=== PATIENT | female | born 1945 | race Caucasian/White ===

== ENCOUNTER 2020-03-23 13:14 | Inpatient (IN) | payer MEDICARE, BC ==
[2020-03-23] MEDS ORDERED: VANCOMYCIN IV PER PHARMACY 1 EACH MISC MISCELLANE PRN (13:47)
[2020-03-23] MEDS ORDERED: VANCOMYCIN 1,500 MG in SODIUM CHLORIDE 0.9% 250 ML IVPB STA (13:49)
[2020-03-23] MEDS ORDERED: LEVOFLOXACIN 750MG-D5W PMX 750 MG in DEXTROSE/WATER 1 150ML.BAG IVPB STA (13:49)
--- NOTE | 2020-03-23 13:54 | ED ---
General Adult HPI - General Chief complaint: Extremity Problem,Nontraumatic Stated complaint: SOB, bilat leg swelling Time Seen by Provider: 03/23/20 13:34 Source: patient, RN/MD, RN notes reviewed Mode of arrival: wheelchair Limitations: no limitations - History of Present Illness Initial comments: Patient is a pleasant 74-year-old female presenting to the emergency department from primary care physician office. Patient does have history of bilateral leg infection that has worsened over days to weeks. Patient does have history of similar symptoms previously. Patient recommended she come in for IV antibiotics. Patient does complain of discomfort of her lower extremities. Patient denies any dyspnea despite not having her nebulizer machine working for the past couple of days. No fevers. - Related Data Home Medications Medication Instructions Recorded Confirmed Acetaminophen [Tylenol Arthritis] 650 mg PO BID PRN 09/20/15 09/22/15 Aspirin 325 mg PO DAILY 09/20/15 09/22/15 Calcium Carb-Vit D 500Mg-200Un 2 each PO DAILY 09/20/15 09/22/15 [Oscal 500+D] Clopidogrel [Plavix] 75 mg PO DAILY 09/20/15 09/22/15 Cyanocobalamin (Vitamin B-12) 100 mcg PO DAILY 09/20/15 09/22/15 [Vitamin B12] Echinacea(Unk Dose) 1 tab PO DAILY 09/20/15 09/22/15 Furosemide [Lasix] 40 mg PO DAILY 09/20/15 09/22/15 Gabapentin [Neurontin] 100 mg PO BID 09/20/15 09/22/15 Gelatin 650 mg PO DAILY 09/20/15 09/22/15 Ginkgo Biloba Hawkeye Extract [Ginkgo] 60 mg PO DAILY 09/20/15 09/22/15 Glucosam/Randall-Msm1/C/Manjit/Bosw 1 each PO DAILY 09/20/15 09/22/15 [Glucosamine-Chondroitin Tablet] Lecithin, Soy [Lecithin] 400 mg PO DAILY 09/20/15 09/22/15 Lisinopril [Prinivil] 10 mg PO HS 09/20/15 09/22/15 Lovastatin [Mevacor] 40 mg PO HS 09/20/15 09/22/15 Magnesium Oxide [Mag-Ox] 250 mg PO DAILY 09/20/15 09/22/15 Multivit-Min/FA/Lycopen/Lutein 1 each PO DAILY 09/20/15 09/22/15 [Centrum Silver Tablet] Psyllium Husk (with Sugar) 6 gm PO DAILY PRN 09/20/15 09/22/15 [Metamucil Powder] Ubidecarenone [Co Q-10] 400 mg PO DAILY 09/20/15 09/22/15 Vitamin E 1,000 unit PO DAILY 09/20/15 09/22/15 cilostazoL [Pletal] 100 mg PO BID 09/20/15 09/22/15 hydroCHLOROthiazide [Hydrodiuril] 25 mg PO DAILY 09/20/15 09/22/15 traMADol HCl [Ultram] 50 mg PO TID PRN 09/20/15 09/22/15 Allergies Allergy/AdvReac Type Severity Reaction Status Date / Time Penicillins Allergy Swelling Verified 03/23/20 13:28 hydrocodone bitartrate AdvReac Nausea & Verified 03/23/20 13:28 [From Vicodin] Vomiting sulfamethoxazole AdvReac Nausea & Verified 03/23/20 13:28 Vomiting Review of Systems ROS Statement: Those systems with pertinent positive or pertinent negative responses have been documented in the HPI. ROS Other: All systems not noted in ROS Statement are negative. Constitutional: Denies: fever Eyes: Denies: eye pain ENT: Denies: ear pain Respiratory: Denies: cough Cardiovascular: Denies: chest pain Endocrine: Denies: fatigue Gastrointestinal: Denies: abdominal pain Genitourinary: Denies: dysuria Musculoskeletal: Denies: back pain Skin: Reports: as per HPI, rash Past Medical History Past Medical History: Diabetes Mellitus, Hypertension, Myocardial Infarction ([place]), Vascular Disorder Additional Past Medical History / Comment(s): anemia,SOB,irreg HR,bronchitis 16/09-07-15,crys leg and feet edema,hx of bleeding ulcer around age 32 Last Myocardial Infarction Date:: unk History of Any Multi-Drug Resistant Organisms: None Reported Past Surgical History: Hysterectomy, Joint Replacement, Orthopedic Surgery Additional Past Surgical History / Comment(s): rtfem-pop bypass,3or4 stents lt leg,crys knee replace,lt shoulder repair Past Anesthesia/Blood Transfusion Reactions: Postoperative Nausea & Vomiting (PONV) Additional Past Anesthesia/Blood Transfusion Reaction / Comment(s): no problems with prior blood transfusions Past Alcohol Use History: Rare Past Drug Use History: None Reported - Past Family History Mother Family Medical History: Diabetes Mellitus Additional Family Medical History / Comment(s): heart problems Father Additional Family Medical History / Comment(s): heart problems Sister(s) Family Medical History: Diabetes Mellitus Additional Family Medical History / Comment(s): heart problems Brother(s) Family Medical History: Cancer General Exam Limitations: no limitations General appearance: alert, in no apparent distress Head exam: Present: normocephalic Eye exam: Present: normal appearance Neck exam: Present: normal inspection Respiratory exam: Present: normal lung sounds bilaterally Cardiovascular Exam: Present: regular rate, normal rhythm Extremities exam: Present: pedal edema (Trace bilateral) Neurological exam: Present: alert Psychiatric exam: Present: normal affect, normal mood Skin exam: Present: erythema, other (Bilateral lower extremity erythema. There are 2 stage II ulcers right lower leg.) Course Vital Signs 03/23/20 13:25 Temperature 98 F Pulse Rate 97 Respiratory 18 Rate Blood Pressure 122/71 O2 Sat by Pulse 97 Oximetry - Reevaluation(s) Reevaluation #1: 03/23/20 15:26 Case was earlier discussed with Dr. Mcmahan who did want patient admitted with vascular consult and ankle-brachial indexes as well as vancomycin and other antibiotic. Medical Decision Making - Lab Data Result diagrams: 03/23/20 14:04 Lab Results 03/23/20 Range/Units 14:04 WBC 7.1 (3.8-10.6) k/uL RBC 4.28 (3.80-5.40) m/uL Hgb 12.7 (11.4-16.0) gm/dL Hct 40.1 (34.0-46.0) % MCV 93.6 (80.0-100.0) fL MCH 29.7 (25.0-35.0) pg MCHC 31.8 (31.0-37.0) g/dL RDW 16.0 H (11.5-15.5) % Plt Count 215 (150-450) k/uL Neutrophils % 85 % Lymphocytes % 10 % Monocytes % 3 % Eosinophils % 0 % Basophils % 0 % Neutrophils # 6.0 (1.3-7.7) k/uL Lymphocytes # 0.7 L (1.0-4.8) k/uL Monocytes # 0.2 (0-1.0) k/uL Eosinophils # 0.0 (0-0.7) k/uL Basophils # 0.0 (0-0.2) k/uL Hypochromasia Slight Anisocytosis Slight Disposition Clinical Impression: Cellulitis Disposition: ADMITTED IP TO THIS HOSP Is patient prescribed a controlled substance at d/c from ED?: No Referrals: Saul Mcmahan MD [Primary Care Provider] - 1-2 days Decision Time: 15:26
[2020-03-23 15:26] LABS: Anisocytosis Slight; Basophils % (A) 0 %; Eosinophils % (A) 0 %; HCT 40.1 % (34.0-46.0); HGB 12.7 gm/dL (11.4-16.0); Hypochromasia Slight; Lymphocytes # (A) 0.7 k/uL (1.0-4.8); Lymphocytes % (A) 10 %; MCH 29.7 pg (25.0-35.0); MCHC 31.8 g/dL (31.0-37.0); MCV 93.6 fL (80.0-100.0); Mean Platelet Volume 7.3; Monocytes # (A) 0.2 k/uL (0-1.0); Monocytes % (A) 3 %; Neutrophils % (A) 85 %; Platelet Count 215 k/uL (150-450); RBC 4.28 m/uL (3.80-5.40); WBC 7.1 k/uL (3.8-10.6)
[2020-03-23] MEDS ORDERED: NALOXONE 0.4 MG/ML 1 ML VIAL IV PRN (15:26)
[2020-03-23 15:37] LABS: ALT 22 U/L (4-34); AST 28 U/L (14-36); African American GFR (CKD) >90 (>60 ml/min/1.73 sqM); Albumin 3.4 g/dL (3.5-5.0); Alkaline Phosphatase 66 U/L (38-126); Anion Gap 9 mmol/L; Blood Urea Nitrogen 18 mg/dL (7-17); Calcium 8.6 mg/dL (8.4-10.2); Carbon Dioxide 29 mmol/L (22-30); Chloride 94 mmol/L (98-107); Glucose 184 mg/dL (74-99); Non-African American GFR(CKD) 88 (>60 ml/min/1.73 sqM); Potassium 3.7 mmol/L (3.5-5.1); Sodium 132 mmol/L (137-145); Total Bilirubin 0.8 mg/dL (0.2-1.3); Total Protein 6.5 g/dL (6.3-8.2)
[2020-03-23 15:39] LABS: INR 3.3 (<1.2); Partial Thromboplastin Time 31.1 sec (22.0-30.0); Prothrombin Time 32.2 sec (9.0-12.0)
--- NOTE | 2020-03-23 16:28 | US ---
EXAMINATION TYPE: US venous doppler duplex LE DATE OF EXAM: 03/23/2020 3:28 PM COMPARISON: NONE CLINICAL HISTORY: pain, swelling. SIDE PERFORMED: Bilateral TECHNIQUE: The lower extremity deep venous system is examined utilizing real time linear array sonog jose with graded compression, doppler sonography and color-flow sonography. VESSELS IMAGED: External Iliac Vein (EIV) Common Femoral Vein Deep Femoral Vein Greater Saphenous Vein * Femoral Vein Popliteal Vein Small Saphenous Vein * Proximal Calf Veins (* superficial vessels) Right Leg: Negative for DVT. Normal flow, compressibility, and vascular waveforms. Left Leg: Negative for DVT. Normal flow, compressibility, and vascular waveforms. IMPRESSION: No DVT of the bilateral lower extremities.
--- NOTE | 2020-03-23 16:35 | XR ---
EXAMINATION TYPE: XR chest 2V DATE OF EXAM: 03/23/2020 COMPARISON: 01/30/2012 HISTORY: 74-year-old female shortness of breath, dyspnea TECHNIQUE: AP and lateral views FINDINGS: Heart mild to moderately enlarged. Assess for recurrent calcifications. Suspect some dense mitral luzma ular calcifications. Diffuse interstitial density is increased. Patchy posterior basilar opacity. No pleural effusion. IMPRESSION: New cardiomegaly and diffuse interstitial densities. Differential considerations for the interstitial changes include mild CHF with pulmonary vascular congestion and atypical pneumonias. Clinically andres elate.
[2020-03-23] MEDS ORDERED: TRIAMCINOLONE ACET 0.5% CREAM 15 GM TUBE TOPICAL PRN (17:16)
[2020-03-23] MEDS ORDERED: WARFARIN 2 MG TAB PO SCH (18:00)
[2020-03-23] MEDS ORDERED: WARFARIN 0.5 MG TAB PO ONE (19:00)
[2020-03-23] MEDS: SODIUM CHLORIDE 0.9% 1,000 ML IV SCH (19:52)
[2020-03-23] MEDS: methylPREDNISolone SOD SUCCI 40 MG/ML 1 ML VIAL IV SCH (19:53)
[2020-03-23] MEDS: traMADol 50 MG TAB PO PRN (19:59)
[2020-03-23 20:31] LABS: Glucose,Whole Blood 122 mg/dL (75-99)
[2020-03-23] MEDS: hydroCHLOROthiazide 25 MG TAB PO SCH (20:47)
[2020-03-23] MEDS: lisinopriL 10 MG TAB PO SCH (20:47)
[2020-03-23] MEDS: ATORVASTATIN 10 MG TAB PO SCH (20:47)
[2020-03-23] MEDS: GABAPENTIN 100 MG CAP PO SCH (20:47)
--- NOTE | 2020-03-23 22:11 | P.HPIM ---
History of Present Illness H&P Date: 03/23/20 Chief Complaint: Severe nonhealing sore lites of the lower extremity with severe PAD, positi 74-year-old mildly overweight female with advance COPD, CAD, A. fib, type 2 diabetes, moderate PAD has been on medical management. Patient has been treated for Celexa the lower extremity for the last 2 month with failure to treatment become much worse today with worsening pain and swelling and discomfort along with ulcerated area on the cath site on the right along with another ulcer in the medial aspect of the leg below the knee left side had similar finding with smaller ulcer of the time with significant redness going between 2 inches from the knee all the way to the ankle area. Patient is sent to the emergency department Doppler will be done to rule out DVT patient be seen infectious disease culture from those spot to be done and start patient on 1 g of Vanco along with Levaquin. Patient has some any comorbidity with try to involve vascular and the wound center patient will require most likely total of 6 weeks management for those ulcer that's with assumption of her circulation is normal. Patient has not smoked for the last 3 month will continue nicotine patch to help her out at this point. Review of Systems CONSTITUTIONAL: Well-developed mild respiratory distress EYES: No icterus sclerae, no conjunctivitis. EARS, NOSE, MOUTH, THROAT, and FACE: No sore throat, lymphadenopathy, carotid bruits or deformity. RESPIRATORY: Positive shortness of breath cough wheezes.. CARDIOVASCULAR: No CP, positive Palpitation with PND, and orthopnea Orthopnea, without angina. GASTROINTESTINAL: No Abd pain, Nausea or vomiting, no Diarrhea or constipation, No GI Bleed, no distention or masses. GENITOURINARY: Negative for Hematuria or UTI, no kidney stones. Recurrent UTI with decrease urine output. INTEGUMENT/BREAST: Negative for any muscular injury with mild osteoarthritis.. Generalized muscle pain. HEMATOLOGIC/LYMPHATIC: Negative for bleed or purpura. MUSCULOSKELTAL: Negative for Myalgia or arthralgia. Significant swelling and discoloration of both knees worse on the right side and the left side with ulcerated area in the calf area and medial aspect of the left leg and smaller ulcer on the medial aspect of the left side. NEURLOGICAL: No LOC, Sz or syncope, blurred vision dizziness or abnormality.. BEHAVIORAL/PSYCH: Negative. ENDOCRINE: Negative. Past Medical History Past Medical History: Diabetes Mellitus, Hypertension, Myocardial Infarction ([place]), Vascular Disorder Additional Past Medical History / Comment(s): anemia,SOB,irreg HR,bronchitis 16/09-07-15,crys leg and feet edema,hx of bleeding ulcer around age 32 Last Myocardial Infarction Date:: unk History of Any Multi-Drug Resistant Organisms: None Reported Past Surgical History: Hysterectomy, Joint Replacement, Orthopedic Surgery Additional Past Surgical History / Comment(s): rtfem-pop bypass,3or4 stents lt leg,crys knee replace,lt shoulder repair Past Anesthesia/Blood Transfusion Reactions: Postoperative Nausea & Vomiting (PONV) Additional Past Anesthesia/Blood Transfusion Reaction / Comment(s): no problems with prior blood transfusions Past Alcohol Use History: Rare Past Drug Use History: None Reported - Past Family History Mother Family Medical History: Diabetes Mellitus Additional Family Medical History / Comment(s): heart problems Father Additional Family Medical History / Comment(s): heart problems Sister(s) Family Medical History: Diabetes Mellitus Additional Family Medical History / Comment(s): heart problems Brother(s) Family Medical History: Cancer Medications and Allergies Home Medications Medication Instructions Recorded Confirmed Type Gabapentin [Neurontin] 200 mg PO BID 09/20/15 03/23/20 History Lisinopril [Prinivil] 10 mg PO HS 09/20/15 03/23/20 History Lovastatin [Mevacor] 40 mg PO HS 09/20/15 03/23/20 History Multivit-Min/FA/Lycopen/Lutein 1 each PO DAILY 09/20/15 03/23/20 History [Centrum Silver Tablet] hydroCHLOROthiazide [Hydrodiuril] 25 mg PO HS 09/20/15 03/23/20 History traMADol HCl [Ultram] 50 mg PO TID PRN 09/20/15 03/23/20 History Doxycycline Hyclate 100 mg PO BID 03/23/20 03/23/20 History Furosemide [Lasix] 80 mg PO QAM 03/23/20 03/23/20 History Pantoprazole [Protonix] 40 mg PO DAILY 03/23/20 03/23/20 History Triamcinolone 0.5% Cream [Kenalog 1 applic TOPICAL DAILY PRN 03/23/20 03/23/20 History 0.5% Cream] Warfarin Sodium [Jantoven] 2.5 mg PO SUTUTHSA 03/23/20 03/23/20 History Warfarin Sodium [Jantoven] 3.75 mg PO WE 03/23/20 03/23/20 History Warfarin Sodium [Jantoven] 5 mg PO MOFR 03/23/20 03/23/20 History predniSONE See Taper PO DIRECTED 03/23/20 03/23/20 History Allergies Allergy/AdvReac Type Severity Reaction Status Date / Time Penicillins Allergy Swelling Verified 03/23/20 16:22 hydrocodone bitartrate AdvReac Nausea & Verified 03/23/20 16:22 [From Vicodin] Vomiting sulfamethoxazole AdvReac Nausea & Verified 03/23/20 16:22 Vomiting Physical Exam Vitals: Vital Signs Temp Pulse Resp BP Pulse Ox 03/23/20 15:59 60 12 104/67 99 03/23/20 13:25 98 F 97 18 122/71 97 Intake and Output 03/23/20 03/23/20 03/23/20 06:59 14:59 22:59 Other: Weight 78.018 kg General Appearance: Alert, cooperative, no distress, appears stated age. Neck HEENT: Supple, no lymphadenopathy, no thyroid enlargement, no carotid bruits. Lungs: Decreased breath some bilateral rhonchi plasma but spread wheezes. Chest Wall: Decrease expansion with deep inspiration no tenderness and no deform ity was found on exam, no costochondral pain or discomfort. Heart: Irregular rate and rhythm, S1, S2 positive S3 with systolic murmur. Back: Symmetric, no curvature, ROM normal, no CVA tenderness. Abdomen: Soft, non-tender, bowel sounds active all four quadrants, no masses, no organomegaly. Extremities: Significant discoloration cellulitis of the lower extremity from the knee down with multiple ulcer on the right than the left side not able to feel the pulse bilaterally with slight decrease in temperature both lower extremity from the knee down. Pulses: 2+ and symmetric. Skin: Skin color, texture, tugor normal, no rashes or lesions. Neurologic: Alert oriented x3 cranial nerves II through XII intact, no motor deficit, no abnormal balance or gait. Results CBC & Chem 7: 03/23/20 14:04 03/23/20 14:04 Labs: Abnormal Lab Results - Last 24 Hours (Table) 1003/23/20 03/23/20 Range/Units 14:04 14:04 14:04 RDW 16.0 H (11.5-15.5) % Lymphocytes # 0.7 L (1.0-4.8) k/uL PT 32.2 H (9.0-12.0) sec INR 3.3 H (<1.2) APTT 31.1 H (22.0-30.0) sec Sodium 132 L (137-145) mmol/L Chloride 94 L (98-107) mmol/L BUN 18 H (7-17) mg/dL Glucose 184 H (74-99) mg/dL Albumin 3.4 L (3.5-5.0) g/dL Assessment and Plan Assessment: 1 severe acute cellulitis of the lower extremity worsening lately with failure to outpatient management: Patient was giving 1 g of Vanco continue Levaquin 750 mg daily infectious disease consultation be done and culture be done as well. 2 severe PAD not able to feel pulse with significant sign and symptom of severe PAD with ulcer not healing in the right leg compared to the left side, patient will require brachial ankle index along with seen vascular and see if the me dicine need for an angiogram for further diagnosis. 3 nonhealing ulcer of the lower extremity will continue antibiotics topical care for now. 4 advance COPD with worsening symptoms lately: Continue patient on Solu-Medrol along with inhaler and nebulizer and titrate O2. 5 chronic diastolic congestive heart failure: Remain on Lasix lisinopril and hydrocodone diarrhea. 6 type 2 diabetes: Remain on insulin with Accu-Chek sliding scales coverage will hold oral meds for now. 7 hypertension: Remain well controlled on Dyazide lisinopril and metoprolol. 8 possible GI bleed with black stool continue pantoprazole IV we'll consult GI workup patient was stable might require to have EGD. 9 chronic neuropathy: Remain on gabapentin. 10 chronic pain syndrome: Patient still try to manage it came gabapentin Tylenol and tramadol. 11 recurrent UTI: Been treated lately. 12 GI prophylaxis: On pantoprazole 40 mg daily. 13 A. fib with RVR: Remain on warfarin with INR is therapeutic. 14 GI prophylaxis: Continue patient on pantoprazole. 15 DVT prophylaxis: Remain on warfarin. 16 nicotine dependency: Patient will be on nicotine patch 14 mg daily. CODE STATUS: Full code. Admit patient to the inpatient service for more than 2 night stay.
[2020-03-24] MEDS: methylPREDNISolone SOD SUCCI 40 MG/ML 1 ML VIAL IV SCH ×4 (02:07→21:04)
[2020-03-24] MEDS: VANCOMYCIN 1,500 MG in SODIUM CHLORIDE 0.9% 250 ML IVPB SCH ×2 (05:35→18:00)
[2020-03-24 07:06] LABS: Glucose,Whole Blood 206 mg/dL (75-99)
[2020-03-24] MEDS: GABAPENTIN 100 MG CAP PO SCH ×2 (08:12→21:04)
[2020-03-24] MEDS: FUROSEMIDE 80 MG TAB PO SCH (08:12)
[2020-03-24] MEDS: INSULIN ASPART (NovoLOG) 100 UNIT/ML VIAL SQ SCH ×4 (08:12→21:56)
[2020-03-24] MEDS: PANTOPRAZOLE 40 MG TABLET PO SCH (08:12)
[2020-03-24] MEDS: MULTIVITAMINS, THERA 1 EACH TAB PO SCH (08:12)
[2020-03-24] MEDS: traMADol 50 MG TAB PO PRN (08:21)
[2020-03-24 09:32] LABS: INR 2.33 (0.90-1.11); Prothrombin Time 24.1 sec (9.9-11.9)
--- NOTE | 2020-03-24 11:25 | P.PN ---
Subjective Progress Note Date: 03/24/20 HISTSORY OF PRESENT ILLNESS 74-year-old mildly overweight female with advance COPD, CAD, A. fib, type 2 diabetes, moderate PAD has been on medical management. Patient has been treated for Celexa the lower extremity for the last 2 month with failure to treatment become much worse today with worsening pain and swelling and discomfort along with ulcerated area on the cath site on the right along with another ulcer in the medial aspect of the leg below the knee left side had similar finding with smaller ulcer of the time with significant redness going between 2 inches from the knee all the way to the ankle area. Patient is sent to the emergency department Doppler will be done to rule out DVT patient be seen infectious disease culture from those spot to be done and start patient on 1 g of Vanco along with Levaquin. 03/24: The patient states that she slept well last night. There is a consult and for vascular surgery. Her breathing status is improved and stable. Lung sounds are improved today. We will decrease Solu-Medrol to 40 mg every 12 hours. Her baseline is taking prednisone 10 mg daily. Wound consult will be added with plan for patient to follow-up in the wound Center after discharge. Repeat INR 2.33. NovoLog scale started. REVEIW OF SYSTEMS CONSTITUTIONAL: Well-developed no respiratory distress EYES: No icterus sclerae, no conjunctivitis. EARS, NOSE, MOUTH, THROAT, and FACE: No sore throat, lymphadenopathy, carotid bruits or deformity. RESPIRATORY: Positive shortness of breath cough wheezes-improving. CARDIOVASCULAR: No CP, positive Palpitation with PND, and orthopnea without angina. GASTROINTESTINAL: No Abd pain, Nausea or vomiting, no Diarrhea or constipation, No GI Bleed, no distention or masses. GENITOURINARY: Negative for Hematuria or UTI, no kidney stones. Recurrent UTI with decrease urine output. INTEGUMENT/BREAST: Negative for any muscular injury with mild osteoarthritis.. Generalized muscle pain. HEMATOLOGIC/LYMPHATIC: Negative for bleed or purpura. MUSCULOSKELTAL: Negative for Myalgia or arthralgia. Significant swelling and discoloration of both knees worse on the right side and the left side with ulcerated area in the calf area and medial aspect of the left leg and smaller ulcer on the medial aspect of the left side. NEURLOGICAL: No LOC, Sz or syncope, blurred vision dizziness or abnormality.. BEHAVIORAL/PSYCH: Negative. ENDOCRINE: Negative. PHYSICAL EXAMINATION General Appearance: Alert, cooperative, no distress, appears stated age. Neck HEENT: Supple, no lymphadenopathy, no thyroid enlargement, no carotid bruits. Lungs: Decreased breath some bilateral rhonchi plasma but spread wheezes. Chest Wall: Decrease expansion with deep inspiration no tenderness and no deformity was found on exam, no costochondral pain or discomfort. Heart: Irregular rate and rhythm, S1, S2 positive S3 with systolic murmur. Back: Symmetric, no curvature, ROM normal, no CVA tenderness. Abdomen: Soft, non-tender, bowel sounds active all four quadrants, no masses, no organomegaly. Extremities: Significant discoloration cellulitis of the lower extremity from the knee down with multiple ulcer on the right than the left side not able to feel the pulse bilaterally with slight decrease in temperature both lower extremity from the knee down. Pulses: 2+ and symmetric. Skin: Skin color, texture, tugor normal, no rashes or lesions. Neurologic: Alert oriented x3 cranial nerves II through XII intact, no motor deficit, no abnormal balance or gait. ASSESSMENT AND PLAN 1 severe acute cellulitis of the lower extremity worsening lately with failure to outpatient management: Patient was giving 1 g of Vanco continue Levaquin changed to Rocephin. Vascular consult. 2 severe PAD not able to feel pulse with significant sign and symptom of severe PAD with ulcer not healing in the right leg compared to the left side, patient will require brachial ankle index along with seen vascular and see if the medicine need for an angiogram for further diagnosis. 3 nonhealing ulcer of the lower extremity will continue antibiotics topical care for now. Wound Center consult. 4 advance COPD with exacerbation Decrease Solu-Medrol to 40 mg IV every 12 hours and continue with inhaler and nebulizer and titrate O2. 5 chronic diastolic heart failure: Remain on Lasix lisinopril and hydrocodone diarrhea. 6 type 2 diabetes: Remain on insulin with Accu-Chek sliding scales coverage will hold oral meds for now. 7 hypertension: Remain well controlled on Dyazide lisinopril and metoprolol. 8 possible GI bleed with black stool. Hemoglobin is stable. Repeat hemoglobin in the morning, stool for occult blood. Protonix daily. 9 chronic neuropathy: Remain on gabapentin. 10 chronic pain syndrome: Patient still try to manage it came gabapentin Tylenol and tramadol. 11 recurrent UTI: Been treated lately. 12 GI prophylaxis: On pantoprazole 40 mg daily. 13 chronic atrial fibrillation. Remain on warfarin with INR is therapeutic. 14 GI prophylaxis: Continue patient on pantoprazole. 15 DVT prophylaxis: Remain on warfarin. 16 nicotine dependency: Patient will be on nicotine patch 14 mg daily. Patient quit smoking 2 months ago. 17 chronic hypoxic respiratory failure on home O2 at 2 L nasal cannula. CODE STATUS: Full code. DISCHARGE PLAN To be determined. Most likely return home. Impression and plan of care have been directed as dictated by the signing physician. Maida Johnson nurse practitioner acting as scribe for signing physician. Objective - Vital Signs Vital signs: Vital Signs Temp 97.8 F 03/24/20 05:00 Pulse 85 03/24/20 05:00 Resp 16 03/24/20 05:00 BP 114/73 03/24/20 05:00 Pulse Ox 100 03/24/20 05:00 Intake & Output 03/23/20 03/24/20 03/24/20 18:59 06:59 18:59 Intake Total 1380 Balance 1380 Weight 78.018 kg 79.5 kg Intake: Intake, IV Titration 490 Amount Sodium Chloride 0.9% 1, 240 000 ml @ 20 mls/hr IV . Q24H [facility] Rx#:[id number] Vancomycin 1,500 mg In 250 Sodium Chloride 0.9% 250 ml @ 125 mls/hr IVPB Q12H [facility] Rx#:[id number] Oral 890 Other: Voiding Method Toilet # Voids 2 - Labs CBC & Chem 7: 03/23/20 14:04 03/23/20 14:04 Labs: Abnormal Lab Results - Last 24 Hours (Table) 03/23/20 03/23/20 03/23/20 Range/Units 14:04 14:04 14:04 RDW 16.0 H (11.5-15.5) % Lymphocytes # 0.7 L (1.0-4.8) k/uL PT 32.2 H (9.0-12.0) sec INR 3.3 H (<1.2) APTT 31.1 H (22.0-30.0) sec Sodium 132 L (137-145) mmol/L Chloride 94 L (98-107) mmol/L BUN 18 H (7-17) mg/dL Glucose 184 H (74-99) mg/dL POC Glucose (mg/dL) (75-99) mg/dL Albumin 3.4 L (3.5-5.0) g/dL 03/23/20 03/24/20 Range/Units 20:28 07:04 RDW (11.5-15.5) % Lymphocytes # (1.0-4.8) k/uL PT (9.0-12.0) sec INR (<1.2) APTT (22.0-30.0) sec Sodium (137-145) mmol/L Chloride (98-107) mmol/L BUN (7-17) mg/dL Glucose (74-99) mg/dL POC Glucose (mg/dL) 122 H 206 H (75-99) mg/dL Albumin (3.5-5.0) g/dL Microbiology - Last 24 Hours (Table) 03/23/20 14:04 Wound Culture - Preliminary Leg - Right
--- NOTE | 2020-03-24 11:33 | P.CONS ---
History of Present Illness - Reason for Consult Consult date: 03/24/20 wound care - History of Present Illness this is a 74-year-old pleasant female being seen by the wound care center on for nonhealing ulcerations to the right lower extremity. Patient stated that the ulceration started approximately 2 weeks ago. She has increased pain and discomfort specifically to the 2 medial ulcerations. She was seen by her primary care provider who is Dr. Mcmahan who prescribed a cream that she was unsure of the name. matthew has medical history significant for diabetes, hypertension, or cardiac infarction, vascular disorder. Had previously a right fem-pop bypass in 3-4 stents to the left leg. Patient is a former smoker. Review of Systems Review Of Systems: Constitutional: No fever, no chills, no night sweats. No weight change. No weakness, fatigue or lethargy. No daytime sleepiness. Integumentary:reports wounds, no lesions. No rash or pruritus. No unusual bruising. No change in hair or nails. Past Medical History Past Medical History: Diabetes Mellitus, Hypertension, Myocardial Infarction ([place]), Vascular Disorder Additional Past Medical History / Comment(s): anemia,SOB,irreg HR,bronchitis 09-06-15/09-07-15,crys leg and feet edema,hx of bleeding ulcer around age 32 Last Myocardial Infarction Date:: unk History of Any Multi-Drug Resistant Organisms: None Reported Past Surgical History: Hysterectomy, Joint Replacement, Orthopedic Surgery Additional Past Surgical History / Comment(s): rtfem-pop bypass,3or4 stents lt leg,crys knee replace,lt shoulder repair Past Anesthesia/Blood Transfusion Reactions: Postoperative Nausea & Vomiting (PONV) Additional Past Anesthesia/Blood Transfusion Reaction / Comm: no problems with prior blood transfusions Past Alcohol Use History: Rare Past Drug Use History: None Reported - Past Family History Mother Family Medical History: Diabetes Mellitus Additional Family Medical History / Comment(s): heart problems Father Additional Family Medical History / Comment(s): heart problems Sister(s) Family Medical History: Diabetes Mellitus Additional Family Medical History / Comment(s): heart problems Brother(s) Family Medical History: Cancer Medications and Allergies Home Medications Medication Instructions Recorded Confirmed Type Gabapentin [Neurontin] 200 mg PO BID 09/20/15 03/23/20 History Lisinopril [Prinivil] 10 mg PO HS 09/20/15 03/23/20 History Lovastatin [Mevacor] 40 mg PO HS 09/20/15 03/23/20 History Multivit-Min/FA/Lycopen/Lutein 1 each PO DAILY 09/20/15 03/23/20 History [Centrum Silver Tablet] hydroCHLOROthiazide [Hydrodiuril] 25 mg PO HS 09/20/15 03/23/20 History traMADol HCl [Ultram] 50 mg PO TID PRN 09/20/15 03/23/20 History Doxycycline Hyclate 100 mg PO BID 03/23/20 03/23/20 History Furosemide [Lasix] 80 mg PO QAM 03/23/20 03/23/20 History Pantoprazole [Protonix] 40 mg PO DAILY 03/23/20 03/23/20 History Triamcinolone 0.5% Cream [Kenalog 1 applic TOPICAL DAILY PRN 03/23/20 03/23/20 History 0.5% Cream] Warfarin Sodium [Jantoven] 2.5 mg PO SUTUTHSA 03/23/20 03/23/20 History Warfarin Sodium [Jantoven] 3.75 mg PO WE 03/23/20 03/23/20 History Warfarin Sodium [Jantoven] 5 mg PO MOFR 03/23/20 03/23/20 History predniSONE See Taper PO DIRECTED 03/23/20 03/23/20 History Allergies Allergy/AdvReac Type Severity Reaction Status Date / Time Penicillins Allergy Swelling Verified 03/23/20 16:22 hydrocodone bitartrate AdvReac Nausea & Verified 03/23/20 16:22 [From Vicodin] Vomiting sulfamethoxazole AdvReac Nausea & Verified 03/23/20 16:22 Vomiting Physical Exam Vitals: Vital Signs Temp Pulse Pulse Resp BP BP Pulse Ox 03/24/20 05:00 97.8 F 85 16 114/73 100 03/23/20 20:00 97.5 F L 85 18 130/79 98 03/23/20 15:59 60 12 104/67 99 03/23/20 13:25 98 F 97 18 122/71 97 Intake and Output 03/23/20 03/24/20 03/24/20 22:59 06:59 14:59 Intake Total 380 1000 Balance 380 1000 Intake: Intake, IV Titration 80 410 Amount Sodium Chloride 0.9% 1, 80 160 000 ml @ 20 mls/hr IV . Q24H [facility] Rx#:[id number] Vancomycin 1,500 mg In 250 Sodium Chloride 0.9% 250 ml @ 125 mls/hr IVPB Q12H [facility] Rx#:[id number] Oral 300 590 Other: Voiding Method Toilet # Voids 3 2 2 Weight 80 kg 79.5 kg Physical exam: General Appearance: Alert, cooperative, no distress, appears stated age. Skin: ight lower extremity medial aspect cluster of 2 full thickness nonhealing ulceration appears venous in nature. Ulceration measures approximately by 3.5 x 0.2 cm, 2.2 x 3.2 x 0.2 cm. With fat layer exposure. Minimal granulation seen within the wound bed. Wound edges attached to the wound base. Significant amount of slough noted to the wound bed. Erythema and excoriation noted to the periwound. Moderate amount of serous drainage. Right anterior leg ulceration measuring 0.7 x 0.5 x 0.1 cm with fat layer exposure minimal granulation seen within wound bed. Wound edges attached to the wound base. No tunneling or undermining. moderate amount of slough noted. Periwound shows excoriation and erythema.all other Skin color, texture, tugor normal, no rashes or lesions. Extremities: Right lower extremity 1+ pedal pulse Neurologic: Alert oriented x3 Results CBC & Chem 7: 03/23/20 14:04 03/23/20 14:04 Labs: Abnormal Lab Results - Last 24 Hours (Table) 03/23/20 03/23/20 03/23/20 Range/Units 14:04 14:04 14:04 RDW 16.0 H (11.5-15.5) % Lymphocytes # 0.7 L (1.0-4.8) k/uL PT 32.2 H (9.0-12.0) sec INR 3.3 H (<1.2) APTT 31.1 H (22.0-30.0) sec Sodium 132 L (137-145) mmol/L Chloride 94 L (98-107) mmol/L BUN 18 H (7-17) mg/dL Glucose 184 H (74-99) mg/dL POC Glucose (mg/dL) (75-99) mg/dL Albumin 3.4 L (3.5-5.0) g/dL 03/23/20 03/24/20 03/24/20 Range/Units 20:28 06:02 07:04 RDW (11.5-15.5) % Lymphocytes # (1.0-4.8) k/uL PT 24.1 H (9.0-12.0) sec INR 2.33 H (<1.2) APTT (22.0-30.0) sec Sodium (137-145) mmol/L Chloride (98-107) mmol/L BUN (7-17) mg/dL Glucose (74-99) mg/dL POC Glucose (mg/dL) 122 H 206 H (75-99) mg/dL Albumin (3.5-5.0) g/dL Microbiology - Last 24 Hours (Table) 03/23/20 14:04 Gram Stain - Preliminary Leg - Right Wound Culture - Preliminary Assessment and Plan (1) Nonhealing ulcer of right lower extremity with fat layer exposed Current Visit: Yes Status: Acute Code(s): L97.912 - NON-PRS CHR ULC UNSP PRT OF R LOW LEG W FAT LAYER EXPOSED SNOMED Code(s): 51969459 (2) Chronic venous hypertension w/ulcer and inflammation involv right side Current Visit: Yes Status: Acute Code(s): I87.331 - CHRONIC VENOUS HTN W ULCER AND INFLAMMATION OF R LOW EXTREM; L97.919 - NON-PRS CHRONIC ULC UNSP PRT OF R LOW LEG W UNSP SEVERITY SNOMED Code(s): 983337730 (3) Diabetes mellitus with skin ulcer Current Visit: Yes Status: Acute Code(s): E11.622 - TYPE 2 DIABETES MELLITUS WITH OTHER SKIN ULCER; L98.499 - NON-PRESSURE CHRONIC ULCER OF SKIN OF SITES W UNSP SEVERITY SNOMED Code(s): 40235428 Plan: apply honey alginate, saline moistened gauze, dry gauze, rolled gauze secured paper tape. change Friday. Patient may benefit from home care seen and dressing changes. Patient would benefit from outpatient wound care which she is agreeable to. Please call wound care center for appointment one week from discharge. thank you kindly for the consultation any questions please contact the wound care center DNP note has been reviewed and discussed with Dr. Jade and the impression and plan of care has been directed as dictated.
[2020-03-24 11:54] LABS: Glucose,Whole Blood 175 mg/dL (75-99)
[2020-03-24] MEDS: NICOTINE 14MG/24HR PATCH TRANSDERM SCH (12:35)
[2020-03-24] MEDS ORDERED: ONDANSETRON 4 MG/2 ML VIAL IVP PRN (12:54)
[2020-03-24] MEDS ORDERED: ACETAMINOPHEN TAB 325 MG TAB PO PRN (12:54)
[2020-03-24] MEDS ORDERED: HYDROmorphone 1 MG/ML 1 ML SYRINGE IVP PRN (12:54)
--- NOTE | 2020-03-24 13:04 | P.GSCN ---
History of Present Illness Consult date: 03/24/20 Reason for Consult: Cellulitis and chronic wounds to bilateral lower extremities, peripheral arterial disease History of present illness: This is a 74-year-old pleasant female was admitted to the emergency department for nonhealing ulcerations to the right lower extremity and cellulitis with failed outpatient treatment. Patient stated that the ulceration started approximately 2 weeks ago. She has increased pain and discomfort s pecifically to the 2 medial ulcerations. There are surgery has been asked to see the patient regarding bilateral lower extremity nonhealing wounds and history of peripheral arterial disease. She was seen by her primary care provider who is Dr. Mcmahan who prescribed a cream that she was unsure of the name. She has a medical history significant for type 2 diabetes mellitus, COPD, hypertension, coronary artery disease, atrial fibrillation, peripheral arterial disease with a history of a previous right fem-pop bypass and 3-4 stents in the left lower extremity. Patient is a former smoker. She is currently on vancomycin and ceftriaxon. She had arterial Dopplers of the bilateral lower extremities; her right DEMAR was 1.20, left DEMAR 1.02. She underwent a venous doppler ultrasound of bilateral lower extremities both negative for DVT. She states prior to 2-3 weeks ago she has not been experiencing any difficulty with walking or pain in her lower extremities. However since the ulceration she has had previous pain and discomfort in bilateral lower extremities. She denies any shortness of breath or chest pain. Review of Systems 14 point review of systems was completed all pertinent positives and negatives stated in the HPI. Past Medical History Past Medical History: Diabetes Mellitus, Hypertension, Myocardial Infarction ([place]), Vascular Disorder Additional Past Medical History / Comment(s): anemia,SOB,irreg HR,bronchitis 16/09-07-15,crys leg and feet edema,hx of bleeding ulcer around age 32 Last Myocardial Infarction Date:: unk History of Any Multi-Drug Resistant Organisms: None Reported Past Surgical History: Hysterectomy, Joint Replacement, Orthopedic Surgery Additional Past Surgical History / Comment(s): rtfem-pop bypass,3or4 stents lt leg,crys knee replace,lt shoulder repair Past Anesthesia/Blood Transfusion Reactions: Postoperative Nausea & Vomiting (PONV) Additional Past Anesthesia/Blood Transfusion Reaction / Comm: no problems with prior blood transfusions Past Alcohol Use History: Rare Past Drug Use History: None Reported - Past Family History Mother Family Medical History: Diabetes Mellitus Additional Family Medical History / Comment(s): heart problems Father Additional Family Medical History / Comment(s): heart problems Sister(s) Family Medical History: Diabetes Mellitus Additional Family Medical History / Comment(s): heart problems Brother(s) Family Medical History: Cancer Medications and Allergies Home Medications Medication Instructions Recorded Confirmed Type Gabapentin [Neurontin] 200 mg PO BID 09/20/15 03/23/20 History Lisinopril [Prinivil] 10 mg PO HS 09/20/15 03/23/20 History Lovastatin [Mevacor] 40 mg PO HS 09/20/15 03/23/20 History Multivit-Min/FA/Lycopen/Lutein 1 each PO DAILY 09/20/15 03/23/20 History [Centrum Silver Tablet] hydroCHLOROthiazide [Hydrodiuril] 25 mg PO HS 09/20/15 03/23/20 History traMADol HCl [Ultram] 50 mg PO TID PRN 09/20/15 03/23/20 History Doxycycline Hyclate 100 mg PO BID 03/23/20 03/23/20 History Furosemide [Lasix] 80 mg PO QAM 03/23/20 03/23/20 History Pantoprazole [Protonix] 40 mg PO DAILY 03/23/20 03/23/20 History Triamcinolone 0.5% Cream [Kenalog 1 applic TOPICAL DAILY PRN 03/23/20 03/23/20 History 0.5% Cream] Warfarin Sodium [Jantoven] 2.5 mg PO SUTUTHSA 03/23/20 03/23/20 History Warfarin Sodium [Jantoven] 3.75 mg PO WE 03/23/20 03/23/20 History Warfarin Sodium [Jantoven] 5 mg PO MOFR 03/23/20 03/23/20 History predniSONE See Taper PO DIRECTED 03/23/20 03/23/20 History Allergies Allergy/AdvReac Type Severity Reaction Status Date / Time Penicillins Allergy Swelling Verified 03/23/20 16:22 hydrocodone bitartrate AdvReac Nausea & Verified 03/23/20 16:22 [From Vicodin] Vomiting sulfamethoxazole AdvReac Nausea & Verified 03/23/20 16:22 Vomiting Surgical - Exam Vital Signs Temp Pulse Resp BP Pulse Ox 98 F 97 18 122/71 97 03/23/20 13:25 03/23/20 13:25 03/23/20 13:25 03/23/20 13:25 03/23/20 13:25 General appearance: The patient is alert, oriented, in no acute distress. HET: Head is normocephalic and atraumatic. Neck: Supple without lymphadenopathy. Trachea midline. Heart: S1 S2. Irregular rate and rhythm, systolic murmmur. Lungs: No crackles or wheezes are heard. Abdomen: Soft, nontender, nondistended with bowel sounds. Extremities: Bilateral lower extremities with +1 edema, erythema. Right Lower extremity medial aspect to nonhealing ulcerations with serous drainage. Right anterior ulceration. Left lower extremity anterior ulceration. Palpable 1+ bilateral dorsalis pedis pulses. Capillary refill less than 5 seconds. Full range of motion of bilateral lower extremities and toes. Neurological: No focal deficits. Strength and sensation are grossly intact. Results Lower extremity arterial Doppler study reviewed Venous Doppler ultrasound bilateral lower extremities reviewed - Labs 03/23/20 14:04 03/23/20 14:04 Abnormal Lab Results - Last 24 Hours (Table) 03/23/20 03/23/20 03/23/20 Range/Units 14:04 14:04 14:04 RDW 16.0 H (11.5-15.5) % Lymphocytes # 0.7 L (1.0-4.8) k/uL PT 32.2 H (9.0-12.0) sec INR 3.3 H (<1.2) APTT 31.1 H (22.0-30.0) sec Sodium 132 L (137-145) mmol/L Chloride 94 L (98-107) mmol/L BUN 18 H (7-17) mg/dL Glucose 184 H (74-99) mg/dL POC Glucose (mg/dL) (75-99) mg/dL Albumin 3.4 L (3.5-5.0) g/dL 03/23/20 03/24/20 03/24/20 Range/Units 20:28 06:02 07:04 RDW (11.5-15.5) % Lymphocytes # (1.0-4.8) k/uL PT 24.1 H (9.0-12.0) sec INR 2.33 H (<1.2) APTT (22.0-30.0) sec Sodium (137-145) mmol/L Chloride (98-107) mmol/L BUN (7-17) mg/dL Glucose (74-99) mg/dL POC Glucose (mg/dL) 122 H 206 H (75-99) mg/dL Albumin (3.5-5.0) g/dL 03/24/20 Range/Units 11:37 RDW (11.5-15.5) % Lymphocytes # (1.0-4.8) k/uL PT (9.0-12.0) sec INR (<1.2) APTT (22.0-30.0) sec Sodium (137-145) mmol/L Chloride (98-107) mmol/L BUN (7-17) mg/dL Glucose (74-99) mg/dL POC Glucose (mg/dL) 175 H (75-99) mg/dL Albumin (3.5-5.0) g/dL Microbiology - Last 24 Hours (Table) 03/23/20 14:04 Gram Stain - Preliminary Leg - Right Wound Culture - Preliminary Diabetes panel 03/23/20 Range/Units 14:04 Sodium 132 L (137-145) mmol/L Potassium 3.7 (3.5-5.1) mmol/L Chloride 94 L (98-107) mmol/L Carbon Dioxide 29 (22-30) mmol/L BUN 18 H (7-17) mg/dL Creatinine 0.67 (0.52-1.04) mg/dL Glucose 184 H (74-99) mg/dL Calcium 8.6 (8.4-10.2) mg/dL AST 28 (14-36) U/L ALT 22 (4-34) U/L Alkaline Phosphatase 66 (38-126) U/L Total Protein 6.5 (6.3-8.2) g/dL Albumin 3.4 L (3.5-5.0) g/dL Calcium panel 03/23/20 Range/Units 14:04 Calcium 8.6 (8.4-10.2) mg/dL Albumin 3.4 L (3.5-5.0) g/dL Pituitary panel 03/23/20 Range/Units 14:04 Sodium 132 L (137-145) mmol/L Potassium 3.7 (3.5-5.1) mmol/L Chloride 94 L (98-107) mmol/L Carbon Dioxide 29 (22-30) mmol/L BUN 18 H (7-17) mg/dL Creatinine 0.67 (0.52-1.04) mg/dL Glucose 184 H (74-99) mg/dL Calcium 8.6 (8.4-10.2) mg/dL Adrenal panel 03/23/20 Range/Units 14:04 Sodium 132 L (137-145) mmol/L Potassium 3.7 (3.5-5.1) mmol/L Chloride 94 L (98-107) mmol/L Carbon Dioxide 29 (22-30) mmol/L BUN 18 H (7-17) mg/dL Creatinine 0.67 (0.52-1.04) mg/dL Glucose 184 H (74-99) mg/dL Calcium 8.6 (8.4-10.2) mg/dL Total Bilirubin 0.8 (0.2-1.3) mg/dL AST 28 (14-36) U/L ALT 22 (4-34) U/L Alkaline Phosphatase 66 (38-126) U/L Total Protein 6.5 (6.3-8.2) g/dL Albumin 3.4 L (3.5-5.0) g/dL Assessment and Plan Assessment: 1. Nonhealing ulcers of bilateral lower extremities 2. History of peripheral arterial disease, status post right fem-pop bypass graft and left lower extremity stents 3. Type 2 diabetes mellitus 4. Coronary artery disease 5. COPD 6. Hyperlipidemia 7. Hypertension 8. Former smoker Plan: Agree with local wound care per care clinic with follow-up as an outpatient. Continue IV antibiotics as ordered. Recommend outpatient follow-up with vascular surgery. Further recommendations to follow. Thank you for this consultation and allowing us take part in the plan of care of your patient during her hospital stay. The impression and plan of care has been dictated as directed. Dr. Alberto I performed a history and examination of this patient, discussed the same with the dictator. I agree with the dictator's note ,documented as a scribe. Any additional findings or plans will be noted.
[2020-03-24] MEDS ORDERED: LEVOFLOXACIN 750MG-D5W PMX 750 MG in DEXTROSE/WATER 1 150ML.BAG IVPB SCH (16:00)
[2020-03-24 17:56] LABS: Glucose,Whole Blood 160 mg/dL (75-99)
[2020-03-24] MEDS ORDERED: WARFARIN 2 MG TAB PO ONE (18:00)
[2020-03-24] MEDS: SODIUM CHLORIDE 0.9% 1,000 ML IV SCH (19:09)
[2020-03-24] MEDS: ATORVASTATIN 10 MG TAB PO SCH (21:04)
[2020-03-24] MEDS: lisinopriL 10 MG TAB PO SCH (21:04)
[2020-03-24] MEDS: hydroCHLOROthiazide 25 MG TAB PO SCH (21:04)
[2020-03-24 21:42] LABS: Glucose,Whole Blood 155 mg/dL (75-99)
[2020-03-25] MEDS ORDERED: VANCOMYCIN TROUGH DUE 1 EACH MISC MISCELLANE ONE (05:00)
[2020-03-25] MEDS: VANCOMYCIN 1,500 MG in SODIUM CHLORIDE 0.9% 250 ML IVPB SCH ×2 (05:51→17:25)
[2020-03-25 06:03] LABS: HCT 40.3 % (34.0-46.0); HGB 12.5 gm/dL (11.4-16.0); Hypochromasia Slight; MCH 29.3 pg (25.0-35.0); MCV 94.4 fL (80.0-100.0); Mean Platelet Volume 7.5; Platelet Count 217 k/uL (150-450); RBC 4.27 m/uL (3.80-5.40); RDW 15.7 % (11.5-15.5); WBC 11.9 k/uL (3.8-10.6)
[2020-03-25 07:03] LABS: Glucose,Whole Blood 156 mg/dL (75-99)
[2020-03-25 08:26] LABS: INR 1.8 (<1.2); Prothrombin Time 17.6 sec (9.0-12.0)
[2020-03-25 08:57] LABS: ALT 23 U/L (4-34); AST 28 U/L (14-36); African American GFR (CKD) >90 (>60 ml/min/1.73 sqM); Albumin 3.4 g/dL (3.5-5.0); Albumin/Globulin Ratio 1.1; Alkaline Phosphatase 57 U/L (38-126); Anion Gap 8 mmol/L; Blood Urea Nitrogen 24 mg/dL (7-17); Carbon Dioxide 29 mmol/L (22-30); Chloride 90 mmol/L (98-107); Globulin 3.1 g/dL; Glucose 186 mg/dL (74-99); Non-African American GFR(CKD) 87 (>60 ml/min/1.73 sqM); Sodium 127 mmol/L (137-145); Total Protein 6.5 g/dL (6.3-8.2)
[2020-03-25] MEDS: methylPREDNISolone SOD SUCCI 40 MG/ML 1 ML VIAL IV SCH ×2 (09:08→20:28)
[2020-03-25] MEDS: MULTIVITAMINS, THERA 1 EACH TAB PO SCH (09:08)
[2020-03-25] MEDS: FUROSEMIDE 80 MG TAB PO SCH (09:08)
[2020-03-25] MEDS: INSULIN ASPART (NovoLOG) 100 UNIT/ML VIAL SQ SCH ×4 (09:08→21:42)
[2020-03-25] MEDS: GABAPENTIN 100 MG CAP PO SCH ×2 (09:08→20:28)
[2020-03-25] MEDS: PANTOPRAZOLE 40 MG TABLET PO SCH (09:08)
[2020-03-25] MEDS: NICOTINE 14MG/24HR PATCH TRANSDERM SCH (09:09)
[2020-03-25] MEDS: traMADol 50 MG TAB PO PRN ×2 (09:11→20:31)
[2020-03-25 11:28] LABS: Glucose,Whole Blood 145 mg/dL (75-99)
--- NOTE | 2020-03-25 13:41 | P.PN ---
Subjective Progress Note Date: 03/25/20 HISTSORY OF PRESENT ILLNESS 74-year-old mildly overweight female with advance COPD, CAD, A. fib, type 2 diabetes, moderate PAD has been on medical management. Patient has been treated for Celexa the lower extremity for the last 2 month with failure to treatment become much worse today with worsening pain and swelling and discomfort along with ulcerated area on the cath site on the right along with another ulcer in the medial aspect of the leg below the knee left side had similar finding with smaller ulcer of the time with significant redness going between 2 inches from the knee all the way to the ankle area. Patient is sent to the emergency department Doppler will be done to rule out DVT patient be seen infectious disease culture from those spot to be done and start patient on 1 g of Vanco along with Levaquin. 03/24: The patient states that she slept well last night. There is a consult and for vascular surgery. Her breathing status is improved and stable. Lung sounds are improved today. We will decrease Solu-Medrol to 40 mg every 12 hours. Her baseline is taking prednisone 10 mg daily. Wound consult will be added with plan for patient to follow-up in the wound Center after discharge. Repeat INR 2.33. NovoLog scale started. 03/25: pateint with productive cough brown yellow, no fever, leg cellulitis improving less redness still with purulent discharge on bulateral leg ulcers right worse than left no significant edema, seen by vascular surgeon OP followup, wound growing grm negative, patient started on budesonid and duoneb from wheezing today, heplock iv on solumedrol 40 q12 hr, mucinex started. saline lock ordered REVEIW OF SYSTEMS CONSTITUTIONAL: Well-developed no respiratory distress EYES: No icterus sclerae, no conjunctivitis. EARS, NOSE, MOUTH, THROAT, and FACE: No sore throat, lymphadenopathy, carotid bruits or deformity. RESPIRATORY: Positive shortness of breath cough wheezes-improving. CARDIOVASCULAR: No CP, positive Palpitation with PND, and orthopnea without angina. GASTROINTESTINAL: No Abd pain, Nausea or vomiting, no Diarrhea or constipation, No GI Bleed, no distention or masses. GENITOURINARY: Negative for Hematuria or UTI, no kidney stones. Recurrent UTI with decrease urine output. INTEGUMENT/BREAST: Negative for any muscular injury with mild osteoarthritis.. Generalized muscle pain. HEMATOLOGIC/LYMPHATIC: Negative for bleed or purpura. MUSCULOSKELTAL: Negative for Myalgia or arthralgia. Significant swelling and discoloration of both knees worse on the right side and the left side with ulcerated area in the calf area and medial aspect of the left leg and smaller ulcer on the medial aspect of the left side. NEURLOGICAL: No LOC, Sz or syncope, blurred vision dizziness or abnormality.. BEHAVIORAL/PSYCH: Negative. ENDOCRINE: Negative. Objective - Vital Signs Vital signs: Vital Signs Temp 97.7 F 03/25/20 12:06 Pulse 77 03/25/20 12:06 Resp 17 03/25/20 12:06 BP 120/74 03/25/20 12:06 Pulse Ox 100 03/25/20 12:06 Intake & Output 03/24/20 03/25/20 03/25/20 18:59 06:59 18:59 Intake Total 1000 1090 Balance 1000 1090 Weight 81 kg Intake: Intake, IV Titration 490 Amount Sodium Chloride 0.9% 1, 240 000 ml @ 20 mls/hr IV . Q24H [facility] Rx#:[id number] Vancomycin 1,500 mg In 250 Sodium Chloride 0.9% 250 ml @ 125 mls/hr IVPB Q12H [facility] Rx#:[id number] Oral 1000 600 Other: Voiding Method Toilet # Voids 3 3 - Constitutional General appearance: Present: average body habitus, cooperative, no acute distress - EENT Eyes: Present: EOMI, PERRLA, dentition normal, normal appearance ENT: Present: NA/AT, normal oropharynx - Respiratory Respiratory: bilateral: CTA, negative: diminished, dullness - Cardiovascular Rhythm: regular Heart sounds: normal: S1, S2 Abnormal Heart Sounds: Absent: systolic murmur, diastolic murmur, rub, S3 Gallop, S4 Gallop, click, other - Gastrointestinal General gastrointestinal: Present: normal bowel sounds, soft - Integumentary Integumentary: Present: decreased turgor, normal - Neurologic Neurologic: Present: CNII-XII intact - Musculoskeletal Musculoskeletal: Present: gait normal, generalized weakness - Psychiatric Psychiatric: Present: A&O x's 3, appropriate affect, intact judgment & insight - Labs CBC & Chem 7: 03/25/20 05:19 03/25/20 05:19 Labs: Abnormal Lab Results - Last 24 Hours (Table) 03/24/20 03/24/20 03/25/20 Range/Units 17:53 21:40 05:19 WBC (3.8-10.6) k/uL RDW (11.5-15.5) % PT (9.0-12.0) sec INR (<1.2) Sodium (137-145) mmol/L Chloride (98-107) mmol/L BUN (7-17) mg/dL Glucose (74-99) mg/dL POC Glucose (mg/dL) 160 H 155 H (75-99) mg/dL Hemoglobin A1c 7.0 H (4.0-6.0) % Albumin (3.5-5.0) g/dL 03/25/20 03/25/20 03/25/20 Range/Units 05:19 05:19 05:19 WBC 11.9 H (3.8-10.6) k/uL RDW 15.7 H (11.5-15.5) % PT 17.6 H (9.0-12.0) sec INR 1.8 H (<1.2) Sodium 127 L (137-145) mmol/L Chloride 90 L (98-107) mmol/L BUN 24 H (7-17) mg/dL Glucose 186 H (74-99) mg/dL POC Glucose (mg/dL) (75-99) mg/dL Hemoglobin A1c (4.0-6.0) % Albumin 3.4 L (3.5-5.0) g/dL 03/25/20 03/25/20 Range/Units 07:02 11:27 WBC (3.8-10.6) k/uL RDW (11.5-15.5) % PT (9.0-12.0) sec INR (<1.2) Sodium (137-145) mmol/L Chloride (98-107) mmol/L BUN (7-17) mg/dL Glucose (74-99) mg/dL POC Glucose (mg/dL) 156 H 145 H (75-99) mg/dL Hemoglobin A1c (4.0-6.0) % Albumin (3.5-5.0) g/dL Microbiology - Last 24 Hours (Table) 03/23/20 14:04 Gram Stain - Preliminary Leg - Right Wound Culture - Preliminary Gram Neg Bacilli 03/23/20 14:04 Blood Culture - Preliminary Blood No Growth after 24 hours 03/23/20 14:41 Blood Culture - Preliminary Blood No Growth after 24 hours Assessment and Plan Plan: 1 severe acute cellulitis of the lower extremity worsening lately with failure to outpatient management: Patient was giving 1 g of Vanco continue Levaquin changed to Rocephin. Vascular consult. 2 severe PAD not able to feel pulse with significant sign and symptom of severe PAD with ulcer not healing in the right leg compared to the left side, patient will require brachial ankle index along with seen vascular and see if the medicine need for an angiogram for further diagnosis. 3 nonhealing ulcer of the lower extremity will continue antibiotics topical care for now. Wound Center consult. 4 advance COPD with exacerbation Decrease Solu-Medrol to 40 mg IV every 12 hours and continue with inhaler and nebulizer and titrate O2. 5 chronic diastolic heart failure: Remain on Lasix lisinopril and hydrocodone diarrhea. 6 type 2 diabetes: Remain on insulin with Accu-Chek sliding scales coverage will hold oral meds for now. 7 hypertension: Remain well controlled on Dyazide lisinopril and metoprolol. 8 possible GI bleed with black stool. Hemoglobin is stable. Repeat hemoglobin in the morning, stool for occult blood. Protonix daily. 9 chronic neuropathy: Remain on gabapentin. 10 chronic pain syndrome: Patient still try to manage it came gabapentin Tylenol and tramadol. 11 recurrent UTI: Been treated lately. 12 GI prophylaxis: On pantoprazole 40 mg daily. 13 chronic atrial fibrillation. Remain on warfarin with INR is therapeutic. 14 GI prophylaxis: Continue patient on pantoprazole. 15 DVT prophylaxis: Remain on warfarin. 16 nicotine dependency: Patient will be on nicotine patch 14 mg daily. Patient quit smoking 2 months ago. 17 chronic hypoxic respiratory failure on home O2 at 2 L nasal cannula. CODE STATUS: Full code.
[2020-03-25] MEDS: guaiFENesin 600 MG TABLET.ER PO SCH ×2 (15:14→20:28)
[2020-03-25] MEDS: SODIUM CHLORIDE 0.9% 1,000 ML IV SCH (16:09)
[2020-03-25 17:45] LABS: Glucose,Whole Blood 247 mg/dL (75-99)
[2020-03-25] MEDS ORDERED: WARFARIN 5 MG TAB PO ONE (18:00)
[2020-03-25] MEDS: BUDESONIDE 0.5 MG/2 ML NEBU INHALATION SCH (19:43)
[2020-03-25] MEDS: IPRATROPIUM-ALBUTEROL 3 ML NEB INHALATION PRN (19:43)
[2020-03-25] MEDS: ATORVASTATIN 10 MG TAB PO SCH (20:28)
[2020-03-25] MEDS: hydroCHLOROthiazide 25 MG TAB PO SCH (20:28)
[2020-03-25] MEDS: lisinopriL 10 MG TAB PO SCH (20:28)
[2020-03-25 21:15] LABS: Glucose,Whole Blood 222 mg/dL (75-99)
[2020-03-26] MEDS: VANCOMYCIN 1,500 MG in SODIUM CHLORIDE 0.9% 250 ML IVPB SCH (04:43)
[2020-03-26] MEDS: traMADol 50 MG TAB PO PRN ×2 (04:43→21:27)
[2020-03-26 07:09] LABS: Glucose,Whole Blood 119 mg/dL (75-99)
[2020-03-26] MEDS: INSULIN ASPART (NovoLOG) 100 UNIT/ML VIAL SQ SCH ×4 (07:41→21:28)
[2020-03-26] MEDS: GABAPENTIN 100 MG CAP PO SCH ×3 (08:22→21:28)
[2020-03-26] MEDS: FUROSEMIDE 80 MG TAB PO SCH (08:22)
[2020-03-26] MEDS: PANTOPRAZOLE 40 MG TABLET PO SCH (08:22)
[2020-03-26] MEDS: guaiFENesin 600 MG TABLET.ER PO SCH ×2 (08:22→21:28)
[2020-03-26] MEDS: MULTIVITAMINS, THERA 1 EACH TAB PO SCH (08:22)
[2020-03-26] MEDS: NICOTINE 14MG/24HR PATCH TRANSDERM SCH (08:23)
[2020-03-26] MEDS: methylPREDNISolone SOD SUCCI 40 MG/ML 1 ML VIAL IV SCH ×2 (08:23→21:29)
[2020-03-26 10:39] LABS: INR 2.19 (0.90-1.11); Prothrombin Time 22.7 sec (9.9-11.9)
[2020-03-26 11:00] LABS: Glucose,Whole Blood 157 mg/dL (75-99)
[2020-03-26] MEDS: BUDESONIDE 0.5 MG/2 ML NEBU INHALATION SCH ×2 (11:21→21:11)
[2020-03-26] MEDS: IPRATROPIUM-ALBUTEROL 3 ML NEB INHALATION PRN ×3 (11:21→21:11)
--- NOTE | 2020-03-26 11:27 | P.PN ---
Subjective Progress Note Date: 03/26/20 HISTSORY OF PRESENT ILLNESS 74-year-old mildly overweight female with advance COPD, CAD, A. fib, type 2 diabetes, moderate PAD has been on medical management. Patient has been treated for Celexa the lower extremity for the last 2 month with failure to treatment become much worse today with worsening pain and swelling and discomfort along with ulcerated area on the cath site on the right along with another ulcer in the medial aspect of the leg below the knee left side had similar finding with smaller ulcer of the time with significant redness going between 2 inches from the knee all the way to the ankle area. Patient is sent to the emergency department Doppler will be done to rule out DVT patient be seen infectious disease culture from those spot to be done and start patient on 1 g of Vanco along with Levaquin. 03/24: The patient states that she slept well last night. There is a consult and for vascular surgery. Her breathing status is improved and stable. Lung sounds are improved today. We will decrease Solu-Medrol to 40 mg every 12 hours. Her baseline is taking prednisone 10 mg daily. Wound consult will be added with plan for patient to follow-up in the wound Center after discharge. Repeat INR 2.33. NovoLog scale started. 03/25: pateint with productive cough brown yellow, no fever, leg cellulitis improving less redness still with purulent discharge on bulateral leg ulcers right worse than left no significant edema, seen by vascular surgeon OP followup, wound growing grm negative, patient started on budesonid and duoneb from wheezing today, heplock iv on solumedrol 40 q12 hr, mucinex started. saline lock ordered 03/26 : p[atient comlaining of crys leg pain, has pain with ambulation, we ill increase gabapentin to 200 tid, request therapies,. poss subacute rehab, has therpeutic inr, will resume home dose of coumadin at 23 .5 mg /wk with multiple dosing to get this, breathing is better, no wheezing, antibiotics infusing, blood cultures negative. pansensitive pseudomonas on wound cultures, continue on iv rocephine, will trasition to oral quinolone on discharge. we will dscontin ue iv solumedrol tonight and start oral pred for copd in am. discharge planning poss discharge in am REVEIW OF SYSTEMS CONSTITUTIONAL: Well-developed no respiratory distress EYES: No icterus sclerae, no conjunctivitis. EARS, NOSE, MOUTH, THROAT, and FACE: No sore throat, lymphadenopathy, carotid bruits or deformity. RESPIRATORY: Positive shortness of breath cough wheezes-improving. CARDIOVASCULAR: No CP, positive Palpitation with PND, and orthopnea without angina. GASTROINTESTINAL: No Abd pain, Nausea or vomiting, no Diarrhea or constipation, No GI Bleed, no distention or masses. GENITOURINARY: Negative for Hematuria or UTI, no kidney stones. Recurrent UTI with decrease urine output. INTEGUMENT/BREAST: Negative for any muscular injury with mild osteoarthritis.. Generalized muscle pain. HEMATOLOGIC/LYMPHATIC: Negative for bleed or purpura. MUSCULOSKELTAL: Negative for Myalgia or arthralgia. Significant swelling and discoloration of both knees worse on the right side and the left side with ulcerated area in the calf area and medial aspect of the left leg and smaller ulcer on the medial aspect of the left side. NEURLOGICAL: No LOC, Sz or syncope, blurred vision dizziness or abnormality.. BEHAVIORAL/PSYCH: Negative. ENDOCRINE: Negative. Objective - Vital Signs Vital signs: Vital Signs Temp 97.7 F 03/26/20 05:00 Pulse 78 03/26/20 05:00 Resp 18 03/25/20 21:00 BP 115/70 03/26/20 05:00 Pulse Ox 96 03/26/20 05:00 Intake & Output 03/25/20 03/26/20 03/26/20 19:59 06:59 18:59 Weight Other: Voiding Method Toilet # Voids - Constitutional General appearance: Present: cooperative, no acute distress - EENT Eyes: Present: anicteric sclerae, dentition normal, normal appearance ENT: Present: hearing grossly normal, normal oropharynx - Respiratory Respiratory: bilateral: CTA, negative: diminished, dullness, rales, rhonchi - Cardiovascular Rhythm: regular Heart sounds: normal: S1, S2 Abnormal Heart Sounds: Present: systolic murmur - Integumentary Integumentary: Present: decreased turgor, normal - Neurologic Neurologic: Present: CNII-XII intact - Musculoskeletal Musculoskeletal: Present: generalized weakness, strength equal bilaterally - Psychiatric Psychiatric: Present: A&O x's 3, appropriate affect, intact judgment & insight - Labs CBC & Chem 7: 03/27/20 04:34 03/27/20 04:34 Labs: Abnormal Lab Results - Last 24 Hours (Table) 03/25/20 03/25/20 03/25/20 Range/Units 05:19 17:44 21:14 PT (9.9-11.9) sec INR (0.90-1.11) POC Glucose (mg/dL) 247 H 222 H (75-99) mg/dL Hemoglobin A1c 7.0 H (4.0-6.0) % 03/26/20 03/26/20 03/26/20 Range/Units 05:30 07:07 10:59 PT 22.7 H (9.9-11.9) sec INR 2.19 H (0.90-1.11) POC Glucose (mg/dL) 119 H 157 H (75-99) mg/dL Hemoglobin A1c (4.0-6.0) % Microbiology - Last 24 Hours (Table) 03/23/20 14:04 Gram Stain - Final Leg - Right Wound Culture - Final Pseudomonas aeruginosa 03/23/20 14:04 Blood Culture - Preliminary Blood No Growth after 48 hours 03/23/20 14:41 Blood Culture - Preliminary Blood No Growth after 48 hours Assessment and Plan Plan: 1 severe acute cellulitis of the lower extremity worsening lately with failure to outpatient management: Patient was giving 1 g of Vanco continue Levaquin changed to Rocephin. Vascular consult. 2 severe PAD not able to feel pulse with significant sign and symptom of severe PAD with ulcer not healing in the right leg compared to the left side, patient will require brachial ankle index along with seen vascular and see if the medicine need for an angiogram for further diagnosis. 3 nonhealing ulcer of the lower extremity will continue antibiotics topical care for now. Wound Center consult. 4 advance COPD with exacerbation Decrease Solu-Medrol to 40 mg IV every 12 hours and continue with inhaler and nebulizer and titrate O2. 5 chronic diastolic heart failure: Remain on Lasix lisinopril and hydrocodone diarrhea. 6 type 2 diabetes: Remain on insulin with Accu-Chek sliding scales coverage will hold oral meds for now. 7 hypertension: Remain well controlled on Dyazide lisinopril and metoprolol. 8 possible GI bleed with black stool. Hemoglobin is stable. Repeat hemoglobin in the morning, stool for occult blood. Protonix daily. 9 chronic neuropathy: Remain on gabapentin. 10 chronic pain syndrome: Patient still try to manage it came gabapentin Tylenol and tramadol. 11 recurrent UTI: Been treated lately. 12 GI prophylaxis: On pantoprazole 40 mg daily. 13 chronic atrial fibrillation. Remain on warfarin with INR is therapeutic. 14 GI prophylaxis: Continue patient on pantoprazole. 15 DVT prophylaxis: Remain on warfarin. 16 nicotine dependency: Patient will be on nicotine patch 14 mg daily. Patient quit smoking 2 months ago. 17 chronic hypoxic respiratory failure on home O2 at 2 L nasal cannula. CODE STATUS: Full code.
[2020-03-26] MEDS ORDERED: WARFARIN 2.5 MG TAB PO SCH (11:30)
[2020-03-26] MEDS: SODIUM CHLORIDE 0.9% 1,000 ML IV SCH (16:41)
[2020-03-26 16:55] LABS: Glucose,Whole Blood 219 mg/dL (75-99)
[2020-03-26] MEDS ORDERED: WARFARIN 3 MG TAB PO ONE (18:00)
[2020-03-26 19:55] LABS: Glucose,Whole Blood 145 mg/dL (75-99)
[2020-03-26] MEDS: lisinopriL 10 MG TAB PO SCH (21:28)
[2020-03-26] MEDS: hydroCHLOROthiazide 25 MG TAB PO SCH (21:28)
[2020-03-26] MEDS: ATORVASTATIN 10 MG TAB PO SCH (21:28)
[2020-03-27 05:12] LABS: Anisocytosis Slight; Basophils % (A) 0 %; Eosinophils % (A) 0 %; HCT 39.9 % (34.0-46.0); HGB 12.3 gm/dL (11.4-16.0); Hypochromasia Slight; Lymphocytes # (A) 0.7 k/uL (1.0-4.8); Lymphocytes % (A) 7 %; MCH 28.7 pg (25.0-35.0); MCHC 30.8 g/dL (31.0-37.0); MCV 93.4 fL (80.0-100.0); Mean Platelet Volume 7.4; Monocytes # (A) 0.3 k/uL (0-1.0); Monocytes % (A) 3 %; Neutrophils # (A) 8.7 k/uL (1.3-7.7); Neutrophils % (A) 89 %; Platelet Count 231 k/uL (150-450); RBC 4.27 m/uL (3.80-5.40); RDW 16.2 % (11.5-15.5); WBC 9.7 k/uL (3.8-10.6)
[2020-03-27 07:13] LABS: Glucose,Whole Blood 179 mg/dL (75-99)
[2020-03-27] MEDS: BUDESONIDE 0.5 MG/2 ML NEBU INHALATION SCH (07:44)
[2020-03-27] MEDS: IPRATROPIUM-ALBUTEROL 3 ML NEB INHALATION PRN ×2 (07:44→11:14)
--- NOTE | 2020-03-27 08:05 | P.DS ---
Providers Date of admission: 03/23/20 15:27 Expected date of discharge: 03/27/20 Attending physician: Saul Mcmahan Consults: 03/23/20 15:27 Consult Physician Urgent Consulting Provider: Rosy Alberto Consult Reason/Comments: Leg cellulitis, peripheral vascular disease Do you want consulting provider notified?: Yes Primary care physician: [facility] Heart Course: 74-year-old mildly overweight female with advance COPD, CAD, A. fib, type 2 diabetes, moderate PAD has been on medical management. Patient has been treated for Celexa the lower extremity for the last 2 month with failure to treatment become much worse today with worsening pain and swelling and discomfort along with ulcerated area on the cath site on the right along with another ulcer in the medial aspect of the leg below the knee left side had similar finding with smaller ulcer of the time with significant redness going between 2 inches from the knee all the way to the ankle area. Patient is sent to the emergency department Doppler will be done to rule out DVT patient be seen infectious disease culture from those spot to be done and start patient on 1 g of Vanco along with Levaquin. 03/24: The patient states that she slept well last night. There is a consult and for vascular surgery. Her breathing status is improved and stable. Lung sounds are improved today. We will decrease Solu-Medrol to 40 mg every 12 hours. Her baseline is taking prednisone 10 mg daily. Wound consult will be added with plan for patient to follow-up in the wound Center after discharge. Repeat INR 2.33. NovoLog scale started. 03/25: pateint with productive cough brown yellow, no fever, leg cellulitis improving less redness still with purulent discharge on bulateral leg ulcers right worse than left no significant edema, seen by vascular surgeon OP followup, wound growing grm negative, patient started on budesonid and duoneb from wheezing today, heplock iv on solumedrol 40 q12 hr, mucinex started. saline lock ordered 03/26 : p[atient comlaining of crys leg pain, has pain with ambulation, we ill increawse gabapentin to 200 tid, request therpies,. poss subacute rehab, has therpeutic inr, will resume home dose of coumadin at 23 .5 mg /wk with multiple dosing to get this, breathing is better, no wheezing, antibiotics infusing, blood cultures negative. pansensitive pseudomonas on wound cultures, continue on iv rocephine, will transition to oral quinolone on discharge. we will dscontin ue iv solumedrol tonight and start oral pred for copd in am. discharge planning poss discharge in am 03/27: Patient has been seen by vascular surgery with recommendations to continue local wound care and follow with the wound healing Center. Patient has been on ceftriaxone and doing well. She has had significant improvement of lower extremity cellulitis and wound. Less inflammation and swelling. Patient is agreeable to go to [facility] for subacute rehab. We will plan for ceftriaxone for 1 week and midline with be placed prior to discharge. Patient has been afebrile, heart rate 72, blood pressure 143/82, pulse ox 93% on room air. CBC unremarkable. Sodium 129, potassium 3.8, chloride 88, CO2 31.1, creatinine 1.7. Blood sugar 179. INR today is not available. Patient will be discharged on her normal home dose of Coumadin. Patient will be discharged to [facility] today once all arrangements are completed. Discharge Diagnoses: 1 severe acute cellulitis of the lower extremity worsening lately with failure to outpatient management 2 severe PAD status post right fem-pop bypass graft and left lower extremity stents 3 nonhealing ulcer of the lower extremity 4 advance COPD with exacerbation 5 chronic diastolic heart failure 6 type 2 diabetes, uncontrolled with hyperglycemia secondary to steroids, A1C 7.0 7 hypertension 8 possible GI bleed ruled out 9 chronic diabetic neuropathy 10 chronic pain syndrome 11 recurrent UTI 12 chronic atrial fibrillation 13 nicotine dependency 14 chronic hypoxic respiratory failure on home O2 at 2 L nasal cannula. Discharge plan: [facility] today with IV antibiotics under the care of Dr. Mcmahan. Impression and plan of care have been directed as dictated by the signing physician. Maida Johnson nurse practitioner acting as scribe for signing physician. Patient Condition at Discharge: Good Plan - Discharge Summary Discharge Rx Participant: No New Discharge Prescriptions: New Ipratropium-Albuterol Nebulize [Duoneb 0.5 mg-3 mg/3 ml Soln] 3 ml INHALATION RT-QID PRN ml PRN Reason: Shortness Of Breath Or Wheezing Nicotine 14Mg/24Hr Patch [Habitrol] 1 patch TRANSDERM DAILY #30 patch guaiFENesin [Mucinex] 600 mg PO Q12HR tablet.er INSULIN ASPART (NovoLOG) [NovoLOG (formulary)] 0 unit SQ ACHS vial predniSONE 0 mg PO DIRECTED #30 tab Budesonide [Pulmicort] 0.5 mg INHALATION RT-BID #0 ml cefTRIAXone [Rocephin] 1 gm IVPB Q24HR #7 vial Continue Multivit-Min/FA/Lycopen/Lutein [Centrum Silver Tablet] 1 each PO DAILY Lisinopril [Prinivil] 10 mg PO HS Lovastatin [Mevacor] 40 mg PO HS hydroCHLOROthiazide [Hydrodiuril] 25 mg PO HS Warfarin Sodium [Jantoven] 5 mg PO MOFR Warfarin Sodium [Jantoven] 2.5 mg PO SUTUTHSA Triamcinolone 0.5% Cream [Kenalog 0.5% Cream] 1 applic TOPICAL DAILY PRN PRN Reason: psoriasis Pantoprazole [Protonix] 40 mg PO DAILY Furosemide [Lasix] 80 mg PO QAM Warfarin Sodium [Jantoven] 3.75 mg PO WE Gabapentin [Neurontin] 200 mg PO BID #12 cap traMADol HCl [Ultram] 50 mg PO TID PRN #9 tab PRN Reason: Pain Discontinued Doxycycline Hyclate 100 mg PO BID predniSONE See Taper PO DIRECTED Discharge Medication List Lisinopril [Prinivil] 10 mg PO HS 09/20/15 [History] Lovastatin [Mevacor] 40 mg PO HS 09/20/15 [History] Multivit-Min/FA/Lycopen/Lutein [Centrum Silver Tablet] 1 each PO DAILY 09/20/15 [History] hydroCHLOROthiazide [Hydrodiuril] 25 mg PO HS 09/20/15 [History] Furosemide [Lasix] 80 mg PO QAM 03/23/20 [History] Pantoprazole [Protonix] 40 mg PO DAILY 03/23/20 [History] Triamcinolone 0.5% Cream [Kenalog 0.5% Cream] 1 applic TOPICAL DAILY PRN 03/23/20 [History] Warfarin Sodium [Jantoven] 2.5 mg PO SUTUTHSA 03/23/20 [History] Warfarin Sodium [Jantoven] 3.75 mg PO WE 03/23/20 [History] Warfarin Sodium [Jantoven] 5 mg PO MOFR 03/23/20 [History] Budesonide [Pulmicort] 0.5 mg INHALATION RT-BID #0 ml 03/27/20 [Rx] Gabapentin [Neurontin] 200 mg PO BID #12 cap 03/27/20 [Rx] INSULIN ASPART (NovoLOG) [NovoLOG (formulary)] 0 unit SQ ACHS vial 03/27/20 [Rx] Ipratropium-Albuterol Nebulize [Duoneb 0.5 mg-3 mg/3 ml Soln] 3 ml INHALATION RT-QID PRN ml 03/27/20 [Rx] Nicotine 14Mg/24Hr Patch [Habitrol] 1 patch TRANSDERM DAILY #30 patch 03/27/20 [Rx] cefTRIAXone [Rocephin] 1 gm IVPB Q24HR #7 vial 03/27/20 [Rx] guaiFENesin [Mucinex] 600 mg PO Q12HR tablet.er 03/27/20 [Rx] predniSONE 0 mg PO DIRECTED #30 tab 03/27/20 [Rx] traMADol HCl [Ultram] 50 mg PO TID PRN #9 tab 03/27/20 [Rx] Follow up [facility]ointment(s[facility] - Saul Mcmahan MD [Primary Care Provider] - 1-2 days [facility] [NON-STAFF] - 1 Week Discharge Disposition: HOME SELF-CARE
[2020-03-27] MEDS: INSULIN ASPART (NovoLOG) 100 UNIT/ML VIAL SQ SCH ×2 (08:11→12:34)
[2020-03-27] MEDS: guaiFENesin 600 MG TABLET.ER PO SCH (08:12)
[2020-03-27] MEDS: GABAPENTIN 100 MG CAP PO SCH (08:12)
[2020-03-27] MEDS: MULTIVITAMINS, THERA 1 EACH TAB PO SCH (08:12)
[2020-03-27] MEDS: FUROSEMIDE 80 MG TAB PO SCH (08:12)
[2020-03-27] MEDS: PANTOPRAZOLE 40 MG TABLET PO SCH (08:12)
[2020-03-27] MEDS: NICOTINE 14MG/24HR PATCH TRANSDERM SCH (08:13)
[2020-03-27] MEDS ORDERED: predniSONE 20 MG TAB PO SCH (09:00)
[2020-03-27 09:14] LABS: African American GFR (CKD) 100.3 (60.0-200.0); Albumin 3.8 g/dL (3.80-4.90); Albumin/Globulin Ratio 1.65 (1.60-3.17); Anion Gap 9.9 mmol/L (4.00-12.00); BUN/Creat Ratio 32.86 Ratio (12.00-20.00); Calcium 8.9 mg/dL (8.7-10.3); Carbon Dioxide 31.1 mmol/L (21.6-31.8); Globulin 2.3 g/dL (1.6-3.3); Non-African American GFR(CKD) 86.6 (60.0-200.0); Potassium 3.8 mmol/L (3.5-5.5); Total Bilirubin 1.1 mg/dL (0.2-1.2); Total Protein 6.1 g/dL (6.2-8.2)
[2020-03-27 09:38] LABS: INR 2.1 (<1.2); Prothrombin Time 20.4 sec (9.0-12.0)
[2020-03-27] MEDS ORDERED: WARFARIN 2.5 MG TAB PO SCH (11:20)
[2020-03-27 11:23] LABS: Glucose,Whole Blood 185 mg/dL (75-99)
[2020-03-27 11:40] VITALS: BP 132/72; PULSE 90; RESP 17; TEMP 97.9
[2020-03-27] MEDS ORDERED: WARFARIN 2 MG TAB PO ONE (18:00)
[2020-03-29] MEDS ORDERED: WARFARIN 2.5 MG TAB PO SCH (11:20)
--- NOTE | 2020-03-29 13:21 | P.ARTDOP ---
Arterial Doppler LOWER EXTREMITY ARTERIAL DOPPLER: DATE OF SERVICE: 03/23/2020 Reason for study: Status post right sided fem-pop and left-sided leg stent. Doppler waveforms: Multiphasic bilaterally throughout. Pulse volume recording: []. Pressure gradients: None except at the toe level. Ankle-brachial indices: Greater than 1 bilaterally. Toe brachial indices: 0.4 on the right, 0.4 to on the left Impression: Normal study other than toe pressures, which are probably vasospastic phenomenon..
== END 2020-03-27 14:43 | disposition home or self-care (01) | DRG 300 ==
LOC: EC 13:14 → 6NMEDSUR 15:27 → 4SSUR 16:54 → 6NMEDSUR 17:10
PROVIDERS: ADMIT Internal Medicine Geriatric Medicine; ATTEND Internal Medicine Geriatric Medicine
PROC: 05HF33Z Insertion of Infusion Device into Left Cephalic Vein, Percutaneous Approach (ICD-10-PCS; principal; 2020-03-27 15:10)
DX: E11.51 Type 2 diabetes mellitus with diabetic peripheral angiopathy without gangrene (principal); I48.20 Chronic atrial fibrillation, unspecified; I50.32 Chronic diastolic (congestive) heart failure; I87.331 Chronic venous hypertension (idiopathic) with ulcer and inflammation of right lower extremity; L97.812 Non-pressure chronic ulcer of other part of right lower leg with fat layer exposed; I87.332 Chronic venous hypertension (idiopathic) with ulcer and inflammation of left lower extremity; L97.829 Non-pressure chronic ulcer of other part of left lower leg with unspecified severity; J96.11 Chronic respiratory failure with hypoxia; L03.119 Cellulitis of unspecified part of limb; J44.1 Chronic obstructive pulmonary disease with (acute) exacerbation; N39.0 Urinary tract infection, site not specified; E11.622 Type 2 diabetes mellitus with other skin ulcer; E11.40 Type 2 diabetes mellitus with diabetic neuropathy, unspecified; E11.65 Type 2 diabetes mellitus with hyperglycemia; E66.3 Overweight; Z68.28 Body mass index [BMI] 28.0-28.9, adult; E78.5 Hyperlipidemia, unspecified; F17.210 Nicotine dependence, cigarettes, uncomplicated; Z20.828 Contact with and (suspected) exposure to other viral communicable diseases; G89.4 Chronic pain syndrome; I11.0 Hypertensive heart disease with heart failure; I25.10 Atherosclerotic heart disease of native coronary artery without angina pectoris; I25.2 Old myocardial infarction; Z87.440 Personal history of urinary (tract) infections; T38.0X5A Adverse effect of glucocorticoids and synthetic analogues, initial encounter; Z79.01 Long term (current) use of anticoagulants; Z79.02 Long term (current) use of antithrombotics/antiplatelets; Z79.82 Long term (current) use of aspirin; Z79.899 Other long term (current) drug therapy; Z83.3 Family history of diabetes mellitus; Z90.710 Acquired absence of both cervix and uterus; Z87.11 Personal history of peptic ulcer disease; Z95.828 Presence of other vascular implants and grafts; Z96.653 Presence of artificial knee joint, bilateral; Z88.5 Allergy status to narcotic agent; Z88.0 Allergy status to penicillin; Z88.2 Allergy status to sulfonamides; Z82.49 Family history of ischemic heart disease and other diseases of the circulatory system; Z79.52 Long term (current) use of systemic steroids; Z99.81 Dependence on supplemental oxygen
CPT/HCPCS: 36410; 36415; 71046; 76937; 80053; 80202; 83036; 83605; 83880; 85025; 85027; 85610; 85730; 87040; 87070; 87077; 87186; 87205; 87635; 93922; 93970; 94640; 96365; 96366; 96367; 96368; 99284

== ENCOUNTER → 2020-05-11 | Outpatient (CLI) | payer MEDICARE, BC ==
[2020-05-11 13:18] LABS: Basophils % (A) 0 %; Eosinophils # (A) 0.1 k/uL (0-0.7); Eosinophils % (A) 1 %; HCT 38.1 % (34.0-46.0); Lymphocytes # (A) 1.4 k/uL (1.0-4.8); Lymphocytes % (A) 16 %; MCH 28.6 pg (25.0-35.0); MCHC 31.4 g/dL (31.0-37.0); MCV 91.2 fL (80.0-100.0); Mean Platelet Volume 7.2; Monocytes # (A) 0.5 k/uL (0-1.0); Monocytes % (A) 6 %; Neutrophils # (A) 6.7 k/uL (1.3-7.7); Neutrophils % (A) 76 %; Platelet Count 293 k/uL (150-450); RBC 4.18 m/uL (3.80-5.40); RDW 15.3 % (11.5-15.5); WBC 8.8 k/uL (3.8-10.6)
[2020-05-11 13:41] LABS: Prothrombin Time 29.6 sec (9.0-12.0)
[2020-05-11 14:17] LABS: Magnesium 1.9 mg/dL (1.6-2.3)
[2020-05-11 14:30] LABS: T4, Free (Free Thyroxine) 1.84 ng/dL (0.78-2.19)
[2020-05-11 20:24] LABS: Hemoglobin A1C 7.3 % (4.0-6.0)
== END | disposition home or self-care (01) ==
LOC: LABWHC1 12:17
PROVIDERS: ATTEND Nurse Practitioner Family
DX: E11.622 Type 2 diabetes mellitus with other skin ulcer (principal); I73.9 Peripheral vascular disease, unspecified
CPT/HCPCS: 36415; 83036; 83735; 84439; 84443; 85025; 85610

== ENCOUNTER → 2020-05-11 | Outpatient (CLI) | payer MEDICARE, BC ==
[2020-05-11 13:26] LABS: ALT 16 U/L (4-34); AST 23 U/L (14-36); African American GFR (CKD) >90 (>60 ml/min/1.73 sqM); Albumin 3.4 g/dL (3.5-5.0); Alkaline Phosphatase 70 U/L (38-126); Anion Gap 7 mmol/L; Blood Urea Nitrogen 19 mg/dL (7-17); Calcium 8.7 mg/dL (8.4-10.2); Carbon Dioxide 32 mmol/L (22-30); Chloride 92 mmol/L (98-107); Glucose 130 mg/dL (74-99); Non-African American GFR(CKD) 89 (>60 ml/min/1.73 sqM); Potassium 3.7 mmol/L (3.5-5.1); Sodium 131 mmol/L (137-145); Total Bilirubin 0.7 mg/dL (0.2-1.3); Total Protein 6.8 g/dL (6.3-8.2)
--- NOTE | 2020-05-11 15:49 | CT ---
EXAMINATION TYPE: CT angio abd aorta w/Runoff DATE OF EXAM: 05/11/2020 COMPARISON: INDICATION: Peripheral vascular disease. DLP: 993 mGycm, Automated exposure control for dose reduction was used. CONTRAST: 125 mL of Isovue 370. Study performed without Oral Contrast TECHNIQUE: Axial images were obtained from above the diaphragm to the pubic rami in the axial plane a t 5 mm thick sections. Reconstructed images are reviewed on the computer in the coronal plane. Thre e-D reconstructed images are performed by the technologist separate computer. Contrast timing is for the arterial system. FINDINGS: Limited CT sections are obtained the lung bases. Some mild pulmonary fibrosis may be at the lung bas es. CT ABDOMEN: Liver is moderate fatty infiltration. Spleen appears unremarkable. Pancreas is normal. Gallbladder is unremarkable. r left adrenal gland is thickened at 1.4 cm. Right adrenal gland appears normal. The k idneys are normal without masses cysts or hydronephrosis. Vascular calcifications within the aorta. I nferior vena cava is normal. Cholelithiasis is present. Loops of bowel within the abdomen and pelvis appear unremarkable. Fecal debris is within the colon. U rinary bladder is unremarkable. Uterus and ovaries are not identified. CTA: Vascular calcifications within the aorta. 2 renal arteries are identified. No aneurysmal dilatat ion is evident. Common iliac arteries are normal external iliac arteries are patent. Common femoral arteries are sharma nt. Profunda femoris are normal. Lower extremity runoff: Vascular calcification is within the bilateral lower extremity arterial syste m. This may be slightly greater on the left compared to the right. Beam hardening artifact prevents v isualization at the level the popliteal arteries. Trifurcation vessels are present. The anterior tibi al arteries are poorly visualized. Anterior tibial arteries and peroneal arteries. Across the level o f the ankles. IMPRESSIONS: 1. Vascular calcification within the lower extremities. Significant flow-limiting stenosis is not id entified. 2. Nonvisualization of the popliteal arteries due to beam hardening artifact from bilateral knee pros thesis. 3. Posterior tibial arteries not visualized on the remote study
== END | disposition home or self-care (01) ==
LOC: RADCTMAIN 13:06
PROVIDERS: ATTEND Surgery Vascular Surgery
DX: I73.9 Peripheral vascular disease, unspecified (principal); E11.622 Type 2 diabetes mellitus with other skin ulcer
CPT/HCPCS: 80053; 75635; Q9967

== ENCOUNTER 2020-06-07 16:24 | Inpatient (IN) | payer MEDICARE, BC ==
[2020-06-07] MEDS ORDERED: methylPREDNISolone SOD SUCCI 125 MG/2 ML VIAL IV STA (17:01)
[2020-06-07] MEDS ORDERED: ALBUTEROL HFA INHALER INHALATION STA (17:10)
[2020-06-07 17:33] LABS: Anisocytosis Slight; Basophils % (A) 0 %; Eosinophils # (A) 0.1 k/uL (0-0.7); Eosinophils % (A) 1 %; HCT 40.5 % (34.0-46.0); HGB 12.7 gm/dL (11.4-16.0); Hypochromasia Slight; Lymphocytes # (A) 0.8 k/uL (1.0-4.8); Lymphocytes % (A) 8 %; MCHC 31.4 g/dL (31.0-37.0); MCV 88.9 fL (80.0-100.0); Mean Platelet Volume 7.4; Monocytes # (A) 0.5 k/uL (0-1.0); Monocytes % (A) 4 %; Neutrophils # (A) 8.8 k/uL (1.3-7.7); Neutrophils % (A) 86 %; Platelet Count 372 k/uL (150-450); RBC 4.55 m/uL (3.80-5.40); RDW 16.3 % (11.5-15.5); WBC 10.3 k/uL (3.8-10.6)
--- NOTE | 2020-06-07 17:33 | ED ---
General Adult HPI - General Chief complaint: Shortness of Breath Stated complaint: sob/low o2/leg wounds Time Seen by Provider: 06/07/20 16:43 Source: patient, RN notes reviewed, old records reviewed Mode of arrival: wheelchair Limitations: no limitations - History of Present Illness Initial comments: 74-year-old female history of COPD presenting for evaluation of worsening dyspnea. Patient reports having a minor cough. She denies fever. She does r eport lower extremity swelling which she states has worsened over the past several weeks. She states her symptoms have progressed over several weeks. She denies central chest pain. She was sent in by her primary care physician for evaluation. - Related Data Home Medications Medication Instructions Recorded Confirmed Lisinopril [Prinivil] 10 mg PO HS 09/20/15 06/07/20 Lovastatin [Mevacor] 40 mg PO HS 09/20/15 06/07/20 Multivit-Min/FA/Lycopen/Lutein 1 tab PO DAILY 09/20/15 06/07/20 [Centrum Silver Tablet] hydroCHLOROthiazide [Hydrodiuril] 25 mg PO HS 09/20/15 06/07/20 Pantoprazole [Protonix] 40 mg PO DAILY 03/23/20 06/07/20 Triamcinolone 0.5% Cream [Kenalog 1 applic TOPICAL DAILY PRN 03/23/20 06/07/20 0.5% Cream] Warfarin Sodium [Jantoven] 2.5 mg PO SUTUTHSA 03/23/20 06/07/20 Warfarin Sodium [Jantoven] 3.75 mg PO WE 03/23/20 06/07/20 Warfarin Sodium [Jantoven] 5 mg PO MOFR 03/23/20 06/07/20 Albuterol Nebulized [Ventolin 2.5 mg INHALATION RT-QID PRN 06/07/20 06/07/20 Nebulized] Furosemide [Lasix] 80 mg PO DAILY 06/07/20 06/07/20 INSULIN ASPART (NovoLOG) [NovoLOG See Protocol SQ ACHS PRN 06/07/20 06/07/20 (formulary)] metOLazone 2.5 mg PO DIRECTED 06/07/20 06/07/20 predniSONE 10 mg PO DAILY 06/07/20 06/07/20 Previous Rx's Medication Instructions Recorded Budesonide [Pulmicort] 0.5 mg INHALATION RT-BID #0 ml 03/27/20 Gabapentin [Neurontin] 200 mg PO BID #12 cap 03/27/20 Ipratropium-Albuterol Nebulize 3 ml INHALATION RT-QID PRN ml 03/27/20 [Duoneb 0.5 mg-3 mg/3 ml Soln] traMADol HCl [Ultram] 50 mg PO TID PRN #9 tab 03/27/20 Allergies Allergy/AdvReac Type Severity Reaction Status Date / Time Penicillins Allergy Swelling Verified 06/07/20 17:15 hydrocodone bitartrate AdvReac Nausea & Verified 06/07/20 17:15 [From Vicodin] Vomiting sulfamethoxazole AdvReac Nausea & Verified 06/07/20 17:15 Vomiting Review of Systems ROS Statement: Those systems with pertinent positive or pertinent negative responses have been documented in the HPI. ROS Other: All systems not noted in ROS Statement are negative. Past Medical History Past Medical History: COPD, Diabetes Mellitus, Hypertension, Myocardial Infarction (CT), Vascular Disorder Additional Past Medical History / Comment(s): anemia,SOB,irreg HR,bronchitis 16/09-07-15,crys leg and feet edema,hx of bleeding ulcer around age 32, Last Myocardial Infarction Date:: unk History of Any Multi-Drug Resistant Organisms: MRSA Date of last positivie culture/infection: 05/22/20 MDRO Source:: LEG MRSA Past Surgical History: Hysterectomy, Joint Replacement, Orthopedic Surgery Additional Past Surgical History / Comment(s): rtfem-pop bypass,3or4 stents lt leg,crys knee replace,lt shoulder repair Past Anesthesia/Blood Transfusion Reactions: Postoperative Nausea & Vomiting (PONV) Additional Past Anesthesia/Blood Transfusion Reaction / Comment(s): no problems with prior blood transfusions Past Psychological History: Anxiety, Depression Smoking Status: Former smoker Past Alcohol Use History: None Reported, Rare Past Drug Use History: None Reported - Past Family History Mother Family Medical History: Diabetes Mellitus Additional Family Medical History / Comment(s): heart problems Father Additional Family Medical History / Comment(s): heart problems Sister(s) Family Medical History: Diabetes Mellitus Additional Family Medical History / Comment(s): heart problems Brother(s) Family Medical History: Cancer General Exam Limitations: no limitations General appearance: alert, in no apparent distress Head exam: Present: atraumatic, normocephalic Eye exam: Present: normal appearance, PERRL ENT exam: Present: mucous membranes dry Neck exam: Present: normal inspection. Absent: tenderness, meningismus Respiratory exam: Present: respiratory distress, rales, decreased breath sounds. Absent: wheezes Cardiovascular Exam: Present: tachycardia, irregular rhythm GI/Abdominal exam: Present: soft. Absent: distended, tenderness, guarding, rebound Extremities exam: Present: normal capillary refill, pedal edema Neurological exam: Present: alert, oriented X3, CN II-XII intact. Absent: motor sensory deficit Psychiatric exam: Present: normal affect, normal mood Skin exam: Present: warm, dry, intact. Absent: cyanosis, diaphoretic Course Vital Signs 06/07/20 06/07/20 16:38 18:09 Temperature 98.0 F Pulse Rate 107 H 93 Respiratory 26 H 16 Rate Blood Pressure 118/71 116/90 O2 Sat by Pulse 87 L 99 Oximetry EKG Findings - EKG Comments: EKG Findings:: EKG: Atrial fibrillation, rate of 100, QRS duration 118, QTC 497, no ST segment elevation, left posterior fascicular block Medical Decision Making - Medical Decision Making 74-year-old female presenting with worsening dyspnea over the past several weeks. Patient sent in by primary care physician. Moderate respiratory distress. History of COPD. Patient states has x-ray showing chronic interstitial findings, she has normal CBC, mildly elevated d-dimer although she is anticoagulated on Coumadin and this is normal age adjusted d-dimer. She has an elevated BNP, her influenza and coronavirus are negative. She will be admitted for COPD, and likely a component of CHF. Case has been discussed with Dr. Mcmahan who will admit. - Lab Data Result diagrams: 06/07/20 17:22 06/07/20 17:22 Lab Results 06/07/20 06/07/20 06/07/20 Range/Units 17: 17:02 17:22 WBC 10.3 (3.8-10.6) k/uL RBC 4.55 (3.80-5.40) m/uL Hgb 12.7 (11.4-16.0) gm/dL Hct 40.5 (34.0-46.0) % MCV 88.9 (80.0-100.0) fL MCH 28.0 (25.0-35.0) pg MCHC 31.4 (31.0-37.0) g/dL RDW 16.3 H (11.5-15.5) % Plt Count 372 (150-450) k/uL MPV 7.4 Neutrophils % 86 % Lymphocytes % 8 % Monocytes % 4 % Eosinophils % 1 % Basophils % 0 % Neutrophils # 8.8 H (1.3-7.7) k/uL Lymphocytes # 0.8 L (1.0-4.8) k/uL Monocytes # 0.5 (0-1.0) k/uL Eosinophils # 0.1 (0-0.7) k/uL Basophils # 0.0 (0-0.2) k/uL Hypochromasia Slight Anisocytosis Slight PT (9.0-12.0) sec INR (<1.2) APTT (22.0-30.0) sec D-Dimer (<0.60) mg/L FEU Sodium (137-145) mmol/L Potassium (3.5-5.1) mmol/L Chloride (98-107) mmol/L Carbon Dioxide (22-30) mmol/L Anion Gap mmol/L BUN (7-17) mg/dL Creatinine (0.52-1.04) mg/dL Est GFR (CKD-EPI)AfAm (>60 ml/min/1.73 sqM) Est GFR (CKD-EPI)NonAf (>60 ml/min/1.73 sqM) Glucose (74-99) mg/dL Plasma Lactic Acid Jean-Paul (0.7-2.0) mmol/L Calcium (8.4-10.2) mg/dL Magnesium (1.6-2.3) mg/dL Total Bilirubin (0.2-1.3) mg/dL AST (14-36) U/L ALT (4-34) U/L Alkaline Phosphatase (38-126) U/L Troponin I (0.000-0.034) ng/mL NT-Pro-B Natriuret Pep pg/mL Total Protein (6.3-8.2) g/dL Albumin (3.5-5.0) g/dL Coronavirus (PCR) Not Detected (Not Detectd) Influenza Type A RNA Not Detected (Not Detectd) Influenza Type B (PCR) Not Detected (Not Detectd) 06/07/20 06/07/20 06/07/20 Range/Units 17:22 17:22 17:22 WBC (3.8-10.6) k/uL RBC (3.80-5.40) m/uL Hgb (11.4-16.0) gm/dL Hct (34.0-46.0) % MCV (80.0-100.0) fL MCH (25.0-35.0) pg MCHC (31.0-37.0) g/dL RDW (11.5-15.5) % Plt Count (150-450) k/uL MPV Neutrophils % % Lymphocytes % % Monocytes % % Eosinophils % % Basophils % % Neutrophils # (1.3-7.7) k/uL Lymphocytes # (1.0-4.8) k/uL Monocytes # (0-1.0) k/uL Eosinophils # (0-0.7) k/uL Basophils # (0-0.2) k/uL Hypochromasia Anisocytosis PT 33.2 H (9.0-12.0) sec INR 3.4 H (<1.2) APTT 32.0 H (22.0-30.0) sec D-Dimer 0.60 H (<0.60) mg/L FEU Sodium 132 L (137-145) mmol/L Potassium 3.5 (3.5-5.1) mmol/L Chloride 90 L (98-107) mmol/L Carbon Dioxide 34 H (22-30) mmol/L Anion Gap 8 mmol/L BUN 28 H (7-17) mg/dL Creatinine 0.65 (0.52-1.04) mg/dL Est GFR (CKD-EPI)AfAm >90 (>60 ml/min/1.73 sqM) Est GFR (CKD-EPI)NonAf 89 (>60 ml/min/1.73 sqM) Glucose 139 H (74-99) mg/dL Plasma Lactic Acid Jean-Paul 2.0 (0.7-2.0) mmol/L Calcium 9.0 (8.4-10.2) mg/dL Magnesium 2.0 (1.6-2.3) mg/dL Total Bilirubin 1.2 (0.2-1.3) mg/dL AST 33 (14-36) U/L ALT 23 (4-34) U/L Alkaline Phosphatase 73 (38-126) U/L Troponin I (0.000-0.034) ng/mL NT-Pro-B Natriuret Pep pg/mL Total Protein 7.0 (6.3-8.2) g/dL Albumin 3.4 L (3.5-5.0) g/dL Coronavirus (PCR) (Not Detectd) Influenza Type A RNA (Not Detectd) Influenza Type B (PCR) (Not Detectd) 06/07/20 06/07/20 Range/Units 17:22 17:22 WBC (3.8-10.6) k/uL RBC (3.80-5.40) m/uL Hgb (11.4-16.0) gm/dL Hct (34.0-46.0) % MCV (80.0-100.0) fL MCH (25.0-35.0) pg MCHC (31.0-37.0) g/dL RDW (11.5-15.5) % Plt Count (150-450) k/uL MPV Neutrophils % % Lymphocytes % % Monocytes % % Eosinophils % % Basophils % % Neutrophils # (1.3-7.7) k/uL Lymphocytes # (1.0-4.8) k/uL Monocytes # (0-1.0) k/uL Eosinophils # (0-0.7) k/uL Basophils # (0-0.2) k/uL Hypochromasia Anisocytosis PT (9.0-12.0) sec INR (<1.2) APTT (22.0-30.0) sec D-Dimer (<0.60) mg/L FEU Sodium (137-145) mmol/L Potassium (3.5-5.1) mmol/L Chloride (98-107) mmol/L Carbon Dioxide (22-30) mmol/L Anion Gap mmol/L BUN (7-17) mg/dL Creatinine (0.52-1.04) mg/dL Est GFR (CKD-EPI)AfAm (>60 ml/min/1.73 sqM) Est GFR (CKD-EPI)NonAf (>60 ml/min/1.73 sqM) Glucose (74-99) mg/dL Plasma Lactic Acid Jean-Paul (0.7-2.0) mmol/L Calcium (8.4-10.2) mg/dL Magnesium (1.6-2.3) mg/dL Total Bilirubin (0.2-1.3) mg/dL AST (14-36) U/L ALT (4-34) U/L Alkaline Phosphatase (38-126) U/L Troponin I <0.012 (0.000-0.034) ng/mL NT-Pro-B Natriuret Pep 4050 pg/mL Total Protein (6.3-8.2) g/dL Albumin (3.5-5.0) g/dL Coronavirus (PCR) (Not Detectd) Influenza Type A RNA (Not Detectd) Influenza Type B (PCR) (Not Detectd) Critical Care Time Critical Care Time: Yes Total Critical Care Time: 35 Disposition Clinical Impression: Acute exacerbation of chronic obstructive pulmonary disease, Congestive heart failure Disposition: ADMITTED IP TO THIS [facility] Condition: Stable Is patient prescribed a controlled substance at d/c from ED?: No Referrals: Saul Mcmahan MD [Primary Care Provider] - 1-2 days Decision to Admit Reason: Admit from EC Decision Date: 06/07/20 Decision Time: 18:52
--- NOTE | 2020-06-07 17:42 | XR ---
EXAMINATION TYPE: XR chest 1V portable DATE OF EXAM: 06/07/2020 COMPARISON: 03/23/2020. HISTORY: Shortness of breath and cough. TECHNIQUE: Single frontal view of the chest is obtained. FINDINGS: There is moderate chronic interstitial opacities predominantly in the lower lung. No pleur al effusion, or pneumothorax seen. The cardiac silhouette size is enlarged. The osseous structures are intact. IMPRESSION: Chronic interstitial opacities with superimposed acute component not excluded.
[2020-06-07 17:53] LABS: INR 3.4 (<1.2); Prothrombin Time 33.2 sec (9.0-12.0)
[2020-06-07 17:56] LABS: ALT 23 U/L (4-34); AST 33 U/L (14-36); African American GFR (CKD) >90 (>60 ml/min/1.73 sqM); Albumin 3.4 g/dL (3.5-5.0); Alkaline Phosphatase 73 U/L (38-126); Anion Gap 8 mmol/L; Blood Urea Nitrogen 28 mg/dL (7-17); Carbon Dioxide 34 mmol/L (22-30); Chloride 90 mmol/L (98-107); Glucose 139 mg/dL (74-99); Non-African American GFR(CKD) 89 (>60 ml/min/1.73 sqM); Potassium 3.5 mmol/L (3.5-5.1); Sodium 132 mmol/L (137-145); Total Bilirubin 1.2 mg/dL (0.2-1.3)
[2020-06-07 18:07] LABS: D-Dimer 0.6 mg/L FEU (<0.60)
[2020-06-07] MEDS ORDERED: FUROSEMIDE 10 MG/ML 4 ML VIAL IV STA (18:44)
[2020-06-07] MEDS ORDERED: IPRATROPIUM-ALBUTEROL 3 ML NEB INHALATION PRN ×2 (18:46→21:22)
[2020-06-07] MEDS ORDERED: traMADol 50 MG TAB PO STA (19:14)
[2020-06-07] MEDS: IPRATROPIUM-ALBUTEROL 3 ML NEB INHALATION SCH (19:45)
[2020-06-07] MEDS ORDERED: TRIAMCINOLONE ACET 0.5% CREAM 15 GM TUBE TOPICAL PRN (21:22)
[2020-06-07] MEDS ORDERED: ALBUTEROL NEBULIZED 2.5 MG/3 ML INHALATION PRN (21:22)
[2020-06-07] MEDS ORDERED: metOLazone 2.5 MG TAB PO SCH (21:30)
--- NOTE | 2020-06-07 22:11 | P.HPIM ---
History of Present Illness H&P Date: 06/07/20 Chief Complaint: Acute on chronic respiratory failure, severe hypoxia, COPD exacerbation and 74-year-old female one of my office patient with multiple medical problem was known to have history of type 2 diabetes, history of COPD, hypertension hyperlipidemia post RI who was seen in the office today for follow-up was severely dyspneic having significant hypoxia despite having to be on 3 L of O2 her pulse ox was remain in the 80s. Patient was having significant tachypnea w orsening hypoxia ended up being sent to the emergency department. Patient was seen in the her laboratory value normal CBC mildly elevated d-dimer normal chemistry. Patient was placed on BiPAP after doing, round of updraft treatment and was loaded with Solu-Medrol 125 mg injection patient was started on IV antibiotic as well with Rocephin and azithromycin. We'll consult pulmonary and admit patient to the hospital. Review of Systems CONSTITUTIONAL: Well-developed no acute respiratory distress. EYES: No icterus sclerae, no conjunctivitis. EARS, NOSE, MOUTH, THROAT, and FACE: No sore throat, lymphadenopathy, carotid bruits or deformity. RESPIRATORY: Positive dyspnea and shortness of breath CARDIOVASCULAR: Positive PND or troponin palpitation GASTROINTESTINAL: No Abd pain, Nausea or vomiting, no Diarrhea or constipation, No GI Bleed, no distention or masses. GENITOURINARY: Negative for Hematuria or UTI, no kidney stones. INTEGUMENT/BREAST: Negative for any muscular injury with mild osteoarthritis.. HEMATOLOGIC/LYMPHATIC: Negative for bleed or purpura. MUSCULOSKELTAL: Negative for Myalgia or arthralgia. NEURLOGICAL: No LOC, Sz or syncope, blurred vision dizziness or abnormality.. BEHAVIORAL/PSYCH: Negative. ENDOCRINE: Negative. Past Medical History Past Medical History: COPD, Diabetes Mellitus, Hypertension, Myocardial Infarction (RI), Vascular Disorder Additional Past Medical History / Comment(s): anemia,SOB,irreg HR,bronchitis 16/09-07-15,crys leg and feet edema,hx of bleeding ulcer around age 32, Last Myocardial Infarction Date:: unk History of Any Multi-Drug Resistant Organisms: MRSA Date of last positivie culture/infection: 05/22/20 MDRO Source:: LEG MRSA Past Surgical History: Hysterectomy, Joint Replacement, Orthopedic Surgery Additional Past Surgical History / Comment(s): rtfem-pop bypass,3or4 stents lt leg,crys knee replace,lt shoulder repair Past Anesthesia/Blood Transfusion Reactions: Postoperative Nausea & Vomiting (PONV) Additional Past Anesthesia/Blood Transfusion Reaction / Comment(s): no problems with prior blood transfusions Past Psychological History: Anxiety, Depression Smoking Status: Former smoker Past Alcohol Use History: None Reported, Rare Additional Past Alcohol Use History / Comment(s): started smoking 1960 Past Drug Use History: None Reported - Past Family History Mother Family Medical History: Diabetes Mellitus Additional Family Medical History / Comment(s): heart problems Father Additional Family Medical History / Comment(s): heart problems Sister(s) Family Medical History: Diabetes Mellitus Additional Family Medical History / Comment(s): heart problems Brother(s) Family Medical History: Cancer Medications and Allergies Home Medications Medication Instructions Recorded Confirmed Type Lisinopril [Prinivil] 10 mg PO HS 09/20/15 06/07/20 History Lovastatin [Mevacor] 40 mg PO HS 09/20/15 06/07/20 History Multivit-Min/FA/Lycopen/Lutein 1 tab PO DAILY 09/20/15 06/07/20 History [Centrum Silver Tablet] hydroCHLOROthiazide [Hydrodiuril] 25 mg PO HS 09/20/15 06/07/20 History Pantoprazole [Protonix] 40 mg PO DAILY 03/23/20 06/07/20 History Triamcinolone 0.5% Cream [Kenalog 1 applic TOPICAL DAILY PRN 03/23/20 06/07/20 History 0.5% Cream] Warfarin Sodium [Jantoven] 2.5 mg PO SUTUTHSA 03/23/20 06/07/20 History Warfarin Sodium [Jantoven] 3.75 mg PO WE 03/23/20 06/07/20 History Warfarin Sodium [Jantoven] 5 mg PO MOFR 03/23/20 06/07/20 History Budesonide [Pulmicort] 0.5 mg INHALATION RT-BID #0 ml 03/27/20 06/07/20 Rx Gabapentin [Neurontin] 200 mg PO BID #12 cap 03/27/20 06/07/20 Rx Ipratropium-Albuterol Nebulize 3 ml INHALATION RT-QID PRN ml 03/27/20 06/07/20 Rx [Duoneb 0.5 mg-3 mg/3 ml Soln] traMADol HCl [Ultram] 50 mg PO TID PRN #9 tab 03/27/20 06/07/20 Rx Albuterol Nebulized [Ventolin 2.5 mg INHALATION RT-QID PRN 06/07/20 06/07/20 History Nebulized] Furosemide [Lasix] 80 mg PO DAILY 06/07/20 06/07/20 History INSULIN ASPART (NovoLOG) [NovoLOG See Protocol SQ ACHS PRN 06/07/20 06/07/20 History (formulary)] metOLazone 2.5 mg PO DIRECTED 06/07/20 06/07/20 History predniSONE 10 mg PO DAILY 06/07/20 06/07/20 History Allergies Allergy/AdvReac Type Severity Reaction Status Date / Time Penicillins Allergy Swelling Verified 06/07/20 17:15 hydrocodone bitartrate AdvReac Nausea & Verified 06/07/20 17:15 [From Vicodin] Vomiting sulfamethoxazole AdvReac Nausea & Verified 06/07/20 17:15 Vomiting Physical Exam Vitals: Vital Signs Temp Pulse Resp BP Pulse Ox 06/07/20 21:12 18 06/07/20 19:52 93 18 06/07/20 19:45 87 18 06/07/20 18:09 93 16 116/90 99 06/07/20 16:38 98.0 F 107 H 26 H 118/71 87 L Intake and Output 06/07/20 06/07/20 06/07/20 06:59 14:59 22:59 Other: Voiding Method Bedside Commode Weight 81.193 kg General Appearance: Alert, cooperative, no distress, appears stated age. Neck HEENT: Supple, no lymphadenopathy, no thyroid enlargement, no carotid bruits. Lungs: Clear to auscultation without crackles or wheezes no rhonchi, no deformity. Chest Wall: Decrease expansion with deep inspiration no tenderness no deformity or mass. Heart: Regular rate and rhythm, S1, S2 normal, no murmur, rub or gallop. Back: Symmetric, no curvature, ROM normal, no CVA tenderness. Abdomen: Soft, non-tender, bowel sounds active all four quadrants, no masses, no organomegaly chronic problem with UTI. Extremities: 1+ edema and decreased pulses dorsalis pedis. Pulses: 2+ and symmetric. Skin: Skin color, texture, tugor normal, no rashes or lesions. Neurologic: Alert oriented x3 cranial nerves II through XII intact, no motor deficit, no abnormal balance or gait. Results CBC & Chem 7: 06/07/20 17:22 06/07/20 17:22 Labs: Abnormal Lab Results - Last 24 Hours (Table) 06/07/20 06/07/20 06/07/20 Range/Units 17: 17: 17: RDW 16.3 H (11.5-15.5) % Neutrophils # 8.8 H (1.3-7.7) k/uL Lymphocytes # 0.8 L (1.0-4.8) k/uL PT 33.2 H (9.0-12.0) sec INR 3.4 H (<1.2) APTT 32.0 H (22.0-30.0) sec D-Dimer 0.60 H (<0.60) mg/L FEU Sodium 132 L (137-145) mmol/L Chloride 90 L (98-107) mmol/L Carbon Dioxide 34 H (22-30) mmol/L BUN 28 H (7-17) mg/dL Glucose 139 H (74-99) mg/dL Albumin 3.4 L (3.5-5.0) g/dL Thrombosis Risk Factor Assmnt - DVT/VTE Prophylaxis DVT/VTE Prophylaxis: Pharmacologic Prophylaxis ordered, Mechanical Prophylaxis ordered - Choose All That Apply Each Risk Factor Represents 2 Points: Age 61-74 years Thrombosis Risk Factor Assessment Total Risk Factor Score: 2 Thrombosis Risk Factor Assessment Level: Low Risk Assessment and Plan Assessment: 1 acute on chronic respiratory failure: With CO2 retention, demanded require more O2 at this point, patient be hospitalized was he seen pulmonary continue Solu-Medrol Pulmicort and DuoNeb with try to wean him off the BiPAP as soon as possible. 2 COPD excessive patient: No flareup will continue O2 continue updraft treatment and steroid her graft 33 CAD with significantly abnormal stress test the patient is not in any condition to be able to go off biological agent for management Type 2 diabetes: Continue patient on insulin per sliding scale coverage, will add long-acting insulin at nighttime. 5 chronic diastolic congestive heart failure: Has been on furosemide along with Zaroxolyn 18. 6 hyperlipidemia: Remain on Mevacor 40 mg daily. 7 hypertension: Remain on Prinivil 10 mg daily, and still on diuretics. 8 A. fib with pulse rates well controlled still on warfarin with INR is therapeutic. 9 severe GERD/GI prophylaxis: Remain on pantoprazole. 10 DVT prophylaxis: Continue patient on anticoagulation. CODE STATUS: Full code. Admit patient to the inpatient service more than 2 night stay.
[2020-06-07] MEDS: traMADol 50 MG TAB PO PRN (23:00)
[2020-06-07] MEDS: FUROSEMIDE 10 MG/ML 4 ML VIAL IV SCH (23:01)
[2020-06-08] MEDS: methylPREDNISolone SOD SUCCI 125 MG/2 ML VIAL IV SCH ×4 (01:06→18:03)
[2020-06-08 07:26] LABS: Glucose,Whole Blood 171 mg/dL (75-99)
[2020-06-08] MEDS: BUDESONIDE 0.5 MG/2 ML NEBU INHALATION SCH ×2 (07:50→19:48)
[2020-06-08] MEDS: IPRATROPIUM-ALBUTEROL 3 ML NEB INHALATION SCH ×4 (07:50→19:48)
[2020-06-08] MEDS: GABAPENTIN 100 MG CAP PO SCH ×2 (08:18→20:39)
[2020-06-08] MEDS: PANTOPRAZOLE 40 MG TABLET PO SCH (08:18)
[2020-06-08] MEDS: MULTIVITAMINS, THERA 1 EACH TAB PO SCH (08:18)
[2020-06-08] MEDS: FUROSEMIDE 10 MG/ML 4 ML VIAL IV SCH (08:18)
[2020-06-08] MEDS: INSULIN ASPART (NovoLOG) 100 UNIT/ML VIAL SQ SCH ×4 (08:19→22:37)
[2020-06-08] MEDS ORDERED: AZITHROMYCIN 500 MG in SODIUM CHLORIDE 0.9% 250 ML IVPB SCH (09:00)
[2020-06-08] MEDS ORDERED: FUROSEMIDE 40 MG TAB PO SCH (09:00)
[2020-06-08] MEDS: DICLOFENAC SODIUM GEL 100 GM TUBE TOPICAL SCH ×4 (09:47→22:40)
[2020-06-08] MEDS: TRIAMCINOLONE ACET 0.5% CREAM 15 GM TUBE TOPICAL SCH ×3 (09:47→20:40)
[2020-06-08 09:49] LABS: Prothrombin Time 19.3 sec (9.0-12.0)
[2020-06-08 11:38] LABS: Glucose,Whole Blood 205 mg/dL (75-99)
--- NOTE | 2020-06-08 14:15 | P.PN ---
Subjective Progress Note Date: 06/08/20 HISTORY OF PRESENT ILLNESS 74-year-old female one of my office patient with multiple medical problem was known to have history of type 2 diabetes, history of COPD, hypertension hype rlipidemia post SD who was seen in the office today for follow-up was severely dyspneic having significant hypoxia despite having to be on 3 L of O2 her pulse ox was remain in the 80s. Patient was having significant tachypnea worsening hypoxia ended up being sent to the emergency department. Patient was seen in the her laboratory value normal CBC mildly elevated d-dimer normal chemistry. Patient was placed on BiPAP after doing, round of updraft treatment and was loaded with Solu-Medrol 125 mg injection patient was started on IV antibiotic as well with Rocephin and azithromycin. We'll consult pulmonary and admit patient to the hospital. 06/08: Patient is requesting Voltaren gel for bilateral knee arthritis pain and Kenalog cream for psoriasis. Patient's respiratory status is improved from yesterday. She remains in atrial fibrillation with rate controlled. She has been afebrile, heart rate 94, blood pressure 120/70, pulse ox 94% on 3 L nasal cannula. INR is 2, blood sugars 171-205. Coumadin 2.0. Covid19 negative. The patient is on IV Lasix 40 mg every 12 hours and Solu-Medrol IV 60 mg every 12 hours. She is on antibiotics the form of ceftriaxone and azithromycin. REVIEW OF SYSTEMS CONSTITUTIONAL: Well-developed no acute respiratory distress. No fevers. EYES: No icterus sclerae, no conjunctivitis. EARS, NOSE, MOUTH, THROAT, and FACE: No sore throat, lymphadenopathy, carotid bruits or deformity. RESPIRATORY: Positive dyspnea and shortness of breath CARDIOVASCULAR: Positive PND or troponin palpitation GASTROINTESTINAL: No Abd pain, Nausea or vomiting, no Diarrhea or constipation, No GI Bleed, no distention or masses. GENITOURINARY: Negative for Hematuria or UTI, no kidney stones. INTEGUMENT/BREAST: Negative for any muscular injury with mild osteoarthritis.. HEMATOLOGIC/LYMPHATIC: Negative for bleed or purpura. MUSCULOSKELTAL: Negative for Myalgia or arthralgia. NEURLOGICAL: No LOC, Sz or syncope, blurred vision dizziness or abnormality.. BEHAVIORAL/PSYCH: Negative. ENDOCRINE: Negative. PHYSICAL EXAMINATION General Appearance: Alert, cooperative, no distress, appears stated age. No respiratory distress noted. Neck HEENT: Supple, no lymphadenopathy, no thyroid enlargement, no carotid bruits. Lungs: Clear to auscultation without crackles or wheezes no rhonchi, no deformity. Chest Wall: Decrease expansion with deep inspiration no tenderness no deformity or mass. Heart: Regular rate and rhythm, S1, S2 normal, no murmur, rub or gallop. Back: Symmetric, no curvature, ROM normal, no CVA tenderness. Abdomen: Soft, non-tender, bowel sounds active all four quadrants, no masses, no organomegaly chronic problem with UTI. Extremities: 1+ edema and decreased pulses dorsalis pedis. Pulses: 2+ and symmetric. Skin: Skin color, texture, tugor normal, no rashes or lesions. Neurologic: Alert oriented x3 cranial nerves II through XII intact, no motor deficit, no abnormal balance or gait. ASSESSMENT AND PLAN 1 acute on chronic hypoxic respiratory failure: With CO2 retention, demanded require more O2 at this point, patient be hospitalized was he seen pulmonary continue Solu-Medrol Pulmicort and DuoNeb with try to wean him off the BiPAP as soon as possible. 2 COPD exacerbation. Continue DuoNeb treatments 4 times daily and as needed, Pulmicort 0.5 mg twice daily, Solu-Medrol 60 mg IV every 6 hours. Pulmonary consult. 3 CAD with significantly abnormal stress test the patient is not in any condition to be able to go off biological agent for management 4 Type 2 diabetes: Continue patient on insulin per sliding scale coverage. 5 chronic diastolic heart failure. Continue Lasix 40 mg IV every 12 hours, lisinopril 10 mg at bedtime, metolazone 2.5 mg. 6 hyperlipidemia: Remain on Mevacor 40 mg daily. 7 hypertension: Remain on Prinivil 10 mg daily, and still on diuretics. 8 chronic atrial fibrillation, rate controlled. Continue Coumadin, pharmacy dosing. 9 severe GERD/GI prophylaxis: Remain on pantoprazole. 10 DVT prophylaxis: Continue patient on anticoagulation. 11 psoriasis. Continue Kenalog. 12. Generalized osteoarthritis, bilateral knees. Voltaren gel. CODE STATUS: Full code. DISCHARGE PLAN He determined. Impression and plan of care have been directed as dictated by the signing physician. Maida Johnson nurse practitioner acting as scribe for signing physician. Objective - Vital Signs Vital signs: Vital Signs Temp 98.0 F 06/08/20 02:50 Pulse 92 06/08/20 08:05 Resp 18 06/08/20 02:50 BP 117/72 06/08/20 02:50 Pulse Ox 97 06/08/20 02:50 Intake & Output 06/07/20 06/08/20 06/08/20 18:59 06:59 18:59 Weight 81.193 kg 81.193 kg Other: Voiding Method Bedside Commode # Voids 1 - Labs CBC & Chem 7: 06/07/20 17:22 06/07/20 17:22 Labs: Abnormal Lab Results - Last 24 Hours (Table) 06/07/20 06/07/20 06/07/20 Range/Units 17:22 17:22 17:22 RDW 16.3 H (11.5-15.5) % Neutrophils # 8.8 H (1.3-7.7) k/uL Lymphocytes # 0.8 L (1.0-4.8) k/uL PT 33.2 H (9.0-12.0) sec INR 3.4 H (<1.2) APTT 32.0 H (22.0-30.0) sec D-Dimer 0.60 H (<0.60) mg/L FEU Sodium 132 L (137-145) mmol/L Chloride 90 L (98-107) mmol/L Carbon Dioxide 34 H (22-30) mmol/L BUN 28 H (7-17) mg/dL Glucose 139 H (74-99) mg/dL POC Glucose (mg/dL) (75-99) mg/dL Albumin 3.4 L (3.5-5.0) g/dL 06/08/20 Range/Units 07:20 RDW (11.5-15.5) % Neutrophils # (1.3-7.7) k/uL Lymphocytes # (1.0-4.8) k/uL PT (9.0-12.0) sec INR (<1.2) APTT (22.0-30.0) sec D-Dimer (<0.60) mg/L FEU Sodium (137-145) mmol/L Chloride (98-107) mmol/L Carbon Dioxide (22-30) mmol/L BUN (7-17) mg/dL Glucose (74-99) mg/dL POC Glucose (mg/dL) 171 H (75-99) mg/dL Albumin (3.5-5.0) g/dL
[2020-06-08 17:12] LABS: Glucose,Whole Blood 270 mg/dL (75-99)
[2020-06-08] MEDS ORDERED: WARFARIN 3 MG TAB PO SCH (18:00)
[2020-06-08] MEDS ORDERED: WARFARIN 2.5 MG TAB PO ONE (18:00)
[2020-06-08] MEDS: traMADol 50 MG TAB PO PRN (18:02)
[2020-06-08] MEDS: ATORVASTATIN 10 MG TAB PO SCH (20:38)
[2020-06-08] MEDS: hydroCHLOROthiazide 25 MG TAB PO SCH (20:39)
[2020-06-08] MEDS: lisinopriL 10 MG TAB PO SCH (20:39)
[2020-06-08 21:15] LABS: Glucose,Whole Blood 261 mg/dL (75-99)
[2020-06-09] MEDS: methylPREDNISolone SOD SUCCI 125 MG/2 ML VIAL IV SCH ×4 (00:20→17:54)
[2020-06-09] MEDS: traMADol 50 MG TAB PO PRN ×2 (06:20→13:19)
[2020-06-09 06:55] LABS: Glucose,Whole Blood 212 mg/dL (75-99)
[2020-06-09] MEDS: IPRATROPIUM-ALBUTEROL 3 ML NEB INHALATION SCH ×5 (07:48→19:05)
[2020-06-09] MEDS: BUDESONIDE 0.5 MG/2 ML NEBU INHALATION SCH (07:48)
[2020-06-09] MEDS: INSULIN ASPART (NovoLOG) 100 UNIT/ML VIAL SQ SCH ×6 (08:34→21:12)
[2020-06-09] MEDS: MULTIVITAMINS, THERA 1 EACH TAB PO SCH (08:35)
[2020-06-09] MEDS: GABAPENTIN 100 MG CAP PO SCH ×2 (08:35→19:27)
[2020-06-09] MEDS: PANTOPRAZOLE 40 MG TABLET PO SCH (08:35)
[2020-06-09] MEDS: FUROSEMIDE 80 MG TAB PO SCH (08:35)
[2020-06-09] MEDS: AZITHROMYCIN 500 MG TAB PO SCH (08:36)
[2020-06-09] MEDS: TRIAMCINOLONE ACET 0.5% CREAM 15 GM TUBE TOPICAL SCH ×2 (08:37→19:30)
[2020-06-09] MEDS: DICLOFENAC SODIUM GEL 100 GM TUBE TOPICAL SCH ×4 (08:37→19:28)
--- NOTE | 2020-06-09 09:48 | P.CONS ---
History of Present Illness - Reason for Consult Consult date: 06/09/20 wound care - History of Present Illness this is a 74-year-old patient known to the wound care center being seen on 4 S. for nonhealing ulcerations of the right lower extremity in the left lower extremity. Patient is currently in Dr. Giang's clinic however she does not want to return to the clinic. She has increased discomfort to the site with increased Slough. Patient's past medical history significant for COPD, cheryle [place], [place], vascular disease. MRSA to the lower extremities on 05/14/2018 is 20. Patient has history of a right fem-pop bypass3-4 stents to the left lower extremity. Review of systems: Review Of Systems: Constitutional: No fever, no chills, no night sweats. No weight change. No weakness, fatigue or lethargy. No daytime sleepiness. Integumentary:reports wounds, no lesions. No rash or pruritus. No unusual bruising. No change in hair or nails. Physical exam: Wound #1 status is Open. Original cause of wound was Gradually Appeared. The wound is currently classified as a Grade 2 wound with etiology of Diabetic Wound/Ulcer of the Lower Extremity and is located on the Right,Anterior Lower Leg. The wound measures 7.6cm length x 4.4cm width x 0.3cm depth; 26.264cm^2 area and 7.879cm^3 volume. The wound is fat layer exposed There is no tunneling or undermining noted. There is a moderateamount of serous drainage noted. The wound margin is flat and intact. There is small (1-33%) pink granulation within the wound bed. There is a large (67-100%) amount of necrotic tissue within the wound bed including Adherent Slough. The periwound skin appearance had no abnormalities noted for moisture. The periwound skin appearance had no abnormalities noted for color. The periwound skin appearance exhibited: Scarring. The periwound skin appearance did not exhibit: Callus, Crepitus, Excoriation, Induration, Rash. Periwound temperature was noted as No Abnormality. Wound #2 status is Open. Original cause of wound was Gradually Appeared. The wound is currently classified as a Grade 2 wound with etiology of Diabetic Wound/Ulcer of the Lower Extremity and is located on the Right,Posterior Lower Leg. The wound measures 4cm length x 3.6cm width x 0.1cm depth; 11.31cm^2 area and 1.131cm^3 volume. The wound is fat layer exposed There is no tunneling or undermining noted. There is a medium amount of serous drainage noted. The wound margin is flat and intact. There is small (1-33%) pink granulation within the wound bed. There is a large (67-100%) amount of necrotic tissue within the wound bed including Adherent Slough. The periwound skin appearance had no abnormalities noted for texture. The periwound skin appearance had no abnormalities noted for moisture. The periwound skin appearance had no abnormalities noted for color. Periwound temperature was noted as No Abnormali ty. The periwound has tenderness on palpation. Wound #3 status is Open. Original cause of wound was Gradually Appeared. The wound is currently classified as a Grade 2 wound with etiology of Diabetic Wound/Ulcer of the Lower Extremity and is located on the Left,Anterior Lower Leg. The wound measures 7.4cm length x 4.2cm width x 0.3cm depth; 24.41cm^2 area and 7.323cm^3 volume. The wound is fat layer exposed. There is no tunneling or undermining noted. There is a medium amount of serous drainage noted. The wound margin is flat and intact. There is small (1-33%) pink granulation within the wound bed. There is a large (67-100%) amount of necrotic tissue within the wound bed including Eschar and Adherent Slough. The periwound skin appearance had no abnormalities noted for texture. The periwound skin appearance had no abnormalities noted for moisture. The periwound skin appearance had no abno rmalities noted for color. Periwound temperature was noted as No Abnormality. Past Medical History Past Medical History: COPD, Diabetes Mellitus, Hypertension, Myocardial Infarction ([place]), Vascular Disorder Additional Past Medical History / Comment(s): anemia,SOB,irreg HR,bronchitis 09-05-16/09-07-15,crys leg and feet edema,hx of bleeding ulcer around age 32, Last Myocardial Infarction Date:: unk History of Any Multi-Drug Resistant Organisms: MRSA Year Discovered:: 05/22/20 MDRO Source:: LEG MRSA Past Surgical History: Hysterectomy, Joint Replacement, Orthopedic Surgery Additional Past Surgical History / Comment(s): rtfem-pop bypass,3or4 stents lt leg,crys knee replace,lt shoulder repair Past Anesthesia/Blood Transfusion Reactions: Postoperative Nausea & Vomiting (PONV) Additional Past Anesthesia/Blood Transfusion Reaction / Comm: no problems with prior blood transfusions Past Psychological History: Anxiety, Depression Smoking Status: Former smoker Past Alcohol Use History: None Reported, Rare Additional Past Alcohol Use History / Comment(s): started smoking 1960 Past Drug Use History: None Reported - Past Family History Mother Family Medical History: Diabetes Mellitus Additional Family Medical History / Comment(s): heart problems Father Additional Family Medical History / Comment(s): heart problems Sister(s) Family Medical History: Diabetes Mellitus Additional Family Medical History / Comment(s): heart problems Brother(s) Family Medical History: Cancer Medications and Allergies Home Medications Medication Instructions Recorded Confirmed Type Lisinopril [Prinivil] 10 mg PO HS 09/20/15 06/07/20 History Lovastatin [Mevacor] 40 mg PO HS 09/20/15 06/07/20 History Multivit-Min/FA/Lycopen/Lutein 1 tab PO DAILY 09/20/15 06/07/20 History [Centrum Silver Tablet] hydroCHLOROthiazide [Hydrodiuril] 25 mg PO HS 09/20/15 06/07/20 History Pantoprazole [Protonix] 40 mg PO DAILY 03/23/20 06/07/20 History Triamcinolone 0.5% Cream [Kenalog 1 applic TOPICAL DAILY PRN 03/23/20 06/07/20 History 0.5% Cream] Warfarin Sodium [Jantoven] 2.5 mg PO SUTUTHSA 03/23/20 06/07/20 History Warfarin Sodium [Jantoven] 3.75 mg PO WE 03/23/20 06/07/20 History Warfarin Sodium [Jantoven] 5 mg PO MOFR 03/23/20 06/07/20 History Budesonide [Pulmicort] 0.5 mg INHALATION RT-BID #0 ml 03/27/20 06/07/20 Rx Gabapentin [Neurontin] 200 mg PO BID #12 cap 03/27/20 06/07/20 Rx Ipratropium-Albuterol Nebulize 3 ml INHALATION RT-QID PRN ml 03/27/20 06/07/20 Rx [Duoneb 0.5 mg-3 mg/3 ml Soln] traMADol HCl [Ultram] 50 mg PO TID PRN #9 tab 03/27/20 06/07/20 Rx Albuterol Nebulized [Ventolin 2.5 mg INHALATION RT-QID PRN 06/07/20 06/07/20 History Nebulized] Furosemide [Lasix] 80 mg PO DAILY 06/07/20 06/07/20 History INSULIN ASPART (NovoLOG) [NovoLOG See Protocol SQ ACHS PRN 06/07/20 06/07/20 History (formulary)] Allergies Allergy/AdvReac Type Severity Reaction Status Date / Time Penicillins Allergy Swelling Verified 06/07/20 17:15 hydrocodone bitartrate AdvReac Nausea & Verified 06/07/20 17:15 [From Vicodin] Vomiting sulfamethoxazole AdvReac Nausea & Verified 06/07/20 17:15 Vomiting Physical Exam Vitals: Vital Signs Temp Pulse Pulse Pulse Resp BP BP 06/09/20 08:01 100 06/09/20 07:50 94 06/09/20 03:35 96.2 F L 95 18 113/68 06/08/20 20:00 96 06/08/20 19:55 97.5 F L 98 20 129/76 06/08/20 19:48 95 06/08/20 19:25 94 88 20 06/08/20 15:49 100 06/08/20 15:36 100 06/08/20 14:00 98.3 F 94 20 125/73 06/08/20 11:29 92 06/08/20 11:17 92 Pulse Ox 06/09/20 08:01 06/09/20 07:50 06/09/20 03:35 96 06/08/20 20:00 06/08/20 19:55 97 06/08/20 19:48 97 06/08/20 19:25 06/08/20 15:49 06/08/20 15:36 06/08/20 14:00 98 06/08/20 11:29 06/08/20 11:17 Intake and Output 06/08/20 06/09/20 06/09/20 22:59 06:59 14:59 Intake Total 1500 Balance 1500 Intake: Intake, IV Titration 300 Amount Azithromycin 500 mg In 250 Sodium Chloride 0.9% 250 ml @ 250 mls/hr IVPB DAILY [facility] Rx#:[id number] cefTRIAXone 1 gm In 50 Sodium Chloride 0.9% 50 ml @ 100 mls/hr IVPB Q24HR [facility] Rx#:[id number] Oral 1200 Other: Voiding Method Bedside Commode # Voids 2 2 # Bowel Movements 1 Results CBC & Chem 7: 06/07/20 17:22 06/07/20 17:22 Labs: Abnormal Lab Results - Last 24 Hours (Table) 06/08/20 06/08/20 06/08/20 Range/Units 09:13 11:35 17:10 PT 19.3 H (9.0-12.0) sec INR 2.0 H (<1.2) POC Glucose (mg/dL) 205 H 270 H (75-99) mg/dL 06/08/20 06/09/20 Range/Units 21:13 06:52 PT (9.0-12.0) sec INR (<1.2) POC Glucose (mg/dL) 261 H 212 H (75-99) mg/dL Microbiology - Last 24 Hours (Table) 06/07/20 17:20 Blood Culture - Preliminary Blood No Growth after 24 hours Assessment and Plan (1) Nonhealing ulcer of right lower extremity with fat layer exposed Current Visit: No Status: Acute Code(s): L97.912 - NON-PRS CHR ULC UNSP PRT OF R LOW LEG W FAT LAYER EXPOSED SNOMED Code(s): 39904199 (2) Nonhealing ulcer of left lower extremity with fat layer exposed Current Visit: Yes Status: Acute Code(s): L97.922 - NON-PRS CHR ULC UNSP PRT OF L LOW LEG W FAT LAYER EXPOSED SNOMED Code(s): 82003949 (3) Diabetes mellitus with skin ulcer Current Visit: No Status: Acute Code(s): E11.622 - TYPE 2 DIABETES MELLITUS WITH OTHER SKIN ULCER; L98.499 - NON-PRESSURE CHRONIC ULCER OF SKIN OF SITES W UNSP SEVERITY SNOMED Code(s): 33266118
--- NOTE | 2020-06-09 11:32 | P.PN ---
Subjective Progress Note Date: 06/09/20 HISTORY OF PRESENT ILLNESS 74-year-old female one of my office patient with multiple medical problem was known to have history of type 2 diabetes, history of COPD, hypertension hype rlipidemia post [place] who was seen in the office today for follow-up was severely dyspneic having significant hypoxia despite having to be on 3 L of O2 her pulse ox was remain in the 80s. Patient was having significant tachypnea worsening hypoxia ended up being sent to the emergency department. Patient was seen in the her laboratory value normal CBC mildly elevated d-dimer normal chemistry. Patient was placed on BiPAP after doing, round of updraft treatment and was loaded with Solu-Medrol 125 mg injection patient was started on IV antibiotic as well with Rocephin and azithromycin. We'll consult pulmonary and admit patient to the hospital. 06/08: Patient is requesting Voltaren gel for bilateral knee arthritis pain and Kenalog cream for psoriasis. Patient's respiratory status is improved from yesterday. She remains in atrial fibrillation with rate controlled. She has been afebrile, heart rate 94, blood pressure 120/70, pulse ox 94% on 3 L nasal cannula. INR is 2, blood sugars 171-205. Coumadin 2.0. Covid19 negative. The patient is on IV Lasix 40 mg every 12 hours and Solu-Medrol IV 60 mg every 12 hours. She is on antibiotics the form of ceftriaxone and azithromycin. 06/09: Patient has been afebrile, heart rate 95, blood pressure 113/68, pulse ox 96% on 4 L nasal cannula. Blood sugars are running in the 200s. Scheduled NovoLog added to scale. INR remains pending at the time of this dictation. Blood sugars running between 212 and 170. Consult will be added for wound center evaluation. Patient follows a regular basis. Pulmonary medicine on consult. Discharge plan is to on Friday. REVIEW OF SYSTEMS CONSTITUTIONAL: Well-developed no acute respiratory distress. No fevers. No chills. EYES: No icterus sclerae, no conjunctivitis. EARS, NOSE, MOUTH, THROAT, and FACE: No sore throat, lymphadenopathy, carotid bruits or deformity. RESPIRATORY: Positive dyspnea and shortness of breath CARDIOVASCULAR: Positive PND or troponin palpitation GASTROINTESTINAL: No Abd pain, Nausea or vomiting, no Diarrhea or constipation, No GI Bleed, no distention or masses. GENITOURINARY: Negative for Hematuria or UTI, no kidney stones. INTEGUMENT/BREAST: Negative for any muscular injury with mild osteoarthritis.. HEMATOLOGIC/LYMPHATIC: Negative for bleed or purpura. MUSCULOSKELTAL: Negative for Myalgia or arthralgia. NEURLOGICAL: No LOC, Sz or syncope, blurred vision dizziness or abnormality.. BEHAVIORAL/PSYCH: Negative. ENDOCRINE: Negative. PHYSICAL EXAMINATION General Appearance: Alert, cooperative, no distress, appears stated age. No respiratory distress noted. Neck HEENT: Supple, no lymphadenopathy, no thyroid enlargement, no carotid bruits. Lungs: Clear to auscultation without crackles or wheezes no rhonchi, no deformity. Chest Wall: Decrease expansion with deep inspiration no tenderness no deformity or mass. Heart: Regular rate and rhythm, S1, S2 normal, no murmur, rub or gallop. Back: Symmetric, no curvature, ROM normal, no CVA tenderness. Abdomen: Soft, non-tender, bowel sounds active all four quadrants, no masses, no organomegaly chronic problem with UTI. Extremities: 1+ edema and decreased pulses dorsalis pedis. Pulses: 2+ and symmetric. Skin: Skin color, texture, tugor normal, no rashes or lesions. Neurologic: Alert oriented x3 cranial nerves II through XII intact, no motor deficit, no abnormal balance or gait. ASSESSMENT AND PLAN 1 acute on chronic hypoxic respiratory failure: With CO2 retention, demanded require more O2 at this point, patient be hospitalized was he seen pulmonary continue Solu-Medrol, Pulmicort and DuoNeb. 2 COPD exacerbation. Continue DuoNeb treatments 4 times daily and as needed, Pulmicort 0.5 mg twice daily, Solu-Medrol 60 mg IV every 6 hours. Pulmonary consult. 3 CAD with significantly abnormal stress test the patient is not in any condition to be able to go off biological agent for management 4 Type 2 diabetes uncontrolled secondary to steroids: Continue patient on insulin per sliding scale coverage, and NovoLog 5 units with meals. 5 chronic diastolic heart failure. Continue Lasix 80 mg oral daily, lisinopril 10 mg at bedtime, metolazone 2.5 mg. 6 hyperlipidemia: Remain on Mevacor 40 mg daily. 7 hypertension: Remain on Prinivil 10 mg daily, and still on diuretics. 8 chronic atrial fibrillation, rate controlled. Continue Coumadin, pharmacy dosing. 9 severe GERD/GI prophylaxis: Remain on pantoprazole. 10 DVT prophylaxis: Continue patient on anticoagulation. 11 psoriasis. Continue Kenalog. 12. Generalized osteoarthritis, bilateral knees. Voltaren gel. 13. Chronic diabetic ulcers followed by the wound healing Center. Consult with wound team. CODE STATUS: Full code. DISCHARGE PLAN Possible discharge to [facility] on Friday Impression and plan of care have been directed as dictated by the signing physician. Maida Johnson nurse practitioner acting as scribe for signing physician. Objective - Vital Signs Vital signs: Vital Signs Temp 96.2 F L 06/09/20 03:35 Pulse 95 06/09/20 03:35 Resp 18 06/09/20 03:35 BP 113/68 06/09/20 03:35 Pulse Ox 96 06/09/20 03:35 Intake & Output 06/08/20 06/09/20 06/09/20 18:59 06:59 18:59 Intake Total 900 600 Balance 900 600 Intake: Intake, IV Titration 300 Amount Azithromycin 500 mg In 250 Sodium Chloride 0.9% 250 ml @ 250 mls/hr IVPB DAILY [facility] Rx#:[id number] cefTRIAXone 1 gm In 50 Sodium Chloride 0.9% 50 ml @ 100 mls/hr IVPB Q24HR [facility] Rx#:[id number] Oral 600 600 Other: Voiding Method Bedside Commode Bedside Commode # Voids 5 2 # Bowel Movements 1 - Labs CBC & Chem 7: 06/07/20 17:22 06/07/20 17:22 Labs: Abnormal Lab Results - Last 24 Hours (Table) 06/08/20 06/08/20 06/08/20 Range/Units 09:13 11:35 17:10 PT 19.3 H (9.0-12.0) sec INR 2.0 H (<1.2) POC Glucose (mg/dL) 205 H 270 H (75-99) mg/dL 06/08/20 06/09/20 Range/Units 21:13 06:52 PT (9.0-12.0) sec INR (<1.2) POC Glucose (mg/dL) 261 H 212 H (75-99) mg/dL Microbiology - Last 24 Hours (Table) 06/07/20 17:20 Blood Culture - Preliminary Blood No Growth after 24 hours
[2020-06-09 11:42] LABS: Glucose,Whole Blood 240 mg/dL (75-99)
[2020-06-09] MEDS: COLLAGENASE 250 UNIT/GM OINTMENT 30 GM TUBE TOPICAL SCH (14:29)
--- NOTE | 2020-06-09 14:57 | P.CNPUL ---
History of Present Illness Consult date: 06/09/20 Requesting physician: Saul Mcmahan Reason for consult: dyspnea, cough, COPD, hypoxemia Chief complaint: Shortness of breath. History of present illness: 74-year-old female, who presents to the emergency department, with shortness of breath. In addition, she was found to have low oxygen saturations, and chronic bilateral lower extremity wounds. She apparently does see Dr. Saul Tolliver at the wound clinic, and sees Dr. Mcmahan, as a primary. The patient tells me that her by Sri reason for coming into the hospital as worsening shortness of breath. She does have a bit of a dry cough. She denies any fever or chills. She hasn't been feeling well for a couple of days. In addition, she does have bilateral lower extremity edema. She denies any fever or chills. She's not coughing up any phlegm or blood. She denies any chest pain or chest discomfort. Also, she denies any nausea, vomiting, diarrhea, abdominal pain, or genitourinary complaints. The patient has been smoking for 60 years. She started when she was 12 years of age. She has a history of COPD, diabetes mellitus, hypertension, myocardial infarction, anemia, and tachycardia arrhythmia. She also was discovered to have a bleeding ulcer around the age of 32 years of age. The patient has had previous methicillin-resistant staph aureus infections of the lower extremities, as recent as 05/22/2020. Currently, she is on 4 L nasal cannula, and looks reasonably comfortable. Review of Systems REVIEW OF SYSTEMS: CONSTITUTIONAL: [Negative.] NEUROLOGIC: [ Negative.] HEENT: [ Negative.] CARDIAC: Lower extremity edema. PULMONARY: Shortness of breath, and dry cough. GI: [Negative.] : [Negative.] RHEUMATOLOGIC: [ Negative.] IMMUNOLOGIC: [ Negative.] ENDOCRINE: [Negative. ] DERMATOLOGIC: Lower extremity chronic ulcers. Past Medical History Past Medical History: COPD, Diabetes Mellitus, Hypertension, Myocardial Infarction ([place]), Vascular Disorder Additional Past Medical History / Comment(s): anemia,SOB,irreg HR,bronchitis 09-05-16/16,crys leg and feet edema,hx of bleeding ulcer around age 32, Last Myocardial Infarction Date:: unk History of Any Multi-Drug Resistant Organisms: MRSA Date of last positivie culture/infection: 05/22/20 MDRO Source:: LEG MRSA Past Surgical History: Hysterectomy, Joint Replacement, Orthopedic Surgery Additional Past Surgical History / Comment(s): rtfem-pop bypass,3or4 stents lt leg,crys knee replace,lt shoulder repair Past Anesthesia/Blood Transfusion Reactions: Postoperative Nausea & Vomiting (PONV) Additional Past Anesthesia/Blood Transfusion Reaction / Comment(s): no problems with prior blood transfusions Past Psychological History: Anxiety, Depression Smoking Status: Former smoker Past Alcohol Use History: None Reported, Rare Additional Past Alcohol Use History / Comment(s): started smoking 1960 Past Drug Use History: None Reported - Past Family History Mother Family Medical History: Diabetes Mellitus Additional Family Medical History / Comment(s): heart problems Father Additional Family Medical History / Comment(s): heart problems Sister(s) Family Medical History: Diabetes Mellitus Additional Family Medical History / Comment(s): heart problems Brother(s) Family Medical History: Cancer Medications and Allergies Home Medications Medication Instructions Recorded Confirmed Type Lisinopril [Prinivil] 10 mg PO HS 09/20/15 06/07/20 History Lovastatin [Mevacor] 40 mg PO HS 09/20/15 06/07/20 History Multivit-Min/FA/Lycopen/Lutein 1 tab PO DAILY 09/20/15 06/07/20 History [Centrum Silver Tablet] hydroCHLOROthiazide [Hydrodiuril] 25 mg PO HS 09/20/15 06/07/20 History Pantoprazole [Protonix] 40 mg PO DAILY 03/23/20 06/07/20 History Triamcinolone 0.5% Cream [Kenalog 1 applic TOPICAL DAILY PRN 03/23/20 06/07/20 History 0.5% Cream] Warfarin Sodium [Jantoven] 2.5 mg PO SUTUTHSA 03/23/20 06/07/20 History Warfarin Sodium [Jantoven] 3.75 mg PO WE 03/23/20 06/07/20 History Warfarin Sodium [Jantoven] 5 mg PO MOFR 03/23/20 06/07/20 History Budesonide [Pulmicort] 0.5 mg INHALATION RT-BID #0 ml 03/27/20 06/07/20 Rx Gabapentin [Neurontin] 200 mg PO BID #12 cap 03/27/20 06/07/20 Rx Ipratropium-Albuterol Nebulize 3 ml INHALATION RT-QID PRN ml 03/27/20 06/07/20 Rx [Duoneb 0.5 mg-3 mg/3 ml Soln] traMADol HCl [Ultram] 50 mg PO TID PRN #9 tab 03/27/20 06/07/20 Rx Albuterol Nebulized [Ventolin 2.5 mg INHALATION RT-QID PRN 06/07/20 06/07/20 History Nebulized] Furosemide [Lasix] 80 mg PO DAILY 06/07/20 06/07/20 History INSULIN ASPART (NovoLOG) [NovoLOG See Protocol SQ ACHS PRN 06/07/20 06/07/20 History (formulary)] Allergies Allergy/AdvReac Type Severity Reaction Status Date / Time Penicillins Allergy Swelling Verified 06/07/20 17:15 hydrocodone bitartrate AdvReac Nausea & Verified 06/07/20 17:15 [From Vicodin] Vomiting sulfamethoxazole AdvReac Nausea & Verified 06/07/20 17:15 Vomiting Physical Exam Osteopathic Statement: *. No significant issues noted on an osteopathic structural exam other than those noted in the History and Physical/Consult. Vitals: Vital Signs Temp Pulse Pulse Pulse Resp BP BP 06/09/20 11:37 96 06/09/20 11:29 92 06/09/20 08:01 100 06/09/20 08:00 97.3 F L 87 22 123/66 06/09/20 07:50 94 06/09/20 03:35 96.2 F L 95 18 113/68 06/08/20 20:00 96 06/08/20 19:55 97.5 F L 98 20 129/76 06/08/20 19:48 95 06/08/20 19:25 94 88 20 06/08/20 15:49 100 06/08/20 15:36 100 Pulse Ox 06/09/20 11:37 06/09/20 11:29 06/09/20 08:01 06/09/20 08:00 93 L 06/09/20 07:50 06/09/20 03:35 96 06/08/20 20:00 06/08/20 19:55 97 06/08/20 19:48 97 06/08/20 19:25 06/08/20 15:49 06/08/20 15:36 Intake and Output 06/08/20 06/09/20 06/09/20 22:59 06:59 14:59 Intake Total 1500 Balance 1500 Intake: Intake, IV Titration 300 Amount Azithromycin 500 mg In 250 Sodium Chloride 0.9% 250 ml @ 250 mls/hr IVPB DAILY [facility] Rx#:[id number] cefTRIAXone 1 gm In 50 Sodium Chloride 0.9% 50 ml @ 100 mls/hr IVPB Q24HR [facility] Rx#:[id number] Oral 1200 Other: Voiding Method Bedside Commode Bedside Commode # Voids 2 2 # Bowel Movements 1 No acute distress, oriented 3. Nasal O2 in place at 4 L/m. HEENT examination is grossly unremarkable. Mucous membranes are moist. Neck supple. Full range of motion. No adenopathy thyromegaly or neck vein distention. Cardiovascular examination reveals an irregular rhythm and rate. S1-S2 normal. No S3 or S4. No discernible murmur noted. Heart sounds are distant. Heart rate 96 bpm. Lungs reveal bibasilar crackles. In addition, many of the crackles are Velcro nature. She may have some underlying pulmonary fibrosis. In addition, coarse rhonchi and a few scattered wheezes are appreciated. Breath sounds are equal bilaterally. Abdomen soft bowel sounds are heard. No masses or tenderness. Extremities are wrapped. There is edema. It's 1+. No cyanosis or clubbing. I did not get a look at her leg wounds. Skin is without rash or lesion. Neurologic examination is brief but nonfocal. Results - Laboratory Findings CBC and BMP: 06/07/20 17:22 06/07/20 17:22 PT/INR, D-dimer PT 19.3 sec (9.0-12.0) H 06/08/20 09:13 INR 2.0 (<1.2) H 06/08/20 09:13 D-Dimer 0.60 mg/L FEU (<0.60) H 06/07/20 17:22 Abnormal lab findings: Abnormal Labs 06/07/20 06/07/20 06/07/20 17:22 17:22 17:22 RDW 16.3 H Neutrophils # 8.8 H Lymphocytes # 0.8 L PT 33.2 H INR 3.4 H APTT 32.0 H D-Dimer 0.60 H Sodium 132 L Chloride 90 L Carbon Dioxide 34 H BUN 28 H Glucose 139 H POC Glucose (mg/dL) Albumin 3.4 L 06/08/20 06/08/20 06/08/20 07:20 09:13 11:35 RDW Neutrophils # Lymphocytes # PT 19.3 H INR 2.0 H APTT D-Dimer Sodium Chloride Carbon Dioxide BUN Glucose POC Glucose (mg/dL) 171 H 205 H Albumin 06/08/20 06/08/20 06/09/20 17:10 21:13 06:52 RDW Neutrophils # Lymphocytes # PT INR APTT D-Dimer Sodium Chloride Carbon Dioxide BUN Glucose POC Glucose (mg/dL) 270 H 261 H 212 H Albumin 06/09/20 11:30 RDW Neutrophils # Lymphocytes # PT INR APTT D-Dimer Sodium Chloride Carbon Dioxide BUN Glucose POC Glucose (mg/dL) 240 H Albumin - Diagnostic Findings Chest x-ray: image reviewed Assessment and Plan Assessment: Shortness of breath, likely multifactorial, in part related to COPD exacerbation, fluid overload/CHF, and possible interstitial lung disease/pulmonary fibrosis. History of chronic tobacco use, for 60 years. Chronic lower extremity wounds/ulcers, currently being treated at the wound center. Previous cultures of the left and right leg reveal Enterobacter cloacae, enterococcus faecium, methicillin-resistant staph aureus, and pseudomonas aeruginosa. History of hyperlipidemia. History of hypertension. History of chronic atrial fibrillation. History of diabetes mellitus. Prior history of myocardial infarction. History of chronic anemia. Peripheral vascular occlusive disease, with previous fem-pop bypass and stenting. Plan: Plan dated 06/09/2020. From the COPD standpoint, the patient will be treated with albuterol sulfate, and ipratropium bromide updrafts, 4 times a day and when necessary. In addition, we will add Pulmicort 1 mg, mixed with formoterol, 20 g, twice a day. In addition, we'll provide the patient with some systemic corticosteroids. The patient is counseled about the importance of smoking cessation. Additional recommendations and suggestions are forthcoming. Infectious disease consult would be very helpful. The patient has had multiple wound infections with multiple organisms. Time with Patient: Greater than 30
[2020-06-09 16:56] LABS: Glucose,Whole Blood 205 mg/dL (75-99)
[2020-06-09 18:30] LABS: INR 1.55 (0.90-1.11); Prothrombin Time 16.2 sec (9.9-11.9)
[2020-06-09] MEDS ORDERED: WARFARIN 5 MG TAB PO ONE (19:00)
[2020-06-09] MEDS: BUDESONIDE 1 MG/2 ML NEBU INHALATION SCH (19:05)
[2020-06-09] MEDS: FORMOTEROL FUMARATE 20 MCG/2 ML NEBU INHALATION SCH (19:05)
[2020-06-09] MEDS: hydroCHLOROthiazide 25 MG TAB PO SCH (19:26)
[2020-06-09] MEDS: lisinopriL 10 MG TAB PO SCH (19:26)
[2020-06-09] MEDS: ATORVASTATIN 10 MG TAB PO SCH (19:27)
[2020-06-09] MEDS ORDERED: BUDESONIDE 0.5 MG/2 ML NEBU INHALATION SCH (20:00)
[2020-06-09 20:25] LABS: Glucose,Whole Blood 227 mg/dL (75-99)
[2020-06-10] MEDS: methylPREDNISolone SOD SUCCI 125 MG/2 ML VIAL IV SCH ×5 (00:16→22:57)
[2020-06-10] MEDS: traMADol 50 MG TAB PO PRN (04:10)
[2020-06-10 07:09] LABS: Glucose,Whole Blood 288 mg/dL (75-99)
[2020-06-10] MEDS: IPRATROPIUM-ALBUTEROL 3 ML NEB INHALATION SCH ×4 (08:31→20:50)
[2020-06-10] MEDS: BUDESONIDE 1 MG/2 ML NEBU INHALATION SCH ×2 (08:31→20:50)
[2020-06-10] MEDS: FORMOTEROL FUMARATE 20 MCG/2 ML NEBU INHALATION SCH ×2 (08:31→20:50)
[2020-06-10] MEDS: MULTIVITAMINS, THERA 1 EACH TAB PO SCH (09:15)
[2020-06-10] MEDS: INSULIN ASPART (NovoLOG) 100 UNIT/ML VIAL SQ SCH ×7 (09:15→20:39)
[2020-06-10] MEDS: AZITHROMYCIN 500 MG TAB PO SCH (09:15)
[2020-06-10] MEDS: PANTOPRAZOLE 40 MG TABLET PO SCH (09:15)
[2020-06-10] MEDS: FUROSEMIDE 80 MG TAB PO SCH (09:15)
[2020-06-10] MEDS: GABAPENTIN 100 MG CAP PO SCH ×2 (09:15→20:39)
[2020-06-10 09:22] LABS: INR 1.79 (0.90-1.11); Prothrombin Time 18.5 sec (9.9-11.9)
[2020-06-10] MEDS: TRIAMCINOLONE ACET 0.5% CREAM 15 GM TUBE TOPICAL SCH ×2 (09:27→20:40)
[2020-06-10] MEDS: DICLOFENAC SODIUM GEL 100 GM TUBE TOPICAL SCH ×4 (09:27→20:40)
[2020-06-10] MEDS: COLLAGENASE 250 UNIT/GM OINTMENT 30 GM TUBE TOPICAL SCH (09:29)
--- NOTE | 2020-06-10 10:29 | P.PN ---
Subjective Progress Note Date: 06/10/20 HISTORY OF PRESENT ILLNESS 74-year-old female one of my office patient with multiple medical problem was known to have history of type 2 diabetes, history of COPD, hypertension hyper lipidemia post VT who was seen in the office today for follow-up was severely dyspneic having significant hypoxia despite having to be on 3 L of O2 her pulse ox was remain in the 80s. Patient was having significant tachypnea worsening hypoxia ended up being sent to the emergency department. Patient was seen in the her laboratory value normal CBC mildly elevated d-dimer normal chemistry. Patient was placed on BiPAP after doing, round of updraft treatment and was loaded with Solu-Medrol 125 mg injection patient was started on IV antibiotic as well with Rocephin and azithromycin. We'll consult pulmonary and admit patient to the hospital. 06/08: Patient is requesting Voltaren gel for bilateral knee arthritis pain and Kenalog cream for psoriasis. Patient's respiratory status is improved from yesterday. She remains in atrial fibrillation with rate controlled. She has been afebrile, heart rate 94, blood pressure 120/70, pulse ox 94% on 3 L nasal cannula. INR is 2, blood sugars 171-205. Coumadin 2.0. Covid19 negative. The patient is on IV Lasix 40 mg every 12 hours and Solu-Medrol IV 60 mg every 12 hours. She is on antibiotics the form of ceftriaxone and azithromycin. 06/09: Patient has been afebrile, heart rate 95, blood pressure 113/68, pulse ox 96% on 4 L nasal cannula. Blood sugars are running in the 200s. Scheduled NovoLog added to scale. INR remains pending at the time of this dictation. Blood sugars running between 212 and 170. Consult will be added for wound c enter evaluation. Patient follows a regular basis. Pulmonary medicine on consult. Discharge plan is to [place] on Friday. 06/10: Patient is found resting comfortably in bed. With no acute distress. Patient states that she is breathing better today continues to have some pain to the right lower extremity. Patient will be scheduled to see Dr. Alberto in outpatient setting. She is planned to go to [facility] on Friday. Today is her birthday. Her family all lives in [place]. Patient remains afebrile, pulse rate of 100, respirations 18, blood pressure 117/77, pulse oximetry 95% on 4 L REVIEW OF SYSTEMS CONSTITUTIONAL: Well-developed no acute respiratory distress. No fevers. No chills. EYES: No icterus sclerae, no conjunctivitis. EARS, NOSE, MOUTH, THROAT, and FACE: No sore throat, lymphadenopathy, carotid bruits or deformity. RESPIRATORY: Positive dyspnea and shortness of breath CARDIOVASCULAR: Positive PND or troponin palpitation GASTROINTESTINAL: No Abd pain, Nausea or vomiting, no Diarrhea or constipation, No GI Bleed, no distention or masses. GENITOURINARY: Negative for Hematuria or UTI, no kidney stones. INTEGUMENT/BREAST: Negative for any muscular injury with mild osteoarthritis.. HEMATOLOGIC/LYMPHATIC: Negative for bleed or purpura. MUSCULOSKELTAL: Negative for Myalgia or arthralgia. NEURLOGICAL: No LOC, Sz or syncope, blurred vision dizziness or abnormality.. BEHAVIORAL/PSYCH: Negative. ENDOCRINE: Negative. PHYSICAL EXAMINATION General Appearance: Alert, cooperative, no distress, appears stated age. No respiratory distress noted. Neck HEENT: Supple, no lymphadenopathy, no thyroid enlargement, no carotid bruits. Lungs: Clear to auscultation without crackles or wheezes no rhonchi, no deformity. Chest Wall: Improved Decrease expansion with deep inspiration no tenderness no deformity or mass. Heart: Regular rate and rhythm, S1, S2 normal, no murmur, rub or gallop. Back: Symmetric, no curvature, ROM normal, no CVA tenderness. Abdomen: Soft, non-tender, bowel sounds active all four quadrants, no masses, no organomegaly chronic problem with UTI. Extremities: 1+ edema and decreased pulses dorsalis pedis. Pulses: 2+ and symmetric. Skin: Skin color, texture, tugor normal, no rashes or lesions. Neurologic: Alert oriented x3 cranial nerves II through XII intact, no motor deficit, no abnormal balance or gait. ASSESSMENT AND PLAN 1 acute on chronic hypoxic respiratory failure: With CO2 retention, demanded require more O2 at this point, patient be hospitalized was he seen pulmonary c ontinue Solu-Medrol, Pulmicort and DuoNeb. 2 COPD exacerbation. Continue DuoNeb treatments 4 times daily and as needed, Pulmicort 0.5 mg twice daily, Solu-Medrol 60 mg IV every 6 hours. Pulmonary c onsult. 3 CAD with significantly abnormal stress test the patient is not in any condition to be able to go off biological agent for management 4 Type 2 diabetes uncontrolled secondary to steroids: Continue patient on insulin per sliding scale coverage, and NovoLog 5 units with meals. 5 chronic diastolic heart failure. Continue Lasix 80 mg oral daily, lisinopril 10 mg at bedtime, metolazone 2.5 mg. 6 hyperlipidemia: Remain on Mevacor 40 mg daily. 7 hypertension: Remain on Prinivil 10 mg daily, and still on diuretics. 8 chronic atrial fibrillation, rate controlled. Continue Coumadin, pharmacy dosing. 9 severe GERD/GI prophylaxis: Remain on pantoprazole. 10 DVT prophylaxis: Continue patient on anticoagulation. 11 psoriasis. Continue Kenalog. 12. Generalized osteoarthritis, bilateral knees. Voltaren gel. 13. Chronic diabetic ulcers followed by the wound healing Center. Consult with wound team appreciated. Wound care prescribed CODE STATUS: Full code. DISCHARGE PLAN Possible discharge to [facility] on Friday Impression and plan of care have been directed as dictated by the signing physician. Tabatha Neumann nurse practitioner acting as scribe for signing physician. Objective - Vital Signs Vital signs: Vital Signs Temp 97.9 F 06/10/20 08:00 Pulse 100 06/10/20 08:55 Resp 18 06/10/20 08:55 BP 117/77 06/10/20 08:00 Pulse Ox 95 06/10/20 08:00 Intake & Output 06/09/20 06/10/20 06/10/20 18:59 06:59 18:59 Other: Voiding Method Bedside Commode Bedside Commode # Voids 4 1 - Labs CBC & Chem 7: 06/07/20 17:22 06/07/20 17:22 Labs: Abnormal Lab Results - Last 24 Hours (Table) 06/09/20 06/09/20 06/09/20 Range/Units 07:03 11:30 16:51 PT 16.2 H (9.9-11.9) sec INR 1.55 H (0.90-1.11) POC Glucose (mg/dL) 240 H 205 H (75-99) mg/dL 06/09/20 06/10/20 06/10/20 Range/Units 20:20 06:12 07:06 PT 18.5 H (9.9-11.9) sec INR 1.79 H (0.90-1.11) POC Glucose (mg/dL) 227 H 288 H (75-99) mg/dL Microbiology - Last 24 Hours (Table) 06/07/20 17:20 Blood Culture - Preliminary Blood No Growth after 48 hours Assessment and Plan (1) Nonhealing ulcer of right lower extremity with fat layer exposed Current Visit: No Status: Acute Code(s): L97.912 - NON-PRS CHR ULC UNSP PRT OF R LOW LEG W FAT LAYER EXPOSED SNOMED Code(s): 07233543 (2) Nonhealing ulcer of left lower extremity with fat layer exposed Current Visit: Yes Status: Acute Code(s): L97.922 - NON-PRS CHR ULC UNSP PRT OF L LOW LEG W FAT LAYER EXPOSED SNOMED Code(s): 44021768 (3) Diabetes mellitus with skin ulcer Current Visit: No Status: Acute Code(s): E11.622 - TYPE 2 DIABETES MELLITUS WITH OTHER SKIN ULCER; L98.499 - NON-PRESSURE CHRONIC ULCER OF SKIN OF SITES W UNSP SEVERITY SNOMED Code(s): 24444427
[2020-06-10 11:32] LABS: Glucose,Whole Blood 288 mg/dL (75-99)
--- NOTE | 2020-06-10 15:20 | P.PN ---
Subjective Progress Note Date: 06/10/20 Principal diagnosis: Acute exacerbation of chronic obstructive pulmonary disease, CHF, pulmonary fibrosis 74-year-old female, who presents to the emergency department, with shortness of breath. In addition, she was found to have low oxygen saturations, and chronic bilateral lower extremity wounds. She apparently does see Dr. Saul Tolliver at the wound clinic, and sees Dr. Mcmahan, as a primary. The patient tells me that her by Sri reason for coming into the hospital as worsening shortness of breath. She does have a bit of a dry cough. She denies any fever or chills. She hasn't been feeling well for a couple of days. In addition, she does have bilateral lower extremity edema. She denies any fever or chills. She's not coughing up any phlegm or blood. She denies any chest pain or chest discomfort. Also, she denies any nausea, vomiting, diarrhea, abdominal pain, or genitourinary complaints. The patient has been smoking for 60 years. She started when she was 12 years of age. She has a history of COPD, diabetes mellitus, hypertension, myocardial infarction, anemia, and tachycardia arrhythmia. She also was discovered to have a bleeding ulcer around the age of 32 years of age. The patient has had previous methicillin-resistant staph aureus infections of the lower extremities, as recent as 05/22/2020. Currently, she is on 4 L nasal cannula, and looks reasonably comfortable. The patient is seen today 06/10/2020 in follow-up on the regular medical floor. He is currently resting comfortably in bed. She is awake and alert. Maintaining O2 saturation in the 90s on room air. Blood culture reveals no growth. INR 1.79. Blood glucose 288. She is continued on DuoNeb inhalations, Pulmicort and Perforomist, IV Solu-Medrol, antibiotics in the form of ceftriaxone and azithromycin. Anticoagulated with warfarin. Subtherapeutic. Objective - Vital Signs Vital signs: Vital Signs Temp 97.3 F L 06/10/20 14:00 Pulse 92 06/10/20 14:00 Resp 18 06/10/20 14:00 BP 127/73 06/10/20 14:00 Pulse Ox 98 06/10/20 14:00 Intake & Output 06/09/20 06/10/20 06/10/20 18:59 06:59 18:59 Other: Voiding Method Bedside Commode Bedside Commode Bedside Commode # Voids 4 1 - Exam GENERAL EXAM: Alert, pleasant 75-year-old female patient on room air, comfortable in no apparent distress. HEAD: Normocephalic. EYES: Normal reaction of pupils, equal size. NOSE: Clear with pink turbinates. THROAT: No erythema or exudates. NECK: No masses, no JVD. CHEST: No chest wall deformity. LUNGS: Equal air entry with bilateral end expiratory wheeze, diminished, coarse crackles in the bases. CVS: S1 and S2 normal with no audible murmur, regular rhythm. ABDOMEN: No hepatosplenomegaly, normal bowel sounds, no guarding or rigidity. SPINE: No scoliosis or deformity SKIN: No rashes CENTRAL NERVOUS SYSTEM: No focal deficits, tone is normal in all 4 extremities. EXTREMITIES: There is no peripheral edema. No clubbing, no cyanosis. Peripher al pulses are intact. - Labs CBC & Chem 7: 06/07/20 17:22 06/07/20 17:22 Labs: Abnormal Lab Results - Last 24 Hours (Table) 06/09/20 06/09/20 06/09/20 Range/Units 07:03 16:51 20:20 PT 16.2 H (9.9-11.9) sec INR 1.55 H (0.90-1.11) POC Glucose (mg/dL) 205 H 227 H (75-99) mg/dL 06/10/20 06/10/20 06/10/20 Range/Units 06:12 07:06 11:31 PT 18.5 H (9.9-11.9) sec INR 1.79 H (0.90-1.11) POC Glucose (mg/dL) 288 H 288 H (75-99) mg/dL Microbiology - Last 24 Hours (Table) 06/07/20 17:20 Blood Culture - Preliminary Blood No Growth after 48 hours Assessment and Plan Assessment: 1 Acute hypoxic respiratory failure secondary to an acute exacerbation of COPD, fluid volume overload, pulmonary fibrosis 2 History of chronic tobacco use for greater than 60 years 3 Chronic lower extremity wounds/ulcers, currently being treated at the wound Center. Cultures have been positive for Enterobacter cloacae, enterococcus faecium, MRSA, pseudomonas 4 Hyperlipidemia 5 Hypertension 6 Chronic atrial fibrillation, anticoagulated with warfarin, 7 Diabetes mellitus 8 History of myocardial infarction 9 History of chronic anemia 10 Peripheral vascular occlusive disease with previous fem-pop bypass and stenting. Plan: The patient was seen and evaluated by Dr. Sullivan We'll continue with the current medications Currently on room air Educated again regarding the importance of complete smoking cessation We'll continue to follow I, the cosigning physician, performed a history & physical examination of the patient. Lungs sounds with bilateral end expiratory wheeze, diminished, coarse crackles in the bases Maintaining good O2 saturations in the 90s on room air. I discussed the assessment and plan of care with my nurse practitioner, Anna Castorena. I attest to the above note as dictated by her.
[2020-06-10 16:41] LABS: Glucose,Whole Blood 143 mg/dL (75-99)
[2020-06-10] MEDS ORDERED: WARFARIN 2.5 MG TAB PO ONE (18:00)
[2020-06-10 20:09] LABS: Glucose,Whole Blood 204 mg/dL (75-99)
[2020-06-10] MEDS: hydroCHLOROthiazide 25 MG TAB PO SCH (20:39)
[2020-06-10] MEDS: lisinopriL 10 MG TAB PO SCH (20:39)
[2020-06-10] MEDS: ATORVASTATIN 10 MG TAB PO SCH (20:39)
[2020-06-11] MEDS: traMADol 50 MG TAB PO PRN ×3 (02:09→21:54)
[2020-06-11] MEDS: methylPREDNISolone SOD SUCCI 125 MG/2 ML VIAL IV SCH ×4 (05:01→23:20)
[2020-06-11 07:09] LABS: Glucose,Whole Blood 239 mg/dL (75-99)
[2020-06-11] MEDS: INSULIN ASPART (NovoLOG) 100 UNIT/ML VIAL SQ SCH ×7 (07:35→20:32)
[2020-06-11] MEDS: FORMOTEROL FUMARATE 20 MCG/2 ML NEBU INHALATION SCH ×3 (08:11→20:19)
[2020-06-11] MEDS: BUDESONIDE 1 MG/2 ML NEBU INHALATION SCH ×3 (08:11→20:19)
[2020-06-11] MEDS: IPRATROPIUM-ALBUTEROL 3 ML NEB INHALATION SCH ×4 (08:11→20:19)
[2020-06-11] MEDS: GABAPENTIN 100 MG CAP PO SCH ×2 (09:05→20:32)
[2020-06-11] MEDS: FUROSEMIDE 80 MG TAB PO SCH (09:05)
[2020-06-11] MEDS: MULTIVITAMINS, THERA 1 EACH TAB PO SCH (09:05)
[2020-06-11] MEDS: AZITHROMYCIN 500 MG TAB PO SCH (09:05)
[2020-06-11] MEDS: PANTOPRAZOLE 40 MG TABLET PO SCH (09:05)
[2020-06-11] MEDS: TRIAMCINOLONE ACET 0.5% CREAM 15 GM TUBE TOPICAL SCH ×2 (09:06→20:33)
[2020-06-11] MEDS: COLLAGENASE 250 UNIT/GM OINTMENT 30 GM TUBE TOPICAL SCH (09:06)
[2020-06-11] MEDS: DICLOFENAC SODIUM GEL 100 GM TUBE TOPICAL SCH ×4 (09:06→20:33)
[2020-06-11 10:34] LABS: INR 2.41 (0.90-1.11); Prothrombin Time 24.4 sec (9.9-11.9)
--- NOTE | 2020-06-11 10:44 | P.PN ---
Subjective Progress Note Date: 06/11/20 HISTORY OF PRESENT ILLNESS 74-year-old female one of my office patient with multiple medical problem was known to have history of type 2 diabetes, history of COPD, hypertension hyper lipidemia post VT who was seen in the office today for follow-up was severely dyspneic having significant hypoxia despite having to be on 3 L of O2 her pulse ox was remain in the 80s. Patient was having significant tachypnea worsening hypoxia ended up being sent to the emergency department. Patient was seen in the her laboratory value normal CBC mildly elevated d-dimer normal chemistry. Patient was placed on BiPAP after doing, round of updraft treatment and was loaded with Solu-Medrol 125 mg injection patient was started on IV antibiotic as well with Rocephin and azithromycin. We'll consult pulmonary and admit patient to the hospital. 06/08: Patient is requesting Voltaren gel for bilateral knee arthritis pain and Kenalog cream for psoriasis. Patient's respiratory status is improved from yesterday. She remains in atrial fibrillation with rate controlled. She has been afebrile, heart rate 94, blood pressure 120/70, pulse ox 94% on 3 L nasal cannula. INR is 2, blood sugars 171-205. Coumadin 2.0. Covid19 negative. The patient is on IV Lasix 40 mg every 12 hours and Solu-Medrol IV 60 mg every 12 hours. She is on antibiotics the form of ceftriaxone and azithromycin. 06/09: Patient has been afebrile, heart rate 95, blood pressure 113/68, pulse ox 96% on 4 L nasal cannula. Blood sugars are running in the 200s. Scheduled NovoLog added to scale. INR remains pending at the time of this dictation. Blood sugars running between 212 and 170. Consult will be added for wound c enter evaluation. Patient follows a regular basis. Pulmonary medicine on consult. Discharge plan is to [facility] on Friday. 06/10: Patient is found resting comfortably in bed. With no acute distress. Patient states that she is breathing better today continues to have some pain to the right lower extremity. Patient will be scheduled to see Dr. Alberto in outpatient setting. She is planned to go to [facility] on Friday. Today is her birthday. Her family all lives in [place]. Patient remains afebrile, pulse rate of 100, respirations 18, blood pressure 117/77, pulse oximetry 95% on 4 L 06/11: Found resting comfortably in bed. With no acute distress. Patient does state that she's been up to the bathroom. Breathing has improved. Continues to have significant pain to the lower extremities with no change. Patient will be going to [facility] rehab tomorrow. She remains afebrile, pulse rate 71, blood pressure 119/71, respirations 18 nonlabored, pulse ox a 99% on 3 L nasal cannula REVIEW OF SYSTEMS CONSTITUTIONAL: Well-developed no acute respiratory distress. No fevers. No chills. EYES: No icterus sclerae, no conjunctivitis. EARS, NOSE, MOUTH, THROAT, and FACE: No sore throat, lymphadenopathy, carotid bruits or deformity. RESPIRATORY: Positive dyspnea and shortness of breath CARDIOVASCULAR: Positive PND or troponin palpitation GASTROINTESTINAL: No Abd pain, Nausea or vomiting, no Diarrhea or constipation, No GI Bleed, no distention or masses. GENITOURINARY: Negative for Hematuria or UTI, no kidney stones. INTEGUMENT/BREAST: Negative for any muscular injury with mild osteoarthritis.. HEMATOLOGIC/LYMPHATIC: Negative for bleed or purpura. MUSCULOSKELTAL: Negative for Myalgia or arthralgia. NEURLOGICAL: No LOC, Sz or syncope, blurred vision dizziness or abnormality.. BEHAVIORAL/PSYCH: Negative. ENDOCRINE: Negative. PHYSICAL EXAMINATION General Appearance: Alert, cooperative, no distress, appears stated age. No respiratory distress noted. Neck HEENT: Supple, no lymphadenopathy, no thyroid enlargement, no carotid bruits. Lungs: Clear to auscultation without crackles or wheezes no rhonchi, no deformity. Chest Wall: Improved Decrease expansion with deep inspiration no tenderness no deformity or mass. Heart: Regular rate and rhythm, S1, S2 normal, no murmur, rub or gallop. Back: Symmetric, no curvature, ROM normal, no CVA tenderness. Abdomen: Soft, non-tender, bowel sounds active all four quadrants, no masses, no organomegaly chronic problem with UTI. Extremities: 1+ edema and decreased pulses dorsalis pedis. Pulses: 2+ and symmetric. Skin: Skin color, texture, tugor normal, no rashes or lesions. Neurologic: Alert oriented x3 cranial nerves II through XII intact, no motor deficit, no abnormal balance or gait. ASSESSMENT AND PLAN 1 acute on chronic hypoxic respiratory failure: With CO2 retention, continue O2 support, pulmonology consult appreciated, continue Solu-Medrol, Pulmicort and DuoNeb. 2 COPD exacerbation. Continue DuoNeb treatments 4 times daily and as needed, Pulmicort 0.5 mg twice daily, Solu-Medrol 60 mg IV every 6 hours. Pulmonary consult. 3 CAD with significantly abnormal stress test the patient is not in any condition to be able to go off biological agent for management 4 Type 2 diabetes uncontrolled secondary to steroids: Continue patient on insulin per sliding scale coverage, and NovoLog 7 units units with meals. Levemir 10 units subcu at bedtime 5 chronic diastolic heart failure. Continue Lasix 80 mg oral daily, lisinopril 10 mg at bedtime, metolazone 2.5 mg. 6 hyperlipidemia: Remain on Mevacor 40 mg daily. 7 hypertension: Remain on Prinivil 10 mg daily, and still on diuretics. 8 chronic atrial fibrillation, rate controlled. Continue Coumadin, pharmacy dosing. 9 severe GERD/GI prophylaxis: Remain on pantoprazole. 10 DVT prophylaxis: Continue patient on anticoagulation. 11 psoriasis. Continue Kenalog. 12. Generalized osteoarthritis, bilateral knees. Voltaren gel. 13. Chronic diabetic ulcers followed by the wound healing Center. Consult with wound team appreciated. Wound care prescribed CODE STATUS: Full code. DISCHARGE PLAN Possible discharge to [facility] on Friday Impression and plan of care have been directed as dictated by the signing physician. Tabatha Neumann nurse practitioner acting as scribe for signing physician. Objective - Vital Signs Vital signs: Vital Signs Temp 98.2 F 06/11/20 07:54 Pulse 77 06/11/20 08:23 Resp 18 06/11/20 08:23 BP 119/71 06/11/20 07:54 Pulse Ox 99 06/11/20 08:11 Intake & Output 06/10/20 06/11/20 06/11/20 18:59 06:59 18:59 Intake Total 1580 Balance 1580 Weight 79.7 kg Intake: Intake, IV Titration 50 Amount cefTRIAXone 1 gm In 50 Sodium Chloride 0.9% 50 ml @ 100 mls/hr IVPB Q24HR [facility] Rx#:[id number] Oral 1530 Other: Voiding Method Bedside Commode Bedside Commode Bedside Commode # Voids 3 1 1 # Bowel Movements 2 - Labs CBC & Chem 7: 06/07/20 17:22 06/07/20 17:22 Labs: Abnormal Lab Results - Last 24 Hours (Table) 06/10/20 06/10/20 06/10/20 Range/Units 11:31 16:40 20:08 PT (9.9-11.9) sec INR (0.90-1.11) POC Glucose (mg/dL) 288 H 143 H 204 H (75-99) mg/dL 06/11/20 06/11/20 Range/Units 06:00 07:07 PT 24.4 H (9.9-11.9) sec INR 2.41 H (0.90-1.11) POC Glucose (mg/dL) 239 H (75-99) mg/dL Microbiology - Last 24 Hours (Table) 06/07/20 17:20 Blood Culture - Preliminary Blood No Growth after 72 hours Assessment and Plan (1) Nonhealing ulcer of right lower extremity with fat layer exposed Current Visit: No Status: Acute Code(s): L97.912 - NON-PRS CHR ULC UNSP PRT OF R LOW LEG W FAT LAYER EXPOSED SNOMED Code(s): 97684603 (2) Nonhealing ulcer of left lower extremity with fat layer exposed Current Visit: Yes Status: Acute Code(s): L97.922 - NON-PRS CHR ULC UNSP PRT OF L LOW LEG W FAT LAYER EXPOSED SNOMED Code(s): 89903550 (3) Diabetes mellitus with skin ulcer Current Visit: No Status: Acute Code(s): E11.622 - TYPE 2 DIABETES MELLITUS WITH OTHER SKIN ULCER; L98.499 - NON-PRESSURE CHRONIC ULCER OF SKIN OF SITES W UNSP SEVERITY SNOMED Code(s): 24671585
[2020-06-11 11:28] LABS: Glucose,Whole Blood 396 mg/dL (75-99)
--- NOTE | 2020-06-11 15:56 | P.PN ---
Subjective Progress Note Date: 06/11/20 Principal diagnosis: Acute exacerbation of chronic obstructive pulmonary disease, CHF, pulmonary fibrosis 74-year-old female, who presents to the emergency department, with shortness of breath. In addition, she was found to have low oxygen saturations, and chronic bilateral lower extremity wounds. She apparently does see Dr. Saul Tolliver at the wound clinic, and sees Dr. Mcmahan, as a primary. The patient tells me that her by Sri reason for coming into the hospital as worsening shortness of breath. She does have a bit of a dry cough. She denies any fever or chills. She hasn't been feeling well for a couple of days. In addition, she does have bilateral lower extremity edema. She denies any fever or chills. She's not coughing up any phlegm or blood. She denies any chest pain or chest discomfort. Also, she denies any nausea, vomiting, diarrhea, abdominal pain, or genitourinary complaints. The patient has been smoking for 60 years. She started when she was 12 years of age. She has a history of COPD, diabetes mellitus, hypertension, myocardial infarction, anemia, and tachycardia arrhythmia. She also was discovered to have a bleeding ulcer around the age of 32 years of age. The patient has had previous methicillin-resistant staph aureus infections of the lower extremities, as recent as 05/22/2020. Currently, she is on 4 L nasal cannula, and looks reasonably comfortable. The patient is seen today 06/10/2020 in follow-up on the regular medical floor. He is currently resting comfortably in bed. She is awake and alert. Maintaining O2 saturation in the 90s on room air. Blood culture reveals no growth. INR 1.79. Blood glucose 288. She is continued on DuoNeb inhalations, Pulmicort and Perforomist, IV Solu-Medrol, antibiotics in the form of ceftriaxone and azithromycin. Anticoagulated with warfarin. Subtherapeutic. The patient is seen today 06/11/2020 in follow-up on the regular medical floor. She is currently sitting up at the bedside. Awake and alert in no acute distress. She states she is breathing easier today compared to yesterday. Still with a bit of a end expiratory wheeze. Maintaining O2 saturation in the 90s on 3 L/m per nasal cannula. INR 2.41. Glucose 239. She is continued on antibiotics in the form of ceftriaxone and azithromycin. Remains on bronchodilators, IV Solu-Medrol. Anticoagulated with warfarin. Objective - Vital Signs Vital signs: Vital Signs Temp 98.9 F 06/11/20 14:00 Pulse 88 06/11/20 14:00 Resp 20 06/11/20 14:00 BP 121/75 06/11/20 14:00 Pulse Ox 96 06/11/20 14:00 Intake & Output 06/10/20 06/11/20 06/11/20 18:59 06:59 18:59 Intake Total 1580 Balance 1580 Weight 79.7 kg Intake: Intake, IV Titration 50 Amount cefTRIAXone 1 gm In 50 Sodium Chloride 0.9% 50 ml @ 100 mls/hr IVPB Q24HR [facility] Rx#:[id number] Oral 1530 Other: Voiding Method Bedside Commode Bedside Commode Bedside Commode # Voids 3 1 1 # Bowel Movements 2 - Exam GENERAL EXAM: Alert, pleasant 75-year-old female patient on 3 L/m per nasal cannula, comfortable in no apparent distress. HEAD: Normocephalic. EYES: Normal reaction of pupils, equal size. NOSE: Clear with pink turbinates. THROAT: No erythema or exudates. NECK: No masses, no JVD. CHEST: No chest wall deformity. LUNGS: Equal air entry with bilateral end expiratory wheeze, diminished, coarse crackles in the bases. CVS: S1 and S2 normal with no audible murmur, regular rhythm. ABDOMEN: No hepatosplenomegaly, normal bowel sounds, no guarding or rigidity. SPINE: No scoliosis or deformity SKIN: No rashes CENTRAL NERVOUS SYSTEM: No focal deficits, tone is normal in all 4 extremities. EXTREMITIES: There is no peripheral edema. No clubbing, no cyanosis. Peripheral pulses are intact. - Labs CBC & Chem 7: 06/07/20 17:22 06/07/20 17:22 Labs: Abnormal Lab Results - Last 24 Hours (Table) 06/10/20 06/10/20 06/11/20 Range/Units 16:40 20:08 06:00 PT 24.4 H (9.9-11.9) sec INR 2.41 H (0.90-1.11) POC Glucose (mg/dL) 143 H 204 H (75-99) mg/dL 06/11/20 06/11/20 Range/Units 07:07 11:27 PT (9.9-11.9) sec INR (0.90-1.11) POC Glucose (mg/dL) 239 H 396 H (75-99) mg/dL Microbiology - Last 24 Hours (Table) 06/07/20 17:20 Blood Culture - Preliminary Blood No Growth after 72 hours Assessment and Plan Assessment: 1 Acute hypoxic respiratory failure secondary to an acute exacerbation of COPD, fluid volume overload, pulmonary fibrosis 2 History of chronic tobacco use for greater than 60 years 3 Chronic lower extremity wounds/ulcers, currently being treated at the wound Center. Cultures have been positive for Enterobacter cloacae, enterococcus faecium, MRSA, pseudomonas 4 Hyperlipidemia 5 Hypertension 6 Chronic atrial fibrillation, anticoagulated with warfarin, 7 Diabetes mellitus 8 History of myocardial infarction 9 History of chronic anemia 10 Peripheral vascular occlusive disease with previous fem-pop bypass and stenting. Plan: The patient was seen and evaluated by Dr. Sullivan We'll continue with the current medications Titrate down the FiO2 as tolerated Educated again regarding the importance of complete smoking cessation Follow-up chest x-ray in a.m. We'll continue to follow I, the cosigning physician, performed a history & physical examination of the patient. Lungs sounds with bilateral end expiratory wheeze, diminished, coarse crackles in the bases Maintaining good O2 saturations in the 90s on 3 L/m per nasal cannula. I discussed the assessment and plan of care with my nurse practitioner, Anna Castorena. I attest to the above note as dictated by her.
[2020-06-11 16:40] LABS: Glucose,Whole Blood 146 mg/dL (75-99)
[2020-06-11] MEDS ORDERED: WARFARIN 2 MG TAB PO ONE (18:00)
[2020-06-11 20:01] LABS: Glucose,Whole Blood 198 mg/dL (75-99)
[2020-06-11] MEDS: hydroCHLOROthiazide 25 MG TAB PO SCH (20:32)
[2020-06-11] MEDS: ATORVASTATIN 10 MG TAB PO SCH (20:32)
[2020-06-11] MEDS: lisinopriL 10 MG TAB PO SCH (20:32)
[2020-06-11] MEDS ORDERED: INSULIN DETEMIR (LEVEMIR) 100 UNIT/ML SYR SQ SCH (21:00)
[2020-06-12] MEDS: traMADol 50 MG TAB PO PRN ×2 (04:40→15:39)
[2020-06-12] MEDS: methylPREDNISolone SOD SUCCI 125 MG/2 ML VIAL IV SCH ×2 (05:02→12:00)
[2020-06-12 07:00] LABS: Glucose,Whole Blood 201 mg/dL (75-99)
[2020-06-12] MEDS: IPRATROPIUM-ALBUTEROL 3 ML NEB INHALATION SCH ×3 (07:19→15:49)
[2020-06-12] MEDS: BUDESONIDE 1 MG/2 ML NEBU INHALATION SCH (07:20)
[2020-06-12] MEDS: FORMOTEROL FUMARATE 20 MCG/2 ML NEBU INHALATION SCH (07:20)
[2020-06-12 07:42] VITALS: RESP 20
[2020-06-12] MEDS: GABAPENTIN 100 MG CAP PO SCH (07:53)
[2020-06-12] MEDS: DICLOFENAC SODIUM GEL 100 GM TUBE TOPICAL SCH (07:53)
[2020-06-12] MEDS: AZITHROMYCIN 500 MG TAB PO SCH (07:53)
[2020-06-12] MEDS: MULTIVITAMINS, THERA 1 EACH TAB PO SCH (07:53)
[2020-06-12] MEDS: PANTOPRAZOLE 40 MG TABLET PO SCH (07:53)
[2020-06-12] MEDS: COLLAGENASE 250 UNIT/GM OINTMENT 30 GM TUBE TOPICAL SCH (07:54)
[2020-06-12] MEDS: INSULIN ASPART (NovoLOG) 100 UNIT/ML VIAL SQ SCH ×4 (07:54→12:03)
[2020-06-12] MEDS: FUROSEMIDE 80 MG TAB PO SCH (08:03)
--- NOTE | 2020-06-12 09:08 | P.DS ---
Providers Date of admission: 06/07/20 18:46 Expected date of discharge: 06/12/20 Attending physician: Saul Mcmahan Consults: 06/08/20 14:09 Consult Physician Routine Consulting Provider: eJremiah Sullivan Consult Reason/Comments: copd exacerbation Do you want consulting provider notified?: Yes Primary care physician: Saul Martir [facility] Course: HISTORY OF PRESENT ILLNESS 74-year-old female one of my office patient with multiple medical problem was known to have history of type 2 diabetes, history of COPD, hypertension hyperlipidemia post [place] who was seen in the office today for follow-up was severely dyspneic having significant hypoxia despite having to be on 3 L of O2 her pulse ox was remain in the 80s. Patient was having significant tachypnea worsening hypoxia ended up being sent to the emergency department. Patient was seen in the her laboratory value normal CBC mildly elevated d-dimer normal chemistry. Patient was placed on BiPAP after doing, round of updraft treatment and was loaded with Solu-Medrol 125 mg injection patient was started on IV antibiotic as well with Rocephin and azithromycin. We'll consult pulmonary and admit patient to the hospital. 06/08: Patient is requesting Voltaren gel for bilateral knee arthritis pain and Kenalog cream for psoriasis. Patient's respiratory status is improved from yesterday. She remains in atrial fibrillation with rate controlled. She has been afebrile, heart rate 94, blood pressure 120/70, pulse ox 94% on 3 L nasal cannula. INR is 2, blood sugars 171-205. Coumadin 2.0. Covid19 negative. The patient is on IV Lasix 40 mg every 12 hours and Solu-Medrol IV 60 mg every 12 hours. She is on antibiotics the form of ceftriaxone and azithromycin. 06/09: Patient has been afebrile, heart rate 95, blood pressure 113/68, pulse ox 96% on 4 L nasal cannula. Blood sugars are running in the 200s. Scheduled NovoLog added to scale. INR remains pending at the time of this dictation. Blood sugars running between 212 and 170. Consult will be added for wound center evaluation. Patient follows a regular basis. Pulmonary medicine on consult. Discharge plan is to [facility] on Friday. 06/10: Patient is found resting comfortably in bed. With no acute distress. Patient states that she is breathing better today continues to have some pain to the right lower extremity. Patient will be scheduled to see Dr. Alberto in outpatient setting. She is planned to go to [facility] on Friday. Today is her birthday. Her family all lives in [place]. Patient remains afebrile, pulse rate of 100, respirations 18, blood pressure 117/77, pulse oximetry 95% on 4 L 06/11: Found resting comfortably in bed. With no acute distress. Patient does state that she's been up to the bathroom. Breathing has improved. Continues to have significant pain to the lower extremities with no change. Patient will be going to [facility] rehab tomorrow. She remains afebrile, pulse rate 71, blood pressure 119/71, respirations 18 nonlabored, pulse ox a 99% on 3 L nasal cannula 06/12: Patient has been afebrile, heart rate 90, blood pressure 109/74, pulse ox 100% on 2 L nasal cannula. Blood sugars are running between 146 and 201. Blood cultures no growth at 96 hours. Patient's breathing status is stable and will be discharged to [facility] today in stable condition. ASSESSMENT AND PLAN 1 acute on chronic hypoxic respiratory failure: With CO2 retention. 2 COPD exacerbation. 3 CAD with significantly abnormal stress test. 4 Type 2 diabetes uncontrolled secondary to steroids. 5 chronic diastolic heart failure. 6 hyperlipidemia. 7 hypertension. 8 chronic atrial fibrillation, rate controlled. 9 severe GERD 10 psoriasis. 11. Generalized osteoarthritis, bilateral knees. 12. Chronic diabetic ulcers followed by the wound healing Center. 13. Chronic tobacco use and dependence. Smoking cessation. DISCHARGE PLAN [facility] today under the care of Dr. Mcmahan Impression and plan of care have been directed as dictated by the signing physician. Maida Johnson nurse practitioner acting as scribe for signing physician. Patient Condition at Discharge: Good Plan - Discharge Summary Discharge Rx Participant: No New Discharge Prescriptions: New Insulin Detemir (Levemir) [Levemir] 10 unit SQ HS syr INSULIN ASPART (NovoLOG) [NovoLOG (formulary)] 7 unit SQ AC-TID vial predniSONE 0 mg PO DIRECTED #30 tab Collagenase [Santyl] 1 applic TOPICAL DAILY applic Diclofenac Sodium Gel [Voltaren Gel] 4 gm TOPICAL QID tube Azithromycin [Zithromax] 500 mg PO DAILY #5 tab Continue Multivit-Min/FA/Lycopen/Lutein [Centrum Silver Tablet] 1 tab PO DAILY Lisinopril [Prinivil] 10 mg PO HS Lovastatin [Mevacor] 40 mg PO HS hydroCHLOROthiazide [Hydrodiuril] 25 mg PO HS Warfarin Sodium [Jantoven] 5 mg PO MOFR Warfarin Sodium [Jantoven] 2.5 mg PO SUTUTHSA Triamcinolone 0.5% Cream [Kenalog 0.5% Cream] 1 applic TOPICAL DAILY PRN PRN Reason: psoriasis Pantoprazole [Protonix] 40 mg PO DAILY Warfarin Sodium [Jantoven] 3.75 mg PO WE Ipratropium-Albuterol Nebulize [Duoneb 0.5 mg-3 mg/3 ml Soln] 3 ml INHALATION RT-QID PRN ml PRN Reason: Shortness Of Breath Or Wheezing Budesonide [Pulmicort] 0.5 mg INHALATION RT-BID #0 ml Albuterol Nebulized [Ventolin Nebulized] 2.5 mg INHALATION RT-QID PRN PRN Reason: Shortness Of Breath INSULIN ASPART (NovoLOG) [NovoLOG (formulary)] See Protocol SQ ACHS PRN PRN Reason: WHILE TAKING STEROIDS Furosemide [Lasix] 80 mg PO DAILY Gabapentin [Neurontin] 200 mg PO BID #12 cap traMADol HCl [Ultram] 50 mg PO TID PRN #9 tab PRN Reason: Pain Discharge Medication List Lisinopril [Prinivil] 10 mg PO HS 09/20/15 [History] Lovastatin [Mevacor] 40 mg PO HS 09/20/15 [History] Multivit-Min/FA/Lycopen/Lutein [Centrum Silver Tablet] 1 tab PO DAILY 09/20/15 [History] hydroCHLOROthiazide [Hydrodiuril] 25 mg PO HS 09/20/15 [History] Pantoprazole [Protonix] 40 mg PO DAILY 03/23/20 [History] Triamcinolone 0.5% Cream [Kenalog 0.5% Cream] 1 applic TOPICAL DAILY PRN 03/23/20 [History] Warfarin Sodium [Jantoven] 2.5 mg PO SUTUTHSA 03/23/20 [History] Warfarin Sodium [Jantoven] 3.75 mg PO WE 03/23/20 [History] Warfarin Sodium [Jantoven] 5 mg PO MOFR 03/23/20 [History] Budesonide [Pulmicort] 0.5 mg INHALATION RT-BID #0 ml 03/27/20 [Rx] Ipratropium-Albuterol Nebulize [Duoneb 0.5 mg-3 mg/3 ml Soln] 3 ml INHALATION RT-QID PRN ml 03/27/20 [Rx] Albuterol Nebulized [Ventolin Nebulized] 2.5 mg INHALATION RT-QID PRN 06/07/20 [History] Furosemide [Lasix] 80 mg PO DAILY 06/07/20 [History] INSULIN ASPART (NovoLOG) [NovoLOG (formulary)] See Protocol SQ ACHS PRN 06/07/20 [History] Azithromycin [Zithromax] 500 mg PO DAILY #5 tab 06/12/20 [Rx] Collagenase [Santyl] 1 applic TOPICAL DAILY applic 06/12/20 [Rx] Diclofenac Sodium Gel [Voltaren Gel] 4 gm TOPICAL QID tube 06/12/20 [Rx] Gabapentin [Neurontin] 200 mg PO BID #12 cap 06/12/20 [Rx] INSULIN ASPART (NovoLOG) [NovoLOG (formulary)] 7 unit SQ AC-TID vial 06/12/20 [Rx] Insulin Detemir (Levemir) [Levemir] 10 unit SQ HS syr 06/12/20 [Rx] predniSONE 0 mg PO DIRECTED #30 tab 06/12/20 [Rx] traMADol HCl [Ultram] 50 mg PO TID PRN #9 tab 06/12/20 [Rx] Follow up Appointment(s)/Referral(s): Saul Mcmahan MD [Primary Care Provider] - 1-2 days [facility] [NON-STAFF] - 06/13/20 9:15 am (Will see Dr. Tolliver)
[2020-06-12 09:19] LABS: INR 2.28 (0.90-1.11); Prothrombin Time 23.2 sec (9.9-11.9)
--- NOTE | 2020-06-12 11:07 | P.PN ---
Subjective Progress Note Date: 06/12/20 5-year-old here patient known history of COPD and pulmonary fibrosis and chronic atrial fibrillation. The patient was hospitalized with worsening shortness of breath. She had lower action levels. She also had a dry cough. No reported chest pain. Other comorbidities include diabetes mellitus, hypertension, coronary artery disease and controlled atrial fibrillation. At home, she lives oxygen at 2 L. Clinically the patient is doing well. No new complaints. She got treated with a combination of antibiotics including Rocephin and Zithromax and she was also given IV Solu-Medrol. She is getting her to go back tomorrow with today. She is back on oxygen at 2 L. She is also on long-term and ev aluated with warfarin with a therapeutic PT/INR. Objective - Vital Signs Vital signs: Vital Signs Temp 97.6 F 06/12/20 07:41 Pulse 90 06/12/20 08:03 Resp 20 06/12/20 08:03 BP 109/74 06/12/20 07:41 Pulse Ox 100 06/12/20 07:41 Intake & Output 06/11/20 06/12/20 06/12/20 18:59 06:59 18:59 Intake Total 200 Balance 200 Intake: Intake, IV Titration 50 Amount cefTRIAXone 1 gm In 50 Sodium Chloride 0.9% 50 ml @ 100 mls/hr IVPB Q24HR [facility] Rx#:[id number] Oral 150 Other: Voiding Method Bedside Commode Bedside Commode Toilet # Voids 2 4 - Exam GENERAL EXAM: Alert, pleasant 75-year-old female patient on 3 L/m per nasal cannula, comfortable in no apparent distress. HEAD: Normocephalic. EYES: Normal reaction of pupils, equal size. NOSE: Clear with pink turbinates. THROAT: No erythema or exudates. NECK: No masses, no JVD. CHEST: No chest wall deformity. LUNGS: Equal air entry with bilateral end expiratory wheeze, diminished, coarse crackles in the bases. CVS: S1 and S2 normal with no audible murmur, regular rhythm. ABDOMEN: No hepatosplenomegaly, normal bowel sounds, no guarding or rigidity. SPINE: No scoliosis or deformity SKIN: No rashes CENTRAL NERVOUS SYSTEM: No focal deficits, tone is normal in all 4 extremities. EXTREMITIES: There is no peripheral edema. No clubbing - Labs CBC & Chem 7: 06/07/20 17:22 06/07/20 17:22 Labs: Abnormal Lab Results - Last 24 Hours (Table) 06/11/20 06/11/20 06/11/20 Range/Units 11:27 16:39 20:00 PT (9.9-11.9) sec INR (0.90-1.11) POC Glucose (mg/dL) 396 H 146 H 198 H (75-99) mg/dL 06/12/20 06/12/20 Range/Units 05:51 06:56 PT 23.2 H (9.9-11.9) sec INR 2.28 H (0.90-1.11) POC Glucose (mg/dL) 201 H (75-99) mg/dL Microbiology - Last 24 Hours (Table) 06/07/20 17:20 Blood Culture - Preliminary Blood No Growth after 96 hours Assessment and Plan Plan: 1 Acute hypoxic respiratory failure secondary to an acute exacerbation of COPD, fluid volume overload, pulmonary fibrosis 2 History of chronic tobacco use for greater than 60 years 3 Chronic lower extremity wounds/ulcers, currently being treated at the wound Center. Cultures have been positive for Enterobacter cloacae, enterococcus faecium, MRSA, pseudomonas 4 Hyperlipidemia 5 Hypertension 6 Chronic atrial fibrillation, anticoagulated with warfarin, 7 Diabetes mellitus 8 History of myocardial infarction 9 History of chronic anemia 10 Peripheral vascular occlusive disease with previous fem-pop bypass and stenting. Plan: Patient can be discharged tomorrow is on Zithromax and a prednisone burst taper. She is on oxygen. She'll be following up with Dr. THIAGO Mustafa on outpatient basis
[2020-06-12 12:01] LABS: Glucose,Whole Blood 166 mg/dL (75-99)
[2020-06-12 14:42] VITALS: BP 108/64; TEMP 98.4
[2020-06-12 15:53] VITALS: PULSE 92
[2020-06-12] MEDS ORDERED: WARFARIN 2.5 MG TAB PO ONE (18:00)
== END 2020-06-12 16:30 | DRG 190 ==
LOC: EC 16:24 → 4SSUR 18:46
PROVIDERS: ADMIT Internal Medicine Geriatric Medicine; ATTEND Internal Medicine Geriatric Medicine
DX: J44.1 Chronic obstructive pulmonary disease with (acute) exacerbation (principal); J96.21 Acute and chronic respiratory failure with hypoxia; I48.20 Chronic atrial fibrillation, unspecified; L97.922 Non-pressure chronic ulcer of unspecified part of left lower leg with fat layer exposed; L97.912 Non-pressure chronic ulcer of unspecified part of right lower leg with fat layer exposed; I50.32 Chronic diastolic (congestive) heart failure; E87.2 Acidosis; T38.0X5A Adverse effect of glucocorticoids and synthetic analogues, initial encounter; E78.5 Hyperlipidemia, unspecified; F32.9 Major depressive disorder, single episode, unspecified; F41.9 Anxiety disorder, unspecified; I11.0 Hypertensive heart disease with heart failure; I25.10 Atherosclerotic heart disease of native coronary artery without angina pectoris; J84.10 Pulmonary fibrosis, unspecified; K21.9 Gastro-esophageal reflux disease without esophagitis; Z20.822 Contact with and (suspected) exposure to COVID-19; M17.0 Bilateral primary osteoarthritis of knee; E11.622 Type 2 diabetes mellitus with other skin ulcer; L40.9 Psoriasis, unspecified; E11.65 Type 2 diabetes mellitus with hyperglycemia; Z79.899 Other long term (current) drug therapy; Z79.4 Long term (current) use of insulin; Z79.01 Long term (current) use of anticoagulants; Z86.14 Personal history of Methicillin resistant Staphylococcus aureus infection; Z90.710 Acquired absence of both cervix and uterus; Z83.3 Family history of diabetes mellitus; Z72.0 Tobacco use; Z98.890 Other specified postprocedural states; Z80.9 Family history of malignant neoplasm, unspecified; Z88.0 Allergy status to penicillin; Z88.5 Allergy status to narcotic agent; Z88.2 Allergy status to sulfonamides; I25.2 Old myocardial infarction
CPT/HCPCS: 36415; 71045; 80053; 83605; 83735; 83880; 84484; 85025; 85379; 85610; 85730; 87040; 87502; 87635; 93005; 94640; 94760; 96374; 96375; 99291

== ENCOUNTER 2020-08-02 18:35 | Inpatient (IN) | payer MEDICARE, BC ==
[2020-08-02] MEDS ORDERED: ACETAMINOPHEN TAB 325 MG TAB PO STA (19:14)
--- NOTE | 2020-08-02 19:17 | ED ---
General Adult HPI - General Chief complaint: Skin/Abscess/Foreign Body Stated complaint: vascular wounds bilat legs Time Seen by Provider: 08/02/20 18:46 Source: patient, EMS, RN notes reviewed Mode of arrival: EMS Limitations: physical limitation - History of Present Illness Initial comments: Patient is a pleasant 75-year-old female presenting to the emergency department with complaints of leg wounds. 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 Patient recently completed course of 2 antibiotics. Patient complains of discomfort. Patient is unclear why she has leg wounds. Patient does not feel that she has fevers. Patient presents from [facility] - Related Data Home Medications Medication Instructions Recorded Confirmed Lisinopril [Prinivil] 10 mg PO HS 09/20/15 08/02/20 Lovastatin [Mevacor] 40 mg PO HS 09/20/15 08/02/20 Multivit-Min/FA/Lycopen/Lutein 1 tab PO DAILY@1700 09/20/15 08/02/20 [Centrum Silver Tablet] Pantoprazole [Protonix] 40 mg PO DAILY@0800 03/23/20 08/02/20 Triamcinolone 0.5% Cream [Kenalog 1 applic TOPICAL DAILY PRN 03/23/20 08/02/20 0.5% Cream] Warfarin Sodium [Jantoven] 2.5 mg PO SUTUWETHSA@1700 03/23/20 08/02/20 Warfarin Sodium [Jantoven] 5 mg PO MOFR@1700 03/23/20 08/02/20 Albuterol Nebulized [Ventolin 2.5 mg INHALATION RT-QID PRN 06/07/20 08/02/20 Nebulized] Budesonide [Pulmicort] 0.5 mg INHALATION RT-BID@0800,2100 08/02/20 08/02/20 Furosemide [Lasix] 40 mg PO BID@0800,1400 08/02/20 08/02/20 Gabapentin [Neurontin] 200 mg PO BID@0800,2100 08/02/20 08/02/20 Glucerna Shake 120 ml PO TID@0800,1700,2100 08/02/20 08/02/20 Lidocaine 5% Oint [Xylocaine 5% 1 mm TOPICAL DAILY PRN 08/02/20 08/02/20 Oint] Liquical 30 ml PO BID@0800,1700 08/02/20 08/02/20 Loperamide HCl [Imodium A-D] 2 - 4 mg PO QID PRN 08/02/20 08/02/20 Magnesium Hydroxide [Milk of 7,200 mg PO Q48H PRN 08/02/20 08/02/20 Magnesia Concentrate] Na Phos,M-B/Na Phos,Di-Ba [Fleet 133 ml RECTAL DAILY PRN 08/02/20 08/02/20 Adult] Spironolactone [Aldactone] 12.5 mg PO DAILY@0800 08/02/20 08/02/20 bisacodyL [Bisacodyl] 10 mg RECTAL DAILY PRN 08/02/20 08/02/20 predniSONE 10 mg PO DAILY@0800 08/02/20 08/02/20 Previous Rx's Medication Instructions Recorded Ipratropium-Albuterol Nebulize 3 ml INHALATION RT-QID PRN ml 03/27/20 [Duoneb 0.5 mg-3 mg/3 ml Soln] INSULIN ASPART (NovoLOG) [NovoLOG 7 unit SQ AC-TID vial 06/12/20 (formulary)] Insulin Detemir (Levemir) [Levemir] 10 unit SQ HS syr 06/12/20 traMADol HCl [Ultram] 50 mg PO TID PRN #9 tab 06/12/20 Allergies Allergy/AdvReac Type Severity Reaction Status Date / Time Penicillins Allergy Swelling Verified 08/02/20 19:30 hydrocodone bitartrate AdvReac Nausea & Verified 08/02/20 19:30 [From Vicodin] Vomiting sulfamethoxazole AdvReac Nausea & Verified 08/02/20 19:30 Vomiting Review of Systems ROS Statement: Those systems with pertinent positive or pertinent negative responses have been documented in the HPI. ROS Other: All systems not noted in ROS Statement are negative. Constitutional: Denies: fever Eyes: Denies: eye pain ENT: Denies: ear pain Respiratory: Denies: cough Cardiovascular: Denies: chest pain Endocrine: Denies: fatigue Gastrointestinal: Denies: abdominal pain Genitourinary: Denies: dysuria Musculoskeletal: Denies: back pain Skin: Reports: as per HPI Past Medical History Past Medical History: COPD, Diabetes Mellitus, Hypertension, Myocardial Infarction ([place]), Vascular Disorder Additional Past Medical History / Comment(s): anemia,SOB,irreg HR,bronchitis 16/16,crys leg and feet edema,hx of bleeding ulcer around age 32, Last Myocardial Infarction Date:: unk History of Any Multi-Drug Resistant Organisms: MRSA Date of last positivie culture/infection: 05/22/20 MDRO Source:: LEG MRSA Past Surgical History: Hysterectomy, Joint Replacement, Orthopedic Surgery Additional Past Surgical History / Comment(s): rtfem-pop bypass,3or4 stents lt leg,crys knee replace,lt shoulder repair Past Anesthesia/Blood Transfusion Reactions: Postoperative Nausea & Vomiting (PONV) Additional Past Anesthesia/Blood Transfusion Reaction / Comment(s): no problems with prior blood transfusions Past Psychological History: Anxiety, Depression Smoking Status: Former smoker Past Alcohol Use History: None Reported, Rare Past Drug Use History: None Reported - Past Family History Mother Family Medical History: Diabetes Mellitus Additional Family Medical History / Comment(s): heart problems Father Additional Family Medical History / Comment(s): heart problems Sister(s) Family Medical History: Diabetes Mellitus Additional Family Medical History / Comment(s): heart problems Brother(s) Family Medical History: Cancer General Exam Limitations: physical limitation General appearance: alert, in no apparent distress Head exam: Present: atraumatic Eye exam: Present: normal appearance Neck exam: Present: normal inspection Respiratory exam: Present: normal lung sounds bilaterally Cardiovascular Exam: Present: regular rate, normal rhythm Expanded Peripheral pulses: 2+: Dorsalis Pedis (R) GI/Abdominal exam: Present: soft. Absent: tenderness Extremities exam: Present: other (Bilateral leg wounds) Back exam: Present: normal inspection Neurological exam: Present: alert Psychiatric exam: Present: normal affect, normal mood Skin exam: Present: other (Patient has bilateral lower leg and foot wounds, stage II to 3 with tenderness. There is medication applied. Bandages were removed.) Course Vital Signs 08/02/20 08/02/20 18:43 20:08 Temperature 97.8 F Pulse Rate 93 97 Respiratory 18 18 Rate Blood Pressure 108/96 106/75 O2 Sat by Pulse 97 95 Oximetry Medical Decision Making - Medical Decision Making Patient reevaluated and updated. Case was discussed in detail with Dr. Fox, covering for Dr. Mcmahan, who will admit. She does request consult with Dr. Alberto as well as Levaquin and vancomycin - Lab Data Result diagrams: 08/02/20 20:08 08/02/20 19:58 Lab Results 08/02/20 08/02/20 08/02/20 Range/Units 19:58 19:58 19:58 WBC (3.8-10.6) k/uL RBC (3.80-5.40) m/uL Hgb (11.4-16.0) gm/dL Hct (34.0-46.0) % MCV (80.0-100.0) fL MCH (25.0-35.0) pg MCHC (31.0-37.0) g/dL RDW (11.5-15.5) % Plt Count (150-450) k/uL MPV Neutrophils % % Lymphocytes % % Monocytes % % Eosinophils % % Basophils % % Neutrophils # (1.3-7.7) k/uL Lymphocytes # (1.0-4.8) k/uL Monocytes # (0-1.0) k/uL Eosinophils # (0-0.7) k/uL Basophils # (0-0.2) k/uL PT 16.9 H (9.0-12.0) sec INR 1.7 H (<1.2) APTT 26.9 (22.0-30.0) sec Sodium 123 L (137-145) mmol/L Potassium 4.4 (3.5-5.1) mmol/L Chloride 86 L (98-107) mmol/L Carbon Dioxide 30 (22-30) mmol/L Anion Gap 7 mmol/L BUN 27 H (7-17) mg/dL Creatinine 0.51 L (0.52-1.04) mg/dL Est GFR (CKD-EPI)AfAm >90 (>60 ml/min/1.73 sqM) Est GFR (CKD-EPI)NonAf >90 (>60 ml/min/1.73 sqM) Glucose 201 H (74-99) mg/dL Plasma Lactic Acid Jean-Paul 1.6 (0.7-2.0) mmol/L Calcium 8.1 L (8.4-10.2) mg/dL Total Bilirubin 0.5 (0.2-1.3) mg/dL AST 33 (14-36) U/L ALT 32 (4-34) U/L Alkaline Phosphatase 82 (38-126) U/L Total Protein 5.7 L (6.3-8.2) g/dL Albumin 2.7 L (3.5-5.0) g/dL 08/02/20 Range/Units 20:08 WBC 12.7 H (3.8-10.6) k/uL RBC 4.17 (3.80-5.40) m/uL Hgb 11.6 (11.4-16.0) gm/dL Hct 34.9 (34.0-46.0) % MCV 83.7 (80.0-100.0) fL MCH 27.8 (25.0-35.0) pg MCHC 33.2 (31.0-37.0) g/dL RDW 15.9 H (11.5-15.5) % Plt Count 283 (150-450) k/uL MPV 6.9 Neutrophils % 85 % Lymphocytes % 9 % Monocytes % 5 % Eosinophils % 0 % Basophils % 0 % Neutrophils # 10.8 H (1.3-7.7) k/uL Lymphocytes # 1.1 (1.0-4.8) k/uL Monocytes # 0.6 (0-1.0) k/uL Eosinophils # 0.1 (0-0.7) k/uL Basophils # 0.0 (0-0.2) k/uL PT (9.0-12.0) sec INR (<1.2) APTT (22.0-30.0) sec Sodium (137-145) mmol/L Potassium (3.5-5.1) mmol/L Chloride (98-107) mmol/L Carbon Dioxide (22-30) mmol/L Anion Gap mmol/L BUN (7-17) mg/dL Creatinine (0.52-1.04) mg/dL Est GFR (CKD-EPI)AfAm (>60 ml/min/1.73 sqM) Est GFR (CKD-EPI)NonAf (>60 ml/min/1.73 sqM) Glucose (74-99) mg/dL Plasma Lactic Acid Jean-Paul (0.7-2.0) mmol/L Calcium (8.4-10.2) mg/dL Total Bilirubin (0.2-1.3) mg/dL AST (14-36) U/L ALT (4-34) U/L Alkaline Phosphatase (38-126) U/L Total Protein (6.3-8.2) g/dL Albumin (3.5-5.0) g/dL Disposition Clinical Impression: Bilateral leg ulcer Disposition: ADMITTED IP TO THIS HOSP Is patient prescribed a controlled substance at d/c from ED?: No Referrals: Saul Mcmahan MD [Primary Care Provider] - 1-2 days Decision Time: 20:57
[2020-08-02] MEDS: SODIUM CHLORIDE 0.9% 1,000 ML IV SCH (20:06)
[2020-08-02 20:12] LABS: Basophils % (A) 0 %; Eosinophils # (A) 0.1 k/uL (0-0.7); Eosinophils % (A) 0 %; HCT 34.9 % (34.0-46.0); HGB 11.6 gm/dL (11.4-16.0); Lymphocytes # (A) 1.1 k/uL (1.0-4.8); Lymphocytes % (A) 9 %; MCH 27.8 pg (25.0-35.0); MCHC 33.2 g/dL (31.0-37.0); MCV 83.7 fL (80.0-100.0); Mean Platelet Volume 6.9; Monocytes # (A) 0.6 k/uL (0-1.0); Monocytes % (A) 5 %; Neutrophils # (A) 10.8 k/uL (1.3-7.7); Neutrophils % (A) 85 %; Platelet Count 283 k/uL (150-450); RBC 4.17 m/uL (3.80-5.40); RDW 15.9 % (11.5-15.5); WBC 12.7 k/uL (3.8-10.6)
[2020-08-02 20:21] LABS: ALT 32 U/L (4-34); AST 33 U/L (14-36); African American GFR (CKD) >90 (>60 ml/min/1.73 sqM); Albumin 2.7 g/dL (3.5-5.0); Alkaline Phosphatase 82 U/L (38-126); Anion Gap 7 mmol/L; Blood Urea Nitrogen 27 mg/dL (7-17); Calcium 8.1 mg/dL (8.4-10.2); Carbon Dioxide 30 mmol/L (22-30); Chloride 86 mmol/L (98-107); Glucose 201 mg/dL (74-99); Non-African American GFR(CKD) >90 (>60 ml/min/1.73 sqM); Potassium 4.4 mmol/L (3.5-5.1); Sodium 123 mmol/L (137-145); Total Bilirubin 0.5 mg/dL (0.2-1.3); Total Protein 5.7 g/dL (6.3-8.2)
[2020-08-02 20:24] LABS: INR 1.7 (<1.2); Partial Thromboplastin Time 26.9 sec (22.0-30.0); Prothrombin Time 16.9 sec (9.0-12.0)
[2020-08-02] MEDS ORDERED: NALOXONE 0.4 MG/ML 1 ML VIAL IV PRN (20:57)
[2020-08-02] MEDS ORDERED: ACETAMINOPHEN TAB 325 MG TAB PO PRN (20:57)
[2020-08-02] MEDS ORDERED: LEVOFLOXACIN 750MG-D5W PMX 750 MG in DEXTROSE/WATER 1 150ML.BAG IVPB STA (20:58)
[2020-08-02] MEDS ORDERED: VANCOMYCIN IV PER PHARMACY 1 EACH MISC MISCELLANE PRN (20:59)
[2020-08-02] MEDS ORDERED: VANCOMYCIN 1,500 MG in SODIUM CHLORIDE 0.9% 250 ML IVPB STA (21:05)
[2020-08-02] MEDS: traMADol 50 MG TAB PO PRN (21:51)
[2020-08-03] MEDS: SODIUM CHLORIDE 0.9% 1,000 ML IV SCH ×2 (03:47→14:52)
[2020-08-03] MEDS: traMADol 50 MG TAB PO PRN ×2 (03:47→21:05)
[2020-08-03 06:18] LABS: Basophils % (A) 0 %; Eosinophils # (A) 0.1 k/uL (0-0.7); Eosinophils % (A) 1 %; HCT 37.3 % (34.0-46.0); HGB 12.7 gm/dL (11.4-16.0); Lymphocytes # (A) 1.2 k/uL (1.0-4.8); Lymphocytes % (A) 10 %; MCH 29.4 pg (25.0-35.0); MCHC 33.9 g/dL (31.0-37.0); MCV 86.8 fL (80.0-100.0); Monocytes # (A) 1.1 k/uL (0-1.0); Monocytes % (A) 9 %; Neutrophils # (A) 9.8 k/uL (1.3-7.7); Neutrophils % (A) 79 %; Platelet Count 277 k/uL (150-450); RDW 15.8 % (11.5-15.5); WBC 12.3 k/uL (3.8-10.6)
[2020-08-03 06:31] LABS: African American GFR (CKD) >90 (>60 ml/min/1.73 sqM); Anion Gap 4 mmol/L; Blood Urea Nitrogen 22 mg/dL (7-17); Calcium 8.2 mg/dL (8.4-10.2); Carbon Dioxide 32 mmol/L (22-30); Chloride 89 mmol/L (98-107); Glucose 125 mg/dL (74-99); Non-African American GFR(CKD) >90 (>60 ml/min/1.73 sqM); Sodium 125 mmol/L (137-145)
[2020-08-03] MEDS ORDERED: LIDOCAINE 5% OINTMENT 50 GM JAR TOPICAL PRN (09:39)
[2020-08-03] MEDS ORDERED: bisacodyL 10 MG SUPP RECTAL PRN (09:39)
[2020-08-03] MEDS ORDERED: MAGNESIUM HYDROXIDE 2,400 MG/10 ML CUP PO PRN (09:39)
[2020-08-03] MEDS ORDERED: traMADol 50 MG TAB PO PRN (09:39)
[2020-08-03] MEDS ORDERED: ALBUTEROL NEBULIZED 2.5 MG/3 ML INHALATION PRN (09:39)
[2020-08-03] MEDS ORDERED: LACTATED RINGERS 1,000 ML IV SCH (09:45)
[2020-08-03] MEDS: VANCOMYCIN 1,500 MG in SODIUM CHLORIDE 0.9% 250 ML IVPB SCH ×2 (10:02→20:38)
--- NOTE | 2020-08-03 11:21 | P.GSCN ---
History of Present Illness Consult date: 08/03/20 Reason for Consult: Bilateral lower extremity wounds History of present illness: Patient is a pleasant 75-year-old female presenting to the emergency department with complaints of leg wounds. States she's had these wounds since December and has been following with the wound care clinic. She presented because she had increased pain to bilateral lower extremities. Her past medical history includes diabetes mellitus, coronary artery disease, peripheral arterial disease with a history of right fem-pop bypass and stents in her left lower extremity, COPD, and hypertension., She has been on antibiotics in the past. She denies any fevers or chills. No shortness of breath or chest pain. Patient does have chronic leg wounds with history of MRSA. patient previously had an arterial study on 03/23/2020 with a report stating waveform multiphasic bilateral throughout. DEMAR greater than 1 bilaterally, normal study. Review of Systems 14 point review of systems was completed, all pertinent positives and negatives as stated in the HPI Past Medical History Past Medical History: COPD, Diabetes Mellitus, Hypertension, Myocardial Infarction ([place]), Vascular Disorder Additional Past Medical History / Comment(s): anemia,SOB,irreg HR,bronchitis 16/09-07-15,crys leg and feet edema,hx of bleeding ulcer around age 32, Last Myocardial Infarction Date:: unk History of Any Multi-Drug Resistant Organisms: MRSA Year Discovered:: 05/22/20 MDRO Source:: LEG MRSA Past Surgical History: Hysterectomy, Joint Replacement, Orthopedic Surgery Additional Past Surgical History / Comment(s): rtfem-pop bypass,3or4 stents lt leg,crys knee replace,lt shoulder repair Past Anesthesia/Blood Transfusion Reactions: Postoperative Nausea & Vomiting (PONV) Additional Past Anesthesia/Blood Transfusion Reaction / Comm: no problems with prior blood transfusions Past Psychological History: Anxiety, Depression Smoking Status: Former smoker Past Alcohol Use History: None Reported, Rare Past Drug Use History: None Reported - Past Family History Mother Family Medical History: Diabetes Mellitus Additional Family Medical History / Comment(s): heart problems Father Additional Family Medical History / Comment(s): heart problems Sister(s) Family Medical History: Diabetes Mellitus Additional Family Medical History / Comment(s): heart problems Brother(s) Family Medical History: Cancer Medications and Allergies Home Medications Medication Instructions Recorded Confirmed Type Lisinopril [Prinivil] 10 mg PO HS 09/20/15 08/02/20 History Lovastatin [Mevacor] 40 mg PO HS 09/20/15 08/02/20 History Multivit-Min/FA/Lycopen/Lutein 1 tab PO DAILY@1700 09/20/15 08/02/20 History [Centrum Silver Tablet] Pantoprazole [Protonix] 40 mg PO DAILY@0800 03/23/20 08/02/20 History Triamcinolone 0.5% Cream [Kenalog 1 applic TOPICAL DAILY PRN 03/23/20 08/02/20 History 0.5% Cream] Warfarin Sodium [Jantoven] 2.5 mg PO SUTUWETHSA@1700 03/23/20 08/02/20 History Warfarin Sodium [Jantoven] 5 mg PO MOFR@1700 03/23/20 08/02/20 History Ipratropium-Albuterol Nebulize 3 ml INHALATION RT-QID PRN ml 03/27/20 08/02/20 Rx [Duoneb 0.5 mg-3 mg/3 ml Soln] Albuterol Nebulized [Ventolin 2.5 mg INHALATION RT-QID PRN 06/07/20 08/02/20 History Nebulized] INSULIN ASPART (NovoLOG) [NovoLOG 7 unit SQ AC-TID vial 06/12/20 08/02/20 Rx (formulary)] Insulin Detemir (Levemir) [Levemir] 10 unit SQ HS syr 06/12/20 08/02/20 Rx traMADol HCl [Ultram] 50 mg PO TID PRN #9 tab 06/12/20 08/02/20 Rx Budesonide [Pulmicort] 0.5 mg INHALATION RT-BID@0800,2100 08/02/20 08/02/20 History Furosemide [Lasix] 40 mg PO BID@0800,1400 08/02/20 08/02/20 History Gabapentin [Neurontin] 200 mg PO BID@0800,2100 08/02/20 08/02/20 History Glucerna Shake 120 ml PO TID@0800,1700,2100 08/02/20 08/02/20 History Lidocaine 5% Oint [Xylocaine 5% 1 mm TOPICAL DAILY PRN 08/02/20 08/02/20 History Oint] Liquical 30 ml PO BID@0800,1700 08/02/20 08/02/20 History Loperamide HCl [Imodium A-D] 2 - 4 mg PO QID PRN 08/02/20 08/02/20 History Magnesium Hydroxide [Milk of 7,200 mg PO Q48H PRN 08/02/20 08/02/20 History Magnesia Concentrate] Na Phos,M-B/Na Phos,Di-Ba [Fleet 133 ml RECTAL DAILY PRN 08/02/20 08/02/20 Hi story Adult] Spironolactone [Aldactone] 12.5 mg PO DAILY@0800 08/02/20 08/02/20 History bisacodyL [Bisacodyl] 10 mg RECTAL DAILY PRN 08/02/20 08/02/20 History predniSONE 10 mg PO DAILY@0800 08/02/20 08/02/20 History Allergies Allergy/AdvReac Type Severity Reaction Status Date / Time Penicillins Allergy Swelling Verified 08/02/20 19:30 hydrocodone bitartrate AdvReac Nausea & Verified 08/02/20 19:30 [From Vicodin] Vomiting sulfamethoxazole AdvReac Nausea & Verified 08/02/20 19:30 Vomiting Surgical - Exam Vital Signs Temp Pulse Resp BP Pulse Ox 97.8 F 93 18 108/96 97 08/02/20 18:43 08/02/20 18:43 08/02/20 18:43 08/02/20 18:43 08/02/20 18:43 General appearance: The patient is alert, oriented, in no acute distress. HET: Head is normocephalic and atraumatic. Neck: Supple without lymphadenopathy. Trachea midline. Heart: S1 S2. Regular rate and rhythm. Lungs: Bilateral wheezes. Abdomen: Soft, nontender, nondistended. Extremities: Bilateral lower extremity swelling. Bilateral lower extremities with extensive venous wounds with surrounding erythema. She has bilateral dorsalis pedis pulses with good capillary refill. Neurological: No focal deficits. Strength and sensation are grossly intact. Results - Labs 08/03/20 06:07 08/03/20 06:07 Abnormal Lab Results - Last 24 Hours (Table) 08/02/20 08/02/20 08/02/20 Range/Units 19:58 19:58 20:08 WBC 12.7 H (3.8-10.6) k/uL RDW 15.9 H (11.5-15.5) % Neutrophils # 10.8 H (1.3-7.7) k/uL Monocytes # (0-1.0) k/uL PT 16.9 H (9.0-12.0) sec INR 1.7 H (<1.2) Sodium 123 L (137-145) mmol/L Chloride 86 L (98-107) mmol/L Carbon Dioxide (22-30) mmol/L BUN 27 H (7-17) mg/dL Creatinine 0.51 L (0.52-1.04) mg/dL Glucose 201 H (74-99) mg/dL Calcium 8.1 L (8.4-10.2) mg/dL Total Protein 5.7 L (6.3-8.2) g/dL Albumin 2.7 L (3.5-5.0) g/dL 08/03/20 08/03/20 Range/Units 06:07 06:07 WBC 12.3 H (3.8-10.6) k/uL RDW 15.8 H (11.5-15.5) % Neutrophils # 9.8 H (1.3-7.7) k/uL Monocytes # 1.1 H (0-1.0) k/uL PT (9.0-12.0) sec INR (<1.2) Sodium 125 L (137-145) mmol/L Chloride 89 L (98-107) mmol/L Carbon Dioxide 32 H (22-30) mmol/L BUN 22 H (7-17) mg/dL Creatinine 0.45 L (0.52-1.04) mg/dL Glucose 125 H (74-99) mg/dL Calcium 8.2 L (8.4-10.2) mg/dL Total Protein (6.3-8.2) g/dL Albumin (3.5-5.0) g/dL Microbiology - Last 24 Hours (Table) 08/02/20 20:04 Gram Stain - Preliminary Leg - Right Wound Culture - Preliminary Diabetes panel 08/02/20 08/03/20 Range/Units 19:58 06:07 Sodium 123 L 125 L (137-145) mmol/L Potassium 4.4 5.0 (3.5-5.1) mmol/L Chloride 86 L 89 L (98-107) mmol/L Carbon Dioxide 30 32 H (22-30) mmol/L BUN 27 H 22 H (7-17) mg/dL Creatinine 0.51 L 0.45 L (0.52-1.04) mg/dL Glucose 201 H 125 H (74-99) mg/dL Calcium 8.1 L 8.2 L (8.4-10.2) mg/dL AST 33 (14-36) U/L ALT 32 (4-34) U/L Alkaline Phosphatase 82 (38-126) U/L Total Protein 5.7 L (6.3-8.2) g/dL Albumin 2.7 L (3.5-5.0) g/dL Calcium panel 08/02/20 08/03/20 Range/Units 19:58 06:07 Calcium 8.1 L 8.2 L (8.4-10.2) mg/dL Albumin 2.7 L (3.5-5.0) g/dL Pituitary panel 08/02/20 08/03/20 Range/Units 19:58 06:07 Sodium 123 L 125 L (137-145) mmol/L Potassium 4.4 5.0 (3.5-5.1) mmol/L Chloride 86 L 89 L (98-107) mmol/L Carbon Dioxide 30 32 H (22-30) mmol/L BUN 27 H 22 H (7-17) mg/dL Creatinine 0.51 L 0.45 L (0.52-1.04) mg/dL Glucose 201 H 125 H (74-99) mg/dL Calcium 8.1 L 8.2 L (8.4-10.2) mg/dL Adrenal panel 08/02/20 08/03/20 Range/Units 19:58 06:07 Sodium 123 L 125 L (137-145) mmol/L Potassium 4.4 5.0 (3.5-5.1) mmol/L Chloride 86 L 89 L (98-107) mmol/L Carbon Dioxide 30 32 H (22-30) mmol/L BUN 27 H 22 H (7-17) mg/dL Creatinine 0.51 L 0.45 L (0.52-1.04) mg/dL Glucose 201 H 125 H (74-99) mg/dL Calcium 8.1 L 8.2 L (8.4-10.2) mg/dL Total Bilirubin 0.5 (0.2-1.3) mg/dL AST 33 (14-36) U/L ALT 32 (4-34) U/L Alkaline Phosphatase 82 (38-126) U/L Total Protein 5.7 L (6.3-8.2) g/dL Albumin 2.7 L (3.5-5.0) g/dL Assessment and Plan Assessment: 1. Chronic bilateral venous ulcers 2. History of peripheral arterial disease, with previous right fem-pop bypass, and stents in left lower extremity 3. Diabetes mellitus 4. COPD 5. Hypertension 6. Coronary artery disease Plan: Keep patient nothing by mouth Change IV fluids from normal saline to lactated Ringer's at 130 ml/hr Patient will be scheduled for bilateral lower extremity debridement this afternoon Further recommendations to follow Thank you for this consultation and allowing us take part in the plan of care of your patient The impression and plan of care has been dictated as directed. Dr. Hernandez I performed a history and examination of this patient, discussed the same with the dictator. I agree with the dictator's note ,documented as a scribe. Any additional findings or plans will be noted.
--- NOTE | 2020-08-03 12:28 | P.HPIM ---
History of Present Illness H&P Date: 08/03/20 Chief Complaint: Wounds HISTORY OF PRESENT ILLNESS Is a 75 year old female patient of Dr. Mcamhan with past medical history significant for diabetes mellitus type 2, COPD, chronic hypoxic respiratory failure on home O2, chronic diastolic heart failure, chronic atrial fibrillation hypertension, hyperlipidemia, previous myocardial infarction, chronic lower extremity ulcers, peripheral vascular occlusive disease with previous fem-pop bypass and stenting, history of chronic tobacco use. Patient was last hospitalized in May of this year at which time she was treated for acute on chronic hypoxic respiratory failure and COPD exacerbation. She has chronic diabetic ulcers for which she follows in the wound healing Center. The patient states that she thinks her wound on her left lower leg is getting worse. Patient apparently recently completed 2 courses of antibiotics. No significant pain to the wounds. Denies any fever or chills. Patient came into [facility] emergency center for evaluation. Patient was afebrile, heart rate 93, blood pressure 108/96, pulse ox 96%. WBC 12.7, hemoglobin 11.6, platelet count 283. Sodium 123, potassium 4.4, chloride 86, CO2 30, BUN 27 creatinine 2.51. Blood sugar 201. Liver function tests normal. INR 1.7. Lactic acid 1.6. Patient to be admitted to the MedSurg floor, consult in place with vascular surgery which is planning on I&D this afternoon in OR. Consult added for infectious disease. REVIEW OF SYSTEMS Constitutional: No fever, no chills, no night sweats. No weight change. No weakness, fatigue or lethargy. No daytime sleepiness. EENT: No headache. No blurred vision or double vision, no loss of vision. No loss of Hearing, no ringing in the ears, no dizziness. No nasal drainage or congestion. No epistaxis. No sore throat. Lungs: No shortness of breath, cough, no sputum production. No wheezing. Cardiovascular: No chest pain, no lower extremity edema. No palpitations. No paroxysmal nocturnal dyspnea. No orthopnea. No lightheadedness or dizziness. No syncopal episodes. Abdominal: No abdominal pain. No nausea, vomiting. No diarrhea. No constipation. No bloody or tarry stools.. No loss of appetite. Genitourinary: No dysuria, increased frequency, urgency. No urinary retention. Musculoskeletal: No myalgias. No muscle weakness, no gait dysfunction, no frequent falls. No back pain. No neck pain. Integumentary: Reports wounds, no lesions. No rash or pruritus. No unusual bruising. No change in hair or nails. Neurologic: No aphasia. No facial droop. No change in mentation. No head injury. No headache. No paralysis. No paresthesia. Psychiatric: No depression. No anxiety. No mood swings. Endocrine: No abnormal blood sugars. No weight change. SOCIAL HISTORY Patient was a smoker starting at age 13 and quit in December 2019 with a 64 year history with part of that being 2 packs per day. She has rare alcohol use, no illicit drug use. She normally lives alone but currently at [facility] for subacute rehab. FAMILY HISTORY Mother at age 74 from diabetes Occasions with history of coronary artery disease. Father at age 62 from coronary artery disease. Patient has 1 brother and he in his 60s from lung cancer. Patient has one half sister with diabetes and ornery artery disease. PHYSICAL EXAMINATION Gen: This is a 75-year-old female. Patient is resting on the ear structure that appears to be in no acute distress. No respiratory distress noted. HEENT: Head is atraumatic, normocephalic. Pupils equal, round. Sclerae is anicteric. NECK: Supple. No JVD. No lymphadenopathy. No thyromegaly. LUNGS: Diminished with bilateral wheezes. No intercostal retractions. HEART: Regular rate and rhythm. No murmur. ABDOMEN: Soft. Bowel sounds are present. No masses. No tenderness. EXTREMITIES: Mild pedal edema. Large left lower extremity ulcer on the medial side with surrounding erythema. Dorsalis pedis on the left is 1+, 2+ on the right. Patient also has small superficial ulcers to the left foot dorsal surface base of toes 2 through 4 and dusky purple color to the toes. There is a 5 x 2.5 cm wound on the right medial posterior calf with no significant erythema. There is also a small ulcer on the dorsal surface of the right great toe without erythema or drainage. NEUROLOGICAL: Patient is awake, alert and oriented x3. Cranial nerves 2 through 12 are grossly intact. ASSESSMENT AND PLAN 1. Chronic bilateral venous and diabetic ulcers. Patient admitted to the [facility] floor, consult to vascular surgery with plan for debridement this afternoon. into new vancomycin, pharmacy dosing, consult with infectious disease 2. Diabetes mellitus type 2. Continue Levemir 10 units at bedtime, 7 units 3 times daily with meals]. 3. Diabetic neuropathy. Continue gabapentin 200 mg twice daily. 4. Chronic diastolic heart failure. Continue Lasix 40 mg twice daily, A ldactone 12.5 mg daily. 5. Chronic atrial fibrillation. Coumadin will be resumed tonight if okay with vascular surgery. 6. Hyponatremia. Recheck electrolytes in the morning. 7. Hypertension. Continue lisinopril 10 mg at bedtime. 8. Hyperlipidemia. Continue statin. 9. COPD without exacerbation. Continue albuterol as needed, Pulmicort twice daily. 10. Gastroesophageal reflux disease. Continue Protonix 40 mg daily. Patient will be admitted to the hospital for a minimum of 2 night stay. DISCHARGE PLAN Return to [facility] under the care of Dr. Mcmahan possibly on Friday/Friday . Impression and plan of care have been directed as dictated by the signing p hakan. Maida Johnson nurse practitioner acting as scribe for signing physician. Past Medical History Past Medical History: COPD, Diabetes Mellitus, Hypertension, Myocardial Infarction ([place]), Vascular Disorder Additional Past Medical History / Comment(s): anemia,SOB,irreg HR,bronchitis 16/09-07-15,crys leg and feet edema,hx of bleeding ulcer around age 32, Last Myocardial Infarction Date:: unk History of Any Multi-Drug Resistant Organisms: MRSA Date of last positivie culture/infection: 05/22/20 MDRO Source:: LEG MRSA Past Surgical History: Hysterectomy, Joint Replacement, Orthopedic Surgery Additional Past Surgical History / Comment(s): rtfem-pop bypass,3or4 stents lt leg,crys knee replace,lt shoulder repair Past Anesthesia/Blood Transfusion Reactions: Postoperative Nausea & Vomiting (PONV) Additional Past Anesthesia/Blood Transfusion Reaction / Comment(s): no problems with prior blood transfusions Past Psychological History: Anxiety, Depression Smoking Status: Former smoker Past Alcohol Use History: None Reported, Rare Past Drug Use History: None Reported - Past Family History Mother Family Medical History: Diabetes Mellitus Additional Family Medical History / Comment(s): heart problems Father Additional Family Medical History / Comment(s): heart problems Sister(s) Family Medical History: Diabetes Mellitus Additional Family Medical History / Comment(s): heart problems Brother(s) Family Medical History: Cancer Medications and Allergies Home Medications Medication Instructions Recorded Confirmed Type Lisinopril [Prinivil] 10 mg PO HS 09/20/15 08/02/20 History Lovastatin [Mevacor] 40 mg PO HS 09/20/15 08/02/20 History Multivit-Min/FA/Lycopen/Lutein 1 tab PO DAILY@1700 09/20/15 08/02/20 History [Centrum Silver Tablet] Pantoprazole [Protonix] 40 mg PO DAILY@0800 03/23/20 08/02/20 History Triamcinolone 0.5% Cream [Kenalog 1 applic TOPICAL DAILY PRN 03/23/20 08/02/20 History 0.5% Cream] Warfarin Sodium [Jantoven] 2.5 mg PO SUTUWETHSA@1700 03/23/20 08/02/20 History Warfarin Sodium [Jantoven] 5 mg PO MOFR@1700 03/23/20 08/02/20 History Ipratropium-Albuterol Nebulize 3 ml INHALATION RT-QID PRN ml 03/27/20 08/02/20 Rx [Duoneb 0.5 mg-3 mg/3 ml Soln] Albuterol Nebulized [Ventolin 2.5 mg INHALATION RT-QID PRN 06/07/20 08/02/20 History Nebulized] INSULIN ASPART (NovoLOG) [NovoLOG 7 unit SQ AC-TID vial 06/12/20 08/02/20 Rx (formulary)] Insulin Detemir (Levemir) [Levemir] 10 unit SQ HS syr 06/12/20 08/02/20 Rx traMADol HCl [Ultram] 50 mg PO TID PRN #9 tab 06/12/20 08/02/20 Rx Budesonide [Pulmicort] 0.5 mg INHALATION RT-BID@0800,2100 08/02/20 08/02/20 History Furosemide [Lasix] 40 mg PO BID@0800,1400 08/02/20 08/02/20 History Gabapentin [Neurontin] 200 mg PO BID@0800,2100 08/02/20 08/02/20 History Glucerna Shake 120 ml PO TID@0800,1700,2100 08/02/20 08/02/20 History Lidocaine 5% Oint [Xylocaine 5% 1 mm TOPICAL DAILY PRN 08/02/20 08/02/20 History Oint] Liquical 30 ml PO BID@0800,1700 08/02/20 08/02/20 History Loperamide HCl [Imodium A-D] 2 - 4 mg PO QID PRN 08/02/20 08/02/20 History Magnesium Hydroxide [Milk of 7,200 mg PO Q48H PRN 08/02/20 08/02/20 History Magnesia Concentrate] Na Phos,M-B/Na Phos,Di-Ba [Fleet 133 ml RECTAL DAILY PRN 08/02/20 08/02/20 History Adult] Spironolactone [Aldactone] 12.5 mg PO DAILY@0800 08/02/20 08/02/20 History bisacodyL [Bisacodyl] 10 mg RECTAL DAILY PRN 08/02/20 08/02/20 History predniSONE 10 mg PO DAILY@0800 08/02/20 08/02/20 History Allergies Allergy/AdvReac Type Severity Reaction Status Date / Time Penicillins Allergy Swelling Verified 08/02/20 19:30 hydrocodone bitartrate AdvReac Nausea & Verified 08/02/20 19:30 [From Vicodin] Vomiting sulfamethoxazole AdvReac Nausea & Verified 08/02/20 19:30 Vomiting Physical Exam Vitals: Vital Signs Temp Pulse Pulse Resp BP BP Pulse Ox 08/03/20 08:00 97.6 F 93 16 110/73 93 L 08/03/20 04:58 69 18 108/72 95 08/02/20 21:54 88 18 119/65 97 08/02/20 20:08 97 18 106/75 95 08/02/20 18:43 97.8 F 93 18 108/96 97 Intake and Output 08/02/20 08/03/20 08/03/20 22:59 06:59 14:59 Other: # Voids 1 Weight 77.111 kg Results CBC & Chem 7: 08/03/20 06:07 08/03/20 06:07 Labs: Abnormal Lab Results - Last 24 Hours (Table) 08/02/20 08/02/20 08/02/20 Range/Units 19:58 19:58 20:08 WBC 12.7 H (3.8-10.6) k/uL RDW 15.9 H (11.5-15.5) % Neutrophils # 10.8 H (1.3-7.7) k/uL Monocytes # (0-1.0) k/uL PT 16.9 H (9.0-12.0) sec INR 1.7 H (<1.2) Sodium 123 L (137-145) mmol/L Chloride 86 L (98-107) mmol/L Carbon Dioxide (22-30) mmol/L BUN 27 H (7-17) mg/dL Creatinine 0.51 L (0.52-1.04) mg/dL Glucose 201 H (74-99) mg/dL Calcium 8.1 L (8.4-10.2) mg/dL Total Protein 5.7 L (6.3-8.2) g/dL Albumin 2.7 L (3.5-5.0) g/dL 08/03/20 08/03/20 Range/Units 06:07 06:07 WBC 12.3 H (3.8-10.6) k/uL RDW 15.8 H (11.5-15.5) % Neutrophils # 9.8 H (1.3-7.7) k/uL Monocytes # 1.1 H (0-1.0) k/uL PT (9.0-12.0) sec INR (<1.2) Sodium 125 L (137-145) mmol/L Chloride 89 L (98-107) mmol/L Carbon Dioxide 32 H (22-30) mmol/L BUN 22 H (7-17) mg/dL Creatinine 0.45 L (0.52-1.04) mg/dL Glucose 125 H (74-99) mg/dL Calcium 8.2 L (8.4-10.2) mg/dL Total Protein (6.3-8.2) g/dL Albumin (3.5-5.0) g/dL Microbiology - Last 24 Hours (Table) 08/02/20 20:04 Gram Stain - Preliminary Leg - Right Wound Culture - Preliminary
[2020-08-03 13:43] LABS: Prothrombin Time 19.8 sec (9.0-12.0)
[2020-08-03] MEDS: INSULIN ASPART (NovoLOG) 100 UNIT/ML VIAL SQ SCH ×2 (14:02→17:43)
[2020-08-03] MEDS: FUROSEMIDE 40 MG TAB PO SCH (15:28)
[2020-08-03] MEDS ORDERED: NON FORMULARY DRUG (Glucerna Shake 1 CAN Liquid) PO SCH (17:00)
[2020-08-03 17:54] LABS: Glucose,Whole Blood 131 mg/dL (75-99)
[2020-08-03] MEDS: IPRATROPIUM-ALBUTEROL 3 ML NEB INHALATION PRN (19:24)
[2020-08-03] MEDS: BUDESONIDE 0.5 MG/2 ML NEBU INHALATION SCH (19:24)
[2020-08-03] MEDS ORDERED: WARFARIN 5 MG TAB PO ONE (20:00)
[2020-08-03] MEDS: ATORVASTATIN 10 MG TAB PO SCH (20:55)
[2020-08-03] MEDS: GABAPENTIN 100 MG CAP PO SCH (20:55)
[2020-08-03] MEDS: INSULIN DETEMIR (LEVEMIR) 100 UNIT/ML SYR SQ SCH (20:56)
[2020-08-03 21:02] LABS: Glucose,Whole Blood 101 mg/dL (75-99)
[2020-08-03] MEDS: lisinopriL 10 MG TAB PO SCH (21:03)
[2020-08-03] MEDS ORDERED: LEVOFLOXACIN 750MG-D5W PMX 750 MG in DEXTROSE/WATER 1 150ML.BAG IVPB SCH (22:00)
[2020-08-03] MEDS: CEFEPIME 2 GM in SODIUM CHLORIDE 0.9% 100 ML IVPB SCH (22:31)
--- NOTE | 2020-08-03 23:26 | CONS ---
CONSULTATION DATE OF SERVICE: 08/03/2020 REASON FOR CONSULTATION: Left lower extremity wound and cellulitis. HISTORY OF PRESENT ILLNESS: The patient is a 75-year-old female with a past medical history significant for a chronic nonhealing wound to the left lower extremity which apparently the patient has had since December of 2019. The patient is not sure exactly how it started and the patient is currently being followed at [facility] with a previous episode of MRSA infection. The patient presented to [facility] ER last evening for worsening pain to the left lower extremity. The patient describes the pain to be more of a throbbing, almost 7 to 8 out of 10, no radiation, with associated surrounding swelling, redness and some drainage. The patient on presentation to the hospital was afebrile. The patient had a white count of 12.3. Kidney function was normal. Mcqueen PCR was negative. Local culture has been obtained. Blood cultures currently pending. The patient was started on vancomycin, Levaquin, admitted to the hospital. Infectious Disease was consulted for further management of antibiotic therapy. REVIEW OF SYSTEMS: Positive points have been mentioned in the HPI. Rest of the systems are negative. PAST MEDICAL HISTORY: COPD, diabetes mellitus, hypertension, IN and vascular disorder. PAST SURGICAL HISTORY: Hysterectomy, right femoral-popliteal bypass, bilateral knee replacement, left shoulder repair. SOCIAL HISTORY: Remote history of smoking. Rarely drinks. No drug use. FAMILY HISTORY: Mother with history of diabetes and heart issues. ALLERGIES: PENICILLIN, HYDROCODONE, SULFAMETHOXAZOLE. MEDICATIONS: The patient is currently on Tylenol, DuoNeb, Lipitor, Dulcolax, Pulmicort, Levaquin, Lasix, Neurontin, Dilaudid, NovoLog, Levemir, Zestril, vancomycin, Pharmacy to dose, Narcan, Protonix, Aldactone, Ultram, Coumadin. PHYSICAL EXAMINATION: Blood pressure 123/77, pulse of 89, temperature 97.9. She is 99% on 3 L nasal cannula. General description is an elderly female lying in bed in no distress. No tachypnea or accessory muscle of respiration use. HEENT: Examination shows no pallor or scleral icterus. Oral mucous membrane is dry. NECK: Trachea is central. No thyromegaly. LUNGS: Unlabored breathing. Clear to auscultation anteriorly. HEART: S1, S2. Regular rate and rhythm. ABDOMEN: Soft. No tenderness. LOWER EXTREMITIES: Left leg did have significant large wound with some slough tissue and surrounding redness. No significant foul-smelling drainage. Neurologically the patient is awake, alert, oriented x3. Mood and affect normal. LABS: Hemoglobin is 12.7, white count 12.3, BUN of 22, creatinine 0.45. DIAGNOSTIC IMPRESSION AND PLAN: 1. Patient with extensive left lower extremity wound with secondary cellulitis in this patient who did have a previous episode of an MRSA infection with concern for possible MRSA versus Gram-negative infection. The patient does have an extensive wound and will need surgical debridement and deep culture, for which Vascular Surgery is already on the case. 2. Patient with PENICILLIN ALLERGY that will limit the number of antibiotics safe to use. PLAN: 1. Vancomycin, Pharmacy to dose. Target of 15, while watching her kidney function closely. 2. Discontinue Levaquin and start the patient on cefepime 2 grams q.12 hours to cover for the Gram-negative. 3. Local wound care per Vascular Surgery. 4. We will follow clinical condition and culture to further adjust medication if needed. Thank you for this consultation. Will follow this patient along with you. MMODL / IJN: [id number] /
[2020-08-04] MEDS: SODIUM CHLORIDE 0.9% 1,000 ML IV SCH ×2 (05:14→17:53)
[2020-08-04] MEDS: HYDROmorphone 1 MG/ML 1 ML SYRINGE IVP PRN (05:14)
[2020-08-04 06:59] LABS: Glucose,Whole Blood 143 mg/dL (75-99)
[2020-08-04] MEDS: INSULIN ASPART (NovoLOG) 100 UNIT/ML VIAL SQ SCH ×3 (07:08→17:59)
[2020-08-04] MEDS: SPIRONOLACTONE 25 MG TAB PO SCH (07:13)
[2020-08-04] MEDS: GABAPENTIN 100 MG CAP PO SCH ×2 (07:14→22:06)
[2020-08-04] MEDS: FUROSEMIDE 40 MG TAB PO SCH ×2 (07:14→14:10)
[2020-08-04] MEDS: PANTOPRAZOLE 40 MG TABLET PO SCH (07:14)
[2020-08-04] MEDS: traMADol 50 MG TAB PO PRN (07:19)
[2020-08-04 07:51] LABS: Anisocytosis Slight; HCT 35.3 % (34.0-46.0); HGB 11.9 gm/dL (11.4-16.0); MCHC 33.8 g/dL (31.0-37.0); Platelet Count 279 k/uL (150-450); RBC 4.11 m/uL (3.80-5.40); WBC 11.4 k/uL (3.8-10.6)
[2020-08-04] MEDS: IPRATROPIUM-ALBUTEROL 3 ML NEB INHALATION PRN (07:52)
[2020-08-04] MEDS: BUDESONIDE 0.5 MG/2 ML NEBU INHALATION SCH ×2 (07:52→20:19)
[2020-08-04 07:56] LABS: INR 2.1 (<1.2); Prothrombin Time 20.3 sec (9.0-12.0)
[2020-08-04] MEDS ORDERED: VANCOMYCIN TROUGH DUE 1 EACH MISC MISCELLANE ONE (08:00)
[2020-08-04 08:08] LABS: African American GFR (CKD) >90 (>60 ml/min/1.73 sqM); Anion Gap 6 mmol/L; Blood Urea Nitrogen 16 mg/dL (7-17); Calcium 8.3 mg/dL (8.4-10.2); Carbon Dioxide 28 mmol/L (22-30); Chloride 92 mmol/L (98-107); Glucose 149 mg/dL (74-99); Non-African American GFR(CKD) >90 (>60 ml/min/1.73 sqM); Potassium 4.5 mmol/L (3.5-5.1); Sodium 126 mmol/L (137-145)
[2020-08-04] MEDS: VANCOMYCIN 1,500 MG in SODIUM CHLORIDE 0.9% 250 ML IVPB SCH ×2 (08:12→22:07)
--- NOTE | 2020-08-04 09:53 | P.PN ---
Subjective Progress Note Date: 08/04/20 Principal diagnosis: Bilateral lower extremity ulcers The patient is seen and examined lying in bed. No acute changes through the night. Patient's sodium remains low at 126, potassium 4.2, INR 2.1. Objective - Vital Signs Vital signs: Vital Signs Temp 97.3 F L 08/04/20 04:27 Pulse 100 08/04/20 08:11 Resp 18 08/04/20 04:27 BP 110/59 08/04/20 04:27 Pulse Ox 94 L 08/04/20 04:27 Intake & Output 08/03/20 08/04/20 08/04/20 18:59 06:59 18:59 Intake Total 0 1510 Output Total 600 650 Balance -600 860 Weight 77.111 kg Intake: Intake, IV Titration 1150 Amount Sodium Chloride 0.9% 1, 900 000 ml @ 75 mls/hr IV . [id number] ANALILIA Rx#:[id number] Vancomycin 1,500 mg In 250 Sodium Chloride 0.9% 250 ml @ 125 mls/hr IVPB Q12H A[facility]IL[facility] Rx#:[id number] Oral 0 360 Output: Urine 600 650 Other: Voiding Method Bedside Commode # Voids 1 # Bowel Movements 1 - Exam General appearance: The patient is alert, oriented, appears in no acute distress. HET: Head is normocephalic and atraumatic. Neck: Supple without lymphadenopathy. Trachea midline. Heart: S1 S2. Regular rate and rhythm. Lungs: Bilateral wheezes Extremities: Bilateral lower extremities with dressings clean dry and intact. Neurological: No focal deficits. Strength and sensation are grossly intact. - Labs CBC & Chem 7: 08/04/20 07:24 08/04/20 07:24 Labs: Abnormal Lab Results - Last 24 Hours (Table) 08/03/20 08/03/20 08/03/20 Range/Units 06:07 13:25 17:40 WBC (3.8-10.6) k/uL RDW (11.5-15.5) % PT 19.8 H (9.0-12.0) sec INR 2.0 H (<1.2) Sodium (137-145) mmol/L Chloride (98-107) mmol/L Creatinine (0.52-1.04) mg/dL Glucose (74-99) mg/dL POC Glucose (mg/dL) 131 H (75-99) mg/dL Calcium (8.4-10.2) mg/dL C-Reactive Protein 28.8 H (<10.0) mg/L 08/03/20 08/04/20 08/04/20 Range/Units 21:00 06:57 07:24 WBC 11.4 H (3.8-10.6) k/uL RDW 16.0 H (11.5-15.5) % PT (9.0-12.0) sec INR (<1.2) Sodium (137-145) mmol/L Chloride (98-107) mmol/L Creatinine (0.52-1.04) mg/dL Glucose (74-99) mg/dL POC Glucose (mg/dL) 101 H 143 H (75-99) mg/dL Calcium (8.4-10.2) mg/dL C-Reactive Protein (<10.0) mg/L 08/04/20 08/04/20 Range/Units 07:24 07:24 WBC (3.8-10.6) k/uL RDW (11.5-15.5) % PT 20.3 H (9.0-12.0) sec INR 2.1 H (<1.2) Sodium 126 L (137-145) mmol/L Chloride 92 L (98-107) mmol/L Creatinine 0.40 L (0.52-1.04) mg/dL Glucose 149 H (74-99) mg/dL POC Glucose (mg/dL) (75-99) mg/dL Calcium 8.3 L (8.4-10.2) mg/dL C-Reactive Protein (<10.0) mg/L Microbiology - Last 24 Hours (Table) 08/02/20 19:58 Blood Culture - Preliminary Blood No Growth after 24 hours 08/02/20 19:58 Blood Culture - Preliminary Blood No Growth after 24 hours 08/02/20 20:04 Gram Stain - Preliminary Leg - Right Wound Culture - Preliminary Gram Neg Bacilli Assessment and Plan Assessment: 1. Chronic bilateral venous ulcers 2. History of peripheral arterial disease, with previous right fem-pop bypass, and stents in left lower extremity 3. Hyponatremia 4. Diabetes mellitus 5. COPD 6. Hypertension 7. Coronary artery disease Plan: Patient may have consistent carbohydrate diet Repeat CBC, INR, BMP in morning Primary medical team to manage hyponatremia Daily dressing changes with Adaptic and Kerlix Once patient's sodium is stabilized, plan is for bilateral lower extremity debridement Thank you for this consultation and allowing us take part in the plan of care of your patient The impression and plan of care has been dictated as directed. Dr. Hernandez I performed a history and examination of this patient, discussed the same with the dictator. I agree with the dictator's note ,documented as a scribe. Any additional findings or plans will be noted.
[2020-08-04] MEDS: CEFEPIME 2 GM in SODIUM CHLORIDE 0.9% 100 ML IVPB SCH ×2 (10:18→22:06)
[2020-08-04 11:44] LABS: Glucose,Whole Blood 188 mg/dL (75-99)
--- NOTE | 2020-08-04 15:50 | P.PN ---
Subjective Progress Note Date: 08/04/20 HISTORY OF PRESENT ILLNESS Is a 75 year old female patient of Dr. Mcmahan with past medical history significant for diabetes mellitus type 2, COPD, chronic hypoxic respiratory failure on home O2, chronic diastolic heart failure, chronic atrial fibrillation hypertension, hyperlipidemia, previous myocardial infarction, chronic lower extremity ulcers, peripheral vascular occlusive disease with previous fem-pop bypass and stenting, history of chronic tobacco use. Patient was last hospitalized in May of this year at which time she was treated for acute on chronic hypoxic respiratory failure and COPD exacerbation. She has chronic diabetic ulcers for which she follows in the wound healing Center. The patient states that she thinks her wound on her left lower leg is getting worse. Patient apparently recently completed 2 courses of antibiotics. No significant pain to the wounds. Denies any fever or chills. Patient came into [facility] emergency center for evaluation. Patient was afebrile, heart rate 93, blood pressure 108/96, pulse ox 96%. WBC 12.7, hemoglobin 11.6, platelet count 283. Sodium 123, potassium 4.4, chloride 86, CO2 30, BUN 27 creatinine 2.51. Blood sugar 201. Liver function tests normal. INR 1.7. Lactic acid 1.6. Patient to be admitted to the [facility] floor, consult in place with vascular surgery which is planning on I&D this afternoon in OR. Consult added for infectious disease. 08/04: Sodium is again low this morning at 126. Patient does have chronic hyponatremia. Consult will be added for nephrology and a urine sodium and osmolality, serum osmolality ordered as well as sodium chloride tablet twice daily. Surgical debridement is delayed due to hyponatremia. She has been afebrile, heart rate 81, blood pressure 101/64, pulse ox 96% on 2 L. Other lab work reveals that he be sealed 11.4. INR 2.1. Creatinine 0.4. Blood sugars running between 143 and 270. Vanco trough 11.8. Debridement may occur tomorrow and Coumadin is on hold. Dr. Cramer has evaluated the patient and added cefepime to vancomycin. Discharge plan is to return to [facility] possibly on Friday REVIEW OF SYSTEMS Constitutional: No fever, no chills, no night sweats. No weight change. No weakness, fatigue or lethargy. No daytime sleepiness. EENT: No headache. No blurred vision or double vision, no loss of vision. No loss of Hearing, no ringing in the ears, no dizziness. No nasal drainage or congestion. No epistaxis. No sore throat. Lungs: No shortness of breath, cough, no sputum production. No wheezing. Cardiovascular: No chest pain, no lower extremity edema. No palpitations. No paroxysmal nocturnal dyspnea. No orthopnea. No lightheadedness or dizziness. No syncopal episodes. Abdominal: No abdominal pain. No nausea, vomiting. No diarrhea. No constipation. No bloody or tarry stools.. No loss of appetite. Genitourinary: No dysuria, increased frequency, urgency. No urinary retention. Musculoskeletal: No myalgias. No muscle weakness, no gait dysfunction, no frequent falls. No back pain. No neck pain. Integumentary: Reports wounds, no lesions. No rash or pruritus. No unusual bruising. No change in hair or nails. Neurologic: No aphasia. No facial droop. No change in mentation. No head injury. No headache. No paralysis. No paresthesia. Psychiatric: No depression. No anxiety. No mood swings. Endocrine: No abnormal blood sugars. PHYSICAL EXAMINATION Gen: This is a 75-year-old female. Patient is resting in bed and appears to be in no acute distress. No respiratory distress noted. HEENT: Head is atraumatic, normocephalic. Pupils equal, round. Sclerae is anicteric. NECK: Supple. No JVD. No lymphadenopathy. No thyromegaly. LUNGS: Diminished with bilateral wheezes. No intercostal retractions. HEART: Regular rate and rhythm. No murmur. ABDOMEN: Soft. Bowel sounds are present. No masses. No tenderness. EXTREMITIES: Mild pedal edema. Large left lower extremity ulcer on the medial side with surrounding erythema. Dorsalis pedis on the left is 1+, 2+ on the right. Patient also has small superficial ulcers to the left foot dorsal surface base of toes 2 through 4 and dusky purple color to the toes. There is a 5 x 2.5 cm wound on the right medial posterior calf with no significant erythema. There is also a small ulcer on the dorsal surface of the right great toe without erythema or drainage. NEUROLOGICAL: Patient is awake, alert and oriented x3. Cranial nerves 2 through 12 are grossly intact. ASSESSMENT AND PLAN 1. Chronic bilateral venous and diabetic ulcers. [facility], consult to vascular surgery with plan for debridement which has been delayed due to hyponatremia. Continue vancomycin, pharmacy dosing, also being added, consult with infectious disease appreciated 2. Diabetes mellitus type 2. Continue Levemir 10 units at bedtime, 7 units 3 times daily with meals]. 3. Diabetic neuropathy. Continue gabapentin 200 mg twice daily. 4. Chronic diastolic heart failure. Continue Lasix 40 mg twice daily, Aldactone 12.5 mg daily. 5. Chronic atrial fibrillation. Coumadin on hold for possible surgery with vascular surgery. 6. Hyponatremia. Recheck electrolytes in the morning. 7. Hypertension. Continue lisinopril 10 mg at bedtime. 8. Hyperlipidemia. Continue statin. 9. COPD without exacerbation. Continue albuterol as needed, Pulmicort twice daily. 10. Gastroesophageal reflux disease. Continue Protonix 40 mg daily. Patient will be admitted to the hospital for a minimum of 2 night stay. DISCHARGE PLAN Return to [facility] under the care of Dr. Mcmahan possibly on Friday/Friday . Impression and plan of care have been directed as dictated by the signing physician. Maida Johnson nurse practitioner acting as scribe for signing physician. Objective - Vital Signs Vital signs: Vital Signs Temp 97.3 F L 08/04/20 04:27 Pulse 100 08/04/20 08:11 Resp 18 08/04/20 04:27 BP 110/59 08/04/20 04:27 Pulse Ox 94 L 08/04/20 04:27 Intake & Output 08/03/20 08/04/20 08/04/20 18:59 06:59 18:59 Intake Total 0 1510 Output Total 600 650 Balance -600 860 Weight 77.111 kg Intake: Intake, IV Titration 1150 Amount Sodium Chloride 0.9% 1, 900 000 ml @ 75 mls/hr IV . [id number] [facility] Rx#:[id number] Vancomycin 1,500 mg In 250 Sodium Chloride 0.9% 250 ml @ 125 mls/hr IVPB Q12H [facility] Rx#:[id number] Oral 0 360 Output: Urine 600 650 Other: # Voids 1 # Bowel Movements 1 - Labs CBC & Chem 7: 08/04/20 07:24 08/04/20 07:24 Labs: Abnormal Lab Results - Last 24 Hours (Table) 08/03/20 08/03/20 08/03/20 Range/Units 06:07 13:25 17:40 WBC (3.8-10.6) k/uL RDW (11.5-15.5) % PT 19.8 H (9.0-12.0) sec INR 2.0 H (<1.2) Sodium (137-145) mmol/L Chloride (98-107) mmol/L Creatinine (0.52-1.04) mg/dL Glucose (74-99) mg/dL POC Glucose (mg/dL) 131 H (75-99) mg/dL Calcium (8.4-10.2) mg/dL C-Reactive Protein 28.8 H (<10.0) mg/L 08/03/20 08/04/20 08/04/20 Range/Units 21:00 06:57 07:24 WBC 11.4 H (3.8-10.6) k/uL RDW 16.0 H (11.5-15.5) % PT (9.0-12.0) sec INR (<1.2) Sodium (137-145) mmol/L Chloride (98-107) mmol/L Creatinine (0.52-1.04) mg/dL Glucose (74-99) mg/dL POC Glucose (mg/dL) 101 H 143 H (75-99) mg/dL Calcium (8.4-10.2) mg/dL C-Reactive Protein (<10.0) mg/L 08/04/20 08/04/20 Range/Units 07:24 07:24 WBC (3.8-10.6) k/uL RDW (11.5-15.5) % PT 20.3 H (9.0-12.0) sec INR 2.1 H (<1.2) Sodium 126 L (137-145) mmol/L Chloride 92 L (98-107) mmol/L Creatinine 0.40 L (0.52-1.04) mg/dL Glucose 149 H (74-99) mg/dL POC Glucose (mg/dL) (75-99) mg/dL Calcium 8.3 L (8.4-10.2) mg/dL C-Reactive Protein (<10.0) mg/L Microbiology - Last 24 Hours (Table) 08/02/20 19:58 Blood Culture - Preliminary Blood No Growth after 24 hours 08/02/20 19:58 Blood Culture - Preliminary Blood No Growth after 24 hours 08/02/20 20:04 Gram Stain - Preliminary Leg - Right Wound Culture - Preliminary Gram Neg Bacilli
[2020-08-04 17:09] LABS: Glucose,Whole Blood 122 mg/dL (75-99)
--- NOTE | 2020-08-04 17:21 | PN ---
PROGRESS NOTE DATE OF SERVICE: 08/04/2020 REASON FOR FOLLOWUP: Left lower extremity wound and cellulitis. INTERVAL HISTORY: The patient is currently afebrile. The patient still has significant pain to the left leg. The patient is currently waiting for surgical debridement. The patient denies having any chest pain, shortness of breath or cough. No abdominal pain or diarrhea. PHYSICAL EXAMINATION: Blood pressure 101/64, pulse 81, temperature 97.5. She is 93% on 2 L nasal cannula. General description is an elderly female up in the chair in no distress. RESPIRATORY SYSTEM: Unlabored breathing with decreased intensity of breath sounds. No wheeze. HEART: S1, S2. Regular rate and rhythm. ABDOMEN: Soft. No tenderness. Left leg is currently dressed up. No obvious drainage on the dressing. LABS: Hemoglobin 11.9, white count 11.4, BUN of 16, creatinine 0.40. Leg showing Gram- negative bacilli. DIAGNOSTIC IMPRESSION AND PLAN: Patient with left leg chronic nonhealing wound with secondary cellulitis. Culture showing Gram-negative. Patient is on vancomycin and cefepime. Antibiotic to be adjusted further based on the culture report. Waiting for surgical debridement. Continue with supportive care. MMODL / IJN: [id number] /
[2020-08-04] MEDS ORDERED: WARFARIN 0.5 MG TAB PO ONE (18:00)
--- NOTE | 2020-08-04 18:46 | CONS ---
CONSULTATION REASON FOR CONSULTATION: Hyponatremia. HISTORY OF PRESENT ILLNESS: The patient is a 75-year-old female who was admitted to the hospital on 08/02/2020 with complaints of drainage and increased redness in the legs. Patient has a history of MRSA wound infection. She completed outpatient course of antibiotics, with no improvement. Patient denied any fevers or chills. No nausea or vomiting. Her wound cultures grew Gram-negative bacilli and she is currently maintained on cefepime. Patient also has lower extremity edema, for which she is maintained on Lasix 40 mg b.i.d. Her sodium was 123 on initial admission and it is up to 126 now. At the same time, patient is also noted to be on normal saline at 75 mL/hour. Patient denies any prior history of hyponatremia, although she is noted to have a low sodium level previously in 2020 as well. No history of nausea, vomiting, diarrhea prior to admission. Patient was maintained on Lasix at home prior to admission. No new medications per patient. Urine osmolality was 557 today. PAST MEDICAL HISTORY: Significant for hypertension, type 2 diabetes, COPD, chronic diastolic heart failure, chronic atrial fibrillation, hyperlipidemia, history of [place], chronic lower extremity ulcers, peripheral vascular disease, chronic nicotine abuse. PAST SURGICAL HISTORY: Hysterectomy, femoral-popliteal bypass surgery, stents in the legs, bilateral knee arthroplasty, shoulder repair. SOCIAL HISTORY: Former smoker. No history of drug abuse or alcohol abuse. MEDICATIONS: Medications prior to admission included Prinivil, Mevacor, Protonix, Coumadin, insulin, Lasix, Neurontin, Aldactone, magnesium, prednisone. ALLERGIES: ALLERGIES include PENICILLIN, which causes swelling. VICODIN causes nausea and vomiting. BACTRIM causes nausea and vomiting. PHYSICAL EXAMINATION: Patient is currently comfortable, awake. She is not in any acute distress. Blood pressure was 101/64, heart rate 81 per minute. She is afebrile. EXAMINATION OF THE HEART: S1 and S2. EXAMINATION OF LUNGS: Bilateral breath sounds are heard. Decreased breath sounds at bases. ABDOMEN: Soft, non-tender. Examination of lower extremities shows edema bilaterally 1+. Both legs are currently wrapped. Therefore I have not seen the wounds. [employer] exam is grossly intact. LABS: Sodium 126, potassium 4.5, chloride 92. BUN 16, serum creatinine 0.4. Urine osmolality 557. ASSESSMENT: 1. Hyponatremia. Currently patient appears hypervolemic with evidence of lower extremity edema. Her sodium has improved from 123 to 126. However, she is also maintained on saline. Blood pressure has been on the lower side. I will hold off on the diuretics and saline as well as sodium chloride tabs for now and recheck the sodium in about 4-5 hours. I would avoid the use of sodium chloride tabs, as she does have some lower extremity edema. Patient is encouraged to increase oral intake, particularly protein. I believe that is the most likely reason for her hyponatremia, as she stated that she is not able to eat meat because of dental issues and has mostly just been eating bread. 2. Lower extremity wounds with history of MRSA infection. Wound culture growing Gram- negative bacilli. 3. History of coronary artery disease. 4. Type 2 diabetes. PLAN: Discontinue sodium chloride tabs. Discontinue normal saline as well and decrease Lasix to once a day. Repeat sodium in 6 hours and then again in a.m. Patient is encouraged to increase oral intake of protein, which will help with the hyponatremia as well. She should maintain some degree of free water restriction. I will check a chest x-ray as well. Thank you for this consultation. Will continue to follow the patient with you during her hospitalization. MMODL / IJN: [id number] /
--- NOTE | 2020-08-04 18:58 | XR ---
EXAMINATION TYPE: XR chest 1V DATE OF EXAM: 08/04/2020 COMPARISON: 06/07/2020 HISTORY: Short of breath TECHNIQUE: FINDINGS: Heart is enlarged. There is mild pulmonary congestion. There is coarse interstitial density in the lungs. Thoracic aorta is atheromatous. There is slight blunting of the costophrenic angles. IMPRESSION: Pulmonary interstitial fibrosis. There is probably minimal heart failure that is improved compared to old exam.
[2020-08-04 20:43] LABS: Glucose,Whole Blood 107 mg/dL (75-99)
[2020-08-04] MEDS ORDERED: SODIUM CHLORIDE TAB 1 GM TAB PO SCH (21:00)
[2020-08-04] MEDS: lisinopriL 10 MG TAB PO SCH (22:05)
[2020-08-04] MEDS: INSULIN DETEMIR (LEVEMIR) 100 UNIT/ML SYR SQ SCH (23:01)
[2020-08-04] MEDS: ATORVASTATIN 10 MG TAB PO SCH (23:01)
[2020-08-05] MEDS: CEFEPIME 2 GM in SODIUM CHLORIDE 0.9% 100 ML IVPB SCH ×2 (02:12→14:19)
[2020-08-05 07:12] LABS: African American GFR (CKD) >90 (>60 ml/min/1.73 sqM); Anion Gap 5 mmol/L; Blood Urea Nitrogen 17 mg/dL (7-17); Calcium 6.8 mg/dL (8.4-10.2); Carbon Dioxide 22 mmol/L (22-30); Chloride 98 mmol/L (98-107); Glucose 98 mg/dL (74-99); Non-African American GFR(CKD) >90 (>60 ml/min/1.73 sqM); Potassium 3.7 mmol/L (3.5-5.1); Sodium 125 mmol/L (137-145)
[2020-08-05 07:13] LABS: INR 2.2 (<1.2); Prothrombin Time 21.6 sec (9.0-12.0)
[2020-08-05 07:17] LABS: Glucose,Whole Blood 107 mg/dL (75-99)
[2020-08-05] MEDS: HYDROmorphone 1 MG/ML 1 ML SYRINGE IVP PRN (07:42)
[2020-08-05] MEDS: IPRATROPIUM-ALBUTEROL 3 ML NEB INHALATION PRN ×2 (07:52→19:21)
[2020-08-05] MEDS: BUDESONIDE 0.5 MG/2 ML NEBU INHALATION SCH ×2 (07:52→19:21)
[2020-08-05] MEDS: FUROSEMIDE 40 MG TAB PO SCH (08:25)
[2020-08-05] MEDS: INSULIN ASPART (NovoLOG) 100 UNIT/ML VIAL SQ SCH ×3 (08:26→17:41)
[2020-08-05] MEDS: GABAPENTIN 100 MG CAP PO SCH ×2 (08:26→20:38)
[2020-08-05] MEDS: PANTOPRAZOLE 40 MG TABLET PO SCH (08:26)
[2020-08-05] MEDS: SPIRONOLACTONE 25 MG TAB PO SCH (08:26)
[2020-08-05] MEDS: VANCOMYCIN 1,500 MG in SODIUM CHLORIDE 0.9% 250 ML IVPB SCH ×2 (08:51→20:54)
[2020-08-05 11:39] LABS: Glucose,Whole Blood 154 mg/dL (75-99)
--- NOTE | 2020-08-05 12:44 | P.PN ---
Subjective Progress Note Date: 08/05/20 Principal diagnosis: is a 75-year-old female seen in consultation because of hypervolemic hyponatremia with significant edema. She is on Lasix. She was admitted for cellulitis of legs. patient complains of edema other than this she denies any fever chills. Does have an occasional cough. No shortness of breath. Her vital signs are suggestive of some intravascular volume depletion and blood pressure 104/69. With Lasix 40 mg her output is 125 Objective - Vital Signs Vital signs: Vital Signs Temp 97.4 F L 08/05/20 08:35 Pulse 95 08/05/20 08:35 Resp 19 08/05/20 08:35 BP 104/69 08/05/20 08:35 Pulse Ox 100 08/05/20 08:35 Intake & Output 08/04/20 08/05/20 08/05/20 18:59 06:59 18:59 Intake Total 1560 Balance 1560 Intake: Intake, IV Titration 900 Amount Sodium Chloride 0.9% 1, 900 000 ml @ 75 mls/hr IV . [id number] [facility] Rx#:[id number] Oral 660 Other: Voiding Method Bedside Commode Bedside Commode Bedside Commode # Voids 2 1 # Bowel Movements 1 1 IHEENT: on examination awake alert oriented comfortable HEENT exam no JVP neck is supple no facial asymmetry Lungs are significant for bilateral coarse crackles good air entry bilaterally. Her sounds are unremarkable Abdomen soft nontender Extremity exam was moderate edema of the thighs and lower legs are bandaged. Neurologically awake alert but profoundly weak - Labs CBC & Chem 7: 08/04/20 07:24 08/05/20 06:37 Labs: Abnormal Lab Results - Last 24 Hours (Table) 08/04/20 08/04/20 08/05/20 Range/Units 17:08 20:42 06:37 PT (9.0-12.0) sec INR (<1.2) Sodium 125 L (137-145) mmol/L Creatinine 0.46 L (0.52-1.04) mg/dL POC Glucose (mg/dL) 122 H 107 H (75-99) mg/dL Calcium 6.8 L (8.4-10.2) mg/dL 08/05/20 08/05/20 08/05/20 Range/Units 06:38 07:11 11:37 PT 21.6 H (9.0-12.0) sec INR 2.2 H (<1.2) Sodium (137-145) mmol/L Creatinine (0.52-1.04) mg/dL POC Glucose (mg/dL) 107 H 154 H (75-99) mg/dL Calcium (8.4-10.2) mg/dL Microbiology - Last 24 Hours (Table) 08/02/20 19:58 Blood Culture - Preliminary Blood No Growth after 48 hours 08/02/20 19:58 Blood Culture - Preliminary Blood No Growth after 48 hours Assessment and Plan Assessment: impression 1. Chronic edema with low albumin, possible right heart failure adding to the edema, on Lasix. 2.hyponatremia chronically. likely from intravascular volume depletion. The low urine sodium of 10 is suggestive of this rather than SIADH. Sodium is in the 120s to 134 the last few months . This admission sodium in the 125 range. .urine sodium is low at 10 and urine osmolality is 557 yesterday 08/04/2020 TSH was 0.54 on 05/11/2020 and free T4 was 1.84 within normal range 3. Admitted with cellulitis. 4.history of peripheral vascular disease with stents in the legs, Recommendation 1. Continue Lasix. 2. Check orthostatic changes. 3.I'll give her IVLasix 1 dose and see if a challenge of diuresis would improve her sodium
[2020-08-05] MEDS ORDERED: FUROSEMIDE 10 MG/ML 4 ML VIAL IV STA (12:45)
[2020-08-05] MEDS ORDERED: HEPARIN SODIUM,PORCINE 5,000 UNIT/ML 1 ML VIAL IV ONE (14:51)
--- NOTE | 2020-08-05 15:00 | P.PN ---
Subjective Progress Note Date: 08/05/20 HISTORY OF PRESENT ILLNESS Is a 75 year old female patient of Dr. Mcmahan with past medical history significant for diabetes mellitus type 2, COPD, chronic hypoxic respiratory failure on home O2, chronic diastolic heart failure, chronic atrial fibrillation hypertension, hyperlipidemia, previous myocardial infarction, chronic lower extremity ulcers, peripheral vascular occlusive disease with previous fem-pop bypass and stenting, history of chronic tobacco use. Patient was last hospitalized in May of this year at which time she was treated for acute on chronic hypoxic respiratory failure and COPD exacerbation. She has chronic diabetic ulcers for which she follows in the wound healing Center. The patient states that she thinks her wound on her left lower leg is getting worse. Patient apparently recently completed 2 courses of antibiotics. No significant pain to the wounds. Denies any fever or chills. Patient came into [facility] [address] [facility] emergency center for evaluation. Patient was afebrile, heart rate 93, blood pressure 108/96, pulse ox 96%. WBC 12.7, hemoglobin 11.6, platelet count 283. Sodium 123, potassium 4.4, chloride 86, CO2 30, BUN 27 creatinine 2.51. Blood sugar 201. Liver function tests normal. INR 1.7. Lactic acid 1.6. Patient to be admitted to the [facility] floor, consult in place with vascular surgery which is planning on I&D this afternoon in OR. Consult added for infectious disease. 08/04: Sodium is again low this morning at 126. Patient does have chronic hyponatremia. Consult will be added for nephrology and a urine sodium and osmolality, serum osmolality ordered as well as sodium chloride tablet twice daily. Surgical debridement is delayed due to hyponatremia. She has been afebrile, heart rate 81, blood pressure 101/64, pulse ox 96% on 2 L. Other lab work reveals that he be sealed 11.4. INR 2.1. Creatinine 0.4. Blood sugars running between 143 and 270. Vanco trough 11.8. Debridement may occur tomorrow and Coumadin is on hold. Dr. Cramer has evaluated the patient and added cefepime to vancomycin. Discharge plan is to return to [facility] possibly on Friday Patient examined bedside. Does appear slightly congested on examination and does occasional cough but denies any shortness of breath,. Patient denies any dizziness nausea or vomiting. Vitals are stable with temp of 96.8 pulse 93 blood pressure 100/66 oxygen saturation 100% on 2 L. Patient's sodium continues to be on low 125 appears to be hypo-volemic rather than SIADH. Inflammation markers elevated, CRP is 28.8. Creatinine 0.46 serum osmolarity 270 urine osmolarity 557 urine sodium 10 vancomycin trough 11.8 wound culture positive for gram-negative bacilli blood culture negative so far. We'll plan for debridement over the weekend will start patient on heparin drip for chronic atrial fibrillation REVIEW OF SYSTEMS Constitutional: No fever, no chills, no night sweats. No weight change. No weakness, fatigue or lethargy. No daytime sleepiness. EENT: No headache. No blurred vision or double vision, no loss of vision. No loss of Hearing, no ringing in the ears, no dizziness. No nasal drainage or congestion. No epistaxis. No sore throat. Lungs: No shortness of breath, cough, no sputum production. No wheezing. Cardiovascular: No chest pain, no lower extremity edema. No palpitations. No paroxysmal nocturnal dyspnea. No orthopnea. No lightheadedness or dizziness. No syncopal episodes. Abdominal: No abdominal pain. No nausea, vomiting. No diarrhea. No constipation. No bloody or tarry stools.. No loss of appetite. Genitourinary: No dysuria, increased frequency, urgency. No urinary retention. Musculoskeletal: No myalgias. No muscle weakness, no gait dysfunction, no frequent falls. No back pain. No neck pain. Integumentary: Reports wounds, no lesions. No rash or pruritus. No unusual bruising. No change in hair or nails. Neurologic: No aphasia. No facial droop. No change in mentation. No head injury. No headache. No paralysis. No paresthesia. Psychiatric: No depression. No anxiety. No mood swings. Endocrine: No abnormal blood sugars. Objective - Vital Signs Vital signs: Vital Signs Temp 96.8 F L 08/05/20 11:54 Pulse 93 08/05/20 11:54 Resp 18 08/05/20 11:54 BP 119/76 08/05/20 12:59 Pulse Ox 100 08/05/20 11:54 Intake & Output 08/04/20 08/05/20 08/05/20 18:59 06:59 18:59 Intake Total 1560 Balance 1560 Intake: Intake, IV Titration 900 Amount Sodium Chloride 0.9% 1, 900 000 ml @ 75 mls/hr IV . [id number] [facility] Rx#:[id number] Oral 660 Other: Voiding Method Bedside Commode Bedside Commode Bedside Commode # Voids 2 1 # Bowel Movements 1 1 - Exam Gen: This is a 75-year-old female. Patient is resting in bed and appears to be in no acute distress. No respiratory distress noted. HEENT: Head is atraumatic, normocephalic. Pupils equal, round. Sclerae is anicteric. NECK: Supple. No JVD. No lymphadenopathy. No thyromegaly. LUNGS: Diminished with bilateral wheezes. No intercostal retractions. HEART: Regular rate and rhythm. No murmur. ABDOMEN: Soft. Bowel sounds are present. No masses. No tenderness. EXTREMITIES: Mild pedal edema. Large left lower extremity ulcer on the medial side with surrounding erythema. Dorsalis pedis on the left is 1+, 2+ on the right. Patient also has small superficial ulcers to the left foot dorsal surface base of toes 2 through 4 and dusky purple color to the toes. There is a 5 x 2.5 cm wound on the right medial posterior calf with no significant erythema. There is also a small ulcer on the dorsal surface of the right great toe without erythema or drainage. NEUROLOGICAL: Patient is awake, alert and oriented x3. Cranial nerves 2 through 12 are grossly intact. - Labs CBC & Chem 7: 08/04/20 07:24 08/05/20 06:37 Labs: Abnormal Lab Results - Last 24 Hours (Table) 08/04/20 08/04/20 08/05/20 Range/Units 17:08 20:42 06:37 PT (9.0-12.0) sec INR (<1.2) Sodium 125 L (137-145) mmol/L Creatinine 0.46 L (0.52-1.04) mg/dL POC Glucose (mg/dL) 122 H 107 H (75-99) mg/dL Calcium 6.8 L (8.4-10.2) mg/dL 08/05/20 08/05/20 08/05/20 Range/Units 06:38 07:11 11:37 PT 21.6 H (9.0-12.0) sec INR 2.2 H (<1.2) Sodium (137-145) mmol/L Creatinine (0.52-1.04) mg/dL POC Glucose (mg/dL) 107 H 154 H (75-99) mg/dL Calcium (8.4-10.2) mg/dL Microbiology - Last 24 Hours (Table) 08/02/20 19:58 Blood Culture - Preliminary Blood No Growth after 48 hours 08/02/20 19:58 Blood Culture - Preliminary Blood No Growth after 48 hours Assessment and Plan Plan: 1. Chronic bilateral venous and diabetic ulcers with acute cellulitis. Patient admitted to the [facility] floor, consult to vascular surgery with plan for debridement which has been delayed due to hyponatremia. Continue vancomycin and cefepime , pharmacy dosing, also being added, consult with infectious disease appreciated 2. Diabetes mellitus type 2. Continue Levemir 10 units at bedtime, 7 units 3 times daily with meals]. 3. Diabetic neuropathy. Continue gabapentin 200 mg twice daily. 4. Chronic diastolic heart failure. Continue Lasix 40 mg twice daily, Aldactone 12.5 mg daily. 5. Chronic atrial fibrillation. Coumadin on hold for possible surgery with vascular surgery. 6. Hypovolemic Hyponatremia. Recheck electrolytes in the morning.nephrology consulted, s/p lasix 7. Hypertension. Continue lisinopril 10 mg at bedtime. 8. Hyperlipidemia. Continue statin. 9. COPD without exacerbation. Continue albuterol as needed, Pulmicort twice daily. 10. Gastroesophageal reflux disease. Continue Protonix 40 mg daily. DISCHARGE PLAN to be determined, Return to [facility] under the care of Dr. Mcmahan
[2020-08-05 15:16] LABS: Partial Thromboplastin Time 32.5 sec (22.0-30.0)
[2020-08-05 15:42] LABS: Anisocytosis Slight; Basophils % (A) 0 %; Eosinophils % (A) 0 %; HCT 30.8 % (34.0-46.0); HGB 10.1 gm/dL (11.4-16.0); Hypochromasia Slight; Lymphocytes % (A) 10 %; MCH 28.8 pg (25.0-35.0); MCHC 32.9 g/dL (31.0-37.0); MCV 87.5 fL (80.0-100.0); Mean Platelet Volume 8.8; Monocytes # (A) 0.8 k/uL (0-1.0); Monocytes % (A) 8 %; Neutrophils # (A) 8.6 k/uL (1.3-7.7); Neutrophils % (A) 81 %; Platelet Count 256 k/uL (150-450); RBC 3.52 m/uL (3.80-5.40); RDW 16.3 % (11.5-15.5); WBC 10.6 k/uL (3.8-10.6)
[2020-08-05] MEDS: HEPARIN SOD,PORK IN 0.45% NACL 25,000 UNIT in 0.45% NACL 1 250ML.BAG IV SCH (16:26)
[2020-08-05 17:17] LABS: Glucose,Whole Blood 148 mg/dL (75-99)
[2020-08-05] MEDS ORDERED: WARFARIN 0.5 MG TAB PO ONE (18:00)
[2020-08-05 20:27] LABS: Glucose,Whole Blood 94 mg/dL (75-99)
[2020-08-05] MEDS: INSULIN DETEMIR (LEVEMIR) 100 UNIT/ML SYR SQ SCH (20:38)
[2020-08-05] MEDS: lisinopriL 10 MG TAB PO SCH (20:38)
[2020-08-05] MEDS: ATORVASTATIN 10 MG TAB PO SCH (20:38)
--- NOTE | 2020-08-05 23:04 | PN ---
PROGRESS NOTE DATE OF SERVICE: 08/05/2020 REASON FOR FOLLOWUP: Left leg wound infection. INTERVAL HISTORY: The patient is currently afebrile. Patient is breathing comfortably. The patient denies having chest pain, shortness of breath or cough. No abdominal pain or any worsening pain to the left wound area. PHYSICAL EXAMINATION: Her blood pressure is 121/74, pulse 92% on . He is 99 percent on 3 L nasal cannula. General description is an elderly female up in the bed in no distress. Respiratory system: Unlabored breathing clear to auscultation. HEART: S1, S2. Regular rate and rhythm. ABDOMEN soft, no tenderness. Left leg is currently dressed. LABS: White count normal at 10.6. Blood culture showing a Gram-negative. DIAGNOSTIC IMPRESSION AND PLAN: Patient with left lower extremity wound with secondary cellulitis culture with Gram- negative. Patient continue with cefepime with no gram-positive vancomycin will be discontinued. In view of extensive infection, she will benefit from PICC line and outpatient antibiotic therapy. We will discuss further with the admitting team. Continue supportive care. MMODL / IJN: [id number] /
[2020-08-06] MEDS: HEPARIN SODIUM,PORCINE 5,000 UNIT/ML 1 ML VIAL IV PRN ×2 (00:39→09:13)
[2020-08-06] MEDS: CEFEPIME 2 GM in SODIUM CHLORIDE 0.9% 100 ML IVPB SCH ×2 (04:24→14:17)
[2020-08-06 07:29] LABS: Glucose,Whole Blood 182 mg/dL (75-99)
[2020-08-06 07:48] LABS: Partial Thromboplastin Time 40.8 sec (22.0-30.0); Prothrombin Time 19.4 sec (9.0-12.0)
[2020-08-06 07:55] LABS: Anisocytosis Slight; Basophils % (A) 0 %; Eosinophils # (A) 0.1 k/uL (0-0.7); Eosinophils % (A) 1 %; HCT 28.7 % (34.0-46.0); HGB 9.6 gm/dL (11.4-16.0); Lymphocytes % (A) 11 %; MCH 28.5 pg (25.0-35.0); MCHC 33.3 g/dL (31.0-37.0); MCV 85.6 fL (80.0-100.0); Monocytes # (A) 0.5 k/uL (0-1.0); Monocytes % (A) 5 %; Neutrophils # (A) 7.8 k/uL (1.3-7.7); Neutrophils % (A) 82 %; Platelet Count 211 k/uL (150-450); RBC 3.35 m/uL (3.80-5.40); RDW 16.2 % (11.5-15.5); WBC 9.6 k/uL (3.8-10.6)
[2020-08-06 08:01] LABS: African American GFR (CKD) >90 (>60 ml/min/1.73 sqM); Anion Gap -1 mmol/L; Blood Urea Nitrogen 16 mg/dL (7-17); Calcium 6.6 mg/dL (8.4-10.2); Carbon Dioxide 19 mmol/L (22-30); Chloride 102 mmol/L (98-107); Glucose 136 mg/dL (74-99); Non-African American GFR(CKD) >90 (>60 ml/min/1.73 sqM); Potassium 3.5 mmol/L (3.5-5.1); Sodium 120 mmol/L (137-145)
[2020-08-06] MEDS: IPRATROPIUM-ALBUTEROL 3 ML NEB INHALATION PRN ×2 (08:41→20:20)
[2020-08-06] MEDS: BUDESONIDE 0.5 MG/2 ML NEBU INHALATION SCH ×2 (08:41→20:20)
[2020-08-06] MEDS: SPIRONOLACTONE 25 MG TAB PO SCH (09:08)
[2020-08-06] MEDS: FUROSEMIDE 40 MG TAB PO SCH (09:08)
[2020-08-06] MEDS: INSULIN ASPART (NovoLOG) 100 UNIT/ML VIAL SQ SCH ×3 (09:09→17:54)
[2020-08-06] MEDS: PANTOPRAZOLE 40 MG TABLET PO SCH (09:09)
[2020-08-06] MEDS: GABAPENTIN 100 MG CAP PO SCH ×2 (09:09→20:08)
[2020-08-06] MEDS: traMADol 50 MG TAB PO PRN ×2 (10:04→20:08)
[2020-08-06] MEDS: HYDROmorphone 1 MG/ML 1 ML SYRINGE IVP PRN ×2 (11:12→16:28)
[2020-08-06 11:48] LABS: Glucose,Whole Blood 77 mg/dL (75-99)
--- NOTE | 2020-08-06 12:39 | P.PN ---
Subjective Progress Note Date: 08/06/20 Principal diagnosis: is a 75-year-old female seen in consultation because of hypervolemic hyponatremia with significant edema. She is on Lasix. She was admitted for cellulitis of legs. patient complains of edema other than this she denies any fever chills. Does have an occasional cough. No shortness of breath. Yesterday give her extra dose of Lasix to reassess her response and her sodium went down. Further a orthostatic changes is positive blood pressure 119/76 supi ne and sitting up with feet down 106/67. This suggests intravascular volume depletion. The cause of the edema and therefore may be right ventricular failure. Objective - Vital Signs Vital signs: Vital Signs Temp 97.8 F 08/06/20 04:14 Pulse 58 L 08/06/20 10:01 Resp 18 08/06/20 04:14 BP 114/71 08/06/20 10:01 Pulse Ox 92 L 08/06/20 10:01 Intake & Output 08/05/20 08/06/20 08/06/20 17:59 06:59 18:59 Intake Total 84.209 Output Total Balance 84.209 Intake: Intake, IV Titration 84.209 Amount Cefepime 2 gm In Sodium Chloride 0.9% 100 ml @ 25 mls/hr IVPB Q12H [facility] Rx# :[id number] Heparin Sod,Pork in 0.45% 84.209 NaCl 25,000 unit In 0.45 % NaCl 1 250ml.bag @ 12 UNITS/KG/HR 9.253 mls/hr IV .Q24H [facility] Rx#: [id number] Oral Output: Urine Other: Voiding Method Bedside Commode # Voids # Bowel Movements On examination is awake alert oriented slightly short of breath and nasal cannula. HEENT exam JVP is noted about 6-7 cm about sternal angle Lungs are clear with an occasional coarse crackle fairly good air entry bilaterally Heart sounds unremarkable for any murmur rub gallop Abdomen soft nontender Extremity exam was mild edema lower extremities below the knee are bandaged Neurologically awake alert oriented but weakness - Labs CBC & Chem 7: 08/06/20 07:18 08/06/20 07:18 Labs: Abnormal Lab Results - Last 24 Hours (Table) 08/05/20 08/05/20 08/05/20 Range/Units 06:37 06:38 11:37 RBC 3.52 L (3.80-5.40) m/uL Hgb 10.1 L (11.4-16.0) gm/dL Hct 30.8 L (34.0-46.0) % RDW 16.3 H (11.5-15.5) % Neutrophils # 8.6 H (1.3-7.7) k/uL PT 21.6 H (9.0-12.0) sec INR 2.2 H (<1.2) APTT 32.5 H (22.0-30.0) sec Sodium (137-145) mmol/L Carbon Dioxide (22-30) mmol/L Creatinine (0.52-1.04) mg/dL Glucose (74-99) mg/dL POC Glucose (mg/dL) 154 H (75-99) mg/dL Calcium (8.4-10.2) mg/dL 08/05/20 08/05/20 08/06/20 Range/Units 17:17 23:14 07:18 RBC (3.80-5.40) m/uL Hgb (11.4-16.0) gm/dL Hct (34.0-46.0) % RDW (11.5-15.5) % Neutrophils # (1.3-7.7) k/uL PT 19.4 H (9.0-12.0) sec INR 2.0 H (<1.2) APTT 35.9 H 40.8 H (22.0-30.0) sec Sodium (137-145) mmol/L Carbon Dioxide (22-30) mmol/L Creatinine (0.52-1.04) mg/dL Glucose (74-99) mg/dL POC Glucose (mg/dL) 148 H (75-99) mg/dL Calcium (8.4-10.2) mg/dL 08/06/20 08/06/20 08/06/20 Range/Units 07:18 07:18 07:25 RBC 3.35 L (3.80-5.40) m/uL Hgb 9.6 L (11.4-16.0) gm/dL Hct 28.7 L (34.0-46.0) % RDW 16.2 H (11.5-15.5) % Neutrophils # 7.8 H (1.3-7.7) k/uL PT (9.0-12.0) sec INR (<1.2) APTT (22.0-30.0) sec Sodium 120 L (137-145) mmol/L Carbon Dioxide 19 L (22-30) mmol/L Creatinine 0.46 L (0.52-1.04) mg/dL Glucose 136 H (74-99) mg/dL POC Glucose (mg/dL) 182 H (75-99) mg/dL Calcium 6.6 L (8.4-10.2) mg/dL Microbiology - Last 24 Hours (Table) 08/02/20 19:58 Blood Culture - Preliminary Blood No Growth after 72 hours 08/02/20 19:58 Blood Culture - Preliminary Blood No Growth after 72 hours 08/02/20 20:04 Gram Stain - Final Leg - Right Wound Culture - Final Proteus mirabilis Burkholderia cepacia Assessment and Plan Assessment: impression 1. Chronic edema with low albumin, possible right heart failure adding to the edema, on Lasix. 2. hyponatremia chronically. likely from intravascular volume depletion. The the combination of orthostatic changes with blood pressure drop off 13 mL per minute from supine to sitting, the low urine sodium of 10 . Sodium is in the 120s to 134 the last few months . This admission sodium in the 125 range. TSH was 0.54 on 05/11/2020 and free T4 was 1.84 within normal range. Sodium worsen 220 with extra Lasix IV 3. Admitted with cellulitis. 4.history of peripheral vascular disease with stents in the legs, Recommendation 1. Discontinue Lasix. 2. Obtain echocardiogram to assess right ventricular function. 3. Obtain urine protein to creatinine ratio. 4. Redo labs tomorrow, including urine sodium and urine osmolality and electrolytes
[2020-08-06] MEDS: HEPARIN SOD,PORK IN 0.45% NACL 25,000 UNIT in 0.45% NACL 1 250ML.BAG IV SCH (16:34)
--- NOTE | 2020-08-06 16:40 | P.PN ---
Subjective Progress Note Date: 08/06/20 HISTORY OF PRESENT ILLNESS Is a 75 year old female patient of Dr. Mcmahan with past medical history significant for diabetes mellitus type 2, COPD, chronic hypoxic respiratory failure on home O2, chronic diastolic heart failure, chronic atrial fibrillation hypertension, hyperlipidemia, previous myocardial infarction, chronic lower extremity ulcers, peripheral vascular occlusive disease with previous fem-pop bypass and stenting, history of chronic tobacco use. Patient was last hospitalized in May of this year at which time she was treated for acute on chronic hypoxic respiratory failure and COPD exacerbation. She has chronic diabetic ulcers for which she follows in the wound healing Center. The patient states that she thinks her wound on her left lower leg is getting worse. Patient apparently recently completed 2 courses of antibiotics. No significant pain to the wounds. Denies any fever or chills. Patient came into [facility] emergency center for evaluation. Patient was afebrile, heart rate 93, blood pressure 108/96, pulse ox 96%. WBC 12.7, hemoglobin 11.6, platelet count 283. Sodium 123, potassium 4.4, chloride 86, CO2 30, BUN 27 creatinine 2.51. Blood sugar 201. Liver function tests normal. INR 1.7. Lactic acid 1.6. Patient to be admitted to the [facility] floor, consult in place with vascular surgery which is planning on I&D this afternoon in OR. Consult added for infectious disease. 08/04: Sodium is again low this morning at 126. Patient does have chronic hyponatremia. Consult will be added for nephrology and a urine sodium and osmolality, serum osmolality ordered as well as sodium chloride tablet twice daily. Surgical debridement is delayed due to hyponatremia. She has been afebrile, heart rate 81, blood pressure 101/64, pulse ox 96% on 2 L. Other lab work reveals that he be sealed 11.4. INR 2.1. Creatinine 0.4. Blood sugars running between 143 and 270. Vanco trough 11.8. Debridement may occur tomorrow and Coumadin is on hold. Dr. Cramer has evaluated the patient and added cefepime to vancomycin. Discharge plan is to return to [facility] possibly on Friday Patient examined bedside. Does appear slightly congested on examination and does occasional cough but denies any shortness of breath,. Patient denies any dizziness nausea or vomiting. Vitals are stable with temp of 96.8 pulse 93 blood pressure 100/66 oxygen saturation 100% on 2 L. Patient's sodium continues to be on low 125 appears to be hypo-volemic rather than SIADH. Inflammation markers elevated, CRP is 28.8. Creatinine 0.46 serum osmolarity 270 urine osmolarity 557 urine sodium 10 vancomycin trough 11.8 wound culture positive for gram-negative bacilli blood culture negative so far. We'll plan for debridement over the weekend will start patient on heparin drip for chronic atrial fibrillation 08/06 patient evaluated bedside stop she denies any dizziness, confusion and change in mental status. Patient's sodium has dropped to 120 potassium 3.5 CO2 19 creatinine 0.46 calcium is 6.6. Glucose has been ranging between 77-180. R am repeat urine studies to be obtained. Echo ordered per nephrology to rule out right ventricular failure Lasix has been discontinued. Patient's orthostatic was positive . Repeat labs tomorrow for evaluation. Continue cefepime for cellulitis of the lower extremity with plan to place PICC line for IV antibiotics on discharge. Continue heparin drip for atrial fibrillation as Co umadin is on hold REVIEW OF SYSTEMS Constitutional: No fever, no chills, no night sweats. No weight change. No weakness, fatigue or lethargy. No daytime sleepiness. EENT: No headache. No blurred vision or double vision, no loss of vision. No loss of Hearing, no ringing in the ears, no dizziness. No nasal drainage or congestion. No epistaxis. No sore throat. Lungs: No shortness of breath, cough, no sputum production. No wheezing. Cardiovascular: No chest pain, no lower extremity edema. No palpitations. No paroxysmal nocturnal dyspnea. No orthopnea. No lightheadedness or dizziness. No syncopal episodes. Abdominal: No abdominal pain. No nausea, vomiting. No diarrhea. No constipation. No bloody or tarry stools.. No loss of appetite. Genitourinary: No dysuria, increased frequency, urgency. No urinary retention. Musculoskeletal: No myalgias. No muscle weakness, no gait dysfunction, no frequent falls. No back pain. No neck pain. Integumentary: Reports wounds, no lesions. No rash or pruritus. No unusual bruising. No change in hair or nails. Neurologic: No aphasia. No facial droop. No change in mentation. No head injury. No headache. No paralysis. No paresthesia. Psychiatric: No depression. No anxiety. No mood swings. Endocrine: No abnormal blood sugars. Objective - Vital Signs Vital signs: Vital Signs Temp 96.9 F L 08/06/20 12:39 Pulse 91 08/06/20 13:00 Resp 16 08/06/20 13:00 BP 116/71 08/06/20 13:00 Pulse Ox 99 08/06/20 13:00 Intake & Output 08/05/20 08/06/20 08/06/20 17:59 06:59 18:59 Intake Total 174.688 Output Total Balance 174.688 Intake: Intake, IV Titration 174.688 Amount Cefepime 2 gm In Sodium Chloride 0.9% 100 ml @ 25 mls/hr IVPB Q12H [facility] Rx# :[id number] Heparin Sod,Pork in 0.45% 174.688 NaCl 25,000 unit In 0.45 % NaCl 1 250ml.bag @ 12 UNITS/KG/HR 9.253 mls/hr IV .Q24H [facility] Rx#: [id number] Oral Output: Urine Other: Voiding Method Bedside Commode # Voids # Bowel Movements - Exam Gen: This is a 75-year-old female. Patient is resting in bed and appears to be in no acute distress. No respiratory distress noted. HEENT: Head is atraumatic, normocephalic. Pupils equal, round. Sclerae is anicteric. NECK: Supple. No JVD. No lymphadenopathy. No thyromegaly. LUNGS: Diminished with bilateral wheezes. No intercostal retractions. HEART: Regular rate and rhythm. No murmur. ABDOMEN: Soft. Bowel sounds are present. No masses. No tenderness. EXTREMITIES: Mild pedal edema. Large left lower extremity ulcer on the medial side with surrounding erythema. Dorsalis pedis on the left is 1+, 2+ on the right. Patient also has small superficial ulcers to the left foot dorsal surface base of toes 2 through 4 and dusky purple color to the toes. There is a 5 x 2.5 cm wound on the right medial posterior calf with no significant erythema. There is also a small ulcer on the dorsal surface of the right great toe without erythema or drainage. NEUROLOGICAL: Patient is awake, alert and oriented x3. Cranial nerves 2 through 12 are grossly intact. - Labs CBC & Chem 7: 08/06/20 07:18 08/06/20 07:18 Labs: Abnormal Lab Results - Last 24 Hours (Table) 08/05/20 08/05/20 08/05/20 Range/Units 06:37 17:17 23:14 RBC 3.52 L (3.80-5.40) m/uL Hgb 10.1 L (11.4-16.0) gm/dL Hct 30.8 L (34.0-46.0) % RDW 16.3 H (11.5-15.5) % Neutrophils # 8.6 H (1.3-7.7) k/uL PT (9.0-12.0) sec INR (<1.2) APTT 35.9 H (22.0-30.0) sec Sodium (137-145) mmol/L Carbon Dioxide (22-30) mmol/L Creatinine (0.52-1.04) mg/dL Glucose (74-99) mg/dL POC Glucose (mg/dL) 148 H (75-99) mg/dL Calcium (8.4-10.2) mg/dL 08/06/20 08/06/20 08/06/20 Range/Units 07:18 07:18 07:18 RBC 3.35 L (3.80-5.40) m/uL Hgb 9.6 L (11.4-16.0) gm/dL Hct 28.7 L (34.0-46.0) % RDW 16.2 H (11.5-15.5) % Neutrophils # 7.8 H (1.3-7.7) k/uL PT 19.4 H (9.0-12.0) sec INR 2.0 H (<1.2) APTT 40.8 H (22.0-30.0) sec Sodium 120 L (137-145) mmol/L Carbon Dioxide 19 L (22-30) mmol/L Creatinine 0.46 L (0.52-1.04) mg/dL Glucose 136 H (74-99) mg/dL POC Glucose (mg/dL) (75-99) mg/dL Calcium 6.6 L (8.4-10.2) mg/dL 08/06/20 08/06/20 Range/Units 07:25 15:17 RBC (3.80-5.40) m/uL Hgb (11.4-16.0) gm/dL Hct (34.0-46.0) % RDW (11.5-15.5) % Neutrophils # (1.3-7.7) k/uL PT (9.0-12.0) sec INR (<1.2) APTT 49.8 H (22.0-30.0) sec Sodium (137-145) mmol/L Carbon Dioxide (22-30) mmol/L Creatinine (0.52-1.04) mg/dL Glucose (74-99) mg/dL POC Glucose (mg/dL) 182 H (75-99) mg/dL Calcium (8.4-10.2) mg/dL Microbiology - Last 24 Hours (Table) 08/02/20 19:58 Blood Culture - Preliminary Blood No Growth after 72 hours 08/02/20 19:58 Blood Culture - Preliminary Blood No Growth after 72 hours 08/02/20 20:04 Gram Stain - Final Leg - Right Wound Culture - Final Proteus mirabilis Burkholderia cepacia Assessment and Plan Plan: 1. Chronic bilateral venous and diabetic ulcers with acute cellulitis. Patient admitted to the [facility] floor, consult to vascular surgery with plan for debridement which has been delayed due to hyponatremia. Continue vancomycin and cefepime , pharmacy dosing, also being added, consult with infectious disease appreciated 2. Diabetes mellitus type 2. Continue Levemir 10 units at bedtime, 7 units 3 times daily with meals]. 3. Diabetic neuropathy. Continue gabapentin 200 mg twice daily. 4. Chronic diastolic heart failure. Continue Lasix 40 mg twice daily, Aldactone 12.5 mg daily. 5. Chronic atrial fibrillation. Coumadin on hold for possible surgery with vascular surgery. 6. Hypovolemic Hyponatremia. Recheck electrolytes in the morning.nephrology consulted, s/p lasix echocardiogram ordered to rule out right. 7. Hypertension. Continue lisinopril 10 mg at bedtime. 8. Hyperlipidemia. Continue statin. 9. COPD without exacerbation. Continue albuterol as needed, Pulmicort twice daily. 10. Gastroesophageal reflux disease. Continue Protonix 40 mg daily. 11 hypocalcemia. Vitamin D ordered. PTH level ordered ionized calcium Calcium carbonate 500 3 times a day DISCHARGE PLAN to be determined, Return to [facility] under the care of Dr. Mcmahan
[2020-08-06 17:27] LABS: Glucose,Whole Blood 159 mg/dL (75-99)
[2020-08-06 17:48] LABS: Ionized Calcium 4.5 mg/dL (4.5-5.3)
[2020-08-06] MEDS: CALCIUM CARBONATE 500 MG CHEWABLE PO SCH ×2 (17:53→21:46)
[2020-08-06] MEDS ORDERED: WARFARIN 0.5 MG TAB PO ONE (18:00)
--- NOTE | 2020-08-06 19:06 | PN ---
PROGRESS NOTE DATE OF SERVICE: 08/06/2020. REASON FOR FOLLOW UP: Left lower extremity wound and cellulitis. INTERVAL HISTORY: The patient is currently afebrile. Patient is breathing comfortably. The patient denies having any chest pain. No shortness of breath. No cough. No abdominal pain. Still complaining of pain to the left leg. PHYSICAL EXAMINATION: Her blood pressure is 116/71 with a pulse of 90, temperature 96.9. She is 99% on 4 L nasal cannula. General description is an elderly female up in the bed in no distress. Respiratory system: Unlabored breathing, clear to auscultation anteriorly. Heart S1, S2. Regular rate and rhythm. Abdomen soft, no tenderness. Left leg is currently dressed up. No obvious drainage on the dressing. LABS: Hemoglobin 9.7, white count 9.6, BUN of 16, creatinine 0.46. DIAGNOSTIC IMPRESSION AND PLAN: Patient with left lower extremity wound with secondary cellulitis. Culture now showing a drug-resistant nurse reported some redness. The patient antibiotic adjusted to meropenem 1 g q.8 hours. She will need a PICC line for outpatient IV antibiotic therapy. Continue supportive care. MMODL / IJN: [id number] /
[2020-08-06] MEDS: MEROPENEM 1 GM in SODIUM CHLORIDE 0.9% 100 ML IVPB SCH (19:57)
[2020-08-06] MEDS: ATORVASTATIN 10 MG TAB PO SCH (20:08)
[2020-08-06 20:24] LABS: Glucose,Whole Blood 92 mg/dL (75-99)
[2020-08-06] MEDS: INSULIN DETEMIR (LEVEMIR) 100 UNIT/ML SYR SQ SCH (20:56)
[2020-08-07] MEDS: MEROPENEM 1 GM in SODIUM CHLORIDE 0.9% 100 ML IVPB SCH ×3 (03:20→20:37)
[2020-08-07 06:21] LABS: INR 1.5 (<1.2); Partial Thromboplastin Time 44.8 sec (22.0-30.0); Prothrombin Time 15.3 sec (9.0-12.0)
[2020-08-07 07:25] LABS: Glucose,Whole Blood 183 mg/dL (75-99)
[2020-08-07] MEDS: PANTOPRAZOLE 40 MG TABLET PO SCH (08:09)
[2020-08-07] MEDS: CALCIUM CARBONATE 500 MG CHEWABLE PO SCH ×3 (08:10→23:18)
[2020-08-07] MEDS: GABAPENTIN 100 MG CAP PO SCH ×2 (08:10→20:37)
[2020-08-07] MEDS: SPIRONOLACTONE 25 MG TAB PO SCH (08:10)
[2020-08-07] MEDS: INSULIN ASPART (NovoLOG) 100 UNIT/ML VIAL SQ SCH ×5 (08:11→20:17)
[2020-08-07] MEDS ORDERED: RX INFO: IV CONTRAST WAS GIVEN 1 EACH MISC MISCELLANE PRN (09:22)
[2020-08-07] MEDS: BUDESONIDE 0.5 MG/2 ML NEBU INHALATION SCH ×2 (09:41→21:19)
[2020-08-07 09:47] LABS: Basophils # (A) 0.03 X 10*3/uL (0.00-0.10); Basophils % (A) 0.2 %; Eosinophils # (A) 0.07 X 10*3/uL (0.04-0.35); Eosinophils % (A) 0.5 %; HCT 29.6 % (37.2-46.3); HGB 9.4 g/dL (12.0-15.0); Lymphocytes # (A) 1.41 X 10*3/uL (0.90-5.00); Lymphocytes % (A) 9.5 %; MCH 27.3 pg (27.0-32.0); MCHC 31.8 g/dL (32.0-37.0); Monocytes # (A) 1.02 X 10*3/uL (0.20-1.00); Monocytes % (A) 6.9 %; Neutrophils # (A) 12.14 X 10*3/uL (1.80-7.70); Neutrophils % (A) 81.9 %; Platelet Count 300 X 10*3/uL (140-440); RBC 3.44 X 10*6/uL (4.10-5.20); RDW 16.3 % (11.5-14.5); WBC 14.82 X 10*3/uL (4.50-10.00)
[2020-08-07 09:50] LABS: African American GFR (CKD) 104.8 (60.0-200.0); Anion Gap 9.6 mmol/L (4.00-12.00); BUN/Creat Ratio 28.33 Ratio (12.00-20.00); Calcium 8.1 mg/dL (8.7-10.3); Carbon Dioxide 23.4 mmol/L (21.6-31.8); Non-African American GFR(CKD) 90.4 (60.0-200.0); Potassium 4.7 mmol/L (3.5-5.5); Uric Acid 5.6 mg/dL (2.9-7.7)
--- NOTE | 2020-08-07 10:12 | P.PN ---
Subjective Patient is seen in follow-up for hyponatremia. Her sodium level has been gradually dropping. He was 119 this morning. Lasix was stopped yesterday. Oral intake is fair. She's been drinking quite a bit of water. GFR at baseline. Vital signs are stable. General: The patient appeared well nourished and normally developed. HEENT: Head exam is unremarkable. Neck is without jugular venous distension. LUNGS: Breath sounds decreased. HEART: Rate and Rhythm are regular. ABDOMEN: Soft, nontender. EXTREMITITES: Trace edema. Objective - Vital Signs Vital signs: Vital Signs Temp 97.4 F L 08/07/20 05:00 Pulse 90 08/07/20 05:00 Resp 20 08/07/20 05:00 BP 99/68 08/07/20 05:00 Pulse Ox 97 08/07/20 05:00 Intake & Output 08/06/20 08/07/20 08/07/20 18:59 06:59 18:59 Intake Total 031.050 0240 Output Total 1700 Balance 877.156 -280 Intake: Intake, IV Titration 177.156 200 Amount Heparin Sod,Pork in 0.45% 177.156 NaCl 25,000 unit In 0.45 % NaCl 1 250ml.bag @ 12 UNITS/KG/HR 9.253 mls/hr IV .Q24H [facility] Rx#: [id number] Meropenem 1 gm In Sodium 200 Chloride 0.9% 100 ml @ 33 .3 mls/hr IVPB Q8H [facility] Rx #:[id number] Oral 700 1220 Output: Urine 1700 Other: Voiding Method Bedside Commode Bedside Commode # Voids 2 1 - Labs CBC & Chem 7: 08/07/20 04:53 08/07/20 04:53 Labs: Abnormal Lab Results - Last 24 Hours (Table) 08/06/20 08/06/20 08/06/20 Range/Units 15:17 17:13 17:22 WBC (4.50-10.00) X 10*3/uL RBC (4.10-5.20) X 10*6/uL Hgb (12.0-15.0) g/dL Hct (37.2-46.3) % MCHC (32.0-37.0) g/dL RDW (11.5-14.5) % Immature Gran # (0.00-0.04) X 10*3/uL Neutrophils # (1.80-7.70) X 10*3/uL Monocytes # (0.20-1.00) X 10*3/uL PT (9.0-12.0) sec INR (<1.2) APTT 49.8 H (22.0-30.0) sec Sodium (135-145) mmol/L Chloride (96-109) mmol/L BUN/Creatinine Ratio (12.00-20.00) Ratio Glucose (70-110) mg/dL POC Glucose (mg/dL) 159 H (75-99) mg/dL Calcium (8.7-10.3) mg/dL Vitamin D 25-Hydroxy 20.2 L (30.0-100.0) ng/mL 08/07/20 08/07/20 08/07/20 Range/Units 04:53 04:53 04:53 WBC 14.82 H (4.50-10.00) X 10*3/uL RBC 3.44 L (4.10-5.20) X 10*6/uL Hgb 9.4 L (12.0-15.0) g/dL Hct 29.6 L (37.2-46.3) % MCHC 31.8 L (32.0-37.0) g/dL RDW 16.3 H (11.5-14.5) % Immature Gran # 0.15 H (0.00-0.04) X 10*3/uL Neutrophils # 12.14 H (1.80-7.70) X 10*3/uL Monocytes # 1.02 H (0.20-1.00) X 10*3/uL PT 15.3 H (9.0-12.0) sec INR 1.5 H (<1.2) APTT 44.8 H (22.0-30.0) sec Sodium 119 L* (135-145) mmol/L Chloride 86 L (96-109) mmol/L BUN/Creatinine Ratio 28.33 H (12.00-20.00) Ratio Glucose 125 H (70-110) mg/dL POC Glucose (mg/dL) (75-99) mg/dL Calcium 8.1 L (8.7-10.3) mg/dL Vitamin D 25-Hydroxy (30.0-100.0) ng/mL 08/07/20 Range/Units 07:23 WBC (4.50-10.00) X 10*3/uL RBC (4.10-5.20) X 10*6/uL Hgb (12.0-15.0) g/dL Hct (37.2-46.3) % MCHC (32.0-37.0) g/dL RDW (11.5-14.5) % Immature Gran # (0.00-0.04) X 10*3/uL Neutrophils # (1.80-7.70) X 10*3/uL Monocytes # (0.20-1.00) X 10*3/uL PT (9.0-12.0) sec INR (<1.2) APTT (22.0-30.0) sec Sodium (135-145) mmol/L Chloride (96-109) mmol/L BUN/Creatinine Ratio (12.00-20.00) Ratio Glucose (70-110) mg/dL POC Glucose (mg/dL) 183 H (75-99) mg/dL Calcium (8.7-10.3) mg/dL Vitamin D 25-Hydroxy (30.0-100.0) ng/mL Microbiology - Last 24 Hours (Table) 08/02/20 19:58 Blood Culture - Preliminary Blood No Growth after 96 hours 08/02/20 19:58 Blood Culture - Preliminary Blood No Growth after 96 hours Assessment and Plan Plan: Assessment: 1. Hyponatremia. Worsened with diuretics. Sodium level 119 this morning. 2. Left lower extremity cellulitis maintained on antibiotics. 3. Diabetes mellitus. Plan: Continue to hold Lasix. Start normal saline at 75 mL an hour. 1200 mL fluid restriction. Encourage oral intake, particularly protein. Repeat serum and urine osmolality and urine sodium level. Repeat sodium level this afternoon. Stop Aldactone. Check TSH.
[2020-08-07] MEDS ORDERED: SODIUM CHLORIDE 0.9% 1,000 ML IV SCH (10:15)
--- NOTE | 2020-08-07 10:29 | CT ---
EXAMINATION TYPE: CT chest w con DATE OF EXAM: 08/07/2020 COMPARISON: Chest x-ray 3 days ago HISTORY: ?small cell lung cancer, pulmonary fibrosis CT DLP: 424.7 mGycm. Automated Exposure Control for Dose Reduction was Utilized. TECHNIQUE: CT scan of the thorax is performed following with IV Contrast, patient injected with 100 mL of Isovue 300. FINDINGS: LUNGS: Tiny bilateral pleural effusions. [id number] underlying emphysematous changes greatest i n the upper lungs. Moderate scattered pulmonary fibrotic changes with areas of reticulation and fibro sis of the upper and lower lungs, some honeycombing in the right lung base is present. There is 7 mm subpleural right lower lobe nodule posteriorly on image 35. No pneumothorax seen bilaterally. MEDIASTINUM: Cardiomegaly is present with atherosclerotic thoracic aorta. Enlarged left pulmonary art eries, CT findings consistent with underlying pulmonary artery hypertension. Lipomatous hypertrophy o f the intra-arterial septum. Severe three-vessel coronary artery calcification. Dense calcification o f the mitral valve. No pericardial effusion. Prominent bilateral hilar lymph nodes.. OTHER: Dependent calcified gallstones and/or sludge. Mild diffuse soft tissue anasarca. Abnormal thyr oid nodules, dominant roughly 3.5 cm right thyroid solid nodule coronal image 34. Smaller 1.5 cm left -sided thyroid nodule noted coronal image 32r IMPRESSION: 1. Mild emphysematous change with moderate to severe bilateral pulmonary fibrosis. No suspicious acut e infiltrate. 2. Cardiomegaly with tiny bilateral pleural effusions, cannot exclude a degree of CHF exacerbation. 3. There are bilateral thyroid nodules right measuring near 3.5 cm. Follow-up thyroid ultrasound is a dvised to further evaluate and characterize if this is not known finding.
[2020-08-07] MEDS: traMADol 50 MG TAB PO PRN (10:48)
--- NOTE | 2020-08-07 10:52 | P.PN ---
Subjective Progress Note Date: 08/07/20 Principal diagnosis: Bilateral lower extremity ulcers Patient is seen and examined sitting up in a recliner. Bilateral lower extremities with dressing clean dry and intact. Patient continues to have low sodium, today 119. No other acute changes. Patient is on a heparin drip. Objective - Vital Signs Vital signs: Vital Signs Temp 97.4 F L 08/07/20 05:00 Pulse 90 08/07/20 05:00 Resp 20 08/07/20 05:00 BP 99/68 08/07/20 05:00 Pulse Ox 97 08/07/20 05:00 Intake & Output 08/06/20 08/07/20 08/07/20 18:59 06:59 18:59 Intake Total 498.164 5275 Output Total 1700 Balance 877.156 -280 Intake: Intake, IV Titration 177.156 200 Amount Heparin Sod,Pork in 0.45% 177.156 NaCl 25,000 unit In 0.45 % NaCl 1 250ml.bag @ 12 UNITS/KG/HR 9.253 mls/hr IV .Q24H [facility] Rx#: [id number] Meropenem 1 gm In Sodium 200 Chloride 0.9% 100 ml @ 33 .3 mls/hr IVPB Q8H [facility] Rx #:[id number] Oral 700 1220 Output: Urine 1700 Other: Voiding Method Bedside Commode Bedside Commode Bedside Commode # Voids 2 1 - Exam General appearance: The patient is alert, oriented, appears in no acute distress. HET: Head is normocephalic and atraumatic. Neck: Supple without lymphadenopathy. Trachea midline. Heart: S1 S2. Regular rate and rhythm. Lungs: Bilateral wheezes Extremities: Bilateral lower extremities with dressings clean dry and intact. Neurological: No focal deficits. Strength and sensation are grossly intact. - Labs CBC & Chem 7: 08/07/20 04:53 08/07/20 04:53 Labs: Abnormal Lab Results - Last 24 Hours (Table) 08/06/20 08/06/20 08/06/20 Range/Units 15:17 17:13 17:22 WBC (4.50-10.00) X 10*3/uL RBC (4.10-5.20) X 10*6/uL Hgb (12.0-15.0) g/dL Hct (37.2-46.3) % MCHC (32.0-37.0) g/dL RDW (11.5-14.5) % Immature Gran # (0.00-0.04) X 10*3/uL Neutrophils # (1.80-7.70) X 10*3/uL Monocytes # (0.20-1.00) X 10*3/uL PT (9.0-12.0) sec INR (<1.2) APTT 49.8 H (22.0-30.0) sec Sodium (135-145) mmol/L Chloride (96-109) mmol/L BUN/Creatinine Ratio (12.00-20.00) Ratio Glucose (70-110) mg/dL POC Glucose (mg/dL) 159 H (75-99) mg/dL Calcium (8.7-10.3) mg/dL Vitamin D 25-Hydroxy 20.2 L (30.0-100.0) ng/mL 08/07/20 08/07/20 08/07/20 Range/Units 04:53 04:53 04:53 WBC 14.82 H (4.50-10.00) X 10*3/uL RBC 3.44 L (4.10-5.20) X 10*6/uL Hgb 9.4 L (12.0-15.0) g/dL Hct 29.6 L (37.2-46.3) % MCHC 31.8 L (32.0-37.0) g/dL RDW 16.3 H (11.5-14.5) % Immature Gran # 0.15 H (0.00-0.04) X 10*3/uL Neutrophils # 12.14 H (1.80-7.70) X 10*3/uL Monocytes # 1.02 H (0.20-1.00) X 10*3/uL PT 15.3 H (9.0-12.0) sec INR 1.5 H (<1.2) APTT 44.8 H (22.0-30.0) sec Sodium 119 L* (135-145) mmol/L Chloride 86 L (96-109) mmol/L BUN/Creatinine Ratio 28.33 H (12.00-20.00) Ratio Glucose 125 H (70-110) mg/dL POC Glucose (mg/dL) (75-99) mg/dL Calcium 8.1 L (8.7-10.3) mg/dL Vitamin D 25-Hydroxy (30.0-100.0) ng/mL 08/07/20 Range/Units 07:23 WBC (4.50-10.00) X 10*3/uL RBC (4.10-5.20) X 10*6/uL Hgb (12.0-15.0) g/dL Hct (37.2-46.3) % MCHC (32.0-37.0) g/dL RDW (11.5-14.5) % Immature Gran # (0.00-0.04) X 10*3/uL Neutrophils # (1.80-7.70) X 10*3/uL Monocytes # (0.20-1.00) X 10*3/uL PT (9.0-12.0) sec INR (<1.2) APTT (22.0-30.0) sec Sodium (135-145) mmol/L Chloride (96-109) mmol/L BUN/Creatinine Ratio (12.00-20.00) Ratio Glucose (70-110) mg/dL POC Glucose (mg/dL) 183 H (75-99) mg/dL Calcium (8.7-10.3) mg/dL Vitamin D 25-Hydroxy (30.0-100.0) ng/mL Microbiology - Last 24 Hours (Table) 08/02/20 19:58 Blood Culture - Preliminary Blood No Growth after 96 hours 08/02/20 19:58 Blood Culture - Preliminary Blood No Growth after 96 hours Assessment and Plan Assessment: 1. Chronic bilateral venous ulcers 2. History of peripheral arterial disease, with previous right fem-pop bypass, and stents in left lower extremity 3. Hyponatremia 4. Diabetes mellitus 5. COPD 6. Hypertension 7. Coronary artery disease Plan: Patient may have consistent carbohydrate diet Repeat BMP in morning Primary medical team to manage hyponatremia May resume Coumadin if needed Daily dressing changes with [facility] on consult, appreciate their recommendations for hyponatremia Once patient's sodium is stabilized, plan is for bilateral lower extremity debridement Thank you for this consultation, we will continue to monitor The impression and plan of care has been dictated as directed. Dr. Cuppari I performed a history and examination of this patient, discussed the same with the dictator. I agree with the dictator's note ,documented as a scribe. Any additional findings or plans will be noted.
--- NOTE | 2020-08-07 11:38 | ECHOF ---
Referral Reason:chf MEASUREMENTS -------- HEIGHT: 167.6 cm WEIGHT: 77.1 kg BP: 99/68 RVIDd: 3.7 cm (< 3.3) IVSd: 1.1 cm (0.6 - 1.1) LVIDd: 5.3 cm (3.9 - 5.3) LVPWd: 1.1 cm (0.6 - 1.1) IVSs: 2.1 cm LVIDs: 3.1 cm LVPWs: 1.7 cm LAESV Index (A-L): 114.54 ml/m Ao Diam: 2.7 cm (2.0 - 3.7) AV Cusp: 1.6 cm (1.5 - 2.6) LA Diam: 4.8 cm (2.7 - 3.8) MV E Brad: 1.57 m/s MV DecT: 339 ms MV A Brad: 0.55 m/s MV E/A Ratio: 2.88 RAP: 20.00 mmHg RVSP: 66.39 mmHg FINDINGS -------- This was a technically adequate study. The left ventricular size is normal. Left ventricular wall thickness is normal. Overall left vent ricular systolic function is low-normal with, an EF between 50 - 55 %. Increased LAP Grade 3 Diasto lic Dysfunction. The right ventricle is mild to moderately enlarged. LA is severely dilated >40 ml/m2 RA appears enlarged. Aortic valve is trileaflet and is mildly thickened. The mitral valve is normal. The mitral valve leaflets are moderately thickened. Mild mitral annul ar calcification present. Severe mitral regurgitation is present. The peak and mean MV gradients are 16.68mmHg 5.48mmHg as measured by doppler. Snox-rr-qixhhehg mitral stenosis. The tricuspid valve appears structurally normal. Severe tricuspid regurgitation present. There is moderate to severe pulmonary hypertension. The right ventricular systolic pressure, as measured by Doppler, is 66.39mmHg. Trace/mild (physiologic) pulmonic regurgitation. The aortic root size is normal. The inferior vena cava is dilated with no significant inspiratory collapse which is consistent estima jeff right atrial pressure of >20 mmHg. There is no pericardial effusion. CONCLUSIONS -------- 1. The left ventricular size is normal. 2. Left ventricular wall thickness is normal. 3. Overall left ventricular systolic function is low-normal with, an EF between 50 - 55 %. 4. Increased LAP Grade 3 Diastolic Dysfunction. 5. The right ventricle is mild to moderately enlarged. 6. LA is severely dilated >40 ml/m2 7. RA appears enlarged. 8. Aortic valve is trileaflet and is mildly thickened. 9. The mitral valve is normal. 10. The mitral valve leaflets are moderately thickened. 11. Mild mitral annular calcification present. 12. Severe mitral regurgitation is present. 13. The peak and mean MV gradients are 16.68mmHg 5.48mmHg as measured by doppler. 14. Xvdl-mk-iipuoggh mitral stenosis. 15. Severe tricuspid regurgitation present. 16. There is moderate to severe pulmonary hypertension. 17. The right ventricular systolic pressure, as measured by Doppler, is 66.39mmHg. 18. Trace/mild (physiologic) pulmonic regurgitation. 19. The inferior vena cava is dilated with no significant inspiratory collapse which is consistent es timated right atrial pressure of >20 mmHg. 20. There is no pericardial effusion. ROUTING MACHINE OPERATOR: Criss Bal RDCS
[2020-08-07 12:28] LABS: Glucose,Whole Blood 81 mg/dL (75-99)
[2020-08-07] MEDS: HEPARIN SOD,PORK IN 0.45% NACL 25,000 UNIT in 0.45% NACL 1 250ML.BAG IV SCH (12:41)
--- NOTE | 2020-08-07 14:02 | XR ---
EXAMINATION TYPE: XR chest 1V DATE OF EXAM: 08/07/2020 COMPARISON: 08/04/2020 HISTORY: 75 year-old female shortness of breath TECHNIQUE: Single frontal view of the chest is obtained. FINDINGS: Heart is mild to moderately enlarged. Diffuse interstitial opacity and mild patchy peripheral opacity has slightly increased from 08/04/2020. IMPRESSION: Cardiomegaly and increasing interstitial changes. Correlate for CHF with developing interstitial pulm onary edema.
--- NOTE | 2020-08-07 14:02 | P.PN ---
Subjective Progress Note Date: 08/07/20 HISTORY OF PRESENT ILLNESS Is a 75 year old female patient of Dr. Mcmahan with past medical history significant for diabetes mellitus type 2, COPD, chronic hypoxic respiratory failure on home O2, chronic diastolic heart failure, chronic atrial fibrillation hypertension, hyperlipidemia, previous myocardial infarction, chronic lower extremity ulcers, peripheral vascular occlusive disease with previous fem-pop bypass and stenting, history of chronic tobacco use. Patient was last hospitalized in May of this year at which time she was treated for acute on chronic hypoxic respiratory failure and COPD exacerbation. She has chronic diabetic ulcers for which she follows in the wound healing Center. The patient states that she thinks her wound on her left lower leg is getting worse. Patient apparently recently completed 2 courses of antibiotics. No significant pain to the wounds. Denies any fever or chills. Patient came into [facility] emergency center for evaluation. Patient was afebrile, heart rate 93, blood pressure 108/96, pulse ox 96%. WBC 12.7, hemoglobin 11.6, platelet count 283. Sodium 123, potassium 4.4, chloride 86, CO2 30, BUN 27 creatinine 2.51. Blood sugar 201. Liver function tests normal. INR 1.7. Lactic acid 1.6. Patient to be admitted to the [facility] floor, consult in place with vascular surgery which is planning on I&D this afternoon in OR. Consult added for infectious disease. 08/04: Sodium is again low this morning at 126. Patient does have chronic hyponatremia. Consult will be added for nephrology and a urine sodium and osmolality, serum osmolality ordered as well as sodium chloride tablet twice daily. Surgical debridement is delayed due to hyponatremia. She has been afebrile, heart rate 81, blood pressure 101/64, pulse ox 96% on 2 L. Other lab work reveals that he be sealed 11.4. INR 2.1. Creatinine 0.4. Blood sugars running between 143 and 270. Vanco trough 11.8. Debridement may occur tomorrow and Coumadin is on hold. Dr. Cramer has evaluated the patient and added cefepime to vancomycin. Discharge plan is to return to [facility] possibly on Friday Patient examined bedside. Does appear slightly congested on examination and does occasional cough but denies any shortness of breath,. Patient denies any dizziness nausea or vomiting. Vitals are stable with temp of 96.8 pulse 93 blood pressure 100/66 oxygen saturation 100% on 2 L. Patient's sodium continues to be on low 125 appears to be hypo-volemic rather than SIADH. Inflammation markers elevated, CRP is 28.8. Creatinine 0.46 serum osmolarity 270 urine osmolarity 557 urine sodium 10 vancomycin trough 11.8 wound culture positive for gram-negative bacilli blood culture negative so far. We'll plan for debridement over the weekend will start patient on heparin drip for chronic atrial fibrillation 08/06 patient evaluated bedside stop she denies any dizziness, confusion and change in mental status. Patient's sodium has dropped to 120 potassium 3.5 CO2 19 creatinine 0.46 calcium is 6.6. Glucose has been ranging between 77-180. R am repeat urine studies to be obtained. Echo ordered per nephrology to rule out right ventricular failure Lasix has been discontinued. Patient's orthostatic was positive . Repeat labs tomorrow for evaluation. Continue cefepime for cellulitis of the lower extremity with plan to place PICC line for IV antibiotics on discharge. Continue heparin drip for atrial fibrillation as Coum janel is on hold 08/07: Dr. Cramer has changed antibiotics to meropenem. Patient remains off Coumadin and is on heparin drip. Her repeat blood work this morning reveals INR 1.5. Blood sugars have been running between 92 and 183. Repeat sodium 119, chloride 86, potassium 4.7, CO2 23, creatinine 0.6. WBC 14.8, hemoglobin 9.4. No plan for surgical intervention soon due to worsening hyponatremia, patient will be started on eliquis versus Coumadin. Patient will be started on penicillin cleaned 300 mg twice daily. Patient has been off Lasix and lisinopril. CT of the chest has been ordered. This revealed mild emphysematous change with moderate to severe bilateral pulmonary fibrosis.His acute infiltrate. Cardiomegaly with tiny bilateral pleural effusions cannot exclude a degree of CHF exacerbation. Bilateral thyroid nodules right measuring 3.5 cm. Follow-up thyroid ultrasound advised. Echocardiogram reveals EF of 50-55% with severe mitral regurgitation, [id number] mitral stenosis, severe tricuspid regurgitation, moderate to severe pulmonary hypertension. REVIEW OF SYSTEMS Constitutional: No fever, no chills, no night sweats. No weight change. No weakness, fatigue or lethargy. No daytime sleepiness. EENT: No headache. No blurred vision or double vision, no loss of vision. No loss of Hearing, no ringing in the ears, no dizziness. No nasal drainage or congestion. No epistaxis. No sore throat. Lungs: No shortness of breath, cough, no sputum production. No wheezing. Cardiovascular: No chest pain, no lower extremity edema. No palpitations. No paroxysmal nocturnal dyspnea. No orthopnea. No lightheadedness or dizziness. No syncopal episodes. Abdominal: No abdominal pain. No nausea, vomiting. No diarrhea. No constipation. No bloody or tarry stools.. No loss of appetite. Genitourinary: No dysuria, increased frequency, urgency. No urinary retention. Musculoskeletal: No myalgias. No muscle weakness, no gait dysfunction, no frequent falls. No back pain. No neck pain. Integumentary: Reports wounds, no lesions. No rash or pruritus. No unusual bruising. No change in hair or nails. Neurologic: No aphasia. No facial droop. No change in mentation. No head injury. No headache. No paralysis. No paresthesia. Psychiatric: No depression. No anxiety. No mood swings. Endocrine: Reports abnormal blood sugars. PHYSICAL EXAMINATION Gen: This is a 75-year-old female. Patient is resting in chair and appears to be in no acute distress. No respiratory distress noted. HEENT: Head is atraumatic, normocephalic. Pupils equal, round. Sclerae is anicteric. NECK: Supple. No JVD. No lymphadenopathy. No thyromegaly. LUNGS: Diminished with bilateral wheezes. No intercostal retractions. HEART: Regular rate and rhythm. No murmur. ABDOMEN: Soft. Bowel sounds are present. No masses. No tenderness. EXTREMITIES: Mild pedal edema. Large left lower extremity ulcer on the medial side with surrounding erythema. Dorsalis pedis on the left is 1+, 2+ on the right. Patient also has small superficial ulcers to the left foot dorsal surface base of toes 2 through 4 and dusky purple color to the toes. There is a 5 x 2.5 cm wound on the right medial posterior calf with no significant erythema. There is also a small ulcer on the dorsal surface of the right great toe without erythema or drainage. NEUROLOGICAL: Patient is awake, alert and oriented x3. Cranial nerves 2 through 12 are grossly intact. ASSESSMENT AND PLAN 1. Chronic bilateral venous and diabetic ulcers with acute cellulitis. Vascular surgery with plan for debridement which has been delayed due to hyponatremia. Infectious disease consult appreciated. Patient is currently on meropenem. Patient will be resumed on anticoagulation with eliquis 5 mg twice daily. 2. Diabetes mellitus type 2. Continue Levemir 10 units at bedtime, 7 units 3 times daily with meals and NovoLog scale before meals and at bedtime. 3. Diabetic neuropathy. Continue gabapentin 200 mg twice daily. 4. Chronic diastolic heart failure. Patient is off Lasix, Aldactone, lisinopril. 5. Chronic atrial fibrillation. Patient will be resumed on eliquis as debridement is postponed.. 6. Hypovolemic Hyponatremia. Patient is off Lasix, Aldactone, lisinopril. She'll be started on the demeclocycline 300 mg twice daily. Continue 1200 mL fluid restriction. Nephrology consult appreciated 7. Hypertension. Continue lisinopril 10 mg at bedtime. 8. Hyperlipidemia. Continue statin. 9. COPD without exacerbation. Continue albuterol as needed, Pulmicort twice daily. 10. Gastroesophageal reflux disease. Continue Protonix 40 mg daily. 11. Hypocalcemia. Vitamin D ordered. PTH level ordered ionized calcium Calcium carbonate 500 3 times a day 12. Bilateral thyroid nodules to be followed up. 13. Valvular heart disease with severe mitral regurgitation, mild to moderate mitral stenosis, severe tricuspid regurgitation, moderate to severe pulmonary hypertension. DISCHARGE PLAN Return to [facility] under the care of Dr. Mcmahan Impression and plan of care have been directed as dictated by the signing physician. Maida Johnson nurse practitioner acting as scribe for signing physician. Objective - Vital Signs Vital signs: Vital Signs Temp 97.4 F L 08/07/20 05:00 Pulse 90 08/07/20 05:00 Resp 20 08/07/20 05:00 BP 99/68 08/07/20 05:00 Pulse Ox 97 08/07/20 05:00 Intake & Output 08/06/20 08/07/20 08/07/20 18:59 06:59 18:59 Intake Total 798.514 9466 Output Total 1700 Balance 877.156 -280 Intake: Intake, IV Titration 177.156 200 Amount Heparin Sod,Pork in 0.45% 177.156 NaCl 25,000 unit In 0.45 % NaCl 1 250ml.bag @ 12 UNITS/KG/HR 9.253 mls/hr IV .Q24H [facility] Rx#: [id number] Meropenem 1 gm In Sodium 200 Chloride 0.9% 100 ml @ 33 .3 mls/hr IVPB Q8H [facility] Rx #:[id number] Oral 700 1220 Output: Urine 1700 Other: Voiding Method Bedside Commode Bedside Commode # Voids 2 1 - Labs CBC & Chem 7: 08/07/20 04:53 08/07/20 04:53 Labs: Abnormal Lab Results - Last 24 Hours (Table) 08/06/20 08/06/20 08/06/20 Range/Units 15:17 17:13 17:22 PT (9.0-12.0) sec INR (<1.2) APTT 49.8 H (22.0-30.0) sec POC Glucose (mg/dL) 159 H (75-99) mg/dL Vitamin D 25-Hydroxy 20.2 L (30.0-100.0) ng/mL 08/07/20 08/07/20 Range/Units 04:53 07:23 PT 15.3 H (9.0-12.0) sec INR 1.5 H (<1.2) APTT 44.8 H (22.0-30.0) sec POC Glucose (mg/dL) 183 H (75-99) mg/dL Vitamin D 25-Hydroxy (30.0-100.0) ng/mL Microbiology - Last 24 Hours (Table) 08/02/20 19:58 Blood Culture - Preliminary Blood No Growth after 96 hours 08/02/20 19:58 Blood Culture - Preliminary Blood No Growth after 96 hours
[2020-08-07] MEDS: HYDROmorphone 1 MG/ML 1 ML SYRINGE IVP PRN (14:34)
[2020-08-07] MEDS: APIXABAN 5 MG TAB PO SCH ×2 (15:16→20:38)
[2020-08-07] MEDS: DEMECLOCYCLINE 150 MG TAB PO SCH ×2 (15:16→20:44)
[2020-08-07 15:19] VITALS: BMI 27.4
[2020-08-07 17:40] LABS: Glucose,Whole Blood 156 mg/dL (75-99)
[2020-08-07] MEDS ORDERED: WARFARIN 5 MG TAB PO SCH (18:00)
[2020-08-07] MEDS ORDERED: SODIUM CHLORIDE 3%(HYPERTONIC) 500 ML IV SCH (18:45)
[2020-08-07 20:18] LABS: Glucose,Whole Blood 129 mg/dL (75-99)
[2020-08-07] MEDS: ATORVASTATIN 10 MG TAB PO SCH (20:37)
[2020-08-07] MEDS: INSULIN DETEMIR (LEVEMIR) 100 UNIT/ML SYR SQ SCH (20:39)
[2020-08-07] MEDS: IPRATROPIUM-ALBUTEROL 3 ML NEB INHALATION PRN (21:19)
--- NOTE | 2020-08-07 23:38 | PN ---
PROGRESS NOTE DATE OF SERVICE: 08/07/2020 REASON FOR FOLLOWUP: Left lower extremity wound and cellulitis. INTERVAL HISTORY: The patient is currently afebrile. The patient is breathing comfortably. Denies having any chest pain. Occasional cough. No abdominal pain. Still complaining of pain to the left lower extremity, but no worsening. PHYSICAL EXAMINATION: Blood pressure 115/68 with a pulse of 95, temperature 97.5. She is 93% on 4 L nasal cannula. General description is a middle-aged female lying in bed in no distress. RESPIRATORY SYSTEM: Unlabored breathing with decreased breath sounds at the base. No wheeze. HEART: S1, S2. Regular rate and rhythm. ABDOMEN: Soft. No tenderness. Left leg is currently dressed up. No obvious drainage on the dressing. LABS: Hemoglobin is 9.4, white count 14.82. DIAGNOSTIC IMPRESSION AND PLAN: Patient with left lower extremity wound and secondary cellulitis. Culture positive for proteus and burkholderia. The patient is covered with meropenem. Local care to continue per Vascular Surgery. Continue with supportive care. MMODL / IJN: [id number] /
[2020-08-08] MEDS: traMADol 50 MG TAB PO PRN ×2 (00:25→17:39)
[2020-08-08 03:47] LABS: Anisocytosis Slight; Basophils % (A) 0 %; Eosinophils # (A) 0.1 k/uL (0-0.7); Eosinophils % (A) 1 %; HCT 32.1 % (34.0-46.0); HGB 10.7 gm/dL (11.4-16.0); Lymphocytes % (A) 10 %; MCH 28.5 pg (25.0-35.0); MCHC 33.3 g/dL (31.0-37.0); MCV 85.7 fL (80.0-100.0); Mean Platelet Volume 6.9; Monocytes # (A) 0.5 k/uL (0-1.0); Monocytes % (A) 5 %; Neutrophils # (A) 8.4 k/uL (1.3-7.7); Neutrophils % (A) 83 %; Platelet Count 261 k/uL (150-450); RBC 3.75 m/uL (3.80-5.40); RDW 16.6 % (11.5-15.5); WBC 10.1 k/uL (3.8-10.6)
[2020-08-08 04:03] LABS: ALT 30 U/L (4-34); AST 26 U/L (14-36); African American GFR (CKD) >90 (>60 ml/min/1.73 sqM); Albumin 2.5 g/dL (3.5-5.0); Alkaline Phosphatase 83 U/L (38-126); Anion Gap 5 mmol/L; Blood Urea Nitrogen 17 mg/dL (7-17); Calcium 8.3 mg/dL (8.4-10.2); Carbon Dioxide 27 mmol/L (22-30); Chloride 88 mmol/L (98-107); Glucose 116 mg/dL (74-99); Magnesium 1.7 mg/dL (1.6-2.3); Non-African American GFR(CKD) >90 (>60 ml/min/1.73 sqM); Potassium 4.8 mmol/L (3.5-5.1); Sodium 120 mmol/L (137-145); Total Bilirubin 0.5 mg/dL (0.2-1.3); Total Protein 5.5 g/dL (6.3-8.2)
[2020-08-08] MEDS: MEROPENEM 1 GM in SODIUM CHLORIDE 0.9% 100 ML IVPB SCH ×3 (04:35→20:19)
[2020-08-08] MEDS: HYDROmorphone 1 MG/ML 1 ML SYRINGE IVP PRN ×3 (05:42→23:49)
[2020-08-08] MEDS ORDERED: Magnesium Replacement Protocol 1 EACH MISC MISCELLANE PRN (06:14)
[2020-08-08] MEDS: DEMECLOCYCLINE 150 MG TAB PO SCH (06:20)
[2020-08-08] MEDS ORDERED: MAGNESIUM SULFATE-D5W PMX 1 GM in DEXTROSE/WATER 1 100ML.BAG IVPB SCH (06:30)
[2020-08-08 06:36] LABS: Glucose,Whole Blood 143 mg/dL (75-99)
[2020-08-08] MEDS: INSULIN ASPART (NovoLOG) 100 UNIT/ML VIAL SQ SCH ×7 (06:40→20:08)
[2020-08-08] MEDS: IPRATROPIUM-ALBUTEROL 3 ML NEB INHALATION PRN ×4 (08:32→19:38)
[2020-08-08] MEDS: BUDESONIDE 0.5 MG/2 ML NEBU INHALATION SCH ×2 (08:32→19:38)
--- NOTE | 2020-08-08 08:59 | P.PN ---
Subjective Progress Note Date: 08/08/20 Principal diagnosis: Bilateral lower extremity ulcers She was seen and examined sitting up in chair. She was transferred to the ICU yesterday evening for hyponatremia. Her sodium today is 120. She denies any other acute changes through the night. His been afebrile, continued IV antibiotics per infectious disease. Objective - Vital Signs Vital signs: Vital Signs Temp 97.1 F L 08/08/20 08:00 Pulse 95 08/08/20 08:45 Resp 12 08/08/20 08:00 BP 123/81 08/08/20 08:00 Pulse Ox 96 08/08/20 08:00 Intake & Output 08/07/20 08/08/20 08/08/20 18:59 06:59 18:59 Intake Total 513.199 100 10 Output Total 1250 810 45 Balance -736.801 -710 -35 Weight 77.111 kg Intake: IV 25 100 10 Sodium Chloride 3%( 25 100 10 Hypertonic) 500 ml @ 10 mls/hr IV .Q24H [facility] Rx#: [id number] Intake, IV Titration 248.199 Amount Heparin Sod,Pork in 0.45% 248.199 NaCl 25,000 unit In 0.45 % NaCl 1 250ml.bag @ 12 UNITS/KG/HR 9.253 mls/hr IV .Q24H [facility] Rx#: [id number] Oral 240 Output: Urine 1250 810 45 Other: Voiding Method Bedside Commode Indwelling Catheter - Exam General appearance: The patient is alert, oriented, appears in no acute distre ss. HET: Head is normocephalic and atraumatic. Neck: Supple without lymphadenopathy. Trachea midline. Heart: S1 S2. Regular rate and rhythm. Lungs: Bilateral wheezes Extremities: Bilateral lower extremities with dressings clean dry and intact. Neurological: No focal deficits. Strength and sensation are grossly intact. - Labs CBC & Chem 7: 08/08/20 03:15 08/08/20 03:15 Labs: Abnormal Lab Results - Last 24 Hours (Table) 08/06/20 08/07/20 08/07/20 Range/Units 17:13 04:53 04:53 WBC 14.82 H (4.50-10.00) X 10*3/uL RBC 3.44 L (4.10-5.20) X 10*6/uL Hgb 9.4 L (12.0-15.0) g/dL Hct 29.6 L (37.2-46.3) % MCHC 31.8 L (32.0-37.0) g/dL RDW 16.3 H (11.5-14.5) % Immature Gran # 0.15 H (0.00-0.04) X 10*3/uL Neutrophils # 12.14 H (1.80-7.70) X 10*3/uL Monocytes # 1.02 H (0.20-1.00) X 10*3/uL Sodium 119 L* (135-145) mmol/L Chloride 86 L (96-109) mmol/L BUN/Creatinine Ratio 28.33 H (12.00-20.00) Ratio Glucose 125 H (70-110) mg/dL POC Glucose (mg/dL) (75-99) mg/dL Osmolality (280-301) mosm/kg Calcium 8.1 L (8.7-10.3) mg/dL Total Protein (6.3-8.2) g/dL Albumin (3.5-5.0) g/dL PTH Intact 82.0 H (14.0-72.0) pg/mL 08/07/20 08/07/20 08/07/20 Range/Units 10:22 16:26 17:37 WBC (4.50-10.00) X 10*3/uL RBC (4.10-5.20) X 10*6/uL Hgb (12.0-15.0) g/dL Hct (37.2-46.3) % MCHC (32.0-37.0) g/dL RDW (11.5-14.5) % Immature Gran # (0.00-0.04) X 10*3/uL Neutrophils # (1.80-7.70) X 10*3/uL Monocytes # (0.20-1.00) X 10*3/uL Sodium 116 L* (135-145) mmol/L Chloride (96-109) mmol/L BUN/Creatinine Ratio (12.00-20.00) Ratio Glucose (70-110) mg/dL POC Glucose (mg/dL) 156 H (75-99) mg/dL Osmolality 258 L (280-301) mosm/kg Calcium (8.7-10.3) mg/dL Total Protein (6.3-8.2) g/dL Albumin (3.5-5.0) g/dL PTH Intact (14.0-72.0) pg/mL 08/07/20 08/07/20 08/07/20 Range/Units 20:17 21:18 23:47 WBC (4.50-10.00) X 10*3/uL RBC (4.10-5.20) X 10*6/uL Hgb (12.0-15.0) g/dL Hct (37.2-46.3) % MCHC (32.0-37.0) g/dL RDW (11.5-14.5) % Immature Gran # (0.00-0.04) X 10*3/uL Neutrophils # (1.80-7.70) X 10*3/uL Monocytes # (0.20-1.00) X 10*3/uL Sodium 125 L 121 L (135-145) mmol/L Chloride (96-109) mmol/L BUN/Creatinine Ratio (12.00-20.00) Ratio Glucose (70-110) mg/dL POC Glucose (mg/dL) 129 H (75-99) mg/dL Osmolality (280-301) mosm/kg Calcium (8.7-10.3) mg/dL Total Protein (6.3-8.2) g/dL Albumin (3.5-5.0) g/dL PTH Intact (14.0-72.0) pg/mL 08/08/20 08/08/20 08/08/20 Range/Units 03:15 03:15 06:36 WBC (4.50-10.00) X 10*3/uL RBC 3.75 L (4.10-5.20) X 10*6/uL Hgb 10.7 L (12.0-15.0) g/dL Hct 32.1 L (37.2-46.3) % MCHC (32.0-37.0) g/dL RDW 16.6 H (11.5-14.5) % Immature Gran # (0.00-0.04) X 10*3/uL Neutrophils # 8.4 H (1.80-7.70) X 10*3/uL Monocytes # (0.20-1.00) X 10*3/uL Sodium 120 L (135-145) mmol/L Chloride 88 L (96-109) mmol/L BUN/Creatinine Ratio (12.00-20.00) Ratio Glucose 116 H (70-110) mg/dL POC Glucose (mg/dL) 143 H (75-99) mg/dL Osmolality (280-301) mosm/kg Calcium 8.3 L (8.7-10.3) mg/dL Total Protein 5.5 L (6.3-8.2) g/dL Albumin 2.5 L (3.5-5.0) g/dL PTH Intact (14.0-72.0) pg/mL Microbiology - Last 24 Hours (Table) 08/02/20 19:58 Blood Culture - Preliminary Blood No Growth after 120 hours 08/02/20 19:58 Blood Culture - Preliminary Blood No Growth after 120 hours Assessment and Plan Assessment: 1. Chronic bilateral venous ulcers 2. History of peripheral arterial disease, with previous right fem-pop bypass, and stents in left lower extremity 3. Hyponatremia 4. Diabetes mellitus 5. COPD 6. Hypertension 7. Coronary artery disease Plan: Patient may have consistent carbohydrate diet Repeat BMP in morning Medical management per ICU paper sealer and primary medical team May resume anticoagulation Consult to wound care, patient known to them for local wound care Nephrology on consult, appreciate their recommendations for hyponatremia Once patient's sodium is stabilized, plan is for bilateral lower extremity debridement Thank you for this consultation, we will continue to monitor The impression and plan of care has been dictated as directed. Dr. Elena I performed a history and examination of this patient, discussed the same with the dictator. I agree with the dictator's note ,documented as a scribe. Any additional findings or plans will be noted.
[2020-08-08] MEDS ORDERED: FUROSEMIDE 10 MG/ML 4 ML VIAL IV STA (09:38)
[2020-08-08] MEDS: MAGNESIUM SULFATE-D5W PMX 1 GM in DEXTROSE/WATER 1 100ML.BAG IVPB SCH ×2 (09:59→11:44)
[2020-08-08] MEDS: GABAPENTIN 100 MG CAP PO SCH ×2 (10:00→20:19)
[2020-08-08] MEDS: CALCIUM CARBONATE 500 MG CHEWABLE PO SCH ×3 (10:00→20:20)
[2020-08-08] MEDS: PANTOPRAZOLE 40 MG TABLET PO SCH (10:00)
[2020-08-08] MEDS: APIXABAN 5 MG TAB PO SCH ×2 (10:00→20:20)
--- NOTE | 2020-08-08 10:01 | P.CNPUL ---
History of Present Illness Consult date: 08/08/20 Requesting physician: Saul Mcmahan Reason for consult: dyspnea, other Chief complaint: Bilateral lower extremity wounds, shortness of breath, hyponatremia History of present illness: 75-year-old female patient of Dr. Mcmahan with multiple medical problems including COPD on home oxygen at 3 L on a regular basis, hypertension, diabetes mellitus type 2, previous IA, peripheral vascular disease with history of intervention including fem-pop bypass and placement of stents, chronic anemia, previous history of MRSA infection in her leg wounds, former smoker, anxiety and depression, who initially came into the hospital on 08/02/2020 per EMS for evaluation of bilateral lower extremity leg wounds. Apparently patient has chronic leg wounds, and had recently completed 2 courses of antibiotics. Shey ent came in from a alf. Patient did not have any fever or chills, she was started on Levaquin and vancomycin on admission for lower extremity wounds, and vascular surgery saw the patient consultation. Patient normally goes to the wound care clinic. Patient was given IV fluids. On admission patient's serum sodium was 123, looking back at her labs from May and June, patient's se rum sodium level was fluctuating between 120 and 134 at the highest. In addition patient seems to be generally fluid overloaded, with lower extremity edema, and her chest x-ray showing changes consistent with CHF and interstitial pulmonary edema. She was transferred to the intensive care unit early this morning for initiation of hypertonic saline. This morning her serum sodium is 122, 3% saline is infusing at a rate of 10 mL per hour, patient seems to be short of breath, she's cut diffuse crackles and congested cough on physical exam, she is awake and alert, answering questions appropriately, denies any chest pain, she has been leg edema with 1+ lower extremity edema and weeping lower extremity wounds. White blood cell count is 10.1, hemoglobin is 10.7, INR is 1.5, her Coumadin remains on hold for possibility of surgical debridement of her wounds. Lisinopril BNP level which came back elevated at 5520. Patient is currently on 2 L of oxygen, with a pulse ox of 97%, no vasoactive drips at this time. Patient is in A. fib, which is chronic for her, the rate is controlled at 96 BPM. Review of Systems All systems: negative Constitutional: Denies chills, Denies fever Eyes: denies blurred vision, denies pain Ears, nose, mouth and throat: Denies headache, Denies sore throat Cardiovascular: Denies chest pain, Denies shortness of breath Respiratory: Reports dyspnea, Denies cough Gastrointestinal: Denies abdominal pain, Denies diarrhea, Denies nausea, Denies vomiting Genitourinary: Denies dysuria, Denies hematuria Musculoskeletal: Denies myalgias Integumentary: Reports wounds, Denies pruritus, Denies rash Neurological: Denies numbness, Denies weakness Psychiatric: Denies anxiety, Denies depression Endocrine: Denies fatigue, Denies weight change Past Medical History Past Medical History: COPD, Diabetes Mellitus, Hypertension, Myocardial Infarction (IA), Vascular Disorder Additional Past Medical History / Comment(s): anemia,SOB,irreg HR,bronchitis 09-06-15/09-07-15,crys leg and feet edema,hx of bleeding ulcer around age 32, Last Myocardial Infarction Date:: unk History of Any Multi-Drug Resistant Organisms: MRSA Date of last positivie culture/infection: 05/22/20 MDRO Source:: LEG MRSA Past Surgical History: Hysterectomy, Joint Replacement, Orthopedic Surgery Additional Past Surgical History / Comment(s): rtfem-pop bypass,3or4 stents lt leg,crys knee replace,lt shoulder repair Past Anesthesia/Blood Transfusion Reactions: Postoperative Nausea & Vomiting (PONV) Additional Past Anesthesia/Blood Transfusion Reaction / Comment(s): no problems with prior blood transfusions Past Psychological History: Anxiety, Depression Smoking Status: Former smoker Past Alcohol Use History: None Reported, Rare Past Drug Use History: None Reported - Past Family History Mother Family Medical History: Diabetes Mellitus Additional Family Medical History / Comment(s): heart problems Father Additional Family Medical History / Comment(s): heart problems Sister(s) Family Medical History: Diabetes Mellitus Additional Family Medical History / Comment(s): heart problems Brother(s) Family Medical History: Cancer Medications and Allergies Home Medications Medication Instructions Recorded Confirmed Type Lisinopril [Prinivil] 10 mg PO HS 09/20/15 08/02/20 History Lovastatin [Mevacor] 40 mg PO HS 09/20/15 08/02/20 History Multivit-Min/FA/Lycopen/Lutein 1 tab PO DAILY@1700 09/20/15 08/02/20 History [Centrum Silver Tablet] Pantoprazole [Protonix] 40 mg PO DAILY@0800 03/23/20 08/02/20 History Triamcinolone 0.5% Cream [Kenalog 1 applic TOPICAL DAILY PRN 03/23/20 08/02/20 History 0.5% Cream] Warfarin Sodium [Jantoven] 2.5 mg PO SUTUWETHSA@1700 03/23/20 08/02/20 History Warfarin Sodium [Jantoven] 5 mg PO MOFR@1700 03/23/20 08/02/20 History Ipratropium-Albuterol Nebulize 3 ml INHALATION RT-QID PRN ml 03/27/20 08/02/20 Rx [Duoneb 0.5 mg-3 mg/3 ml Soln] Albuterol Nebulized [Ventolin 2.5 mg INHALATION RT-QID PRN 06/07/20 08/02/20 History Nebulized] INSULIN ASPART (NovoLOG) [NovoLOG 7 unit SQ AC-TID vial 06/12/20 08/02/20 Rx (formulary)] Insulin Detemir (Levemir) [Levemir] 10 unit SQ HS syr 06/12/20 08/02/20 Rx traMADol HCl [Ultram] 50 mg PO TID PRN #9 tab 06/12/20 08/02/20 Rx Budesonide [Pulmicort] 0.5 mg INHALATION RT-BID@0800,2100 08/02/20 08/02/20 History Furosemide [Lasix] 40 mg PO BID@0800,1400 08/02/20 08/02/20 History Gabapentin [Neurontin] 200 mg PO BID@0800,2100 08/02/20 08/02/20 History Glucerna Shake 120 ml PO TID@0800,1700,2100 08/02/20 08/02/20 History Lidocaine 5% Oint [Xylocaine 5% 1 mm TOPICAL DAILY PRN 08/02/20 08/02/20 History Oint] Liquical 30 ml PO BID@0800,1700 08/02/20 08/02/20 History Loperamide HCl [Imodium A-D] 2 - 4 mg PO QID PRN 08/02/20 08/02/20 History Magnesium Hydroxide [Milk of 7,200 mg PO Q48H PRN 08/02/20 08/02/20 History Magnesia Concentrate] Na Phos,M-B/Na Phos,Di-Ba [Fleet 133 ml RECTAL DAILY PRN 08/02/20 08/02/20 History Adult] Spironolactone [Aldactone] 12.5 mg PO DAILY@0800 08/02/20 08/02/20 History bisacodyL [Bisacodyl] 10 mg RECTAL DAILY PRN 08/02/20 08/02/20 History predniSONE 10 mg PO DAILY@0800 08/02/20 08/02/20 History Allergies Allergy/AdvReac Type Severity Reaction Status Date / Time Penicillins Allergy Swelling Verified 08/02/20 19:30 hydrocodone bitartrate AdvReac Nausea & Verified 08/02/20 19:30 [From Vicodin] Vomiting sulfamethoxazole AdvReac Nausea & Verified 08/02/20 19:30 Vomiting Physical Exam Vitals: Vital Signs Temp Pulse Pulse Resp BP BP Pulse Ox 08/08/20 09:00 95 21 117/75 97 08/08/20 08:45 95 08/08/20 08:32 94 08/08/20 08:00 97.1 F L 88 12 123/81 96 08/08/20 07:00 79 18 130/83 99 08/08/20 06:00 84 16 116/93 98 08/08/20 05:00 71 13 108/68 95 08/08/20 04:00 98.7 F 68 16 115/66 98 08/08/20 03:00 87 19 112/71 78 L 08/08/20 02:00 86 20 114/71 98 08/08/20 01:00 16 121/74 99 08/08/20 00:00 98.4 F 70 16 105/71 100 08/07/20 23:00 89 18 106/76 99 08/07/20 22:00 85 18 113/65 95 08/07/20 21:32 85 08/07/20 21:30 80 22 114/75 08/07/20 21:19 84 08/07/20 21:00 95 18 115/68 08/07/20 20:30 81 16 109/72 08/07/20 20:00 97.5 F L 76 18 112/79 93 L 08/07/20 19:30 88 17 107/76 82 L 08/07/20 19:00 90 11 L 107/66 97 08/07/20 18:30 97.4 F L 73 12 106/73 96 08/07/20 12:45 97.9 F 79 20 108/73 100 Intake and Output 08/07/20 08/08/20 08/08/20 22:59 06:59 14:59 Intake Total 365 0 20 Output Total 1525 535 90 Balance -1160 -535 -70 Intake: IV 125 0 20 Sodium Chloride 3%( 125 0 20 Hypertonic) 500 ml @ 10 mls/hr IV .Q24H [facility] Rx#: [id number] Oral 240 Output: Urine 1525 535 90 Other: Voiding Method Indwelling Catheter Indwelling Catheter Weight 77.111 kg GENERAL EXAM: Alert, very pleasant, 75-year-old white female, on 2 L oxygen a pulse ox of 97%, sitting up in the recliner, mildly short of breath, comfortable in no apparent distress. HEAD: Normocephalic/atraumatic. EYES: Normal reaction of pupils, equal size. Conjunctiva pink, sclera white. NOSE: Clear with pink turbinates. THROAT: No erythema or exudates. NECK: No masses, no JVD, no thyroid enlargement, no adenopathy. CHEST: No chest wall deformity. Symmetrical expansion. LUNGS: Equal air entry with diffuse crackles bilaterally, congested cough CVS: Irregular rate and rhythm, normal S1 and S2, no gallops, no murmurs, no rubs ABDOMEN: Soft, nontender. No hepatosplenomegaly, normal bowel sounds, no guarding or rigidity. EXTREMITIES: No clubbing, 1-2+ lower extremity edema, no cyanosis, 2+ pulses and upper and lower extremities. MUSCULOSKELETAL: Muscle strength and tone normal. SPINE: No scoliosis or deformity SKIN: No rashes, patient has anterior tibial areas of wounds wound bed is mostly clean, the wounds are very moist, weeping, sharp demarcated edges, they're clean, do not appear to be infected CENTRAL NERVOUS SYSTEM: Alert and oriented -3. No focal deficits, tone is normal in all 4 extremities. PSYCHIATRIC: Alert and oriented -3. Appropriate affect. Intact judgment and insight. Results - Laboratory Findings CBC and BMP: 08/08/20 03:15 08/08/20 08:39 PT/INR, D-dimer PT 15.3 sec (9.0-12.0) H 08/07/20 04:53 INR 1.5 (<1.2) H 08/07/20 04:53 Abnormal lab findings: Abnormal Labs 08/02/20 08/02/20 08/02/20 19:58 19:58 20:08 WBC 12.7 H RBC Hgb Hct MCHC RDW 15.9 H Immature Gran # Neutrophils # 10.8 H Monocytes # PT 16.9 H INR 1.7 H APTT Sodium 123 L Chloride 86 L Carbon Dioxide BUN 27 H Creatinine 0.51 L BUN/Creatinine Ratio Glucose 201 H POC Glucose (mg/dL) Osmolality Calcium 8.1 L C-Reactive Protein Total Protein 5.7 L Albumin 2.7 L Vitamin D 25-Hydroxy PTH Intact 08/03/20 08/03/20 08/03/20 06:07 06:07 06:07 WBC 12.3 H RBC Hgb Hct MCHC RDW 15.8 H Immature Gran # Neutrophils # 9.8 H Monocytes # 1.1 H PT INR APTT Sodium 125 L Chloride 89 L Carbon Dioxide 32 H BUN 22 H Creatinine 0.45 L BUN/Creatinine Ratio Glucose 125 H POC Glucose (mg/dL) Osmolality Calcium 8.2 L C-Reactive Protein 28.8 H Total Protein Albumin Vitamin D 25-Hydroxy PTH Intact 08/03/20 08/03/20 08/03/20 13:25 17:40 21:00 WBC RBC Hgb Hct MCHC RDW Immature Gran # Neutrophils # Monocytes # PT 19.8 H INR 2.0 H APTT Sodium Chloride Carbon Dioxide BUN Creatinine BUN/Creatinine Ratio Glucose POC Glucose (mg/dL) 131 H 101 H Osmolality Calcium C-Reactive Protein Total Protein Albumin Vitamin D 25-Hydroxy PTH Intact 08/04/20 08/04/20 08/04/20 06:57 07:24 07:24 WBC 11.4 H RBC Hgb Hct MCHC RDW 16.0 H Immature Gran # Neutrophils # Monocytes # PT INR APTT Sodium 126 L Chloride 92 L Carbon Dioxide BUN Creatinine 0.40 L BUN/Creatinine Ratio Glucose 149 H POC Glucose (mg/dL) 143 H Osmolality Calcium 8.3 L C-Reactive Protein Total Protein Albumin Vitamin D 25-Hydroxy PTH Intact 08/04/20 08/04/20 08/04/20 07:24 07:40 11:40 WBC RBC Hgb Hct MCHC RDW Immature Gran # Neutrophils # Monocytes # PT 20.3 H INR 2.1 H APTT Sodium Chloride Carbon Dioxide BUN Creatinine BUN/Creatinine Ratio Glucose POC Glucose (mg/dL) 188 H Osmolality 270 L Calcium C-Reactive Protein Total Protein Albumin Vitamin D 25-Hydroxy PTH Intact 08/04/20 08/04/20 08/05/20 17:08 20:42 06:37 WBC RBC Hgb Hct MCHC RDW Immature Gran # Neutrophils # Monocytes # PT INR APTT Sodium 125 L Chloride Carbon Dioxide BUN Creatinine 0.46 L BUN/Creatinine Ratio Glucose POC Glucose (mg/dL) 122 H 107 H Osmolality Calcium 6.8 L C-Reactive Protein Total Protein Albumin Vitamin D 25-Hydroxy PTH Intact 08/05/20 08/05/20 08/05/20 06:37 06:38 07:11 WBC RBC 3.52 L Hgb 10.1 L Hct 30.8 L MCHC RDW 16.3 H Immature Gran # Neutrophils # 8.6 H Monocytes # PT 21.6 H INR 2.2 H APTT 32.5 H Sodium Chloride Carbon Dioxide BUN Creatinine BUN/Creatinine Ratio Glucose POC Glucose (mg/dL) 107 H Osmolality Calcium C-Reactive Protein Total Protein Albumin Vitamin D 25-Hydroxy PTH Intact 08/05/20 08/05/20 08/05/20 11:37 17:17 23:14 WBC RBC Hgb Hct MCHC RDW Immature Gran # Neutrophils # Monocytes # PT INR APTT 35.9 H Sodium Chloride Carbon Dioxide BUN Creatinine BUN/Creatinine Ratio Glucose POC Glucose (mg/dL) 154 H 148 H Osmolality Calcium C-Reactive Protein Total Protein Albumin Vitamin D 25-Hydroxy PTH Intact 08/06/20 08/06/20 08/06/20 07:18 07:18 07:18 WBC RBC 3.35 L Hgb 9.6 L Hct 28.7 L MCHC RDW 16.2 H Immature Gran # Neutrophils # 7.8 H Monocytes # PT 19.4 H INR 2.0 H APTT 40.8 H Sodium 120 L Chloride Carbon Dioxide 19 L BUN Creatinine 0.46 L BUN/Creatinine Ratio Glucose 136 H POC Glucose (mg/dL) Osmolality Calcium 6.6 L C-Reactive Protein Total Protein Albumin Vitamin D 25-Hydroxy PTH Intact 08/06/20 08/06/20 08/06/20 07:25 15:17 17:13 WBC RBC Hgb Hct MCHC RDW Immature Gran # Neutrophils # Monocytes # PT INR APTT 49.8 H Sodium Chloride Carbon Dioxide BUN Creatinine BUN/Creatinine Ratio Glucose POC Glucose (mg/dL) 182 H Osmolality Calcium C-Reactive Protein Total Protein Albumin Vitamin D 25-Hydroxy 20.2 L PTH Intact 08/06/20 08/06/20 08/07/20 17:13 17:22 04:53 WBC RBC Hgb Hct MCHC RDW Immature Gran # Neutrophils # Monocytes # PT 15.3 H INR 1.5 H APTT 44.8 H Sodium Chloride Carbon Dioxide BUN Creatinine BUN/Creatinine Ratio Glucose POC Glucose (mg/dL) 159 H Osmolality Calcium C-Reactive Protein Total Protein Albumin Vitamin D 25-Hydroxy PTH Intact 82.0 H 08/07/20 08/07/20 08/07/20 04:53 04:53 07:23 WBC 14.82 H RBC 3.44 L Hgb 9.4 L Hct 29.6 L MCHC 31.8 L RDW 16.3 H Immature Gran # 0.15 H Neutrophils # 12.14 H Monocytes # 1.02 H PT INR APTT Sodium 119 L* Chloride 86 L Carbon Dioxide BUN Creatinine BUN/Creatinine Ratio 28.33 H Glucose 125 H POC Glucose (mg/dL) 183 H Osmolality Calcium 8.1 L C-Reactive Protein Total Protein Albumin Vitamin D 25-Hydroxy PTH Intact 08/07/20 08/07/20 08/07/20 10:22 16:26 17:37 WBC RBC Hgb Hct MCHC RDW Immature Gran # Neutrophils # Monocytes # PT INR APTT Sodium 116 L* Chloride Carbon Dioxide BUN Creatinine BUN/Creatinine Ratio Glucose POC Glucose (mg/dL) 156 H Osmolality 258 L Calcium C-Reactive Protein Total Protein Albumin Vitamin D 25-Hydroxy PTH Intact 08/07/20 08/07/20 08/07/20 20:17 21:18 23:47 WBC RBC Hgb Hct MCHC RDW Immature Gran # Neutrophils # Monocytes # PT INR APTT Sodium 125 L 121 L Chloride Carbon Dioxide BUN Creatinine BUN/Creatinine Ratio Glucose POC Glucose (mg/dL) 129 H Osmolality Calcium C-Reactive Protein Total Protein Albumin Vitamin D 25-Hydroxy PTH Intact 08/08/20 08/08/20 08/08/20 03:15 03:15 06:36 WBC RBC 3.75 L Hgb 10.7 L Hct 32.1 L MCHC RDW 16.6 H Immature Gran # Neutrophils # 8.4 H Monocytes # PT INR APTT Sodium 120 L Chloride 88 L Carbon Dioxide BUN Creatinine BUN/Creatinine Ratio Glucose 116 H POC Glucose (mg/dL) 143 H Osmolality Calcium 8.3 L C-Reactive Protein Total Protein 5.5 L Albumin 2.5 L Vitamin D 25-Hydroxy PTH Intact 08/08/20 08:39 WBC RBC Hgb Hct MCHC RDW Immature Gran # Neutrophils # Monocytes # PT INR APTT Sodium 122 L Chloride Carbon Dioxide BUN Creatinine BUN/Creatinine Ratio Glucose POC Glucose (mg/dL) Osmolality Calcium C-Reactive Protein Total Protein Albumin Vitamin D 25-Hydroxy PTH Intact - Diagnostic Findings Chest x-ray: report reviewed, image reviewed CT scan - chest: report reviewed, image reviewed Assessment and Plan Plan: Assessment: #1. Hyponatremia, appears to be hypervolemic due to acute exacerbation of CHF with diastolic dysfunction #2. Valvular heart disease, severe mitral regurgitation and mild to moderate mitral stenosis, severe tricuspid regurgitation, severe pulmonary hypertension with right heart pressure of 66.3 mmHg #3. Severe pulmonary hypertension with PA systolic of 66.3 mmHg, likely secondary to advanced COPD #4. Chronic hypoxic respiratory failure related to advanced COPD #5. Chronic lower extremity wounds, patient usually goes to the wound Center, with history of MRSA infection. Wound cultures from the left leg showed Proteus mirabilis and Burkholderia cepacia currently covered with meropenem #6. Chronic A. fib on Coumadin which is on hold for possibility of lower extremity wound debridement #7. Peripheral vascular disease with previous intervention #8. Diabetes mellitus type 2 #9. COPD on home oxygen #10. Previous history of myocardial infarction #11. Chronic anemia #12. Anxiety and depression #13. Scattered pulmonary fibrotic changes seen on CT chest of the lungs, and a 7 mm subpleural right lower lobe nodule Plan: We'll give the patient 1 dose of IV Lasix 40 mg 1, serum sodium rechecks per nephrology, patient appears to be sure breath, chest x-ray showing changes consistent with fluid volume overload, and her CT chest has been reviewed. No complaints of chest pain, no fever, she continues on antibiotics for lower extremity wounds. Blood cultures have been noted, patient is currently covered with meropenem, remains in A. fib with a controlled rate, Coumadin on hold for possibility of lower extremity surgical debridement. Adequate intake and output, daily weight, we'll continue to closely monitor in the intensive care unit, patient continues on demeclocycline and hypertonic saline per nephrology recommendations, we'll continue to follow I performed a history & physical examination of the patient and discussed their management with my nurse practitioner, Ade Guzmán. I reviewed the nurse practitioner's note and agree with the documented findings and plan of care. Lung sounds are positive for bilateral crackles. The findings and the impression was discussed with the patient. I attest to the documentation by the nurse practitioner. Time with Patient: Greater than 30
--- NOTE | 2020-08-08 10:20 | P.PN ---
Subjective Patient is seen in follow-up for hyponatremia. Yesterday her sodium level was down to 116 and she was transferred to the ICU. She did receive 3% for about 2 hours and the sodium went up to 125. Most recent sodium level 122. Oral intake stressed fair. No vomiting or diarrhea. Quite edematous. Vital signs are stable. General: The patient appeared well nourished and normally developed. HEENT: Head exam is unremarkable. Neck is without jugular venous distension. LUNGS: Breath sounds decreased. HEART: Rate and Rhythm are regular. ABDOMEN: Soft, nontender. EXTREMITITES: 2+ edema. Objective - Vital Signs Vital signs: Vital Signs Temp 97.1 F L 08/08/20 08:00 Pulse 90 08/08/20 10:00 Resp 12 08/08/20 10:00 BP 130/76 08/08/20 10:00 Pulse Ox 90 L 08/08/20 10:00 Intake & Output 08/07/20 08/08/20 08/08/20 18:59 06:59 18:59 Intake Total 513.199 100 250 Output Total 1250 810 170 Balance -736.801 -710 80 Weight 77.111 kg Intake: IV 25 100 130 Magnesium Sulfate-D5w Pmx 100 1 gm In Dextrose/Water 1 100ml.bag @ 100 mls/hr IVPB Q1H [facility] Rx#: [id number] Sodium Chloride 3%( 25 100 30 Hypertonic) 500 ml @ 10 mls/hr IV .Q24H [facility] Rx#: [id number] Intake, IV Titration 248.199 Amount Heparin Sod,Pork in 0.45% 248.199 NaCl 25,000 unit In 0.45 % NaCl 1 250ml.bag @ 12 UNITS/KG/HR 9.253 mls/hr IV .Q24H [facility] Rx#: [id number] Oral 240 120 Output: Urine 1250 810 170 Other: Voiding Method Bedside Commode Indwelling Catheter - Labs CBC & Chem 7: 08/08/20 03:15 08/08/20 08:39 Labs: Abnormal Lab Results - Last 24 Hours (Table) 08/06/20 08/07/20 08/07/20 Range/Units 17:13 10:22 16:26 RBC (3.80-5.40) m/uL Hgb (11.4-16.0) gm/dL Hct (34.0-46.0) % RDW (11.5-15.5) % Neutrophils # (1.3-7.7) k/uL Sodium 116 L* (137-145) mmol/L Chloride (98-107) mmol/L Glucose (74-99) mg/dL POC Glucose (mg/dL) (75-99) mg/dL Osmolality 258 L (280-301) mosm/kg Calcium (8.4-10.2) mg/dL Total Protein (6.3-8.2) g/dL Albumin (3.5-5.0) g/dL PTH Intact 82.0 H (14.0-72.0) pg/mL 08/07/20 08/07/20 08/07/20 Range/Units 17:37 20:17 21:18 RBC (3.80-5.40) m/uL Hgb (11.4-16.0) gm/dL Hct (34.0-46.0) % RDW (11.5-15.5) % Neutrophils # (1.3-7.7) k/uL Sodium 125 L (137-145) mmol/L Chloride (98-107) mmol/L Glucose (74-99) mg/dL POC Glucose (mg/dL) 156 H 129 H (75-99) mg/dL Osmolality (280-301) mosm/kg Calcium (8.4-10.2) mg/dL Total Protein (6.3-8.2) g/dL Albumin (3.5-5.0) g/dL PTH Intact (14.0-72.0) pg/mL 08/07/20 08/08/20 08/08/20 Range/Units 23:47 03:15 03:15 RBC 3.75 L (3.80-5.40) m/uL Hgb 10.7 L (11.4-16.0) gm/dL Hct 32.1 L (34.0-46.0) % RDW 16.6 H (11.5-15.5) % Neutrophils # 8.4 H (1.3-7.7) k/uL Sodium 121 L 120 L (137-145) mmol/L Chloride 88 L (98-107) mmol/L Glucose 116 H (74-99) mg/dL POC Glucose (mg/dL) (75-99) mg/dL Osmolality (280-301) mosm/kg Calcium 8.3 L (8.4-10.2) mg/dL Total Protein 5.5 L (6.3-8.2) g/dL Albumin 2.5 L (3.5-5.0) g/dL PTH Intact (14.0-72.0) pg/mL 08/08/20 08/08/20 Range/Units 06:36 08:39 RBC (3.80-5.40) m/uL Hgb (11.4-16.0) gm/dL Hct (34.0-46.0) % RDW (11.5-15.5) % Neutrophils # (1.3-7.7) k/uL Sodium 122 L (137-145) mmol/L Chloride (98-107) mmol/L Glucose (74-99) mg/dL POC Glucose (mg/dL) 143 H (75-99) mg/dL Osmolality (280-301) mosm/kg Calcium (8.4-10.2) mg/dL Total Protein (6.3-8.2) g/dL Albumin (3.5-5.0) g/dL PTH Intact (14.0-72.0) pg/mL Microbiology - Last 24 Hours (Table) 08/02/20 19:58 Blood Culture - Preliminary Blood No Growth after 120 hours 08/02/20 19:58 Blood Culture - Preliminary Blood No Growth after 120 hours Assessment and Plan Plan: Assessment: 1. Hyponatremia. Hypervolemic. Status post short duration of 3%. Sodium level 122 as of this morning. TSH normal. 2. Left lower extremity cellulitis maintained on antibiotics. 3. Diabetes mellitus. 4. Volume overload. Plan: Stop 3%. 1200 mL fluid restriction. Lasix 40 mg IV once now. Encourage oral intake, particularly protein. Repeat sodium level this afternoon.
[2020-08-08 11:19] LABS: Glucose,Whole Blood 148 mg/dL (75-99)
--- NOTE | 2020-08-08 11:23 | P.CONS ---
History of Present Illness - Reason for Consult Consult date: 08/08/20 wound care - History of Present Illness This is a 75-year-old patient known to the wound care center with nonhealing ulcerations to bilateral lower extremities. Patient was seen at the beginning of July and prescribed absorptive silver to the site. She has not been back since her first appointment. Past medical history significant for COPD, diabetes mellitus, hypertension, recurrent infection, arterial vascular disease with a previous right fem-pop bypass in 3-4 stents to the left leg. Original cause of wound was Gradually Appeared. The wound is currently classified as a Full Thickness Without Exposed Support Structures wound with etiology of To be determined and is located on the Left,Dorsal Toe Third. The wo und measures 2cm length x 1.3cm width x 0.1cm depth; 2.042cm^2 area and 0.204cm^3 volume. The wound is limited to skin breakdown. There is no tunneling or undermining noted. There is a large amount of serous drainage noted. There is no granulation within the wound bed. There is a large (67-100%) amount of necrotic tissue within the wound bed including Adherent Slough. Original cause of wound was Not Known. The wound is currently classified as a Full Thickness Without Exposed Support Structures wound with etiology of To be determined and is located on the Right,Medial,Posterior Lower Leg. The wound measures 3.6cm length x 2.7cm width x 0.2cm depth; 7.634cm^2 area and 1.527cm^3 volume. The wound is limited to skin breakdown. There is no tunneling or undermining noted. There is a large amount of serous drainage noted. There is no granulation within the wound bed. There is a large (67-100%) amount of necrotic tissue within the wound bed including Adherent Slough. The periwound skin appear ance exhibited: Scarring, Maceration. The periwound skin appearance did not exhibit: Dry/Scaly. Original cause of wound was Not Known. The wound is currently classified as a Full Thickness Without Exposed Support Structures wound with etiology of To be determined and is located on the Right,Lateral Lower Leg. The wound measures 6.6cm length x 3.9cm width x 0.3cm depth; 20.216cm^2 area and 6.065cm^3 volume. The wound is limited to skin breakdown. There is no tunneling or undermining noted. There is a large amount of serous drainage noted. There is small (1-33%) pink granulation within the wound bed. There is a large (67-100%) amount of necrotic tissue within the wound bed including Adherent Slough. The periwound skin appearance exhibited: Scarring, Maceration. The periwound skin appearance did not exhibit: Dry/Scaly. Original cause of wound was Not Known. The wound is currently classified as a Full Thickness Without Exposed Support Structures wound with etiology of To be determined and is located on the Right,Dorsal Foot. The wound measures 6.8cm length x 4.9cm width x 0.1cm depth; 26.169cm^2 area and 2.617cm^3 volume. The wound is limited to skin breakdown. There is no tunneling or undermining noted. There is a large amount of serous drainage noted. There is no granulation within the wound bed. There is a large (67-100%) amount of necrotic tissue within the wound bed including Adherent Slough. The periwound skin appearance exhibited: Maceration. The periwound skin appearance did not exhibit: Dry/Scaly. Original cause of wound was Not Known. The wound is currently classified as a Full Thickness Without Exposed Support Structures wound with etiology of To be determined and is located on the Left,Medial Lower Leg. The wound measures 9.9cm length x 4.6cm width x 0.4cm depth; 35.767cm^2 area and 14.307cm^3 volume. The wound is limited to skin breakdown. There is a large amount of serous drainage noted. There is no granulation within the wound bed. There is a large (67-100%) amount of necrotic tissue within the wound bed including Eschar and Adherent Slough. The periwound skin appearance exhibited: Scarring, Maceration. The periwound skin appearance did not exhibit: Dry/Scaly. Original cause of wound was Gradually Appeared. The wound is currently classified as a Full Thickness Without Exposed Support Structures wound with etiology of To be determined and is located on the Left,Dorsal Foot. The wound measures 5.9cm length x 6.2cm width x 0.2cm depth; 28.73cm^2 area and 5.746cm^3 volume. The wound is limited to skin breakdown. There is no tunneling or underm ining noted. There is a large amount of drainage noted. There is no granulation within the wound bed. There is a large (67-100%) amount of necrotic tissue within the wound bed including Adherent Slough. The periwound skin appearance exhibited: Scarring, Maceration. The periwound skin appearance did not exhibit: Dry/Scaly. Original cause of wound was Gradually Appeared. The wound is currently clas sified as a Full Thickness Without Exposed Support Structures wound with etiology of To be determined and is located on the Left,Dorsal Toe Great. The wound measures 1.4cm length x 1.7cm width x 0.1cm depth; 1.869cm^2 area and 0.187cm^3 volume. The wound is limited to skin breakdown. There is no tunneling or undermining noted. There is a medium amount of serous drainage noted. There is medium (34-66%) granulation within the wound bed. There is a medium (34-66%) amount of necrotic tissue within the wound bed including Adherent Slough. The periwound skin appearance exhibited: Scarring, Maceration. The periwound skin appearance did not exhibit: Dry/Scaly. Original cause of wound was Gradually Appeared. The wound is currently classified as a Full Thickness Without Exposed Support Structures wound with etiology of To be determined and is located on the Left,Dorsal Toe Second. The wound measures 2cm length x 1.4cm width x 0.1cm depth; 2.199cm^2 area and 0.22cm^3 volume. The wound is limited to skin breakdown. There is no tunneling or undermining noted. There is a medium amount of serous drainage noted. There is no granulation within the wound bed. There is a large (67-100%) amount of ne crotic tissue within the wound bed including Adherent Slough. The periwound skin appearance exhibited: Scarring, Dry/Scaly, Maceration. Review Of Systems: Constitutional: No fever, no chills, no night sweats. No weight change. No weakness, fatigue or lethargy. No daytime sleepiness. Integumentary:reports wounds, no lesions. No rash or pruritus. No unusual bruising. No change in hair or nails. Physical exam: General Appearance: Alert, cooperative, no distress, appears stated age. Skin: See HPI all other Skin color, texture, tugor normal, no rashes or lesions. Neurologic: Alert oriented x3 Assessment: 1. 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 Nonhealing ulceration with fatty layer exposure multiple sites right lower extremity 3. Nonhealing ulceration of fat layer exposure multiple sites of left lower extremity 4. Diabetes mellitus with skin ulceration Plan: 1. Patient is scheduled to have a surgical debridement but due to her ongoing sodium issues she is not able to have surgery. We will apply Santyl, saline moistened gauze, dry gauze, rolled gauze to all ulcerations to bilateral lower extremities change daily. Upon discharge patient will return to the wound care center for continuous treatment including debridement with Dr. Jade on Wednesdays. Thank you for the consultation any questions his contact the wound care center DNP note has been reviewed and discussed with Dr. Jade and the impression and plan of care has been directed as dictated. 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 Past Surgical History: Hysterectomy, Joint Replacement, Orthopedic Surgery Additional Past Surgical History / Comment(s): rtfem-pop bypass,3or4 stents lt leg,crys knee replace,lt shoulder repair Past Anesthesia/Blood Transfusion Reactions: Postoperative Nausea & Vomiting (PONV) Additional Past Anesthesia/Blood Transfusion Reaction / Comm: no problems with prior blood transfusions Past Psychological History: Anxiety, Depression Smoking Status: Former smoker Past Alcohol Use History: None Reported, Rare Past Drug Use History: None Reported - Past Family History Mother Family Medical History: Diabetes Mellitus Additional Family Medical History / Comment(s): heart problems Father Additional Family Medical History / Comment(s): heart problems Sister(s) Family Medical History: Diabetes Mellitus Additional Family Medical History / Comment(s): heart problems Brother(s) Family Medical History: Cancer Medications and Allergies Home Medications Medication Instructions Recorded Confirmed Type Lisinopril [Prinivil] 10 mg PO HS 09/20/15 08/02/20 History Lovastatin [Mevacor] 40 mg PO HS 09/20/15 08/02/20 History Multivit-Min/FA/Lycopen/Lutein 1 tab PO DAILY@1700 09/20/15 08/02/20 History [Centrum Silver Tablet] Pantoprazole [Protonix] 40 mg PO DAILY@0800 03/23/20 08/02/20 History Triamcinolone 0.5% Cream [Kenalog 1 applic TOPICAL DAILY PRN 03/23/20 08/02/20 History 0.5% Cream] Warfarin Sodium [Jantoven] 2.5 mg PO SUTUWETHSA@1700 03/23/20 08/02/20 History Warfarin Sodium [Jantoven] 5 mg PO MOFR@169903/23/20 08/02/20 History Ipratropium-Albuterol Nebulize 3 ml INHALATION RT-QID PRN ml 03/27/20 08/02/20 Rx [Duoneb 0.5 mg-3 mg/3 ml Soln] Albuterol Nebulized [Ventolin 2.5 mg INHALATION RT-QID PRN 06/07/20 08/02/20 History Nebulized] INSULIN ASPART (NovoLOG) [NovoLOG 7 unit SQ AC-TID vial 06/12/20 08/02/20 Rx (formulary)] Insulin Detemir (Levemir) [Levemir] 10 unit SQ HS syr 06/12/20 08/02/20 Rx traMADol HCl [Ultram] 50 mg PO TID PRN #9 tab 06/12/20 08/02/20 Rx Budesonide [Pulmicort] 0.5 mg INHALATION RT-BID@0800,209908/02/20 08/02/20 History Furosemide [Lasix] 40 mg PO BID@0800,1400 08/02/20 08/02/20 History Gabapentin [Neurontin] 200 mg PO BID@0800,2100 08/02/20 08/02/20 History Glucerna Shake 120 ml PO TID@0800,1700,2100 08/02/20 08/02/20 History Lidocaine 5% Oint [Xylocaine 5% 1 mm TOPICAL DAILY PRN 08/02/20 08/02/20 History Oint] Liquical 30 ml PO BID@0800,1700 08/02/20 08/02/20 History Loperamide HCl [Imodium A-D] 2 - 4 mg PO QID PRN 08/02/20 08/02/20 History Magnesium Hydroxide [Milk of 7,200 mg PO Q48H PRN 08/02/20 08/02/20 History Magnesia Concentrate] Na Phos,M-B/Na Phos,Di-Ba [Fleet 133 ml RECTAL DAILY PRN 08/02/20 08/02/20 History Adult] Spironolactone [Aldactone] 12.5 mg PO DAILY@0800 08/02/20 08/02/20 History bisacodyL [Bisacodyl] 10 mg RECTAL DAILY PRN 08/02/20 08/02/20 History predniSONE 10 mg PO DAILY@0800 08/02/20 08/02/20 History Allergies Allergy/AdvReac Type Severity Reaction Status Date / Time Penicillins Allergy Swelling Verified 08/02/20 19:30 hydrocodone bitartrate AdvReac Nausea & Verified 08/02/20 19:30 [From Vicodin] Vomiting sulfamethoxazole AdvReac Nausea & Verified 08/02/20 19:30 Vomiting Physical Exam Vitals: Vital Signs Temp Pulse Pulse Resp BP BP Pulse Ox 08/08/20 11:09 17 08/08/20 11:00 79 17 114/73 99 08/08/20 10:00 90 12 130/76 90 L 08/08/20 09:00 95 21 117/75 97 08/08/20 08:45 95 08/08/20 08:32 94 08/08/20 08:00 97.1 F L 88 12 123/81 96 08/08/20 07:00 79 18 130/83 99 08/08/20 06:00 84 16 116/93 98 08/08/20 05:00 71 13 108/68 95 08/08/20 04:00 98.7 F 68 16 115/66 98 08/08/20 03:00 87 19 112/71 78 L 08/08/20 02:00 86 20 114/71 98 08/08/20 01:00 16 121/74 99 08/08/20 00:00 98.4 F 70 16 105/71 100 08/07/20 23:00 89 18 106/76 99 08/07/20 22:00 85 18 113/65 95 08/07/20 21:32 85 08/07/20 21:30 80 22 114/75 08/07/20 21:19 84 08/07/20 21:00 95 18 115/68 08/07/20 20:30 81 16 109/72 08/07/20 20:00 97.5 F L 76 18 112/79 93 L 08/07/20 19:30 88 17 107/76 82 L 08/07/20 19:00 90 11 L 107/66 97 08/07/20 18:30 97.4 F L 73 12 106/73 96 08/07/20 12:45 97.9 F 79 20 108/73 100 Intake and Output 08/07/20 08/08/20 08/08/20 22:59 06:59 14:59 Intake Total 365 0 250 Output Total 1525 535 570 Balance -1160 -535 -320 Intake: IV 125 0 130 Magnesium Sulfate-D5w Pmx 100 1 gm In Dextrose/Water 1 100ml.bag @ 100 mls/hr IVPB Q1H [facility] Rx#: [id number] Sodium Chloride 3%( 125 0 30 Hypertonic) 500 ml @ 10 mls/hr IV .Q24H [facility] Rx#: [id number] Oral 240 120 Output: Urine 1525 535 570 Other: Voiding Method Indwelling Catheter Indwelling Catheter Indwelling Catheter Weight 77.111 kg Results CBC & Chem 7: 08/08/20 03:15 08/08/20 08:39 Labs: Abnormal Lab Results - Last 24 Hours (Table) 08/06/20 08/07/20 08/07/20 Range/Units 17:13 10:22 16:26 RBC (3.80-5.40) m/uL Hgb (11.4-16.0) gm/dL Hct (34.0-46.0) % RDW (11.5-15.5) % Neutrophils # (1.3-7.7) k/uL Sodium 116 L* (137-145) mmol/L Chloride (98-107) mmol/L Glucose (74-99) mg/dL POC Glucose (mg/dL) (75-99) mg/dL Osmolality 258 L (280-301) mosm/kg Calcium (8.4-10.2) mg/dL Total Protein (6.3-8.2) g/dL Albumin (3.5-5.0) g/dL PTH Intact 82.0 H (14.0-72.0) pg/mL 08/07/20 08/07/20 08/07/20 Range/Units 17:37 20:17 21:18 RBC (3.80-5.40) m/uL Hgb (11.4-16.0) gm/dL Hct (34.0-46.0) % RDW (11.5-15.5) % Neutrophils # (1.3-7.7) k/uL Sodium 125 L (137-145) mmol/L Chloride (98-107) mmol/L Glucose (74-99) mg/dL POC Glucose (mg/dL) 156 H 129 H (75-99) mg/dL Osmolality (280-301) mosm/kg Calcium (8.4-10.2) mg/dL Total Protein (6.3-8.2) g/dL Albumin (3.5-5.0) g/dL PTH Intact (14.0-72.0) pg/mL 08/07/20 08/08/20 08/08/20 Range/Units 23:47 03:15 03:15 RBC 3.75 L (3.80-5.40) m/uL Hgb 10.7 L (11.4-16.0) gm/dL Hct 32.1 L (34.0-46.0) % RDW 16.6 H (11.5-15.5) % Neutrophils # 8.4 H (1.3-7.7) k/uL Sodium 121 L 120 L (137-145) mmol/L Chloride 88 L (98-107) mmol/L Glucose 116 H (74-99) mg/dL POC Glucose (mg/dL) (75-99) mg/dL Osmolality (280-301) mosm/kg Calcium 8.3 L (8.4-10.2) mg/dL Total Protein 5.5 L (6.3-8.2) g/dL Albumin 2.5 L (3.5-5.0) g/dL PTH Intact (14.0-72.0) pg/mL 08/08/20 08/08/20 Range/Units 06:36 08:39 RBC (3.80-5.40) m/uL Hgb (11.4-16.0) gm/dL Hct (34.0-46.0) % RDW (11.5-15.5) % Neutrophils # (1.3-7.7) k/uL Sodium 122 L (137-145) mmol/L Chloride (98-107) mmol/L Glucose (74-99) mg/dL POC Glucose (mg/dL) 143 H (75-99) mg/dL Osmolality (280-301) mosm/kg Calcium (8.4-10.2) mg/dL Total Protein (6.3-8.2) g/dL Albumin (3.5-5.0) g/dL PTH Intact (14.0-72.0) pg/mL Microbiology - Last 24 Hours (Table) 08/02/20 19:58 Blood Culture - Preliminary Blood No Growth after 120 hours 08/02/20 19:58 Blood Culture - Preliminary Blood No Growth after 120 hours Assessment and Plan (1) Atherosclerosis of left lower extremity with ulceration Current Visit: Yes Status: Acute Code(s): I70.249 - ATHSCL [place] ARTERIES OF LEFT LEG W ULCERATION OF UNSP SITE SNOMED Code(s): 55915248 (2) Atherosclerosis of right lower extremity with ulceration Current Visit: Yes Status: Acute Code(s): I70.239 - ATHSCL [place] ARTERIES OF RIGHT LEG W ULCER OF UNSP SITE SNOMED Code(s): 32031548 (3) Diabetes mellitus with skin ulcer Current Visit: No Status: Acute Code(s): E11.622 - TYPE 2 DIABETES MELLITUS WITH OTHER SKIN ULCER; L98.499 - NON-PRESSURE CHRONIC ULCER OF SKIN OF SITES W UNSP SEVERITY SNOMED Code(s): 17829028 (4) Nonhealing ulcer of left lower extremity with fat layer exposed Current Visit: No Status: Acute Code(s): L97.922 - NON-PRS CHR ULC UNSP PRT OF L LOW LEG W FAT LAYER EXPOSED SNOMED Code(s): 63545411 (5) Nonhealing ulcer of right lower extremity with fat layer exposed Current Visit: No Status: Acute Code(s): L97.912 - NON-PRS CHR ULC UNSP PRT OF R LOW LEG W FAT LAYER EXPOSED SNOMED Code(s): 00922193
[2020-08-08] MEDS: COLLAGENASE 250 UNIT/GM OINTMENT 30 GM TUBE TOPICAL SCH (11:48)
--- NOTE | 2020-08-08 13:50 | P.PN ---
Subjective Progress Note Date: 08/08/20 HISTORY OF PRESENT ILLNESS Is a 75 year old female patient of Dr. Mcmahan with past medical history significant for diabetes mellitus type 2, COPD, chronic hypoxic respiratory failure on home O2, chronic diastolic heart failure, chronic atrial fibrillation hypertension, hyperlipidemia, previous myocardial infarction, chronic lower extremity ulcers, peripheral vascular occlusive disease with previous fem-pop bypass and stenting, history of chronic tobacco use. Patient was last hospitalized in May of this year at which time she was treated for acute on chronic hypoxic respiratory failure and COPD exacerbation. She has chronic diabetic ulcers for which she follows in the wound healing Center. The patient states that she thinks her wound on her left lower leg is getting worse. Patient apparently recently completed 2 courses of antibiotics. No significant pain to the wounds. Denies any fever or chills. Patient came into [facility] emergency center for evaluation. Patient was afebrile, heart rate 93, blood pressure 108/96, pulse ox 96%. WBC 12.7, hemoglobin 11.6, platelet count 283. Sodium 123, potassium 4.4, chloride 86, CO2 30, BUN 27 creatinine 2.51. Blood sugar 201. Liver function tests normal. INR 1.7. Lactic acid 1.6. Patient to be admitted to the [facility] floor, consult in place with vascular surgery which is planning on I&D this afternoon in OR. Consult added for infectious disease. 08/04: Sodium is again low this morning at 126. Patient does have chronic hyponatremia. Consult will be added for nephrology and a urine sodium and osmolality, serum osmolality ordered as well as sodium chloride tablet twice daily. Surgical debridement is delayed due to hyponatremia. She has been afebrile, heart rate 81, blood pressure 101/64, pulse ox 96% on 2 L. Other lab work reveals that he be sealed 11.4. INR 2.1. Creatinine 0.4. Blood sugars running between 143 and 270. Vanco trough 11.8. Debridement may occur tomorrow and Coumadin is on hold. Dr. Cramer has evaluated the patient and added cefepime to vancomycin. Discharge plan is to return to [facility] possibly on Friday Patient examined bedside. Does appear slightly congested on examination and does occasional cough but denies any shortness of breath,. Patient denies any dizziness nausea or vomiting. Vitals are stable with temp of 96.8 pulse 93 blood pressure 100/66 oxygen saturation 100% on 2 L. Patient's sodium continues to be on low 125 appears to be hypo-volemic rather than SIADH. Inflammation markers elevated, CRP is 28.8. Creatinine 0.46 serum osmolarity 270 urine osmolarity 557 urine sodium 10 vancomycin trough 11.8 wound culture positive for gram-negative bacilli blood culture negative so far. We'll plan for debridement over the weekend will start patient on heparin drip for chronic atrial fibrillation 08/06 patient evaluated bedside stop she denies any dizziness, confusion and change in mental status. Patient's sodium has dropped to 120 potassium 3.5 CO2 19 creatinine 0.46 calcium is 6.6. Glucose has been ranging between 77-180. R am repeat urine studies to be obtained. Echo ordered per nephrology to rule out right ventricular failure Lasix has been discontinued. Patient's orthostatic was positive . Repeat labs tomorrow for evaluation. Continue cefepime for cellulitis of the lower extremity with plan to place PICC line for IV antibiotics on discharge. Continue heparin drip for atrial fibrillation as Coum janel is on hold 08/07: Dr. Cramer has changed antibiotics to meropenem. Patient remains off Coumadin and is on heparin drip. Her repeat blood work this morning reveals INR 1.5. Blood sugars have been running between 92 and 183. Repeat sodium 119, chloride 86, potassium 4.7, CO2 23, creatinine 0.6. WBC 14.8, hemoglobin 9.4. No plan for surgical intervention soon due to worsening hyponatremia, patient will be started on eliquis versus Coumadin. Patient will be started on penicillin cleaned 300 mg twice daily. Patient has been off Lasix and lisinopril. CT of the chest has been ordered. This revealed mild emphysematous change with moderate to severe bilateral pulmonary fibrosis.His acute infiltrate. Cardiomegaly with tiny bilateral pleural effusions cannot exclude a degree of CHF exacerbation. Bilateral thyroid nodules right measuring 3.5 cm. Follow-up thyroid ultrasound advised. Echocardiogram reveals EF of 50-55% with severe mitral regurgitation, [id number] mitral stenosis, severe tricuspid regurgitation, moderate to severe pulmonary hypertension. 08/08: Patient was transferred to the ICU due to hyponatremia as he was started on a 3% saline drip which is subsequently been discontinued. Patient is ordered for 1 dose of IV Lasix this morning and 40 mg by nephrology. The minocycline has also been discontinued by nephrology. Patient denies any new complaints. She denies any shortness of breath or chest pain. Her sodium this morning is at 120, potassium 4.8, chloride 88, CO2 27, creatinine 0.56. Blood sugars running between 100 1648. WBC 10.1, hemoglobin 10.7. ProBNP 5520. TSH 0.977. Vascular surgery has signed off this case and plan for wound care team. No plan for surgical intervention on this admission. Patient will follow up with Dr. Jade as an outpatient and any debridement necessary will be done as an outpatient at a later time. Wound culture has been finalized with Proteus mirabilis and Burkholderia cepacia the patient is currently on meropenem managed by Dr. Cramer. REVIEW OF SYSTEMS Constitutional: No fever, no chills, no night sweats. No weight change. No weakness, fatigue or lethargy. No daytime sleepiness. EENT: No headache. No blurred vision or double vision, no loss of vision. No loss of Hearing, no ringing in the ears, no dizziness. No nasal drainage or congestion. No epistaxis. No sore throat. Lungs: No shortness of breath, cough, no sputum production. No wheezing. Cardiovascular: No chest pain, no lower extremity edema. No palpitations. No paroxysmal nocturnal dyspnea. No orthopnea. No lightheadedness or dizziness. No syncopal episodes. Abdominal: No abdominal pain. No nausea, vomiting. No diarrhea. No constipation. No bloody or tarry stools.. No loss of appetite. Genitourinary: No dysuria, increased frequency, urgency. No urinary retention. Musculoskeletal: No myalgias. No muscle weakness, no gait dysfunction, no frequent falls. No back pain. No neck pain. Integumentary: Reports wounds, no lesions. No rash or pruritus. No unusual bruising. No change in hair or nails. Neurologic: No aphasia. No facial droop. No change in mentation. No head injury. No headache. No paralysis. No paresthesia. Psychiatric: No depression. No anxiety. No mood swings. Endocrine: Reports abnormal blood sugars. PHYSICAL EXAMINATION Gen: This is a 75-year-old female. Patient is resting in chair and appears to be in no acute distress. No respiratory distress noted. HEENT: Head is atraumatic, normocephalic. Pupils equal, round. Sclerae is anicteric. NECK: Supple. No JVD. No lymphadenopathy. No thyromegaly. LUNGS: Diminished with bilateral wheezes. No intercostal retractions. HEART: Regular rate and rhythm. No murmur. ABDOMEN: Soft. Bowel sounds are present. No masses. No tenderness. EXTREMITIES: Mild pedal edema. Large left lower extremity ulcer on the medial side with surrounding erythema. Dorsalis pedis on the left is 1+, 2+ on the right. Patient also has small superficial ulcers to the left foot dorsal surface base of toes 2 through 4 and dusky purple color to the toes. There is a 5 x 2.5 cm wound on the right medial posterior calf with no significant e rythema. There is also a small ulcer on the dorsal surface of the right great toe without erythema or drainage. See nursing documentation for details. NEUROLOGICAL: Patient is awake, alert and oriented x3. Cranial nerves 2 through 12 are grossly intact. ASSESSMENT AND PLAN 1. Chronic bilateral venous and diabetic ulcers with acute cellulitis. This was surgery has signed off. No plan for debridement on this admission. Continue local wound care per wound care team. Continue meropenem. Consult with Dr. Shoaib pearson. 2. Diabetes mellitus type 2. Continue Levemir 10 units at bedtime, NovoLog 7 units 3 times daily with meals and NovoLog scale before meals and at bedtime. 3. Diabetic neuropathy. Continue gabapentin 200 mg twice daily. 4. Chronic diastolic heart failure. Patient is off Lasix, Aldactone, lisinopril. 5. Chronic atrial fibrillation. Continue eliquis 5 mg twice daily. 6. Hypovolemic Hyponatremia. Patient is status post 1 dose of IV Lasix this morning, continue current management per nephrology daily. Continue 1200 mL fluid restriction. 7. Hypertension. Off lisinopril 10 mg at bedtime. 8. Hyperlipidemia. Continue statin. 9. COPD without exacerbation. Continue albuterol as needed, Pulmicort twice daily. 10. Gastroesophageal reflux disease. Continue Protonix 40 mg daily. 11. Hypocalcemia. Vitamin D ordered. 2 new calcium Calcium carbonate 500 3 times a day 12. Bilateral thyroid nodules to be followed up. 13. Valvular heart disease with severe mitral regurgitation, mild to moderate mitral stenosis, severe tricuspid regurgitation, moderate to severe pulmonary hypertension. DISCHARGE PLAN Return to [facility] under the care of Dr. Mcmahan Impression and plan of care have been directed as dictated by the signing physician. Maida Johnson nurse practitioner acting as scribe for signing physician. Objective - Vital Signs Vital signs: Vital Signs Temp 97.1 F L 08/08/20 08:00 Pulse 90 08/08/20 10:00 Resp 12 08/08/20 10:00 BP 130/76 08/08/20 10:00 Pulse Ox 90 L 08/08/20 10:00 Intake & Output 08/07/20 08/08/20 08/08/20 18:59 06:59 18:59 Intake Total 513.199 100 250 Output Total 1250 810 170 Balance -736.801 -710 80 Weight 77.111 kg Intake: IV 25 100 130 Magnesium Sulfate-D5w Pmx 100 1 gm In Dextrose/Water 1 100ml.bag @ 100 mls/hr IVPB Q1H [facility] Rx#: [id number] Sodium Chloride 3%( 25 100 30 Hypertonic) 500 ml @ 10 mls/hr IV .Q24H [facility] Rx#: [id number] Intake, IV Titration 248.199 Amount Heparin Sod,Pork in 0.45% 248.199 NaCl 25,000 unit In 0.45 % NaCl 1 250ml.bag @ 12 UNITS/KG/HR 9.253 mls/hr IV .Q24H [facility] Rx#: [id number] Oral 240 120 Output: Urine 1250 810 170 Other: Voiding Method Bedside Commode Indwelling Catheter Indwelling Catheter - Labs CBC & Chem 7: 08/08/20 03:15 08/08/20 12:33 Labs: Abnormal Lab Results - Last 24 Hours (Table) 08/06/20 08/07/20 08/07/20 Range/Units 17:13 10:22 16:26 RBC (3.80-5.40) m/uL Hgb (11.4-16.0) gm/dL Hct (34.0-46.0) % RDW (11.5-15.5) % Neutrophils # (1.3-7.7) k/uL Sodium 116 L* (137-145) mmol/L Chloride (98-107) mmol/L Glucose (74-99) mg/dL POC Glucose (mg/dL) (75-99) mg/dL Osmolality 258 L (280-301) mosm/kg Calcium (8.4-10.2) mg/dL Total Protein (6.3-8.2) g/dL Albumin (3.5-5.0) g/dL PTH Intact 82.0 H (14.0-72.0) pg/mL 08/07/20 08/07/20 08/07/20 Range/Units 17:37 20:17 21:18 RBC (3.80-5.40) m/uL Hgb (11.4-16.0) gm/dL Hct (34.0-46.0) % RDW (11.5-15.5) % Neutrophils # (1.3-7.7) k/uL Sodium 125 L (137-145) mmol/L Chloride (98-107) mmol/L Glucose (74-99) mg/dL POC Glucose (mg/dL) 156 H 129 H (75-99) mg/dL Osmolality (280-301) mosm/kg Calcium (8.4-10.2) mg/dL Total Protein (6.3-8.2) g/dL Albumin (3.5-5.0) g/dL PTH Intact (14.0-72.0) pg/mL 08/07/20 08/08/20 08/08/20 Range/Units 23:47 03:15 03:15 RBC 3.75 L (3.80-5.40) m/uL Hgb 10.7 L (11.4-16.0) gm/dL Hct 32.1 L (34.0-46.0) % RDW 16.6 H (11.5-15.5) % Neutrophils # 8.4 H (1.3-7.7) k/uL Sodium 121 L 120 L (137-145) mmol/L Chloride 88 L (98-107) mmol/L Glucose 116 H (74-99) mg/dL POC Glucose (mg/dL) (75-99) mg/dL Osmolality (280-301) mosm/kg Calcium 8.3 L (8.4-10.2) mg/dL Total Protein 5.5 L (6.3-8.2) g/dL Albumin 2.5 L (3.5-5.0) g/dL PTH Intact (14.0-72.0) pg/mL 08/08/20 08/08/20 Range/Units 06:36 08:39 RBC (3.80-5.40) m/uL Hgb (11.4-16.0) gm/dL Hct (34.0-46.0) % RDW (11.5-15.5) % Neutrophils # (1.3-7.7) k/uL Sodium 122 L (137-145) mmol/L Chloride (98-107) mmol/L Glucose (74-99) mg/dL POC Glucose (mg/dL) 143 H (75-99) mg/dL Osmolality (280-301) mosm/kg Calcium (8.4-10.2) mg/dL Total Protein (6.3-8.2) g/dL Albumin (3.5-5.0) g/dL PTH Intact (14.0-72.0) pg/mL Microbiology - Last 24 Hours (Table) 08/02/20 19:58 Blood Culture - Preliminary Blood No Growth after 120 hours 08/02/20 19:58 Blood Culture - Preliminary Blood No Growth after 120 hours
[2020-08-08 16:45] LABS: Glucose,Whole Blood 116 mg/dL (75-99)
--- NOTE | 2020-08-08 18:50 | PN ---
PROGRESS NOTE DATE OF SERVICE: 08/08/2020 REASON FOR FOLLOWUP: Bilateral lower extremity wounds with secondary cellulitis. INTERVAL HISTORY: The patient is afebrile. She has been transferred down to the ICU because of her low sodium. The patient is breathing comfortably. Denies having any chest pain, shortness of breath or cough. Complains of pain to the lower extremities, but no worsening. PHYSICAL EXAMINATION: Blood pressure 124/52 with a pulse of 104, temperature 98. She is 95% on 2 L nasal cannula. General description is an elderly female lying in bed in no distress. RESPIRATORY SYSTEM: Unlabored breathing. Clear to auscultation anteriorly. HEART: S1, S2. Regular rate and rhythm. ABDOMEN: Soft. No tenderness. LOWER EXTREMITIES: Multiple ulcerations with some slough tissue. Surrounding redness has improved. No foul-smelling drainage. LABS: Culture positive for burkholderia and Proteus mirabilis. DIAGNOSTIC IMPRESSION AND PLAN: Patient with bilateral lower extremity wounds with secondary cellulitis with a drug- resistant pathogen. The patient is covered with meropenem. She will need a PICC line as an outpatient for antibiotic therapy for at least 3 weeks. Local wound care with Santyl and moist dressing. Continue with supportive care. MMODL / IJN: [id number] /
[2020-08-08] MEDS ORDERED: FUROSEMIDE 10 MG/ML 4 ML VIAL IV ONE (20:00)
[2020-08-08 20:09] LABS: Glucose,Whole Blood 107 mg/dL (75-99)
[2020-08-08] MEDS: ATORVASTATIN 10 MG TAB PO SCH (20:20)
[2020-08-08] MEDS: INSULIN DETEMIR (LEVEMIR) 100 UNIT/ML SYR SQ SCH (20:20)
[2020-08-09] MEDS: traMADol 50 MG TAB PO PRN (01:37)
[2020-08-09] MEDS: MEROPENEM 1 GM in SODIUM CHLORIDE 0.9% 100 ML IVPB SCH ×3 (04:00→20:32)
[2020-08-09 04:13] LABS: Anisocytosis Slight; Basophils % (A) 0 %; Eosinophils # (A) 0.1 k/uL (0-0.7); Eosinophils % (A) 1 %; HCT 33.4 % (34.0-46.0); HGB 10.8 gm/dL (11.4-16.0); Lymphocytes # (A) 1.2 k/uL (1.0-4.8); Lymphocytes % (A) 11 %; MCH 27.8 pg (25.0-35.0); MCHC 32.5 g/dL (31.0-37.0); MCV 85.7 fL (80.0-100.0); Monocytes # (A) 0.5 k/uL (0-1.0); Monocytes % (A) 4 %; Neutrophils # (A) 9.6 k/uL (1.3-7.7); Neutrophils % (A) 83 %; Platelet Count 297 k/uL (150-450); RDW 16.5 % (11.5-15.5); WBC 11.6 k/uL (3.8-10.6)
[2020-08-09 04:35] LABS: African American GFR (CKD) >90 (>60 ml/min/1.73 sqM); Anion Gap 5 mmol/L; Blood Urea Nitrogen 18 mg/dL (7-17); Calcium 8.6 mg/dL (8.4-10.2); Carbon Dioxide 29 mmol/L (22-30); Chloride 88 mmol/L (98-107); Glucose 107 mg/dL (74-99); Magnesium 1.7 mg/dL (1.6-2.3); Non-African American GFR(CKD) >90 (>60 ml/min/1.73 sqM); Sodium 122 mmol/L (137-145)
[2020-08-09] MEDS: MAGNESIUM SULFATE-D5W PMX 1 GM in DEXTROSE/WATER 1 100ML.BAG IVPB SCH ×2 (05:18→06:14)
[2020-08-09] MEDS ORDERED: FUROSEMIDE 10 MG/ML 4 ML VIAL IV STA ×2 (06:05→18:49)
[2020-08-09] MEDS ORDERED: SODIUM CHLORIDE 3%(HYPERTONIC) 500 ML IV SCH (06:15)
[2020-08-09] MEDS ORDERED: TOLVAPTAN 15 MG 1/2 TABLET PO ONE (06:15)
[2020-08-09 06:45] LABS: Glucose,Whole Blood 157 mg/dL (75-99)
[2020-08-09] MEDS: INSULIN ASPART (NovoLOG) 100 UNIT/ML VIAL SQ SCH ×7 (07:03→20:35)
[2020-08-09] MEDS: IPRATROPIUM-ALBUTEROL 3 ML NEB INHALATION PRN (07:05)
[2020-08-09] MEDS: BUDESONIDE 0.5 MG/2 ML NEBU INHALATION SCH ×2 (07:05→20:26)
--- NOTE | 2020-08-09 09:57 | P.PN ---
Subjective Progress Note Date: 08/09/20 Principal diagnosis: Bilateral lower extremity wounds, shortness of breath, hyponatremia 75-year-old female patient of Dr. Mcmahan with multiple medical problems including COPD on home oxygen at 3 L on a regular basis, hypertension, diabetes mellitus type 2, previous [place], peripheral vascular disease with history of intervention including fem-pop bypass and placement of stents, chronic anemia, previous history of MRSA infection in her leg wounds, former smoker, anxiety and depre ssion, who initially came into the hospital on 08/02/2020 per EMS for evaluation of bilateral lower extremity leg wounds. Apparently patient has chronic leg wounds, and had recently completed 2 courses of antibiotics. Patient came in from a [facility]. Patient did not have any fever or chills, she was started on Levaquin and vancomycin on admission for lower extremity wounds, and vascular surgery saw the patient consultation. Patient normally goes to the wound care clinic. Patient was given IV fluids. On admission patient's serum sodium was 123, looking back at her labs from May and June, patient's serum sodium level was fluctuating between 120 and 134 at the highest. In addition patient seems to be generally fluid overloaded, with lower extremity edema, and her chest x-ray showing changes consistent with CHF and interstitial pulmonary edema. She was transferred to the intensive care unit early this morning for initiation of hypertonic saline. This morning her serum sodium is 122, 3% saline is infusing at a rate of 10 mL per hour, patient seems to be short of breath, she's cut diffuse crackles and congested cough on physical exam, she is awake and alert, answering questions appropriately, denies any chest pain, she has been leg edema with 1+ lower extremity edema and weeping lower extremity wounds. White blood cell count is 10.1, hemoglobin is 10.7, INR is 1.5, her Coumadin remains on hold for possibility of surgical debridement of her wounds. Lisinopril BNP level which came back elevated at 5520. Patient is currently on 2 L of oxygen, with a pulse ox of 97%, no vasoactive drips at this time. Patient is in A. fib, which is chronic for her, the rate is controlled at 96 BPM. On 08/09/2020 patient seen in follow-up in the intensive care unit, today she is breathing much easier, still has some diffuse crackles bilateral lungs, but she is on room air today, less short of breath, she is able to sit back in the recliner and breathe comfortably, no complaints of chest pain. Room air pulse ox is 97%, no fever or chills, hemodynamically patient is stable, she is in A. fib with a controlled rate, and patient is on Eliquis for anticoagulation. She continues on meropenem for bilateral leg infection and wound cultures were positive for Proteus mirabilis and Burkholderia cepacia, she's had no fever or chills. Patient was given a dose of Lasix yesterday, she has pretty 2.7 L in the urine output and she is in -1.8 minutes fluid balance over the last 24 hours, still has lower extremity edema which has a little bit improved. Today's labs show sodium of 122, hypertonic saline has been discontinued, currently patient is on point and was seen intermittent 10 mL per hour, no other drips, and patient will receive Tolvaptan today. Nephrology is following, white blood cell count is 11.6, hemoglobin is 10.8, potassium is 5.0, chloride is 88, BUN is 18 and creatinine 0.6 Objective - Vital Signs Vital signs: Vital Signs Temp 98.3 F 08/09/20 08:00 Pulse 93 08/09/20 09:00 Resp 17 08/09/20 09:00 BP 128/87 08/09/20 09:00 Pulse Ox 95 08/09/20 09:00 Intake & Output 08/08/20 08/09/20 08/09/20 18:59 06:59 18:59 Intake Total 810 100 Output Total 1595 1170 115 Balance -785 -1070 -115 Intake: IV 330 100 Magnesium Sulfate-D5w Pmx 200 1 gm In Dextrose/Water 1 100ml.bag @ 100 mls/hr IVPB Q1H [facility] Rx#: [id number] Meropenem 1 gm In Sodium 100 100 Chloride 0.9% 100 ml @ 33 .3 mls/hr IVPB Q8H [facility] Rx #:[id number] Sodium Chloride 3%( 30 Hypertonic) 500 ml @ 10 mls/hr IV .Q24H [facility] Rx#: [id number] Oral 480 Output: Urine 1595 1170 115 Other: Voiding Method Indwelling Catheter Indwelling Catheter - Exam GENERAL EXAM: Alert, very pleasant, 75-year-old white female, on room air with pulse ox of 95-97%, sitting up in the recliner, comfortable in no apparent distress. HEAD: Normocephalic/atraumatic. EYES: Normal reaction of pupils, equal size. Conjunctiva pink, sclera white. NOSE: Clear with pink turbinates. THROAT: No erythema or exudates. NECK: No masses, no JVD, no thyroid enlargement, no adenopathy. CHEST: No chest wall deformity. Symmetrical expansion. LUNGS: Equal air entry with diffuse crackles bilaterally, congested cough CVS: Irregular rate and rhythm, normal S1 and S2, no gallops, no murmurs, no rubs ABDOMEN: Soft, nontender. No hepatosplenomegaly, normal bowel sounds, no guarding or rigidity. EXTREMITIES: No clubbing, 1-2+ lower extremity edema, no cyanosis, 2+ pulses and upper and lower extremities. MUSCULOSKELETAL: Muscle strength and tone normal. SPINE: No scoliosis or deformity SKIN: No rashes, patient has anterior tibial areas of wounds wound bed is mostly clean, the wounds are very moist, weeping, sharp demarcated edges, they're clean, do not appear to be infected CENTRAL NERVOUS SYSTEM: Alert and oriented -3. No focal deficits, tone is no rmal in all 4 extremities. PSYCHIATRIC: Alert and oriented -3. Appropriate affect. Intact judgment and insight. - Labs CBC & Chem 7: 08/09/20 03:33 08/09/20 03:33 Labs: Abnormal Lab Results - Last 24 Hours (Table) 08/08/20 08/08/20 08/08/20 Range/Units 11:17 12:33 16:29 WBC (3.8-10.6) k/uL Hgb (11.4-16.0) gm/dL Hct (34.0-46.0) % RDW (11.5-15.5) % Neutrophils # (1.3-7.7) k/uL Sodium 122 L 122 L (137-145) mmol/L Chloride (98-107) mmol/L BUN (7-17) mg/dL Glucose (74-99) mg/dL POC Glucose (mg/dL) 148 H (75-99) mg/dL 08/08/20 08/08/20 08/09/20 Range/Units 16:44 20:07 03:33 WBC (3.8-10.6) k/uL Hgb (11.4-16.0) gm/dL Hct (34.0-46.0) % RDW (11.5-15.5) % Neutrophils # (1.3-7.7) k/uL Sodium 122 L (137-145) mmol/L Chloride 88 L (98-107) mmol/L BUN 18 H (7-17) mg/dL Glucose 107 H (74-99) mg/dL POC Glucose (mg/dL) 116 H 107 H (75-99) mg/dL 08/09/20 08/09/20 Range/Units 03:33 06:43 WBC 11.6 H (3.8-10.6) k/uL Hgb 10.8 L (11.4-16.0) gm/dL Hct 33.4 L (34.0-46.0) % RDW 16.5 H (11.5-15.5) % Neutrophils # 9.6 H (1.3-7.7) k/uL Sodium (137-145) mmol/L Chloride (98-107) mmol/L BUN (7-17) mg/dL Glucose (74-99) mg/dL POC Glucose (mg/dL) 157 H (75-99) mg/dL Microbiology - Last 24 Hours (Table) 08/02/20 19:58 Blood Culture - Final Blood No Growth after 144 hours 08/02/20 19:58 Blood Culture - Final Blood No Growth after 144 hours Assessment and Plan Plan: Assessment: #1. Hyponatremia, appears to be hypervolemic due to acute exacerbation of CHF with diastolic dysfunction #2. Valvular heart disease, severe mitral regurgitation and mild to moderate mitral stenosis, severe tricuspid regurgitation, severe pulmonary hypertension with right heart pressure of 66.3 mmHg #3. Severe pulmonary hypertension with PA systolic of 66.3 mmHg, likely secondary to advanced COPD #4. Chronic hypoxic respiratory failure related to advanced COPD #5. Chronic lower extremity wounds, patient usually goes to the wound Center, with history of MRSA infection. Wound cultures from the left leg showed Proteus mirabilis and Burkholderia cepacia currently covered with meropenem #6. Chronic A. fib on Coumadin which is on hold for possibility of lower extremity wound debridement #7. Peripheral vascular disease with previous intervention #8. Diabetes mellitus type 2 #9. COPD on home oxygen #10. Previous history of myocardial infarction #11. Chronic anemia #12. Anxiety and depression #13. Scattered pulmonary fibrotic changes seen on CT chest of the lungs, and a 7 mm subpleural right lower lobe nodule Plan: Patient received another dose of diuretics this morning per nephrology, she has diuresed acutely in the last 24 hours, she is in negative fluid balance, she is pretty much easier, she is on room air, no acute events overnight, continue oral anticoagulation, her A. fib is controlled. No worsening dyspnea, or hypoxia. Vital signs have been stable, patient will be started on oral Tolvaptan today, sodium is being followed by nephrology, continue fluid restriction, continue local wound care and antibiotics per ID service recommendations. We'll continue to follow. If she doesn't need to be restarted on hypertonic saline and remains stable we will consider transfer out of the unit today I performed a history & physical examination of the patient and discussed their management with my nurse practitioner, Ade Guzmán. I reviewed the nurse practitioner's note and agree with the documented findings and plan of care. Lung sounds are positive for bilateral crackles. The findings and the impression was discussed with the patient. I attest to the documentation by the nurse practitioner. Time with Patient: Less than 30
--- NOTE | 2020-08-09 10:12 | P.PN ---
Subjective Patient is seen in follow-up for hyponatremia. Patient received 2 doses of IV Lasix yesterday. Sodium level stable. She was given a dose of Samsca 15 mg this morning. Oral intake is gradually improving. Vital signs are stable. General: The patient appeared well nourished and normally developed. HEENT: Head exam is unremarkable. Neck is without jugular venous distension. LUNGS: Breath sounds decreased. HEART: Rate and Rhythm are regular. ABDOMEN: Soft, nontender. EXTREMITITES: 2+ edema. Objective - Vital Signs Vital signs: Vital Signs Temp 98.3 F 08/09/20 08:00 Pulse 93 08/09/20 09:00 Resp 17 08/09/20 09:00 BP 128/87 08/09/20 09:00 Pulse Ox 95 08/09/20 09:00 Intake & Output 08/08/20 08/09/20 08/09/20 18:59 06:59 18:59 Intake Total 810 100 Output Total 1595 1170 115 Balance -785 -1070 -115 Intake: IV 330 100 Magnesium Sulfate-D5w Pmx 200 1 gm In Dextrose/Water 1 100ml.bag @ 100 mls/hr IVPB Q1H [facility] Rx#: [id number] Meropenem 1 gm In Sodium 100 100 Chloride 0.9% 100 ml @ 33 .3 mls/hr IVPB Q8H [facility] Rx #:[id number] Sodium Chloride 3%( 30 Hypertonic) 500 ml @ 10 mls/hr IV .Q24H [facility] Rx#: [id number] Oral 480 Output: Urine 1595 1170 115 Other: Voiding Method Indwelling Catheter Indwelling Catheter - Labs CBC & Chem 7: 08/09/20 03:33 08/09/20 03:33 Labs: Abnormal Lab Results - Last 24 Hours (Table) 08/08/20 08/08/20 08/08/20 Range/Units 11:17 12:33 16:29 WBC (3.8-10.6) k/uL Hgb (11.4-16.0) gm/dL Hct (34.0-46.0) % RDW (11.5-15.5) % Neutrophils # (1.3-7.7) k/uL Sodium 122 L 122 L (137-145) mmol/L Chloride (98-107) mmol/L BUN (7-17) mg/dL Glucose (74-99) mg/dL POC Glucose (mg/dL) 148 H (75-99) mg/dL 08/08/20 08/08/20 08/09/20 Range/Units 16:44 20:07 03:33 WBC (3.8-10.6) k/uL Hgb (11.4-16.0) gm/dL Hct (34.0-46.0) % RDW (11.5-15.5) % Neutrophils # (1.3-7.7) k/uL Sodium 122 L (137-145) mmol/L Chloride 88 L (98-107) mmol/L BUN 18 H (7-17) mg/dL Glucose 107 H (74-99) mg/dL POC Glucose (mg/dL) 116 H 107 H (75-99) mg/dL 08/09/20 08/09/20 Range/Units 03:33 06:43 WBC 11.6 H (3.8-10.6) k/uL Hgb 10.8 L (11.4-16.0) gm/dL Hct 33.4 L (34.0-46.0) % RDW 16.5 H (11.5-15.5) % Neutrophils # 9.6 H (1.3-7.7) k/uL Sodium (137-145) mmol/L Chloride (98-107) mmol/L BUN (7-17) mg/dL Glucose (74-99) mg/dL POC Glucose (mg/dL) 157 H (75-99) mg/dL Microbiology - Last 24 Hours (Table) 08/02/20 19:58 Blood Culture - Final Blood No Growth after 144 hours 08/02/20 19:58 Blood Culture - Final Blood No Growth after 144 hours Assessment and Plan Plan: Assessment: 1. Hyponatremia. Hypervolemic. Status post short duration of 3%. Also received 2 doses of IV Lasix yesterday. Sodium level stable at 122 as of this morning. TSH normal. Urine sodium less than 10 and urine osmolality 207 as of yesterday. 2. Left lower extremity cellulitis maintained on antibiotics. 3. Diabetes mellitus. 4. Volume overload. Plan: Status post Samsca given this morning. Encourage oral intake, particularly protein. Repeat sodium level this afternoon.
[2020-08-09] MEDS: GABAPENTIN 100 MG CAP PO SCH ×2 (10:20→20:33)
[2020-08-09] MEDS: APIXABAN 5 MG TAB PO SCH ×2 (10:20→20:33)
[2020-08-09] MEDS: PANTOPRAZOLE 40 MG TABLET PO SCH (10:20)
[2020-08-09] MEDS: CALCIUM CARBONATE 500 MG CHEWABLE PO SCH ×3 (10:20→20:32)
[2020-08-09] MEDS: HYDROmorphone 1 MG/ML 1 ML SYRINGE IVP PRN (10:22)
[2020-08-09 11:31] LABS: Glucose,Whole Blood 79 mg/dL (75-99)
[2020-08-09] MEDS: DULoxetine HCL 30 MG CAPSULE.DR PO SCH (11:56)
[2020-08-09] MEDS: COLLAGENASE 250 UNIT/GM OINTMENT 30 GM TUBE TOPICAL SCH (11:57)
[2020-08-09] MEDS: HYDROcodone/APAP 5-325MG 1 EACH TAB PO PRN ×2 (11:59→20:33)
--- NOTE | 2020-08-09 13:22 | P.PN ---
Subjective Progress Note Date: 08/09/20 HISTORY OF PRESENT ILLNESS Is a 75 year old female patient of Dr. Mcmahan with past medical history significant for diabetes mellitus type 2, COPD, chronic hypoxic respiratory failure on home O2, chronic diastolic heart failure, chronic atrial fibrillation hypertension, hyperlipidemia, previous myocardial infarction, chronic lower extremity ulcers, peripheral vascular occlusive disease with previous fem-pop bypass and stenting, history of chronic tobacco use. Patient was last hospitalized in May of this year at which time she was treated for acute on chronic hypoxic respiratory failure and COPD exacerbation. She has chronic diabetic ulcers for which she follows in the wound healing Center. The patient states that she thinks her wound on her left lower leg is getting worse. Patient apparently recently completed 2 courses of antibiotics. No significant pain to the wounds. Denies any fever or chills. Patient came into [facility] emergency center for evaluation. Patient was afebrile, heart rate 93, blood pressure 108/96, pulse ox 96%. WBC 12.7, hemoglobin 11.6, platelet count 283. Sodium 123, potassium 4.4, chloride 86, CO2 30, BUN 27 creatinine 2.51. Blood sugar 201. Liver function tests normal. INR 1.7. Lactic acid 1.6. Patient to be admitted to the [facility] floor, consult in place with vascular surgery which is planning on I&D this afternoon in OR. Consult added for infectious disease. 08/04: Sodium is again low this morning at 126. Patient does have chronic hyponatremia. Consult will be added for nephrology and a urine sodium and osmolality, serum osmolality ordered as well as sodium chloride tablet twice daily. Surgical debridement is delayed due to hyponatremia. She has been afebrile, heart rate 81, blood pressure 101/64, pulse ox 96% on 2 L. Other lab work reveals that he be sealed 11.4. INR 2.1. Creatinine 0.4. Blood sugars running between 143 and 270. Vanco trough 11.8. Debridement may occur tomorrow and Coumadin is on hold. Dr. Cramer has evaluated the patient and added cefepime to vancomycin. Discharge plan is to return to [facility] possibly on Friday Patient examined bedside. Does appear slightly congested on examination and does occasional cough but denies any shortness of breath,. Patient denies any dizziness nausea or vomiting. Vitals are stable with temp of 96.8 pulse 93 blood pressure 100/66 oxygen saturation 100% on 2 L. Patient's sodium continues to be on low 125 appears to be hypo-volemic rather than SIADH. Inflammation markers elevated, CRP is 28.8. Creatinine 0.46 serum osmolarity 270 urine osmolarity 557 urine sodium 10 vancomycin trough 11.8 wound culture positive for gram-negative bacilli blood culture negative so far. We'll plan for debridement over the weekend will start patient on heparin drip for chronic atrial fibrillation 08/06 patient evaluated bedside stop she denies any dizziness, confusion and change in mental status. Patient's sodium has dropped to 120 potassium 3.5 CO2 19 creatinine 0.46 calcium is 6.6. Glucose has been ranging between 77-180. R am repeat urine studies to be obtained. Echo ordered per nephrology to rule out right ventricular failure Lasix has been discontinued. Patient's orthostatic was positive . Repeat labs tomorrow for evaluation. Continue cefepime for cellulitis of the lower extremity with plan to place PICC line for IV antibiotics on discharge. Continue heparin drip for atrial fibrillation as Coum janel is on hold 08/07: Dr. Cramer has changed antibiotics to meropenem. Patient remains off Coumadin and is on heparin drip. Her repeat blood work this morning reveals INR 1.5. Blood sugars have been running between 92 and 183. Repeat sodium 119, chloride 86, potassium 4.7, CO2 23, creatinine 0.6. WBC 14.8, hemoglobin 9.4. No plan for surgical intervention soon due to worsening hyponatremia, patient will be started on eliquis versus Coumadin. Patient will be started on penicillin cleaned 300 mg twice daily. Patient has been off Lasix and lisinopril. CT of the chest has been ordered. This revealed mild emphysematous change with moderate to severe bilateral pulmonary fibrosis.His acute infiltrate. Cardiomegaly with tiny bilateral pleural effusions cannot exclude a degree of CHF exacerbation. Bilateral thyroid nodules right measuring 3.5 cm. Follow-up thyroid ultrasound advised. Echocardiogram reveals EF of 50-55% with severe mitral regurgitation, [id number] mitral stenosis, severe tricuspid regurgitation, moderate to severe pulmonary hypertension. 08/08: Patient was transferred to the ICU due to hyponatremia as he was started on a 3% saline drip which is subsequently been discontinued. Patient is ordered for 1 dose of IV Lasix this morning and 40 mg by nephrology. The minocycline has also been discontinued by nephrology. Patient denies any new complaints. She denies any shortness of breath or chest pain. Her sodium this morning is at 120, potassium 4.8, chloride 88, CO2 27, creatinine 0.56. Blood sugars running between 100 1648. WBC 10.1, hemoglobin 10.7. ProBNP 5520. TSH 0.977. Vascular surgery has signed off this case and plan for wound care team. No plan for surgical intervention on this admission. Patient will follow up with Dr. Jade as an outpatient and any debridement necessary will be done as an outpatient at a later time. Wound culture has been finalized with Proteus mirabilis and Burkholderia cepacia the patient is currently on meropenem managed by Dr. Cramer. 08/09: Patient continues to have low sodium 122, potassium is 5.0, chloride 88, CO2 29, BUN [address] Pina is ordered 1 dose of insulin today. Patient is upset about fluid restriction. She seems to be depressed and patient will be started on Cymbalta 30 mg daily. REVIEW OF SYSTEMS Constitutional: No fever, no chills, no night sweats. No weight change. No weakness, fatigue or lethargy. No daytime sleepiness. EENT: No headache. No blurred vision or double vision, no loss of vision. No loss of Hearing, no ringing in the ears, no dizziness. No nasal drainage or congestion. No epistaxis. No sore throat. Lungs: No shortness of breath, cough, no sputum production. No wheezing. Cardiovascular: No chest pain, no lower extremity edema. No palpitations. No paroxysmal nocturnal dyspnea. No orthopnea. No lightheadedness or dizziness. No syncopal episodes. Abdominal: No abdominal pain. No nausea, vomiting. No diarrhea. No constipation. No bloody or tarry stools.. No loss of appetite. Genitourinary: No dysuria, increased frequency, urgency. No urinary retention. Musculoskeletal: No myalgias. No muscle weakness, no gait dysfunction, no frequent falls. No back pain. No neck pain. Integumentary: Reports wounds, no lesions. No rash or pruritus. No unusual bruising. No change in hair or nails. Neurologic: No aphasia. No facial droop. No change in mentation. No head injury. No headache. No paralysis. No paresthesia. Psychiatric: Reports depression. No anxiety. No mood swings. Endocrine: Reports abnormal blood sugars. PHYSICAL EXAMINATION Gen: This is a 75-year-old female. Patient is resting in chair and appears to be in no acute distress. No respiratory distress noted. HEENT: Head is atraumatic, normocephalic. Pupils equal, round. Sclerae is anicteric. NECK: Supple. No JVD. No lymphadenopathy. No thyromegaly. LUNGS: Diminished with bilateral wheezes. No intercostal retractions. HEART: Regular rate and rhythm. No murmur. ABDOMEN: Soft. Bowel sounds are present. No masses. No tenderness. EXTREMITIES: Mild pedal edema. Large left lower extremity ulcer on the medial side with surrounding erythema. Dorsalis pedis on the left is 1+, 2+ on the right. Patient also has small superficial ulcers to the left foot dorsal surface base of toes 2 through 4 and dusky purple color to the toes. There is a 5 x 2.5 cm wound on the right medial posterior calf with no significant erythema. There is also a small ulcer on the dorsal surface of the right great toe without erythema or drainage. See nursing documentation for details. NEUROLOGICAL: Patient is awake, alert and oriented x3. Cranial nerves 2 through 12 are grossly intact. ASSESSMENT AND PLAN 1. Chronic bilateral venous and diabetic ulcers with acute cellulitis. This was surgery has signed off. No plan for debridement on this admission. Continue local wound care per wound care team. Continue meropenem. Consult with Dr. Shoaib pearson. 2. Diabetes mellitus type 2. Continue Levemir 10 units at bedtime, NovoLog 7 units 3 times daily with meals and NovoLog scale before meals and at bedtime. 3. Diabetic neuropathy. Continue gabapentin 200 mg twice daily. 4. Chronic diastolic heart failure. Patient is off Lasix, Aldactone, lisinopril. 5. Chronic atrial fibrillation. Continue eliquis 5 mg twice daily. 6. Hypovolemic Hyponatremia. Patient is status post [facility], continue current management per nephrology daily. Continue 1200 mL fluid restriction. 7. Hypertension. Off lisinopril 10 mg at bedtime. 8. Hyperlipidemia. Continue statin. 9. COPD without exacerbation. Continue albuterol as needed, Pulmicort twice daily. 10. Gastroesophageal reflux disease. Continue Protonix 40 mg daily. 11. Hypocalcemia. Vitamin D ordered. 2 new calcium Calcium carbonate 500 3 times a day 12. Bilateral thyroid nodules to be followed up. 13. Valvular heart disease with severe mitral regurgitation, mild to moderate mitral stenosis, severe tricuspid regurgitation, moderate to severe pulmonary hypertension. 14. Recurrent depression. Patient started on Cymbalta 30 mg daily. 15. DVT prophylaxis. Eliquis DISCHARGE PLAN Return to [facility] under the care of Dr. Mcmahan Impression and plan of care have been directed as dictated by the signing physician. Maida Johnson nurse practitioner acting as scribe for signing physician. Objective - Vital Signs Vital signs: Vital Signs Temp 98.3 F 08/09/20 08:00 Pulse 84 08/09/20 11:00 Resp 14 08/09/20 11:00 BP 119/91 08/09/20 11:00 Pulse Ox 99 08/09/20 11:00 Intake & Output 08/08/20 08/09/20 08/09/20 18:59 06:59 18:59 Intake Total 810 100 120 Output Total 1595 1170 740 Balance -351 -0136 -117 Intake: IV 330 100 Magnesium Sulfate-D5w Pmx 200 1 gm In Dextrose/Water 1 100ml.bag @ 100 mls/hr IVPB Q1H [facility] Rx#: [id number] Meropenem 1 gm In Sodium 100 100 Chloride 0.9% 100 ml @ 33 .3 mls/hr IVPB Q8H [facility] Rx #:[id number] Sodium Chloride 3%( 30 Hypertonic) 500 ml @ 10 mls/hr IV .Q24H [facility] Rx#: [id number] Oral 480 120 Output: Urine 1595 1170 740 Other: Voiding Method Indwelling Catheter Indwelling Catheter - Labs CBC & Chem 7: 08/09/20 03:33 08/09/20 03:33 Labs: Abnormal Lab Results - Last 24 Hours (Table) 08/08/20 08/08/20 08/08/20 Range/Units 12:33 16:29 16:44 WBC (3.8-10.6) k/uL Hgb (11.4-16.0) gm/dL Hct (34.0-46.0) % RDW (11.5-15.5) % Neutrophils # (1.3-7.7) k/uL Sodium 122 L 122 L (137-145) mmol/L Chloride (98-107) mmol/L BUN (7-17) mg/dL Glucose (74-99) mg/dL POC Glucose (mg/dL) 116 H (75-99) mg/dL 08/08/20 08/09/20 08/09/20 Range/Units 20:07 03:33 03:33 WBC 11.6 H (3.8-10.6) k/uL Hgb 10.8 L (11.4-16.0) gm/dL Hct 33.4 L (34.0-46.0) % RDW 16.5 H (11.5-15.5) % Neutrophils # 9.6 H (1.3-7.7) k/uL Sodium 122 L (137-145) mmol/L Chloride 88 L (98-107) mmol/L BUN 18 H (7-17) mg/dL Glucose 107 H (74-99) mg/dL POC Glucose (mg/dL) 107 H (75-99) mg/dL 08/09/20 Range/Units 06:43 WBC (3.8-10.6) k/uL Hgb (11.4-16.0) gm/dL Hct (34.0-46.0) % RDW (11.5-15.5) % Neutrophils # (1.3-7.7) k/uL Sodium (137-145) mmol/L Chloride (98-107) mmol/L BUN (7-17) mg/dL Glucose (74-99) mg/dL POC Glucose (mg/dL) 157 H (75-99) mg/dL Microbiology - Last 24 Hours (Table) 08/02/20 19:58 Blood Culture - Final Blood No Growth after 144 hours 08/02/20 19:58 Blood Culture - Final Blood No Growth after 144 hours
[2020-08-09 16:42] LABS: Glucose,Whole Blood 120 mg/dL (75-99)
--- NOTE | 2020-08-09 17:15 | PN ---
PROGRESS NOTE DATE OF SERVICE: 08/09/2020 REASON FOR FOLLOWUP: Bilateral lower extremity infected venostasis ulcers. INTERVAL HISTORY: The patient is currently afebrile. The patient is breathing comfortably. Denies having any chest pain or cough. No abdominal pain or any worsening pain to the lower extremities. PHYSICAL EXAMINATION: Blood pressure 136/99 with a pulse of 85, temperature 98. She is 99% on room air. General description is an elderly female up in the chair in no distress. RESPIRATORY SYSTEM: Unlabored breathing with decreased intensity of breath sounds. No wheeze. HEART: S1, S2. Regular rate and rhythm. ABDOMEN: Soft. No tenderness. Legs are currently wrapped up. No obvious drainage on the dressing. LABS: Hemoglobin is 10.8, white count 11.6, BUN of 18, creatinine 0.60. DIAGNOSTIC IMPRESSION AND PLAN: Patient with bilateral lower extremity venostasis ulcers with cellulitis. Patient is currently covered with meropenem; should be continued for at least 2-3 weeks, depending on clinical response. Local care with Santyl followed by moist dressing and continue supportive care. MMODL / IJN: [id number] /
[2020-08-09 17:59] LABS: African American GFR (CKD) >90 (>60 ml/min/1.73 sqM); Anion Gap 6 mmol/L; Blood Urea Nitrogen 19 mg/dL (7-17); Calcium 8.4 mg/dL (8.4-10.2); Carbon Dioxide 27 mmol/L (22-30); Chloride 90 mmol/L (98-107); Glucose 132 mg/dL (74-99); Non-African American GFR(CKD) >90 (>60 ml/min/1.73 sqM); Potassium 5.1 mmol/L (3.5-5.1); Sodium 123 mmol/L (137-145)
[2020-08-09 20:17] LABS: Glucose,Whole Blood 243 mg/dL (75-99)
[2020-08-09] MEDS: ATORVASTATIN 10 MG TAB PO SCH (20:32)
[2020-08-09] MEDS: INSULIN DETEMIR (LEVEMIR) 100 UNIT/ML SYR SQ SCH (20:34)
[2020-08-10] MEDS: traMADol 50 MG TAB PO PRN ×2 (00:04→12:25)
[2020-08-10 05:02] LABS: Anisocytosis Slight; Basophils % (A) 0 %; Eosinophils # (A) 0.1 k/uL (0-0.7); Eosinophils % (A) 1 %; HCT 35.3 % (34.0-46.0); HGB 11.2 gm/dL (11.4-16.0); Hypochromasia Slight; Lymphocytes # (A) 1.2 k/uL (1.0-4.8); Lymphocytes % (A) 13 %; MCH 27.3 pg (25.0-35.0); MCHC 31.7 g/dL (31.0-37.0); MCV 86.2 fL (80.0-100.0); Mean Platelet Volume 6.7; Monocytes # (A) 0.5 k/uL (0-1.0); Monocytes % (A) 5 %; Neutrophils # (A) 7.5 k/uL (1.3-7.7); Neutrophils % (A) 79 %; Platelet Count 327 k/uL (150-450); RDW 16.6 % (11.5-15.5); WBC 9.4 k/uL (3.8-10.6)
[2020-08-10] MEDS: MEROPENEM 1 GM in SODIUM CHLORIDE 0.9% 100 ML IVPB SCH ×3 (05:04→20:27)
[2020-08-10 05:23] LABS: African American GFR (CKD) >90 (>60 ml/min/1.73 sqM); Anion Gap 5 mmol/L; Blood Urea Nitrogen 18 mg/dL (7-17); Calcium 8.6 mg/dL (8.4-10.2); Carbon Dioxide 31 mmol/L (22-30); Chloride 89 mmol/L (98-107); Glucose 89 mg/dL (74-99); Magnesium 1.9 mg/dL (1.6-2.3); Non-African American GFR(CKD) >90 (>60 ml/min/1.73 sqM); Potassium 4.8 mmol/L (3.5-5.1); Sodium 125 mmol/L (137-145)
[2020-08-10] MEDS: INSULIN ASPART (NovoLOG) 100 UNIT/ML VIAL SQ SCH ×5 (05:59→20:28)
[2020-08-10] MEDS: HYDROcodone/APAP 5-325MG 1 EACH TAB PO PRN ×2 (06:22→14:49)
[2020-08-10] MEDS: MAGNESIUM SULFATE-D5W PMX 1 GM in DEXTROSE/WATER 1 100ML.BAG IVPB SCH ×2 (06:22→08:10)
[2020-08-10] MEDS: BUDESONIDE 0.5 MG/2 ML NEBU INHALATION SCH (08:03)
[2020-08-10] MEDS: GABAPENTIN 100 MG CAP PO SCH ×2 (08:09→20:27)
[2020-08-10] MEDS: CALCIUM CARBONATE 500 MG CHEWABLE PO SCH ×3 (08:09→20:55)
[2020-08-10] MEDS: APIXABAN 5 MG TAB PO SCH ×2 (08:09→20:27)
[2020-08-10] MEDS: PANTOPRAZOLE 40 MG TABLET PO SCH (08:09)
[2020-08-10] MEDS: DULoxetine HCL 30 MG CAPSULE.DR PO SCH (08:40)
[2020-08-10] MEDS: HYDROmorphone 1 MG/ML 1 ML SYRINGE IVP PRN ×2 (08:41→20:59)
[2020-08-10] MEDS ORDERED: TOLVAPTAN 15 MG 1/2 TABLET PO ONE (10:00)
--- NOTE | 2020-08-10 10:23 | P.PN ---
Subjective Patient is seen in follow-up for hyponatremia. Sodium level better today. She received a dose of Samsca as well as IV Lasix yesterday. Nonoliguric. Oral intake fair. Still quite edematous. Vital signs are stable. General: The patient appeared well nourished and normally developed. HEENT: Head exam is unremarkable. Neck is without jugular venous distension. LUNGS: Breath sounds decreased. HEART: Rate and Rhythm are regular. ABDOMEN: Soft, nontender. EXTREMITITES: 2+ edema. Objective - Vital Signs Vital signs: Vital Signs Temp 98.2 F 08/10/20 08:00 Pulse 86 08/10/20 08:00 Resp 14 08/10/20 09:00 BP 124/65 08/10/20 09:00 Pulse Ox 92 L 08/10/20 09:00 Intake & Output 08/09/20 08/10/20 08/10/20 18:59 06:59 18:59 Intake Total 550 360 360 Output Total 1640 2160 90 Balance -1090 -1800 270 Intake: IV 210 120 120 0.9 @ KVO 110 120 20 Magnesium Sulfate-D5w Pmx 100 1 gm In Dextrose/Water 1 100ml.bag @ 100 mls/hr IVPB Q1H [facility] Rx#: [id number] Meropenem 1 gm In Sodium 100 Chloride 0.9% 100 ml @ 33 .3 mls/hr IVPB Q8H [facility] Rx #:[id number] Oral 120 240 240 Tube Feeding 220 Output: Urine 1640 2160 90 Other: Voiding Method Indwelling Catheter Indwelling Catheter - Labs CBC & Chem 7: 08/10/20 04:06 08/10/20 04:06 Labs: Abnormal Lab Results - Last 24 Hours (Table) 08/09/20 08/09/20 08/09/20 Range/Units 16:40 17:30 20:16 Hgb (11.4-16.0) gm/dL RDW (11.5-15.5) % Sodium 123 L (137-145) mmol/L Chloride 90 L (98-107) mmol/L Carbon Dioxide (22-30) mmol/L BUN 19 H (7-17) mg/dL Creatinine 0.48 L (0.52-1.04) mg/dL Glucose 132 H (74-99) mg/dL POC Glucose (mg/dL) 120 H 243 H (75-99) mg/dL 08/10/20 08/10/20 Range/Units 04:06 04:06 Hgb 11.2 L (11.4-16.0) gm/dL RDW 16.6 H (11.5-15.5) % Sodium 125 L (137-145) mmol/L Chloride 89 L (98-107) mmol/L Carbon Dioxide 31 H (22-30) mmol/L BUN 18 H (7-17) mg/dL Creatinine 0.49 L (0.52-1.04) mg/dL Glucose (74-99) mg/dL POC Glucose (mg/dL) (75-99) mg/dL Assessment and Plan Plan: Assessment: 1. Hyponatremia. Hypervolemic. Status post short duration of 3%. Status post Samsca and IV Lasix yesterday. TSH normal. Urine sodium less than 10 and urine osmolality 207. 2. Left lower extremity cellulitis maintained on antibiotics. 3. Diabetes mellitus. 4. Volume overload. Plan: Repeat Samsca 15 mg today. Lasix 40 mg IV twice daily. Encourage oral intake, particularly protein. Repeat sodium level this afternoon.
[2020-08-10] MEDS: FUROSEMIDE 10 MG/ML 4 ML VIAL IV SCH ×2 (10:49→20:27)
--- NOTE | 2020-08-10 11:06 | P.PN ---
Subjective Progress Note Date: 08/10/20 Principal diagnosis: Bilateral lower extremity wounds, shortness of breath, hyponatremia 75-year-old female patient of Dr. Mcmahan with multiple medical problems including COPD on home oxygen at 3 L on a regular basis, hypertension, diabetes mellitus type 2, previous [place], peripheral vascular disease with history of intervention including fem-pop bypass and placement of stents, chronic anemia, previous history of MRSA infection in her leg wounds, former smoker, anxiety and depre ssion, who initially came into the hospital on 08/02/2020 per EMS for evaluation of bilateral lower extremity leg wounds. Apparently patient has chronic leg wounds, and had recently completed 2 courses of antibiotics. Patient came in from a retirement. Patient did not have any fever or chills, she was started on Levaquin and vancomycin on admission for lower extremity wounds, and vascular surgery saw the patient consultation. Patient normally goes to the wound care clinic. Patient was given IV fluids. On admission patient's serum sodium was 123, looking back at her labs from May and June, patient's serum sodium level was fluctuating between 120 and 134 at the highest. In addition patient seems to be generally fluid overloaded, with lower extremity edema, and her chest x-ray showing changes consistent with CHF and interstitial pulmonary edema. She was transferred to the intensive care unit early this morning for initiation of hypertonic saline. This morning her serum sodium is 122, 3% saline is infusing at a rate of 10 mL per hour, patient seems to be short of breath, she's cut diffuse crackles and congested cough on physical exam, she is awake and alert, answering questions appropriately, denies any chest pain, she has been leg edema with 1+ lower extremity edema and weeping lower extremity wounds. White blood cell count is 10.1, hemoglobin is 10.7, INR is 1.5, her Coumadin remains on hold for possibility of surgical debridement of her wounds. Lisinopril BNP level which came back elevated at 5520. Patient is currently on 2 L of oxygen, with a pulse ox of 97%, no vasoactive drips at this time. Patient is in A. fib, which is chronic for her, the rate is controlled at 96 BPM. On 08/09/2020 patient seen in follow-up in the intensive care unit, today she is breathing much easier, still has some diffuse crackles bilateral lungs, but she is on room air today, less short of breath, she is able to sit back in the recliner and breathe comfortably, no complaints of chest pain. Room air pulse ox is 97%, no fever or chills, hemodynamically patient is stable, she is in A. fib with a controlled rate, and patient is on Eliquis for anticoagulation. She continues on meropenem for bilateral leg infection and wound cultures were positive for Proteus mirabilis and Burkholderia cepacia, she's had no fever or chills. Patient was given a dose of Lasix yesterday, she has pretty 2.7 L in the urine output and she is in -1.8 minutes fluid balance over the last 24 hours, still has lower extremity edema which has a little bit improved. Today's labs show sodium of 122, hypertonic saline has been discontinued, currently patient is on point and was seen intermittent 10 mL per hour, no other drips, and patient will receive Tolvaptan today. Nephrology is following, white blood cell count is 11.6, hemoglobin is 10.8, potassium is 5.0, chloride is 88, BUN is 18 and creatinine 0.6 to On 08/10/2020 patient seen in follow-up in the intensive care unit, she is ALERT, in no acute distress, currently on room air, breathing comfortably, currently satting 92-94%, lung sounds are positive for some scattered rhonchi and crackles, however improved from yesterday's exam, still quite edematous in her bilateral lower extremities, her wounds are weeping extensively. She was given an additional dose of Lasix last night, and we'll give the patient additional dose this morning. She is on 0.9 normal saline at a rate of 20 ML per hour, which can be hep-locked at this point, today's sodium is 125, neurologically she is intact, has had no fever or chills, blood pressure has been stable. Renal profile is relatively stable, bun is 18, creatinine 0.49, potassium is 4.8, no leukocytosis, white blood cell count was 9.4, hemoglobin is 11.2. Her A. fib is controlled, patient is on Eliquis for anticoagulation, she is receiving local wound care to her lower extremity wounds. Objective - Vital Signs Vital signs: Vital Signs Temp 98.2 F 08/10/20 08:00 Pulse 86 08/10/20 08:00 Resp 14 08/10/20 09:00 BP 124/65 08/10/20 09:00 Pulse Ox 92 L 08/10/20 09:00 Intake & Output 08/09/20 08/10/20 08/10/20 18:59 06:59 18:59 Intake Total 550 360 360 Output Total 1640 2160 90 Balance -1090 -1800 270 Intake: IV 210 120 120 0.9 @ KVO 110 120 20 Magnesium Sulfate-D5w Pmx 100 1 gm In Dextrose/Water 1 100ml.bag @ 100 mls/hr IVPB Q1H [facility] Rx#: [id number] Meropenem 1 gm In Sodium 100 Chloride 0.9% 100 ml @ 33 .3 mls/hr IVPB Q8H [facility] Rx #:[id number] Oral 120 240 240 Tube Feeding 220 Output: Urine 1640 2160 90 Other: Voiding Method Indwelling Catheter Indwelling Catheter - Exam GENERAL EXAM: Alert, very pleasant, 75-year-old white female, on 2 L of oxygen and pulse ox of 94%, sitting up in the recliner, comfortable in no apparent distress. HEAD: Normocephalic/atraumatic. EYES: Normal reaction of pupils, equal size. Conjunctiva pink, sclera white. NOSE: Clear with pink turbinates. THROAT: No erythema or exudates. NECK: No masses, no JVD, no thyroid enlargement, no adenopathy. CHEST: No chest wall deformity. Symmetrical expansion. LUNGS: Equal air entry with diffuse crackles and rhonchi bilaterally, congested cough CVS: Irregular rate and rhythm, normal S1 and S2, no gallops, no murmurs, no rubs ABDOMEN: Soft, nontender. No hepatosplenomegaly, normal bowel sounds, no guarding or rigidity. EXTREMITIES: No clubbing, 1-2+ lower extremity edema, no cyanosis, 2+ pulses and upper and lower extremities. MUSCULOSKELETAL: Muscle strength and tone normal. SPINE: No scoliosis or deformity SKIN: No rashes, patient has anterior tibial areas of wounds wound bed is mostly clean, the wounds are very moist, weeping, sharp demarcated edges, they're clean, do not appear to be infected CENTRAL NERVOUS SYSTEM: Alert and oriented -3. No focal deficits, tone is normal in all 4 extremities. PSYCHIATRIC: Alert and oriented -3. Appropriate affect. Intact judgment and insight. - Labs CBC & Chem 7: 08/10/20 04:06 08/10/20 04:06 Labs: Abnormal Lab Results - Last 24 Hours (Table) 08/09/20 08/09/20 08/09/20 Range/Units 16:40 17:30 20:16 Hgb (11.4-16.0) gm/dL RDW (11.5-15.5) % Sodium 123 L (137-145) mmol/L Chloride 90 L (98-107) mmol/L Carbon Dioxide (22-30) mmol/L BUN 19 H (7-17) mg/dL Creatinine 0.48 L (0.52-1.04) mg/dL Glucose 132 H (74-99) mg/dL POC Glucose (mg/dL) 120 H 243 H (75-99) mg/dL 08/10/20 08/10/20 Range/Units 04:06 04:06 Hgb 11.2 L (11.4-16.0) gm/dL RDW 16.6 H (11.5-15.5) % Sodium 125 L (137-145) mmol/L Chloride 89 L (98-107) mmol/L Carbon Dioxide 31 H (22-30) mmol/L BUN 18 H (7-17) mg/dL Creatinine 0.49 L (0.52-1.04) mg/dL Glucose (74-99) mg/dL POC Glucose (mg/dL) (75-99) mg/dL Assessment and Plan Plan: Assessment: #1. Hyponatremia, appears to be hypervolemic due to acute exacerbation of CHF with diastolic dysfunction #2. Valvular heart disease, severe mitral regurgitation and mild to moderate mitral stenosis, severe tricuspid regurgitation, severe pulmonary hypertension with right heart pressure of 66.3 mmHg #3. Severe pulmonary hypertension with PA systolic of 66.3 mmHg, likely secondary to advanced COPD #4. Chronic hypoxic respiratory failure related to advanced COPD #5. Chronic lower extremity wounds, patient usually goes to the wound Center, with history of MRSA infection. Wound cultures from the left leg showed Proteus mirabilis and Burkholderia cepacia currently covered with meropenem #6. Chronic A. fib on Coumadin which is on hold for possibility of lower extremity wound debridement #7. Peripheral vascular disease with previous intervention #8. Diabetes mellitus type 2 #9. COPD on home oxygen #10. Previous history of myocardial infarction #11. Chronic anemia #12. Anxiety and depression #13. Scattered pulmonary fibrotic changes seen on CT chest of the lungs, and a 7 mm subpleural right lower lobe nodule Plan: Recommend additional diuretics, and patient was given another dose of 40 of Lasix this morning by our service, and she will be started on maintenance dose of Lasix by nephrology. Still quite edematous but breathing comfortably, she is on room air, no acute events overnight, no fever or chills, she is on antibiotics for lower extremity wound infection, cultures have been reviewed, clinically stable, she is on oral anticoagulation for A. fib which is controlled, from pulmonary perspective she stable to go out of ICU to general medical floor. I performed a history & physical examination of the patient and discussed their management with my nurse practitioner, Ade Guzmán. I reviewed the nurse practitioner's note and agree with the documented findings and plan of care. Lung sounds are positive for bilateral crackles. The findings and the impression was discussed with the patient. I attest to the documentation by the nurse practitioner. Time with Patient: Less than 30
[2020-08-10 11:38] LABS: Glucose,Whole Blood 183 mg/dL (75-99)
--- NOTE | 2020-08-10 14:12 | P.PN ---
Subjective Progress Note Date: 08/10/20 HISTORY OF PRESENT ILLNESS Is a 75 year old female patient of Dr. Mcmahan with past medical history significant for diabetes mellitus type 2, COPD, chronic hypoxic respiratory failure on home O2, chronic diastolic heart failure, chronic atrial fibrillation hypertension, hyperlipidemia, previous myocardial infarction, chronic lower extremity ulcers, peripheral vascular occlusive disease with previous fem-pop bypass and stenting, history of chronic tobacco use. Patient was last hospitalized in May of this year at which time she was treated for acute on chronic hypoxic respiratory failure and COPD exacerbation. She has chronic diabetic ulcers for which she follows in the wound healing Center. The patient states that she thinks her wound on her left lower leg is getting worse. Patient apparently recently completed 2 courses of antibiotics. No significant pain to the wounds. Denies any fever or chills. Patient came into [facility] emergency center for evaluation. Patient was afebrile, heart rate 93, blood pressure 108/96, pulse ox 96%. WBC 12.7, hemoglobin 11.6, platelet count 283. Sodium 123, potassium 4.4, chloride 86, CO2 30, BUN 27 creatinine 2.51. Blood sugar 201. Liver function tests normal. INR 1.7. Lactic acid 1.6. Patient to be admitted to the [facility] floor, consult in place with vascular surgery which is planning on I&D this afternoon in OR. Consult added for infectious disease. 08/04: Sodium is again low this morning at 126. Patient does have chronic hyponatremia. Consult will be added for nephrology and a urine sodium and osmolality, serum osmolality ordered as well as sodium chloride tablet twice daily. Surgical debridement is delayed due to hyponatremia. She has been afebrile, heart rate 81, blood pressure 101/64, pulse ox 96% on 2 L. Other lab work reveals that he be sealed 11.4. INR 2.1. Creatinine 0.4. Blood sugars running between 143 and 270. Vanco trough 11.8. Debridement may occur tomorrow and Coumadin is on hold. Dr. Cramer has evaluated the patient and added cefepime to vancomycin. Discharge plan is to return to [facility] possibly on Friday Patient examined bedside. Does appear slightly congested on examination and does occasional cough but denies any shortness of breath,. Patient denies any dizziness nausea or vomiting. Vitals are stable with temp of 96.8 pulse 93 blood pressure 100/66 oxygen saturation 100% on 2 L. Patient's sodium continues to be on low 125 appears to be hypo-volemic rather than SIADH. Inflammation markers elevated, CRP is 28.8. Creatinine 0.46 serum osmolarity 270 urine osmolarity 557 urine sodium 10 vancomycin trough 11.8 wound culture positive for gram-negative bacilli blood culture negative so far. We'll plan for debridement over the weekend will start patient on heparin drip for chronic atrial fibrillation 08/06 patient evaluated bedside stop she denies any dizziness, confusion and change in mental status. Patient's sodium has dropped to 120 potassium 3.5 CO2 19 creatinine 0.46 calcium is 6.6. Glucose has been ranging between 77-180. R am repeat urine studies to be obtained. Echo ordered per nephrology to rule out right ventricular failure Lasix has been discontinued. Patient's orthostatic was positive . Repeat labs tomorrow for evaluation. Continue cefepime for cellulitis of the lower extremity with plan to place PICC line for IV antibiotics on discharge. Continue heparin drip for atrial fibrillation as Coum janel is on hold 08/07: Dr. Cramer has changed antibiotics to meropenem. Patient remains off Coumadin and is on heparin drip. Her repeat blood work this morning reveals INR 1.5. Blood sugars have been running between 92 and 183. Repeat sodium 119, chloride 86, potassium 4.7, CO2 23, creatinine 0.6. WBC 14.8, hemoglobin 9.4. No plan for surgical intervention soon due to worsening hyponatremia, patient will be started on eliquis versus Coumadin. Patient will be started on penicillin cleaned 300 mg twice daily. Patient has been off Lasix and lisinopril. CT of the chest has been ordered. This revealed mild emphysematous change with moderate to severe bilateral pulmonary fibrosis.His acute infiltrate. Cardiomegaly with tiny bilateral pleural effusions cannot exclude a degree of CHF exacerbation. Bilateral thyroid nodules right measuring 3.5 cm. Follow-up thyroid ultrasound advised. Echocardiogram reveals EF of 50-55% with severe mitral regurgitation, [id number] mitral stenosis, severe tricuspid regurgitation, moderate to severe pulmonary hypertension. 08/08: Patient was transferred to the ICU due to hyponatremia as he was started on a 3% saline drip which is subsequently been discontinued. Patient is ordered for 1 dose of IV Lasix this morning and 40 mg by nephrology. The minocycline has also been discontinued by nephrology. Patient denies any new complaints. She denies any shortness of breath or chest pain. Her sodium this morning is at 120, potassium 4.8, chloride 88, CO2 27, creatinine 0.56. Blood sugars running between 100 1648. WBC 10.1, hemoglobin 10.7. ProBNP 5520. TSH 0.977. Vascular surgery has signed off this case and plan for wound care team. No plan for surgical intervention on this admission. Patient will follow up with Dr. Jade as an outpatient and any debridement necessary will be done as an outpatient at a later time. Wound culture has been finalized with Proteus mirabilis and Burkholderia cepacia the patient is currently on meropenem managed by Dr. Cramer. 08/09: Patient continues to have low sodium 122, potassium is 5.0, chloride 88, CO2 29, BUN [address] Pina is ordered 1 dose of insulin today. Patient is upset about fluid restriction. She seems to be depressed and patient will be started on Cymbalta 30 mg daily. 08/10: Patient remains in intensive care unit but is waiting for [facility] bed. Sodium today is 125. She is status post Samsca given again this morning. Patient is denying any new complaints. She has been resumed back on eliquis with no plan for any intervention for the leg wounds. Patient's continue local wound care per wound care team. Her breathing status is stable. She's been afebrile, heart rate 86, blood pressure 115/81, pulse ox 94% on room air. CBC is unremarkable. Sodium 125, potassium 4.8, chloride 89, CO2 31, BUN 18 and creatinine 0.49. Blood sugars running between 89 and 243. Blood cultures finalized with Proteus mirabilia and Burkholderia cepacia. Dr. Barron is planning for meropenem for 2-3 more weeks depending on clinical course. Local wound care is with Santyl followed by moist dressing. If sodium continues to improve, anticipate discharge back to [facility] on Friday or Friday. REVIEW OF SYSTEMS Constitutional: No fever, no chills, no night sweats. No weight change. No weakness, fatigue or lethargy. No daytime sleepiness. EENT: No headache. No blurred vision or double vision, no loss of vision. No loss of Hearing, no ringing in the ears, no dizziness. No nasal drainage or congestion. No epistaxis. No sore throat. Lungs: No shortness of breath, cough, no sputum production. No wheezing. Cardiovascular: No chest pain, no lower extremity edema. No palpitations. No paroxysmal nocturnal dyspnea. No orthopnea. No lightheadedness or dizziness. No syncopal episodes. Abdominal: No abdominal pain. No nausea, vomiting. No diarrhea. No constipation. No bloody or tarry stools.. No loss of appetite. Genitourinary: No dysuria, increased frequency, urgency. No urinary retention. Musculoskeletal: No myalgias. No muscle weakness, no gait dysfunction, no frequent falls. No back pain. No neck pain. Integumentary: Reports wounds, no lesions. No rash or pruritus. No unusual bruising. No change in hair or nails. Neurologic: No aphasia. No facial droop. No change in mentation. No head injury. No headache. No paralysis. No paresthesia. Psychiatric: Reports depression. No anxiety. Endocrine: Reports abnormal blood sugars. PHYSICAL EXAMINATION Gen: This is a 75-year-old female. Patient is resting in chair and appears to be in no acute distress. No respiratory distress noted. HEENT: Head is atraumatic, normocephalic. Pupils equal, round. Sclerae is anicteric. NECK: Supple. No JVD. No lymphadenopathy. No thyromegaly. LUNGS: Diminished with bilateral wheezes. No intercostal retractions. HEART: Regular rate and rhythm. No murmur. ABDOMEN: Soft. Bowel sounds are present. No masses. No tenderness. EXTREMITIES: Mild pedal edema. Large left lower extremity ulcer on the medial side with surrounding erythema. Dorsalis pedis on the left is 1+, 2+ on the right. Patient also has small superficial ulcers to the left foot dorsal surface base of toes 2 through 4 and dusky purple color to the toes. There is a 5 x 2.5 cm wound on the right medial posterior calf with no significant erythema. There is also a small ulcer on the dorsal surface of the right great toe without erythema or drainage. See nursing documentation for details. NEUROLOGICAL: Patient is awake, alert and oriented x3. Cranial nerves 2 through 12 are grossly intact. ASSESSMENT AND PLAN 1. Chronic bilateral venous and diabetic ulcers with acute cellulitis. Vascular surgery has signed off. No plan for debridement on this admission. Continue local wound care per wound care team. Continue meropenem. Consult with Dr. Shoaib pearson. Continue meropenem at discharge for 2-3 weeks. 2. Diabetes mellitus type 2. Continue Levemir 10 units at bedtime, NovoLog 7 units 3 times daily with meals and NovoLog scale before meals and at bedtime. 3. Diabetic neuropathy. Continue gabapentin 200 mg twice daily. 4. Chronic diastolic heart failure. Patient is off Lasix, Aldactone, lisin opril. 5. Chronic atrial fibrillation. Continue eliquis 5 mg twice daily. 6. Hypovolemic Hyponatremia. Patient is status post Samaza, continue current management per nephrology daily. Continue 1200 mL fluid restriction. 7. Hypertension. Off lisinopril 10 mg at bedtime. 8. Hyperlipidemia. Continue statin. 9. COPD without exacerbation. Continue albuterol as needed, Pulmicort twice daily. 10. Gastroesophageal reflux disease. Continue Protonix 40 mg daily. 11. Hypocalcemia. Vitamin D ordered. 2 new calcium Calcium carbonate 500 3 times a day 12. Bilateral thyroid nodules to be followed up. 13. Valvular heart disease with severe mitral regurgitation, mild to moderate mitral stenosis, severe tricuspid regurgitation, moderate to severe pulmonary hypertension. 14. Recurrent depression. Patient started on Cymbalta 30 mg daily. 15. DVT prophylaxis. Eliquis DISCHARGE PLAN Return to [facility] under the care of Dr. Mcmahan on Friday or Friday. Impression and plan of care have been directed as dictated by the signing physician. Maida Johnson nurse practitioner acting as scribe for signing physician. Objective - Vital Signs Vital signs: Vital Signs Temp 98.2 F 08/10/20 08:00 Pulse 86 08/10/20 08:00 Resp 14 08/10/20 09:00 BP 124/65 08/10/20 09:00 Pulse Ox 92 L 08/10/20 09:00 Intake & Output 08/09/20 08/10/20 08/10/20 18:59 06:59 18:59 Intake Total 550 360 360 Output Total 1640 2160 90 Balance -1090 -1800 270 Intake: IV 210 120 120 0.9 @ KVO 110 120 20 Magnesium Sulfate-D5w Pmx 100 1 gm In Dextrose/Water 1 100ml.bag @ 100 mls/hr IVPB Q1H [facility] Rx#: [id number] Meropenem 1 gm In Sodium 100 Chloride 0.9% 100 ml @ 33 .3 mls/hr IVPB Q8H [facility] Rx #:[id number] Oral 120 240 240 Tube Feeding 220 Output: Urine 1640 2160 90 Other: Voiding Method Indwelling Catheter Indwelling Catheter - Labs CBC & Chem 7: 08/10/20 04:06 08/10/20 04:06 Labs: Abnormal Lab Results - Last 24 Hours (Table) 08/09/20 08/09/20 08/09/20 Range/Units 16:40 17:30 20:16 Hgb (11.4-16.0) gm/dL RDW (11.5-15.5) % Sodium 123 L (137-145) mmol/L Chloride 90 L (98-107) mmol/L Carbon Dioxide (22-30) mmol/L BUN 19 H (7-17) mg/dL Creatinine 0.48 L (0.52-1.04) mg/dL Glucose 132 H (74-99) mg/dL POC Glucose (mg/dL) 120 H 243 H (75-99) mg/dL 08/10/20 08/10/20 Range/Units 04:06 04:06 Hgb 11.2 L (11.4-16.0) gm/dL RDW 16.6 H (11.5-15.5) % Sodium 125 L (137-145) mmol/L Chloride 89 L (98-107) mmol/L Carbon Dioxide 31 H (22-30) mmol/L BUN 18 H (7-17) mg/dL Creatinine 0.49 L (0.52-1.04) mg/dL Glucose (74-99) mg/dL POC Glucose (mg/dL) (75-99) mg/dL
[2020-08-10 14:47] LABS: Glucose,Whole Blood 130 mg/dL (75-99)
[2020-08-10] MEDS: COLLAGENASE 250 UNIT/GM OINTMENT 30 GM TUBE TOPICAL SCH (15:46)
[2020-08-10] MEDS ORDERED: FUROSEMIDE 40 MG TAB PO SCH (16:00)
[2020-08-10 16:41] LABS: Chloride 88 mmol/L (98-107); Glucose 111 mg/dL (74-99); Potassium 4.9 mmol/L (3.5-5.1); Sodium 126 mmol/L (137-145)
[2020-08-10 16:42] LABS: African American GFR (CKD) >90 (>60 ml/min/1.73 sqM); Anion Gap 5 mmol/L; Blood Urea Nitrogen 18 mg/dL (7-17); Calcium 8.4 mg/dL (8.4-10.2); Carbon Dioxide 33 mmol/L (22-30); Non-African American GFR(CKD) >90 (>60 ml/min/1.73 sqM)
[2020-08-10 16:59] LABS: Glucose,Whole Blood 151 mg/dL (75-99)
[2020-08-10 20:10] LABS: Glucose,Whole Blood 185 mg/dL (75-99)
[2020-08-10] MEDS: ATORVASTATIN 10 MG TAB PO SCH (20:27)
[2020-08-10] MEDS: INSULIN DETEMIR (LEVEMIR) 100 UNIT/ML SYR SQ SCH (20:54)
--- NOTE | 2020-08-10 23:31 | PN ---
PROGRESS NOTE DATE OF SERVICE: 08/10/2020 REASON FOR FOLLOWUP: Bilateral lower extremity wounds and cellulitis. INTERVAL HISTORY: The patient is currently afebrile. The patient is breathing comfortably. The patient denies having any chest pain or shortness of breath or cough. No abdominal pain or any worsening pain in the lower extremity. PHYSICAL EXAMINATION: Blood pressure 115/67 with a pulse of 94, temperature 97.5. He is 96% on room air. General description is an elderly female lying in bed in no distress. RESPIRATORY SYSTEM: Unlabored breathing. Clear to auscultation anteriorly. HEART: S1, S2. Regular rate and rhythm. ABDOMEN: Soft. No tenderness. LABS: BUN of 18, creatinine 0.57. DIAGNOSTIC IMPRESSION AND PLAN: Patient with bilateral lower extremity ulcers with secondary cellulitis in this patient whose culture did grow [id number] burkholderia and proteus. The patient is covered with meropenem. That will be continued for at least 2 to 3 weeks depending on clinical response. Local wound care with Santyl moist dressing. MMODL / IJN: [id number] /
[2020-08-11] MEDS: MEROPENEM 1 GM in SODIUM CHLORIDE 0.9% 100 ML IVPB SCH ×3 (03:16→21:20)
[2020-08-11] MEDS: HYDROmorphone 1 MG/ML 1 ML SYRINGE IVP PRN (03:30)
[2020-08-11 07:10] LABS: Glucose,Whole Blood 146 mg/dL (75-99)
[2020-08-11] MEDS: INSULIN ASPART (NovoLOG) 100 UNIT/ML VIAL SQ SCH ×4 (08:00→21:22)
[2020-08-11] MEDS: GABAPENTIN 100 MG CAP PO SCH ×2 (08:16→21:22)
[2020-08-11] MEDS: FUROSEMIDE 10 MG/ML 4 ML VIAL IV SCH ×3 (08:20→23:25)
[2020-08-11] MEDS: APIXABAN 5 MG TAB PO SCH ×2 (08:20→21:21)
[2020-08-11] MEDS: PANTOPRAZOLE 40 MG TABLET PO SCH (08:20)
[2020-08-11] MEDS: CALCIUM CARBONATE 500 MG CHEWABLE PO SCH ×4 (08:20→21:25)
[2020-08-11] MEDS: DULoxetine HCL 30 MG CAPSULE.DR PO SCH (08:20)
[2020-08-11] MEDS: COLLAGENASE 250 UNIT/GM OINTMENT 30 GM TUBE TOPICAL SCH (08:21)
--- NOTE | 2020-08-11 08:40 | P.DS ---
Providers Date of admission: 08/02/20 20:57 Expected date of discharge: 08/12/20 Attending physician: Elías Blake MD Consults: 08/03/20 09:48 Consult Physician Routine Consulting Provider: Scott Preston Consult Reason/Comments: wounds left LE Do you want consulting provider notified?: Yes 08/04/20 08:51 Consult Physician Routine Consulting Provider: Cherrie Chou Consult Reason/Comments: hyponatremia Do you want consulting provider notified?: Yes 08/08/20 07:30 Consult Physician Routine Consulting Provider: Jeremiah Sullivan Consult Reason/Comments: icu management Do you want consulting provider notified?: Already Contacted Primary care physician: Saul Mcmahan [facility] Course: HISTORY OF PRESENT ILLNESS Is a 75 year old female patient of Dr. Mcmahan with past medical history significant for diabetes mellitus type 2, COPD, chronic hypoxic respiratory failure on home O2, chronic diastolic heart failure, chronic atrial fibrillation hypertension, hyperlipidemia, previous myocardial infarction, chronic lower extremity ulcers, peripheral vascular occlusive disease with previous fem-pop bypass and stenting, history of chronic tobacco use. Patient was last hospitalized in May of this year at which time she was treated for acute on chronic hypoxic respiratory failure and COPD exacerbation. She has chronic diabetic ulcers for which she follows in the wound healing Center. The patient states that she thinks her wound on her left lower leg is getting worse. Patient apparently recently completed 2 courses of antibiotics. No significant pain to the wounds. Denies any fever or chills. Patient came into [facility] emergency center for evaluation. Patient was afebrile, heart rate 93, blood pressure 108/96, pulse ox 96%. WBC 12.7, hemoglobin 11.6, platelet count 283. Sodium 123, potassium 4.4, chloride 86, CO2 30, BUN 27 creatinine 2.51. Blood sugar 201. Liver function tests normal. INR 1.7. Lactic acid 1.6. Patient to be admitted to the MedSurg floor, consult in place with vascular surgery which is planning on I&D this afternoon in OR. Consult added for infectious disease. 08/04: Sodium is again low this morning at 126. Patient does have chronic hyponatremia. Consult will be added for nephrology and a urine sodium and osmolality, serum osmolality ordered as well as sodium chloride tablet twice daily. Surgical debridement is delayed due to hyponatremia. She has been afebrile, heart rate 81, blood pressure 101/64, pulse ox 96% on 2 L. Other lab work reveals that he be sealed 11.4. INR 2.1. Creatinine 0.4. Blood sugars running between 143 and 270. Vanco trough 11.8. Debridement may occur tomorrow and Coumadin is on hold. Dr. Preston has evaluated the patient and added cefepime to vancomycin. Discharge plan is to return to [facility] on Friday Patient examined bedside. Does appear slightly congested on examination and does occasional cough but denies any shortness of breath,. Patient denies any dizziness nausea or vomiting. Vitals are stable with temp of 96.8 pulse 93 blood pressure 100/66 oxygen saturation 100% on 2 L. Patient's sodium continues to be on low 125 appears to be hypo-volemic rather than SIADH. Inflammation markers elevated, CRP is 28.8. Creatinine 0.46 serum osmolarity 270 urine osmolarity 557 urine sodium 10 vancomycin trough 11.8 wound culture positive for gram-negative bacilli blood culture negative so far. We'll plan for debridement over the weekend will start patient on heparin drip for chronic atrial fibrillation 08/06 patient evaluated bedside stop she denies any dizziness, confusion and change in mental status. Patient's sodium has dropped to 120 potassium 3.5 CO2 19 creatinine 0.46 calcium is 6.6. Glucose has been ranging between 77-180. R am repeat urine studies to be obtained. Echo ordered per nephrology to rule out right ventricular failure Lasix has been discontinued. Patient's orthostatic was positive . Repeat labs tomorrow for evaluation. Continue cefepime for cellulitis of the lower extremity with plan to place PICC line for IV antibiotics on discharge. Continue heparin drip for atrial fibrillation as Coumadin is on hold 08/07: Dr. Preston has changed antibiotics to meropenem. Patient remains off Coumadin and is on heparin drip. Her repeat blood work this morning reveals INR 1.5. Blood sugars have been running between 92 and 183. Repeat sodium 119, chloride 86, potassium 4.7, CO2 23, creatinine 0.6. WBC 14.8, hemoglobin 9.4. No plan for surgical intervention soon due to worsening hyponatremia, patient will be started on eliquis versus Coumadin. Patient will be started on penicillin cleaned 300 mg twice daily. Patient has been off Lasix and lisinopril. CT of the chest has been ordered. This revealed mild emphysematous change with moderate to severe bilateral pulmonary fibrosis.His acute infiltrate. Cardiomegaly with tiny bilateral pleural effusions cannot exclude a degree of CHF exacerbation. Bilateral thyroid nodules right measuring 3.5 cm. Follow-up thyroid ultrasound advised. Echocardiogram reveals EF of 50-55% with severe mitral regurgitation, [id number] mitral stenosis, severe tricuspid regurgitation, moderate to severe pulmonary hypertension. 08/08: Patient was transferred to the ICU due to hyponatremia as he was started on a 3% saline drip which is subsequently been discontinued. Patient is ordered for 1 dose of IV Lasix this morning and 40 mg by nephrology. The minocycline has also been discontinued by nephrology. Patient denies any new complaints. She denies any shortness of breath or chest pain. Her sodium this morning is at 120, potassium 4.8, chloride 88, CO2 27, creatinine 0.56. Blood sugars running between 100 1648. WBC 10.1, hemoglobin 10.7. ProBNP 5520. TSH 0.977. Vascular surgery has signed off this case and plan for wound care team. No plan for surgical intervention on this admission. Patient will follow up with Dr. Jade as an outpatient and any debridement necessary will be done as an outpatient at a later time. Wound culture has been finalized with Proteus mirabilis and Burkholderia cepacia the patient is currently on meropenem managed by Dr. Preston. 08/09: Patient continues to have low sodium 122, potassium is 5.0, chloride 88, CO2 29, BUN [address] Pina is ordered 1 dose of insulin today. Patient is upset about fluid restriction. She seems to be depressed and patient will be started on Cymbalta 30 mg daily. 08/10: Patient remains in intensive care unit but is [facility]. Sodium today is 125. She is status post Samsca given again this morning. Patient is denying any new complaints. She has been resumed back on eliquis with no plan for any intervention for the leg wounds. Patient's continue local wound care per wound care team. Her breathing status is stable. She's been afebrile, heart rate 86, blood pressure 115/81, pulse ox 94% on room air. CBC is unremarkable. Sodium 125, potassium 4.8, chloride 89, CO2 31, BUN 18 and creatinine 0.49. Blood sugars running between 89 and 243. Blood cultures finalized with Proteus mirabilia and Burkholderia cepacia. Dr. Barron is planning for meropenem for 2-3 more weeks depending on clinical course. Local wound care is with Santyl followed by moist dressing. If sodium continues to improve, anticipate discharge back to [facility] on Friday or Friday. 08/11: Patient has been afebrile, heart rate 98, blood pressure 121/70, pulse ox 94% on 2 L nasal cannula. Repeat sodium is 125, potassium 5, chloride 87, CO2 33, BUN 18 and creatinine 0.54. Blood sugars running between 126 and 185. Liver function tests normal. Dr. Pina's place the patient on Lasix 40 mg IV every 8 hours and repeat dose of Samsca 15 mg oral. Repeat sodium level is ordered for 6 PM. Discharge to [facility] will be held today, everything will be set up for possible discharge tomorrow. 08/12., patient doing ok, still with cron ic leg pain, improved alterness and appetite, sodium better at 133 . medications addressed today was aldactone lasix, but dr preston required meropenem for 3-4 wks. will hold discharge rpt covid for am, and midline for iv ab hold discharge today, we'll discharge most likely on Friday after midline was placed and insurance coverage for IV antibiotics 08/13, oh still awaiting with midline placement, that was ordered August 11 performed, review of medications noted that she is on Montanez, possibly this is the cause of her delay, this is held and discontinued until midline displaced right tomorrow. Covid test supposedly performed today, awaiting discharge to [facility] starting tomorrow. Medications are unchanged today, IV meropenem as recommended by infectious disease for the next 2-3 weeks patient is on fluid restriction, sodium of 129 nephrology following, might need sodium tablets status post Samsca, possible demecyclomin 08/14: No new complaints from the patient. Discussed case with Dr. Chou and she will plan for Samsca today and repeat in the group home. Repeat sodium is 127. Patient has been afebrile, heart rate 108, blood pressure 120/75, pulse ox 96% on 3 L nasal cannula. Patient will be discharged back to [facility] today in stable condition. ASSESSMENT AND PLAN 1. Chronic bilateral venous and diabetic ulcers with acute cellulitis. 2. Diabetes mellitus type 2. 3. Diabetic neuropathy. 4. Chronic diastolic heart failure. 5. Chronic atrial fibrillation. 6. Hypovolemic Hyponatremia. 7. Hypertension. 8. Hyperlipidemia. 9. COPD without exacerbation. 10. Gastroesophageal reflux disease. 11. Hypocalcemia. 12. Bilateral thyroid nodules to be followed up. 13. Valvular heart disease with severe mitral regurgitation, mild to moderate mitral stenosis, severe tricuspid regurgitation, moderate to severe pulmonary hypertension. 14. Recurrent depression. DISCHARGE PLAN Return to [facility] under the care of Dr. Mcmahan. Impression and plan of care have been directed as dictated by the signing physician. Maida Johnson nurse practitioner acting as scribe for signing physician Patient Condition at Discharge: Good Plan - Discharge Summary Discharge Rx Participant: No New Discharge Prescriptions: New DULoxetine HCL [Cymbalta] 30 mg PO DAILY capsule. Apixaban [Eliquis] 5 mg PO BID tab Meropenem [Merrem] 1 gm IVPB Q8H #42 vial HYDROcodone/APAP 5-325MG [Lisle 5-325] 1 each PO Q8H PRN #9 tab PRN Reason: Pain Collagenase [Santyl] 1 applic TOPICAL DAILY applic Calcium Carbonate [Tums] 500 mg PO TID chew Tolvaptan [Samsca] 15 mg PO WETH #8 tablet Torsemide [Demadex] 40 mg PO DAILY #30 tablet INSULIN ASPART (NovoLOG) [NovoLOG (formulary)] 0 unit SQ ACHS vial Continue Multivit-Min/FA/Lycopen/Lutein [Centrum Silver Tablet] 1 tab PO DAILY@1700 Lovastatin [Mevacor] 40 mg PO HS Pantoprazole [Protonix] 40 mg PO DAILY@0800 Ipratropium-Albuterol Nebulize [Duoneb 0.5 mg-3 mg/3 ml Soln] 3 ml INHALATION RT-QID PRN ml PRN Reason: Shortness Of Breath Or Wheezing Albuterol Nebulized [Ventolin Nebulized] 2.5 mg INHALATION RT-QID PRN PRN Reason: Shortness Of Breath Insulin Detemir (Levemir) [Levemir] 10 unit SQ HS syr Spironolactone [Aldactone] 12.5 mg PO DAILY@0800 Na Phos,M-B/Na Phos,Di-Ba [Fleet Adult] 133 ml RECTAL DAILY PRN PRN Reason: Constipation Magnesium Hydroxide [Milk of Magnesia Concentrate] 7,200 mg PO Q48H PRN PRN Reason: Constipation Loperamide HCl [Imodium A-D] 2 - 4 mg PO QID PRN PRN Reason: Diarrhea Lidocaine 5% Oint [Xylocaine 5% Oint] 1 mm TOPICAL DAILY PRN PRN Reason: wound bed Glucerna Shake 120 ml PO TID@0800,1700,2100 Budesonide [Pulmicort] 0.5 mg INHALATION RT-BID@0800,2100 bisacodyL [Bisacodyl] 10 mg RECTAL DAILY PRN PRN Reason: Constipation Liquical 30 ml PO BID@0800,1700 Changed Gabapentin [Neurontin] 200 mg PO BID@0800,2100 #12 cap Discontinued Lisinopril [Prinivil] 10 mg PO HS Warfarin Sodium [Jantoven] 2.5 mg PO SUTUWETHSA@1700 Triamcinolone 0.5% Cream [Kenalog 0.5% Cream] 1 applic TOPICAL DAILY PRN PRN Reason: psoriasis Warfarin Sodium [Jantoven] 5 mg PO MOFR@1700 INSULIN ASPART (NovoLOG) [NovoLOG (formulary)] 7 unit SQ AC-TID vial traMADol HCl [Ultram] 50 mg PO TID PRN #9 tab PRN Reason: Pain predniSONE 10 mg PO DAILY@0800 Furosemide [Lasix] 40 mg PO BID@0800,1400 Discharge Medication List Lovastatin [Mevacor] 40 mg PO HS 09/20/15 [History] Multivit-Min/FA/Lycopen/Lutein [Centrum Silver Tablet] 1 tab PO DAILY@1700 09/20/15 [History] Pantoprazole [Protonix] 40 mg PO DAILY@0800 03/23/20 [History] Ipratropium-Albuterol Nebulize [Duoneb 0.5 mg-3 mg/3 ml Soln] 3 ml INHALATION RT-QID PRN ml 03/27/20 [Rx] Albuterol Nebulized [Ventolin Nebulized] 2.5 mg INHALATION RT-QID PRN 06/07/20 [History] Insulin Detemir (Levemir) [Levemir] 10 unit SQ HS syr 06/12/20 [Rx] Budesonide [Pulmicort] 0.5 mg INHALATION RT-BID@0800,2100 08/02/20 [History] Glucerna Shake 120 ml PO TID@0800,1700,2100 08/02/20 [History] Lidocaine 5% Oint [Xylocaine 5% Oint] 1 mm TOPICAL DAILY PRN 08/02/20 [History] Liquical 30 ml PO BID@0800,1700 08/02/20 [History] Loperamide HCl [Imodium A-D] 2 - 4 mg PO QID PRN 08/02/20 [History] Magnesium Hydroxide [Milk of Magnesia Concentrate] 7,200 mg PO Q48H PRN 08/02/20 [History] Na Phos,M-B/Na Phos,Di-Ba [Fleet Adult] 133 ml RECTAL DAILY PRN 08/02/20 [History] Spironolactone [Aldactone] 12.5 mg PO DAILY@0800 08/02/20 [History] bisacodyL [Bisacodyl] 10 mg RECTAL DAILY PRN 08/02/20 [History] Apixaban [Eliquis] 5 mg PO BID tab 08/10/20 [Rx] Calcium Carbonate [Tums] 500 mg PO TID chew 08/10/20 [Rx] Collagenase [Santyl] 1 applic TOPICAL DAILY applic 08/10/20 [Rx] DULoxetine HCL [Cymbalta] 30 mg PO DAILY capsule. 08/10/20 [Rx] Gabapentin [Neurontin] 200 mg PO BID@0800,2100 #12 cap 08/10/20 [Rx] HYDROcodone/APAP 5-325MG [Lisle 5-325] 1 each PO Q8H PRN #9 tab 08/10/20 [Rx] Meropenem [Merrem] 1 gm IVPB Q8H #42 vial 08/10/20 [Rx] INSULIN ASPART (NovoLOG) [NovoLOG (formulary)] 0 unit SQ ACHS vial 08/14/20 [Rx] Tolvaptan [Samsca] 15 mg PO WETH #8 tablet 08/14/20 [Rx] Torsemide [Demadex] 40 mg PO DAILY #30 tablet 08/14/20 [Rx] Follow up Appointment(s)/Referral(s): Saul Mcmahan MD [Primary Care Provider] - 08/22/20 11:00 am Ambulatory/Diagnostic Orders: Basic Metabolic Panel [LAB.AMB] Location: None Selected Activity/Diet/Wound Care/Special Instructions: Repeat sodium on Friday and please contact Dr. Chou prior to dose of Samsca. Remove Alberto in 3 days. [address]VR[address] [facility] next appointment 08/16/[address] Jade Discharge Disposition: TRANSFER TO SNF/ECF
[2020-08-11 10:01] LABS: ALT 26 U/L (4-34); AST 26 U/L (14-36); African American GFR (CKD) >90 (>60 ml/min/1.73 sqM); Albumin 2.9 g/dL (3.5-5.0); Albumin/Globulin Ratio 0.9; Alkaline Phosphatase 93 U/L (38-126); Anion Gap 5 mmol/L; Blood Urea Nitrogen 18 mg/dL (7-17); Calcium 8.4 mg/dL (8.4-10.2); Carbon Dioxide 33 mmol/L (22-30); Chloride 87 mmol/L (98-107); Globulin 3.1 g/dL; Glucose 175 mg/dL (74-99); Magnesium 1.8 mg/dL (1.6-2.3); Non-African American GFR(CKD) >90 (>60 ml/min/1.73 sqM); Sodium 125 mmol/L (137-145); Total Bilirubin 0.5 mg/dL (0.2-1.3)
[2020-08-11 11:41] LABS: Glucose,Whole Blood 126 mg/dL (75-99)
[2020-08-11] MEDS ORDERED: TOLVAPTAN 15 MG 1/2 TABLET PO ONE (11:49)
--- NOTE | 2020-08-11 12:39 | P.PN ---
Subjective Progress Note Date: 08/11/20 HISTORY OF PRESENT ILLNESS Is a 75 year old female patient of Dr. Mcmahan with past medical history significant for diabetes mellitus type 2, COPD, chronic hypoxic respiratory failure on home O2, chronic diastolic heart failure, chronic atrial fibrillation hypertension, hyperlipidemia, previous myocardial infarction, chronic lower extremity ulcers, peripheral vascular occlusive disease with previous fem-pop bypass and stenting, history of chronic tobacco use. Patient was last hospitalized in May of this year at which time she was treated for acute on chronic hypoxic respiratory failure and COPD exacerbation. She has chronic diabetic ulcers for which she follows in the wound healing Center. The patient states that she thinks her wound on her left lower leg is getting worse. Patient apparently recently completed 2 courses of antibiotics. No significant pain to the wounds. Denies any fever or chills. Patient came into [facility] emergency center for evaluation. Patient was afebrile, heart rate 93, blood pressure 108/96, pulse ox 96%. WBC 12.7, hemoglobin 11.6, platelet count 283. Sodium 123, potassium 4.4, chloride 86, CO2 30, BUN 27 creatinine 2.51. Blood sugar 201. Liver function tests normal. INR 1.7. Lactic acid 1.6. Patient to be admitted to the [facility] floor, consult in place with vascular surgery which is planning on I&D this afternoon in OR. Consult added for infectious disease. 08/04: Sodium is again low this morning at 126. Patient does have chronic hyponatremia. Consult will be added for nephrology and a urine sodium and osmolality, serum osmolality ordered as well as sodium chloride tablet twice daily. Surgical debridement is delayed due to hyponatremia. She has been afebrile, heart rate 81, blood pressure 101/64, pulse ox 96% on 2 L. Other lab work reveals that he be sealed 11.4. INR 2.1. Creatinine 0.4. Blood sugars running between 143 and 270. Vanco trough 11.8. Debridement may occur tomorrow and Coumadin is on hold. Dr. Cramer has evaluated the patient and added cefepime to vancomycin. Discharge plan is to return to [facility] possibly on Friday Patient examined bedside. Does appear slightly congested on examination and does occasional cough but denies any shortness of breath,. Patient denies any dizziness nausea or vomiting. Vitals are stable with temp of 96.8 pulse 93 blood pressure 100/66 oxygen saturation 100% on 2 L. Patient's sodium continues to be on low 125 appears to be hypo-volemic rather than SIADH. Inflammation markers elevated, CRP is 28.8. Creatinine 0.46 serum osmolarity 270 urine osmolarity 557 urine sodium 10 vancomycin trough 11.8 wound culture positive for gram-negative bacilli blood culture negative so far. We'll plan for debridement over the weekend will start patient on heparin drip for chronic atrial fibrillation 08/06 patient evaluated bedside stop she denies any dizziness, confusion and change in mental status. Patient's sodium has dropped to 120 potassium 3.5 CO2 19 creatinine 0.46 calcium is 6.6. Glucose has been ranging between 77-180. R am repeat urine studies to be obtained. Echo ordered per nephrology to rule out right ventricular failure Lasix has been discontinued. Patient's orthostatic was positive . Repeat labs tomorrow for evaluation. Continue cefepime for cellulitis of the lower extremity with plan to place PICC line for IV antibiotics on discharge. Continue heparin drip for atrial fibrillation as Coum janel is on hold 08/07: Dr. Cramer has changed antibiotics to meropenem. Patient remains off Coumadin and is on heparin drip. Her repeat blood work this morning reveals INR 1.5. Blood sugars have been running between 92 and 183. Repeat sodium 119, chloride 86, potassium 4.7, CO2 23, creatinine 0.6. WBC 14.8, hemoglobin 9.4. No plan for surgical intervention soon due to worsening hyponatremia, patient will be started on eliquis versus Coumadin. Patient will be started on penicillin cleaned 300 mg twice daily. Patient has been off Lasix and lisinopril. CT of the chest has been ordered. This revealed mild emphysematous change with moderate to severe bilateral pulmonary fibrosis.His acute infiltrate. Cardiomegaly with tiny bilateral pleural effusions cannot exclude a degree of CHF exacerbation. Bilateral thyroid nodules right measuring 3.5 cm. Follow-up thyroid ultrasound advised. Echocardiogram reveals EF of 50-55% with severe mitral regurgitation, [id number] mitral stenosis, severe tricuspid regurgitation, moderate to severe pulmonary hypertension. 08/08: Patient was transferred to the ICU due to hyponatremia as he was started on a 3% saline drip which is subsequently been discontinued. Patient is ordered for 1 dose of IV Lasix this morning and 40 mg by nephrology. The minocycline has also been discontinued by nephrology. Patient denies any new complaints. She denies any shortness of breath or chest pain. Her sodium this morning is at 120, potassium 4.8, chloride 88, CO2 27, creatinine 0.56. Blood sugars running between 100 1648. WBC 10.1, hemoglobin 10.7. ProBNP 5520. TSH 0.977. Vascular surgery has signed off this case and plan for wound care team. No plan for surgical intervention on this admission. Patient will follow up with Dr. Jade as an outpatient and any debridement necessary will be done as an outpatient at a later time. Wound culture has been finalized with Proteus mirabilis and Burkholderia cepacia the patient is currently on meropenem managed by Dr. Cramer. 08/09: Patient continues to have low sodium 122, potassium is 5.0, chloride 88, CO2 29, BUN [address] Pina is ordered 1 dose of insulin today. Patient is upset about fluid restriction. She seems to be depressed and patient will be started on Cymbalta 30 mg daily. 08/10: Patient remains in intensive care unit but is waiting for [facility] bed. Sodium today is 125. She is status post Samsca given again this morning. Patient is denying any new complaints. She has been resumed back on eliquis with no plan for any intervention for the leg wounds. Patient's continue local wound care per wound care team. Her breathing status is stable. She's been afebrile, heart rate 86, blood pressure 115/81, pulse ox 94% on room air. CBC is unremarkable. Sodium 125, potassium 4.8, chloride 89, CO2 31, BUN 18 and creatinine 0.49. Blood sugars running between 89 and 243. Blood cultures finalized with Proteus mirabilia and Burkholderia cepacia. Dr. Barron is planning for meropenem for 2-3 more weeks depending on clinical course. Local wound care is with Santyl followed by moist dressing. If sodium continues to improve, anticipate discharge back to [facility] on Friday or Friday. 08/11: Patient has been afebrile, heart rate 98, blood pressure 121/70, pulse ox 94% on 2 L nasal cannula. Repeat sodium is 125, potassium 5, chloride 87, CO2 33, BUN 18 and creatinine 0.54. Blood sugars running between 126 and 185. Liver function tests normal. Dr. Pina's place the patient on Lasix 40 mg IV every 8 hours and repeat dose of Samsca 15 mg oral. Repeat sodium level is ordered for 6 PM. Discharge to [facility] will be held today, everything will be set up for possible discharge tomorrow. REVIEW OF SYSTEMS Constitutional: No fever, no chills, no night sweats. No weight change. Generalized fatigue. No daytime sleepiness. EENT: No headache. No blurred vision or double vision, no loss of vision. No loss of Hearing, no ringing in the ears, no dizziness. No nasal drainage or congestion. No epistaxis. No sore throat. Lungs: No shortness of breath, cough, no sputum production. No wheezing. Cardiovascular: No chest pain, no lower extremity edema. No palpitations. No paroxysmal nocturnal dyspnea. No orthopnea. No lightheadedness or dizziness. No syncopal episodes. Abdominal: No abdominal pain. No nausea, vomiting. No diarrhea. No constipation. No bloody or tarry stools.. No loss of appetite. Genitourinary: No dysuria, increased frequency, urgency. No urinary retention. Musculoskeletal: No myalgias. No muscle weakness, no gait dysfunction, no frequent falls. No back pain. No neck pain. Integumentary: Reports wounds, no lesions. No rash or pruritus. No unusual bruising. No change in hair or nails. Neurologic: No aphasia. No facial droop. No change in mentation. No head injury. No headache. No paralysis. No paresthesia. Psychiatric: Reports depression. No anxiety. Endocrine: Reports abnormal blood sugars. PHYSICAL EXAMINATION Gen: This is a 75-year-old female. Patient is resting in chair on the [facility] floor and appears to be in no acute distress. No respiratory distress noted. HEENT: Head is atraumatic, normocephalic. Pupils equal, round. Sclerae is anicteric. NECK: Supple. No JVD. No lymphadenopathy. No thyromegaly. LUNGS: Diminished with bilateral wheezes. No intercostal retractions. HEART: Regular rate and rhythm. No murmur. ABDOMEN: Soft. Bowel sounds are present. No masses. No tenderness. EXTREMITIES: Mild pedal edema. Large left lower extremity ulcer on the medial side with surrounding erythema. Dorsalis pedis on the left is 1+, 2+ on the right. Patient also has small superficial ulcers to the left foot dorsal surface base of toes 2 through 4 and dusky purple color to the toes. There is a 5 x 2.5 cm wound on the right medial posterior calf with no significant erythema. There is also a small ulcer on the dorsal surface of the right great toe without erythema or drainage. See nursing documentation for details. NEUROLOGICAL: Patient is awake, alert and oriented x3. Cranial nerves 2 through 12 are grossly intact. ASSESSMENT AND PLAN 1. Chronic bilateral venous and diabetic ulcers with acute cellulitis. Vascular surgery has signed off. No plan for debridement on this admission. Continue local wound care per wound care team. Continue meropenem. Consult with Dr. Shoaib pearson. Continue meropenem at discharge for 2-3 weeks. 2. Diabetes mellitus type 2, uncontrolled with hypoglycemia. Continue Levemir 10 units at bedtime, and NovoLog scale before meals and at bedtime. Scheduled NovoLog 7 units 3 times daily with meals will be discontinued 3. Diabetic neuropathy. Continue gabapentin 200 mg twice daily. 4. Chronic diastolic heart failure. Patient is off Lasix, Aldactone, lisinopril. 5. Chronic atrial fibrillation. Continue eliquis 5 mg twice daily. 6. Hypovolemic Hyponatremia. Patient is status post [facility], continue current management per nephrology daily. Continue 1200 mL fluid restriction. Lasix 40 mg IV every 8 hours started by nephrology. 7. Hypertension. Off lisinopril 10 mg at bedtime. 8. Hyperlipidemia. Continue statin. 9. COPD without exacerbation. Continue albuterol as needed, Pulmicort twice daily. 10. Gastroesophageal reflux disease. Continue Protonix 40 mg daily. 11. Hypocalcemia. Vitamin D ordered. 2 new calcium Calcium carbonate 500 3 times a day 12. Bilateral thyroid nodules to be followed up. 13. Valvular heart disease with severe mitral regurgitation, mild to moderate mitral stenosis, severe tricuspid regurgitation, moderate to severe pulmonary hypertension. 14. Recurrent depression. Patient started on Cymbalta 30 mg daily. 15. DVT prophylaxis. [facility] DISCHARGE PLAN Return to [facility] under the care of Dr. Mcmahan on Friday if patient is stable and cleared by Dr. Bean. Impression and plan of care have been directed as dictated by the signing physician. Maida Johnson nurse practitioner acting as scribe for signing physician. Objective - Vital Signs Vital signs: Vital Signs Temp 97.6 F 08/11/20 05:00 Pulse 91 08/11/20 05:00 Resp 16 08/11/20 05:00 BP 127/70 08/11/20 06:32 Pulse Ox 96 08/11/20 05:00 Intake & Output 08/10/20 08/11/20 08/11/20 18:59 06:59 18:59 Intake Total 370 Output Total 990 1800 Balance -620 -1800 Weight 77.111 kg Intake: IV 130 0.9 @ KVO 30 Magnesium Sulfate-D5w Pmx 100 1 gm In Dextrose/Water 1 100ml.bag @ 100 mls/hr IVPB Q1H [facility] Rx#: [id number] Oral 240 Output: Urine 990 1800 Other: Voiding Method Indwelling Catheter Indwelling Catheter - Labs CBC & Chem 7: 08/10/20 04:06 08/11/20 08:54 Labs: Abnormal Lab Results - Last 24 Hours (Table) 08/10/20 08/10/20 08/10/20 Range/Units 11:37 14:45 15:48 Sodium 126 L (137-145) mmol/L Chloride 88 L (98-107) mmol/L Carbon Dioxide 33 H (22-30) mmol/L BUN 18 H (7-17) mg/dL Glucose 111 H (74-99) mg/dL POC Glucose (mg/dL) 183 H 130 H (75-99) mg/dL 08/10/20 08/10/20 08/11/20 Range/Units 16:57 20:09 07:08 Sodium (137-145) mmol/L Chloride (98-107) mmol/L Carbon Dioxide (22-30) mmol/L BUN (7-17) mg/dL Glucose (74-99) mg/dL POC Glucose (mg/dL) 151 H 185 H 146 H (75-99) mg/dL
--- NOTE | 2020-08-11 13:23 | P.PN ---
Subjective Patient is seen in follow-up for hyponatremia. Sodium level 125 today. She received a dose of Samsca as well as IV Lasix yesterday. Nonoliguric. Oral intake fair. Still quite edematous. Oral intake improving. Vital signs are stable. General: The patient appeared well nourished and normally developed. HEENT: Head exam is unremarkable. Neck is without jugular venous distension. LUNGS: Breath sounds decreased. HEART: Rate and Rhythm are regular. ABDOMEN: Soft, nontender. EXTREMITITES: 2+ edema. Objective - Vital Signs Vital signs: Vital Signs Temp 97.3 F L 08/11/20 11:35 Pulse 98 08/11/20 11:35 Resp 16 08/11/20 11:35 BP 121/70 08/11/20 11:35 Pulse Ox 94 L 08/11/20 11:35 Intake & Output 08/10/20 08/11/20 08/11/20 18:59 06:59 18:59 Intake Total 370 Output Total 990 1800 1500 Balance -620 -1800 -1500 Weight 77.111 kg Intake: IV 130 0.9 @ KVO 30 Magnesium Sulfate-D5w Pmx 100 1 gm In Dextrose/Water 1 100ml.bag @ 100 mls/hr IVPB Q1H [facility] Rx#: [id number] Oral 240 Output: Urine 990 1800 1500 Other: Voiding Method Indwelling Catheter Indwelling Catheter Indwelling Catheter - Labs CBC & Chem 7: 08/10/20 04:06 08/11/20 08:54 Labs: Abnormal Lab Results - Last 24 Hours (Table) 08/10/20 08/10/20 08/10/20 Range/Units 14:45 15:48 16:57 Sodium 126 L (137-145) mmol/L Chloride 88 L (98-107) mmol/L Carbon Dioxide 33 H (22-30) mmol/L BUN 18 H (7-17) mg/dL Glucose 111 H (74-99) mg/dL POC Glucose (mg/dL) 130 H 151 H (75-99) mg/dL Total Protein (6.3-8.2) g/dL Albumin (3.5-5.0) g/dL 08/10/20 08/11/20 08/11/20 Range/Units 20:09 07:08 08:54 Sodium 125 L (137-145) mmol/L Chloride 87 L (98-107) mmol/L Carbon Dioxide 33 H (22-30) mmol/L BUN 18 H (7-17) mg/dL Glucose 175 H (74-99) mg/dL POC Glucose (mg/dL) 185 H 146 H (75-99) mg/dL Total Protein 6.0 L (6.3-8.2) g/dL Albumin 2.9 L (3.5-5.0) g/dL 08/11/20 Range/Units 11:40 Sodium (137-145) mmol/L Chloride (98-107) mmol/L Carbon Dioxide (22-30) mmol/L BUN (7-17) mg/dL Glucose (74-99) mg/dL POC Glucose (mg/dL) 126 H (75-99) mg/dL Total Protein (6.3-8.2) g/dL Albumin (3.5-5.0) g/dL Assessment and Plan Plan: Assessment: 1. Hyponatremia. Hypervolemic. Status post short duration of 3%. Status post Samsca and IV Lasix yesterday. TSH normal. Urine sodium less than 10 and urine osmolality 207. 2. Left lower extremity cellulitis maintained on antibiotics. 3. Diabetes mellitus. 4. Volume overload. Plan: Repeat Samsca 15 mg today. Increase Lasix to 40 mg IV 3 times a day. Maintain fluid restriction. Encourage oral intake, particularly protein. Repeat electrolytes in the morning.
--- NOTE | 2020-08-11 15:35 | PN ---
PROGRESS NOTE DATE OF SERVICE: 08/11/2020 REASON FOR FOLLOWUP: Bilateral lower extremity wounds and cellulitis. INTERVAL HISTORY: The patient is currently afebrile. The patient is breathing comfortably. Denies having any chest pain or cough. No abdominal pain. Is complaining of some constipation and pain to the lower extremities, but no worsening. PHYSICAL EXAMINATION: Blood pressure 121/70 with a pulse of 90, temperature 97.3. She is 94% on 2 L nasal cannula. General description is an elderly female up in the chair in no distress. RESPIRATORY SYSTEM: Unlabored breathing. Lower extremities currently wrapped up. No obvious drainage on the dressing. LABS: BUN of 18, creatinine 0.54. DIAGNOSTIC IMPRESSION AND PLAN: Patient with bilateral lower extremity venostasis ulcers with secondary cellulitis. Culture with multiple resistant pathogens. Patient clinically responding to the meropenem; to continue for at least 3-4 weeks. Local wound care with Santyl followed by moist dressing and close outpatient followup. MMODL / IJN: [id number] /
[2020-08-11] MEDS: predniSONE 20 MG TAB PO SCH (15:59)
--- NOTE | 2020-08-11 16:01 | P.PN ---
Subjective Progress Note Date: 08/11/20 Principal diagnosis: Bilateral lower extremity wounds, shortness of breath, hyponatremia 75-year-old female patient of Dr. Mcmahan with multiple medical problems including COPD on home oxygen at 3 L on a regular basis, hypertension, diabetes mellitus type 2, previous MT, peripheral vascular disease with history of intervention including fem-pop bypass and placement of stents, chronic anemia, previous history of MRSA infection in her leg wounds, former smoker, anxiety and depre ssion, who initially came into the hospital on 08/02/2020 per EMS for evaluation of bilateral lower extremity leg wounds. Apparently patient has chronic leg wounds, and had recently completed 2 courses of antibiotics. Patient came in from a alf. Patient did not have any fever or chills, she was started on Levaquin and vancomycin on admission for lower extremity wounds, and vascular surgery saw the patient consultation. Patient normally goes to the wound care clinic. Patient was given IV fluids. On admission patient's serum sodium was 123, looking back at her labs from May and June, patient's serum sodium level was fluctuating between 120 and 134 at the highest. In addition patient seems to be generally fluid overloaded, with lower extremity edema, and her chest x-ray showing changes consistent with CHF and interstitial pulmonary edema. She was transferred to the intensive care unit early this morning for initiation of hypertonic saline. This morning her serum sodium is 122, 3% saline is infusing at a rate of 10 mL per hour, patient seems to be short of breath, she's cut diffuse crackles and congested cough on physical exam, she is awake and alert, answering questions appropriately, denies any chest pain, she has been leg edema with 1+ lower extremity edema and weeping lower extremity wounds. White blood cell count is 10.1, hemoglobin is 10.7, INR is 1.5, her Coumadin remains on hold for possibility of surgical debridement of her wounds. Lisinopril BNP level which came back elevated at 5520. Patient is currently on 2 L of oxygen, with a pulse ox of 97%, no vasoactive drips at this time. Patient is in A. fib, which is chronic for her, the rate is controlled at 96 BPM. On 08/09/2020 patient seen in follow-up in the intensive care unit, today she is breathing much easier, still has some diffuse crackles bilateral lungs, but she is on room air today, less short of breath, she is able to sit back in the recliner and breathe comfortably, no complaints of chest pain. Room air pulse ox is 97%, no fever or chills, hemodynamically patient is stable, she is in A. fib with a controlled rate, and patient is on Eliquis for anticoagulation. She continues on meropenem for bilateral leg infection and wound cultures were positive for Proteus mirabilis and Burkholderia cepacia, she's had no fever or chills. Patient was given a dose of Lasix yesterday, she has pretty 2.7 L in the urine output and she is in -1.8 minutes fluid balance over the last 24 hours, still has lower extremity edema which has a little bit improved. Today's labs show sodium of 122, hypertonic saline has been discontinued, currently patient is on point and was seen intermittent 10 mL per hour, no other drips, and patient will receive Tolvaptan today. Nephrology is following, white blood cell count is 11.6, hemoglobin is 10.8, potassium is 5.0, chloride is 88, BUN is 18 and creatinine 0.6 to On 08/10/2020 patient seen in follow-up in the intensive care unit, she is ALERT, in no acute distress, currently on room air, breathing comfortably, currently satting 92-94%, lung sounds are positive for some scattered rhonchi and crackles, however improved from yesterday's exam, still quite edematous in her bilateral lower extremities, her wounds are weeping extensively. She was given an additional dose of Lasix last night, and we'll give the patient additional dose this morning. She is on 0.9 normal saline at a rate of 20 ML per hour, which can be hep-locked at this point, today's sodium is 125, neurologically she is intact, has had no fever or chills, blood pressure has been stable. Renal profile is relatively stable, bun is 18, creatinine 0.49, potassium is 4.8, no leukocytosis, white blood cell count was 9.4, hemoglobin is 11.2. Her A. fib is controlled, patient is on Eliquis for anticoagulation, she is receiving local wound care to her lower extremity wounds. On 08/11/2020 patient seen in follow-up on medical floor, sitting up in a recliner, breathing comfortably, she is on 2 L of oxygen, pulse ox is 94-96%, lung sounds are positive for some scattered crackles, and rhonchi. She remains on IV diuretics, she is a -2.4 L net fluid balance over the last 24 hours, lower extremity edema is improving, oral patient feels less short of breath. She continues with local wound care to her lower extremity wounds, bilateral legs are wrapped, not quite is edematous and weeping on today's exam. Patient has been get told wrapped per nephrology on a daily basis, TSH has been normal, she's had fair oral intake, and she remains on 1200 mL oral fluid restriction Objective - Vital Signs Vital signs: Vital Signs Temp 97.3 F L 08/11/20 11:35 Pulse 98 08/11/20 11:35 Resp 16 08/11/20 11:35 BP 121/70 08/11/20 11:35 Pulse Ox 94 L 08/11/20 11:35 Intake & Output 08/10/20 08/11/20 08/11/20 18:59 06:59 18:59 Intake Total 370 Output Total 990 1800 1500 Balance -620 -1800 -1500 Weight 77.111 kg Intake: IV 130 0.9 @ KVO 30 Magnesium Sulfate-D5w Pmx 100 1 gm In Dextrose/Water 1 100ml.bag @ 100 mls/hr IVPB Q1H [facility] Rx#: [id number] Oral 240 Output: Urine 990 1800 1500 Other: Voiding Method Indwelling Catheter Indwelling Catheter Indwelling Catheter - Exam GENERAL EXAM: Alert, very pleasant, 75-year-old white female, on 2 L of oxygen and pulse ox of 94%, sitting up in the recliner, comfortable in no apparent distress. HEAD: Normocephalic/atraumatic. EYES: Normal reaction of pupils, equal size. Conjunctiva pink, sclera white. NOSE: Clear with pink turbinates. THROAT: No erythema or exudates. NECK: No masses, no JVD, no thyroid enlargement, no adenopathy. CHEST: No chest wall deformity. Symmetrical expansion. LUNGS: Equal air entry with diffuse crackles and rhonchi bilaterally, congested cough CVS: Irregular rate and rhythm, normal S1 and S2, no gallops, no murmurs, no rubs ABDOMEN: Soft, nontender. No hepatosplenomegaly, normal bowel sounds, no guarding or rigidity. EXTREMITIES: No clubbing, 1-2+ lower extremity edema, no cyanosis, 2+ pulses and upper and lower extremities. MUSCULOSKELETAL: Muscle strength and tone normal. SPINE: No scoliosis or deformity SKIN: No rashes, patient has anterior tibial areas of wounds wound bed is mostly clean, the wounds are very moist, weeping, sharp demarcated edges, they're clean, do not appear to be infected CENTRAL NERVOUS SYSTEM: Alert and oriented -3. No focal deficits, tone is normal in all 4 extremities. PSYCHIATRIC: Alert and oriented -3. Appropriate affect. Intact judgment and insight. - Labs CBC & Chem 7: 08/10/20 04:06 08/11/20 08:54 Labs: Abnormal Lab Results - Last 24 Hours (Table) 08/10/20 08/10/20 08/10/20 Range/Units 15:48 16:57 20:09 Sodium 126 L (137-145) mmol/L Chloride 88 L (98-107) mmol/L Carbon Dioxide 33 H (22-30) mmol/L BUN 18 H (7-17) mg/dL Glucose 111 H (74-99) mg/dL POC Glucose (mg/dL) 151 H 185 H (75-99) mg/dL Total Protein (6.3-8.2) g/dL Albumin (3.5-5.0) g/dL 08/11/20 08/11/20 08/11/20 Range/Units 07:08 08:54 11:40 Sodium 125 L (137-145) mmol/L Chloride 87 L (98-107) mmol/L Carbon Dioxide 33 H (22-30) mmol/L BUN 18 H (7-17) mg/dL Glucose 175 H (74-99) mg/dL POC Glucose (mg/dL) 146 H 126 H (75-99) mg/dL Total Protein 6.0 L (6.3-8.2) g/dL Albumin 2.9 L (3.5-5.0) g/dL Assessment and Plan Plan: Assessment: #1. Hyponatremia, appears to be hypervolemic due to acute exacerbation of CHF with diastolic dysfunction #2. Valvular heart disease, severe mitral regurgitation and mild to moderate mitral stenosis, severe tricuspid regurgitation, severe pulmonary hypertension with right heart pressure of 66.3 mmHg #3. Severe pulmonary hypertension with PA systolic of 66.3 mmHg, likely secondary to advanced COPD #4. Chronic hypoxic respiratory failure related to advanced COPD #5. Chronic lower extremity wounds, patient usually goes to the wound Center, with history of MRSA infection. Wound cultures from the left leg showed Proteus mirabilis and Burkholderia cepacia currently covered with meropenem #6. Chronic A. fib on Coumadin which is on hold for possibility of lower extremity wound debridement #7. Peripheral vascular disease with previous intervention #8. Diabetes mellitus type 2 #9. COPD on home oxygen #10. Previous history of myocardial infarction #11. Chronic anemia #12. Anxiety and depression #13. Scattered pulmonary fibrotic changes seen on CT chest of the lungs, and a 7 mm subpleural right lower lobe nodule Plan: Continue IV diuretics per nephrology, continue oral prednisone, breathing treatments, patient received another dose of 12, Today's Serum Sodium Has Been Noted, Clinical Patient Is Breathing Easier, Wean FiO2, from Pulmonary Perspective she could be considered for discharge to ECF once cleared by medicine I performed a history & physical examination of the patient and discussed their management with my nurse practitioner, Aed Guzmán. I reviewed the nurse practitioner's note and agree with the documented findings and plan of care. Lung sounds are positive for bilateral crackles. The findings and the im pression was discussed with the patient. I attest to the documentation by the nurse practitioner. Time with Patient: Less than 30
[2020-08-11] MEDS: IPRATROPIUM-ALBUTEROL 3 ML NEB INHALATION SCH ×2 (16:10→20:15)
[2020-08-11 17:06] LABS: Glucose,Whole Blood 155 mg/dL (75-99)
[2020-08-11] MEDS: SYMBICORT 160-4.5 MCG INHALER INHALATION SCH (20:16)
[2020-08-11 20:29] LABS: Glucose,Whole Blood 180 mg/dL (75-99)
[2020-08-11] MEDS: traMADol 50 MG TAB PO PRN (21:21)
[2020-08-11] MEDS: ATORVASTATIN 10 MG TAB PO SCH (21:21)
[2020-08-11] MEDS: INSULIN DETEMIR (LEVEMIR) 100 UNIT/ML SYR SQ SCH (21:22)
[2020-08-12] MEDS: HYDROmorphone 1 MG/ML 1 ML SYRINGE IVP PRN (00:06)
[2020-08-12] MEDS: MEROPENEM 1 GM in SODIUM CHLORIDE 0.9% 100 ML IVPB SCH ×3 (05:50→21:08)
[2020-08-12] MEDS: traMADol 50 MG TAB PO PRN (06:30)
[2020-08-12 07:16] LABS: Glucose,Whole Blood 86 mg/dL (75-99)
[2020-08-12] MEDS: INSULIN ASPART (NovoLOG) 100 UNIT/ML VIAL SQ SCH ×4 (07:37→21:08)
[2020-08-12] MEDS: GABAPENTIN 100 MG CAP PO SCH ×2 (07:58→21:08)
[2020-08-12] MEDS: PANTOPRAZOLE 40 MG TABLET PO SCH (07:58)
[2020-08-12] MEDS: CALCIUM CARBONATE 500 MG CHEWABLE PO SCH ×4 (07:58→21:04)
[2020-08-12] MEDS: predniSONE 20 MG TAB PO SCH (07:59)
[2020-08-12] MEDS: APIXABAN 5 MG TAB PO SCH ×2 (07:59→21:07)
[2020-08-12] MEDS: FUROSEMIDE 10 MG/ML 4 ML VIAL IV SCH ×3 (07:59→23:42)
[2020-08-12] MEDS: DULoxetine HCL 30 MG CAPSULE.DR PO SCH (08:00)
[2020-08-12] MEDS: SYMBICORT 160-4.5 MCG INHALER INHALATION SCH ×2 (09:09→20:41)
[2020-08-12] MEDS: IPRATROPIUM-ALBUTEROL 3 ML NEB INHALATION SCH ×4 (09:09→20:41)
[2020-08-12 12:12] LABS: Glucose,Whole Blood 214 mg/dL (75-99)
[2020-08-12 12:33] LABS: African American GFR (CKD) 104.8 (60.0-200.0); BUN/Creat Ratio 31.67 Ratio (12.00-20.00); Calcium 9.2 mg/dL (8.7-10.3); Magnesium 1.7 mg/dL (1.5-2.4); Non-African American GFR(CKD) 90.4 (60.0-200.0); Potassium 5.4 mmol/L (3.5-5.5)
--- NOTE | 2020-08-12 14:06 | P.PN ---
Subjective Progress Note Date: 08/12/20 Principal diagnosis: Hyponatremia. CHF. The patient continues to show improvement. She is on the general medical floor. She is on O2 at 2 L. Saturations are in the mid to high 90s. The patient complains of her legs hurting her. She has quite a bit of lower extremity edema, and some open sores. We initially saw her in the intensive care unit for hyponatremia. We felt like she had hypervolemic hyponatremia. She was initially on 3 % saline but we thought she really would benefit from diuretics and she did. Currently, her breathing is much improved. The patient denies chest pain or chest discomfort. Her current labs include a sodium 133, potassium 5.4, chlorides 90, CO2 37, anion gap 6, BUN 19, and creatinine 0.6. Objective - Vital Signs Vital signs: Vital Signs Temp 97.3 F L 08/12/20 13:55 Pulse 95 08/12/20 13:55 Resp 14 08/12/20 13:55 BP 115/69 08/12/20 13:55 Pulse Ox 100 08/12/20 13:55 Intake & Output 08/11/20 08/12/20 08/12/20 18:59 06:59 18:59 Intake Total 540 780 358 Output Total 3100 1400 800 Balance -2560 -620 -442 Intake: Oral 540 780 358 Output: Urine 3100 1400 800 Uretheral (Alberto) 1400 Other: Voiding Method Indwelling Catheter Indwelling Catheter Indwelling Catheter # Bowel Movements 1 - Exam GENERAL EXAM: Alert, very pleasant, 75-year-old white female, on 2 L of oxygen and pulse ox of 96%, sitting up in the recliner, comfortable in no apparent distress. HEAD: Normocephalic/atraumatic. EYES: Normal reaction of pupils, equal size. Conjunctiva pink, sclera white. NOSE: Clear with pink turbinates. THROAT: No erythema or exudates. NECK: No masses, no JVD, no thyroid enlargement, no adenopathy. CHEST: No chest wall deformity. Symmetrical expansion. LUNGS: Equal air entry with diffuse crackles and rhonchi bilaterally, congested cough CVS: Irregular rate and rhythm, normal S1 and S2, no gallops, no murmurs, no rubs. Heart rate 76 bpm. ABDOMEN: Soft, nontender. No hepatosplenomegaly, normal bowel sounds, no guarding or rigidity. EXTREMITIES: No clubbing, 1-2+ lower extremity edema, no cyanosis, 2+ pulses and upper and lower extremities. MUSCULOSKELETAL: Muscle strength and tone normal. SPINE: No scoliosis or deformity SKIN: No rashes, patient has anterior tibial areas of wounds wound bed is mostly clean, the wounds are very moist, weeping, sharp demarcated edges, they're clean, do not appear to be infected CENTRAL NERVOUS SYSTEM: Alert and oriented -3. No focal deficits, tone is normal in all 4 extremities. PSYCHIATRIC: Alert and oriented -3. Appropriate affect. Intact judgment and insight. - Labs CBC & Chem 7: 08/10/20 04:06 08/12/20 06:25 Labs: Abnormal Lab Results - Last 24 Hours (Table) 08/11/20 08/11/20 08/11/20 Range/Units 17:02 17:37 20:28 Sodium 126 L (137-145) mmol/L Chloride (96-109) mmol/L Carbon Dioxide (21.6-31.8) mmol/L BUN/Creatinine Ratio (12.00-20.00) Ratio Glucose (70-110) mg/dL POC Glucose (mg/dL) 155 H 180 H (75-99) mg/dL 08/12/20 08/12/20 Range/Units 06:25 12:11 Sodium 133 L (137-145) mmol/L Chloride 90 L (96-109) mmol/L Carbon Dioxide 37.0 H (21.6-31.8) mmol/L BUN/Creatinine Ratio 31.67 H (12.00-20.00) Ratio Glucose 114 H (70-110) mg/dL POC Glucose (mg/dL) 214 H (75-99) mg/dL Assessment and Plan Assessment: #1. Hyponatremia, appears to be hypervolemic due to acute exacerbation of CHF with diastolic dysfunction. #2. Valvular heart disease, severe mitral regurgitation and mild to moderate mitral stenosis, severe tricuspid regurgitation, severe pulmonary hypertension with right heart pressure of 66.3 mmHg. #3. Severe pulmonary hypertension with PA systolic of 66.3 mmHg, likely secondary to advanced COPD. #4. Chronic hypoxic respiratory failure related to advanced COPD. #5. Chronic lower extremity wounds, patient usually goes to the wound Center, with history of MRSA infection. Wound cultures from the left leg showed Proteus mirabilis and Burkholderia cepacia currently covered with meropenem. #6. Chronic A. fib on Coumadin which is on hold for possibility of lower extremity wound debridement. #7. Peripheral vascular disease with previous intervention. #8. Diabetes mellitus type 2. #9. COPD on home oxygen. #10. Previous history of myocardial infarction. #11. Chronic anemia. #12. Anxiety and depression. #13. Scattered pulmonary fibrotic changes seen on CT chest of the lungs, and a 7 mm subpleural right lower lobe nodule. Plan: Plan dated 08/12/2020. The patient remains on diuretics, oral prednisone, breathing treatments, and her sodium today is much improved. We will continue to see the patient only as needed. From the pulmonary perspective, she could be cleared for discharge. The patient denies any respiratory issues at this time. Her only complaint today is that her legs are swollen and they hurt. This is a chronic and ongoing problem. Additional recommendations and suggestions are forthcoming. Time with Patient: Less than 30
--- NOTE | 2020-08-12 14:28 | P.DS ---
Providers Date of admission: 08/02/20 20:57 Attending physician: Elías Blake MD Consults: 08/03/20 09:48 Consult Physician Routine Consulting Provider: Scott Preston Consult Reason/Comments: wounds left LE Do you want consulting provider notified?: Yes 08/04/20 08:51 Consult Physician Routine Consulting Provider: Cherrie Chou Consult Reason/Comments: hyponatremia Do you want consulting provider notified?: Yes 08/08/20 07:30 Consult Physician Routine Consulting Provider: Jeremiah Sullivan Consult Reason/Comments: icu management Do you want consulting provider notified?: Already Contacted Primary care physician: Saul Mcmahan [facility] Course: HISTORY OF PRESENT ILLNESS Is a 75 year old female patient of Dr. Mcmahan with past medical history significant for diabetes mellitus type 2, COPD, chronic hypoxic respiratory failure on home O2, chronic diastolic heart failure, chronic atrial fibrillation hypertension, hyperlipidemia, previous myocardial infarction, chronic lower extremity ulcers, peripheral vascular occlusive disease with previous fem-pop bypass and stenting, history of chronic tobacco use. Patient was last hospitalized in May of this year at which time she was treated for acute on chronic hypoxic respiratory failure and COPD exacerbation. She has chronic diabetic ulcers for which she follows in the wound healing Center. The patient states that she thinks her wound on her left lower leg is getting worse. Patient apparently recently completed 2 courses of antibiotics. No significant pain to the wounds. Denies any fever or chills. Patient came into [facility] emergency center for evaluation. Patient was afebrile, heart rate 93, blood pressure 108/96, pulse ox 96%. WBC 12.7, hemoglobin 11.6, platelet count 283. Sodium 123, potassium 4.4, chloride 86, CO2 30, BUN 27 creatinine 2.51. Blood sugar 201. Liver function tests normal. INR 1.7. Lactic acid 1.6. Patient to be admitted to the MedSurg floor, consult in place with vascular surgery which is planning on I&D this afternoon in OR. Consult added for infectious disease. 08/04: Sodium is again low this morning at 126. Patient does have chronic hypo natremia. Consult will be added for nephrology and a urine sodium and osmolality, serum osmolality ordered as well as sodium chloride tablet twice daily. Surgical debridement is delayed due to hyponatremia. She has been afebrile, heart rate 81, blood pressure 101/64, pulse ox 96% on 2 L. Other lab work reveals that he be sealed 11.4. INR 2.1. Creatinine 0.4. Blood sugars running between 143 and 270. Vanco trough 11.8. Debridement may occur tomorrow and Coumadin is on hold. Dr. Preston has evaluated the patient and added cefepime to vancomycin. Discharge plan is to return to [facility] possibly on Friday Patient examined bedside. Does appear slightly congested on examination and does occasional cough but denies any shortness of breath,. Patient denies any dizziness nausea or vomiting. Vitals are stable with temp of 96.8 pulse 93 blood pressure 100/66 oxygen saturation 100% on 2 L. Patient's sodium continues to be on low 125 appears to be hypo-volemic rather than SIADH. Inflammation markers elevated, CRP is 28.8. Creatinine 0.46 serum osmolarity 270 urine osmolarity 557 urine sodium 10 vancomycin trough 11.8 wound culture positive for gram-negative bacilli blood culture negative so far. We'll plan for debridement over the weekend will start patient on heparin drip for chronic atrial fibrillation 08/06 patient evaluated bedside stop she denies any dizziness, confusion and change in mental status. Patient's sodium has dropped to 120 potassium 3.5 CO2 19 creatinine 0.46 calcium is 6.6. Glucose has been ranging between 77-180. R am repeat urine studies to be obtained. Echo ordered per nephrology to rule out right ventricular failure Lasix has been discontinued. Patient's orthostatic was positive . Repeat labs tomorrow for evaluation. Continue cefepime for cellulitis of the lower extremity with plan to place PICC line for IV antibiotics on discharge. Continue heparin drip for atrial fibrillation as Coumadin is on hold 08/07: Dr. Preston has changed antibiotics to meropenem. Patient remains off Coumadin and is on heparin drip. Her repeat blood work this morning reveals INR 1.5. Blood sugars have been running between 92 and 183. Repeat sodium 119, chloride 86, potassium 4.7, CO2 23, creatinine 0.6. WBC 14.8, hemoglobin 9.4. No plan for surgical intervention soon due to worsening hyponatremia, patient will be started on eliquis versus Coumadin. Patient will be started on penicillin cleaned 300 mg twice daily. Patient has been off Lasix and lisinopril. CT of the chest has been ordered. This revealed mild emphysematous change with moderate to severe bilateral pulmonary fibrosis.His acute infiltrate. Cardiomegaly with tiny bilateral pleural effusions cannot exclude a degree of CHF exacerbation. Bilateral thyroid nodules right measuring 3.5 cm. Follow-up thyroid ultrasound advised. Echocardiogram reveals EF of 50-55% with severe mitral regurgitation, [id number] mitral stenosis, severe tricuspid regurgitation, moderate to severe pulmonary hypertension. 08/08: Patient was transferred to the ICU due to hyponatremia as he was started on a 3% saline drip which is subsequently been discontinued. Patient is ordered for 1 dose of IV Lasix this morning and 40 mg by nephrology. The minocycline has also been discontinued by nephrology. Patient denies any new complaints. She denies any shortness of breath or chest pain. Her sodium this morning is at 120, potassium 4.8, chloride 88, CO2 27, creatinine 0.56. Blood sugars running between 100 1648. WBC 10.1, hemoglobin 10.7. ProBNP 5520. TSH 0.977. Vascular surgery has signed off this case and plan for wound care team. No plan for surgical intervention on this admission. Patient will follow up with Dr. Jade as an outpatient and any debridement necessary will be done as an outpatient at a later time. Wound culture has been finalized with Proteus mirabilis and Burkholderia cepacia the patient is currently on meropenem managed by Dr. Preston. 08/09: Patient continues to have low sodium 122, potassium is 5.0, chloride 88, CO2 29, BUN [address] Pina is ordered 1 dose of insulin today. Patient is upset about fluid restriction. She seems to be depressed and patient will be started on Cymbalta 30 mg daily. 08/10: Patient remains in intensive care unit but is waiting for [facility] bed. Sodium today is 125. She is status post Samsca given again this morning. Patient is denying any new complaints. She has been resumed back on eliquis with no plan for any intervention for the leg wounds. Patient's continue local wound care per wound care team. Her breathing status is stable. She's been afebrile, heart rate 86, blood pressure 115/81, pulse ox 94% on room air. CBC is unremarkable. Sodium 125, potassium 4.8, chloride 89, CO2 31, BUN 18 and creatinine 0.49. Blood sugars running between 89 and 243. Blood cultures finalized with Proteus mirabilia and Burkholderia cepacia. Dr. Barron is planning for meropenem for 2-3 more weeks depending on clinical course. Local wound care is with Santyl followed by moist dressing. If sodium continues to improve, anticipate discharge back to [facility] on Friday or Friday. 08/11: Patient has been afebrile, heart rate 98, blood pressure 121/70, pulse ox 94% on 2 L nasal cannula. Repeat sodium is 125, potassium 5, chloride 87, CO2 33, BUN 18 and creatinine 0.54. Blood sugars running between 126 and 185. Liver function tests normal. Dr. Pina's place the patient on Lasix 40 mg IV every 8 hours and repeat dose of Samsca 15 mg oral. Repeat sodium level is ordered for 6 PM. Discharge to [facility] will be held today, everything will be set up for possible discharge tomorrow. 08/12., patient doing ok, still with cron ic leg pain, improved alterness and appetite, sodium better at 133 . medications addressed today was aldactone lasix, but dr preston required meropenem for 3-4 wks. will hold discharge rpt covid for am, and midline for iv ab hold discharge today, we'll discharge most likely on Friday after midline was placed and insurance coverage for IV antibiotics Medications that will need to be clarified at discharge include lisinopril, Aldactone and Lasix. ASSESSMENT AND PLAN 1. Chronic bilateral venous and diabetic ulcers with acute cellulitis. Vascular surgery has signed off. No plan for debridement on this admission. Continue local wound care per wound care team. Continue meropenem. Consult with Dr. Preston appreciated. Continue meropenem at discharge for 2-3 weeks. As culture showing multiple resistant pathogen local wound with santyl 2. Diabetes mellitus type 2, uncontrolled with hypoglycemia. Continue Levemir 10 units at bedtime, and NovoLog scale before meals and at bedtime. Scheduled NovoLog 7 units 3 times daily with meals will be discontinued 3. Diabetic neuropathy. Continue gabapentin 200 mg twice daily. 4. Chronic diastolic heart failure. Patient is off Lasix, Aldactone, lisinopril. 5. Chronic atrial fibrillation. Continue eliquis 5 mg twice daily. 6. Hypovolemic Hyponatremia. Patient is status post Samsca, continue current management per nephrology daily. Continue 1200 mL fluid restriction. Lasix 40 mg IV every 8 hours started by nephrology. 7. Hypertension. Off lisinopril 10 mg at bedtime. 8. Hyperlipidemia. Continue statin. 9. COPD without exacerbation. Continue albuterol as needed, Pulmicort twice daily. 10. Gastroesophageal reflux disease. Continue Protonix 40 mg daily. 11. Hypocalcemia. Vitamin D ordered. 2 new calcium Calcium carbonate 500 3 times a day 12. Bilateral thyroid nodules to be followed up. 13. Valvular heart disease with severe mitral regurgitation, mild to moderate mitral stenosis, severe tricuspid regurgitation, moderate to severe pulmonary hypertension. 14. Recurrent depression. Patient started on Cymbalta 30 mg daily. 15. DVT prophylaxis. Vika DISCHARGE PLAN Return to [facility] under the care of Dr. Mcmahan on friday 1. Chronic bilateral venous and diabetic ulcers with acute cellulitis. 2. Diabetes mellitus type 2. 3. Diabetic neuropathy. 4. Chronic diastolic heart failure. 5. Chronic atrial fibrillation. 6. Hypovolemic Hyponatremia. 7. Hypertension. 8. Hyperlipidemia. 9. COPD without exacerbation. 10. Gastroesophageal reflux disease. 11. Hypocalcemia. 12. Bilateral thyroid nodules to be followed up. 13. Valvular heart disease with severe mitral regurgitation, mild to moderate mitral stenosis, severe tricuspid regurgitation, moderate to severe pulmonary hypertension. 14. Recurrent depression. Patient Condition at Discharge: Good Plan - Discharge Summary Discharge Rx Participant: No New Discharge Prescriptions: New DULoxetine HCL [Cymbalta] 30 mg PO DAILY capsule. Apixaban [Eliquis] 5 mg PO BID tab Meropenem [Merrem] 1 gm IVPB Q8H #42 vial HYDROcodone/APAP 5-325MG [[place] 5-325] 1 each PO Q8H PRN #9 tab PRN Reason: Pain Collagenase [Santyl] 1 applic TOPICAL DAILY applic Calcium Carbonate [Tums] 500 mg PO TID chew Continue Multivit-Min/FA/Lycopen/Lutein [Centrum Silver Tablet] 1 tab PO DAILY@1700 Lisinopril [Prinivil] 10 mg PO HS Lovastatin [Mevacor] 40 mg PO HS Pantoprazole [Protonix] 40 mg PO DAILY@0800 Ipratropium-Albuterol Nebulize [Duoneb 0.5 mg-3 mg/3 ml Soln] 3 ml INHALATION RT-QID PRN ml PRN Reason: Shortness Of Breath Or Wheezing Albuterol Nebulized [Ventolin Nebulized] 2.5 mg INHALATION RT-QID PRN PRN Reason: Shortness Of Breath Insulin Detemir (Levemir) [Levemir] 10 unit SQ HS syr INSULIN ASPART (NovoLOG) [NovoLOG (formulary)] 7 unit SQ AC-TID vial traMADol HCl [Ultram] 50 mg PO TID PRN #9 tab PRN Reason: Pain Spironolactone [Aldactone] 12.5 mg PO DAILY@0800 Na Phos,M-B/Na Phos,Di-Ba [Fleet Adult] 133 ml RECTAL DAILY PRN PRN Reason: Constipation Magnesium Hydroxide [Milk of Magnesia Concentrate] 7,200 mg PO Q48H PRN PRN Reason: Constipation Loperamide HCl [Imodium A-D] 2 - 4 mg PO QID PRN PRN Reason: Diarrhea Lidocaine 5% Oint [Xylocaine 5% Oint] 1 mm TOPICAL DAILY PRN PRN Reason: wound bed Glucerna Shake 120 ml PO TID@0800,1700,2100 Furosemide [Lasix] 40 mg PO BID@0800,1400 Budesonide [Pulmicort] 0.5 mg INHALATION RT-BID@0800,2100 bisacodyL [Bisacodyl] 10 mg RECTAL DAILY PRN PRN Reason: Constipation Liquical 30 ml PO BID@0800,1700 Changed Gabapentin [Neurontin] 200 mg PO BID@0800,2100 #12 cap Discontinued Warfarin Sodium [Jantoven] 2.5 mg PO SUTUWETHSA@1700 Triamcinolone 0.5% Cream [Kenalog 0.5% Cream] 1 applic TOPICAL DAILY PRN PRN Reason: psoriasis Warfarin Sodium [Jantoven] 5 mg PO MOFR@1700 predniSONE 10 mg PO DAILY@0800 Discharge Medication List Lisinopril [Prinivil] 10 mg PO HS 09/20/15 [History] Lovastatin [Mevacor] 40 mg PO HS 09/20/15 [History] Multivit-Min/FA/Lycopen/Lutein [Centrum Silver Tablet] 1 tab PO DAILY@1700 04/27/16 [History] Pantoprazole [Protonix] 40 mg PO DAILY@0800 03/23/20 [History] Ipratropium-Albuterol Nebulize [Duoneb 0.5 mg-3 mg/3 ml Soln] 3 ml INHALATION RT-QID PRN ml 03/27/20 [Rx] Albuterol Nebulized [Ventolin Nebulized] 2.5 mg INHALATION RT-QID PRN 06/07/20 [History] INSULIN ASPART (NovoLOG) [NovoLOG (formulary)] 7 unit SQ AC-TID vial 06/12/20 [Rx] Insulin Detemir (Levemir) [Levemir] 10 unit SQ HS syr 06/12/20 [Rx] traMADol HCl [Ultram] 50 mg PO TID PRN #9 tab 06/12/20 [Rx] Budesonide [Pulmicort] 0.5 mg INHALATION RT-BID@0800,2100 08/02/20 [History] Furosemide [Lasix] 40 mg PO BID@0800,1400 08/02/20 [History] Glucerna Shake 120 ml PO TID@0800,1700,2100 08/02/20 [History] Lidocaine 5% Oint [Xylocaine 5% Oint] 1 mm TOPICAL DAILY PRN 08/02/20 [History] Liquical 30 ml PO BID@0800,1700 08/02/20 [History] Loperamide HCl [Imodium A-D] 2 - 4 mg PO QID PRN 08/02/20 [History] Magnesium Hydroxide [Milk of Magnesia Concentrate] 7,200 mg PO Q48H PRN 08/02/20 [History] Na Phos,M-B/Na Phos,Di-Ba [Fleet Adult] 133 ml RECTAL DAILY PRN 08/02/20 [History] Spironolactone [Aldactone] 12.5 mg PO DAILY@0800 08/02/20 [History] bisacodyL [Bisacodyl] 10 mg RECTAL DAILY PRN 08/02/20 [History] Apixaban [Eliquis] 5 mg PO BID tab 08/10/20 [Rx] Calcium Carbonate [Tums] 500 mg PO TID chew 08/10/20 [Rx] Collagenase [Santyl] 1 applic TOPICAL DAILY applic 08/10/20 [Rx] DULoxetine HCL [Cymbalta] 30 mg PO DAILY capsule. 08/10/20 [Rx] Gabapentin [Neurontin] 200 mg PO BID@0800,2100 #12 cap 08/10/20 [Rx] HYDROcodone/APAP 5-325MG [[place] 5-325] 1 each PO Q8H PRN #9 tab 08/10/20 [Rx] Meropenem [Merrem] 1 gm IVPB Q8H #42 vial 08/10/20 [Rx] Follow up Appointment(s)/Referral(s): Saul Mcmahan MD [Primary Care Provider] - 1-2 days Activity/Diet/Wound Care/Special Instructions: Emil Morales on wound care center next appointment 08/16/[address] Jade Discharge Disposition: TRANSFER TO SNF/ECF
--- NOTE | 2020-08-12 14:36 | PN ---
PROGRESS NOTE Patient is seen for followup for hyponatremia. Her serum sodium has improved, it is at 133 today. Patient is maintained on Lasix. She did receive a dose of tolvaptan as well. The patient has responded well to it. She is maintained on IV Lasix at 40 mg q.8 hours. EXAMINATION: Today, blood pressure was 126/79, heart rate 98 per minute, patient is afebrile. Examination of the heart S1, S2. Examination of the lungs, bilateral breath sounds are heard. Abdomen soft, nontender, obese. Examination of lower extremities shows bilateral extremities to be wrapped. EMS DRIVER exam grossly intact. LABS: Sodium 133, potassium 5.4 today. ASSESSMENT: 1. Hypervolemic hyponatremia, currently improved, status post Samsca on two consecutive days. Continue with IV Lasix for now. Continue with fluid restriction and increase oral protein intake. 2. Chronic lower extremity edema. 3. Left lower extremity cellulitis. 4. Type 2 diabetes. PLAN: Continue with current dose of Lasix. The patient may need a small dose of Samsca 1-2 times a week as outpatient depending on her sodium level. MMODL / IJN: [id number] /
[2020-08-12] MEDS: COLLAGENASE 250 UNIT/GM OINTMENT 30 GM TUBE TOPICAL SCH (14:40)
--- NOTE | 2020-08-12 17:16 | PN ---
PROGRESS NOTE DATE OF SERVICE: 08/12/2020 REASON FOR FOLLOWUP: Bilateral lower extremity infected ulcer. INTERVAL HISTORY: Patient is currently afebrile. The patient is breathing comfortably. Denies having any chest pain. No shortness of breath or cough. No abdominal pain or any worsening pain to the lower extremity wound area. PHYSICAL EXAMINATION: Blood pressure 115/69, pulse of 95, temperature 97.3. She is 100% on 2 L nasal cannula. GENERAL DESCRIPTION: An elderly female up in the chair in no distress. RESPIRATORY SYSTEM: Unlabored breathing, decreased breath sounds in the bases, no wheeze. HEART: S1, S2. Regular rate and rhythm. ABDOMEN: Soft, no tenderness. EXTREMITIES: Bilateral lower extremity wounds with slough tissue. Surrounding redness has improved. LABS: Creatinine 0.6. DIAGNOSTIC IMPRESSION AND PLAN: Patient with bilateral lower extremity venostasis ulcers with cellulitis. Culture positive for Proteus and . The patient is covered with meropenem. Plan is for a total of 3 weeks of antibiotic along with local wound care with Santyl. Continue supportive care. MMODL / IJN: [id number] /
[2020-08-12 18:06] LABS: Glucose,Whole Blood 181 mg/dL (75-99)
[2020-08-12 20:24] LABS: Glucose,Whole Blood 179 mg/dL (75-99)
[2020-08-12] MEDS: ATORVASTATIN 10 MG TAB PO SCH (21:07)
[2020-08-12] MEDS: INSULIN DETEMIR (LEVEMIR) 100 UNIT/ML SYR SQ SCH (21:08)
[2020-08-13] MEDS: MEROPENEM 1 GM in SODIUM CHLORIDE 0.9% 100 ML IVPB SCH ×3 (03:59→22:19)
[2020-08-13 07:51] LABS: Glucose,Whole Blood 107 mg/dL (75-99)
[2020-08-13] MEDS: INSULIN ASPART (NovoLOG) 100 UNIT/ML VIAL SQ SCH ×4 (08:11→21:53)
[2020-08-13] MEDS: GABAPENTIN 100 MG CAP PO SCH ×2 (08:23→21:51)
[2020-08-13] MEDS: PANTOPRAZOLE 40 MG TABLET PO SCH (08:23)
[2020-08-13] MEDS: predniSONE 20 MG TAB PO SCH (08:24)
[2020-08-13] MEDS: CALCIUM CARBONATE 500 MG CHEWABLE PO SCH ×3 (08:24→21:51)
[2020-08-13] MEDS: FUROSEMIDE 10 MG/ML 4 ML VIAL IV SCH ×3 (08:24→23:54)
[2020-08-13] MEDS: APIXABAN 5 MG TAB PO SCH (08:24)
[2020-08-13] MEDS: DULoxetine HCL 30 MG CAPSULE.DR PO SCH (08:24)
[2020-08-13] MEDS: IPRATROPIUM-ALBUTEROL 3 ML NEB INHALATION SCH ×4 (08:28→20:38)
[2020-08-13] MEDS: SYMBICORT 160-4.5 MCG INHALER INHALATION SCH ×2 (08:29→18:01)
[2020-08-13 08:49] LABS: African American GFR (CKD) >90 (>60 ml/min/1.73 sqM); Anion Gap 5 mmol/L; Blood Urea Nitrogen 22 mg/dL (7-17); Calcium 8.8 mg/dL (8.4-10.2); Chloride 84 mmol/L (98-107); Glucose 108 mg/dL (74-99); Non-African American GFR(CKD) >90 (>60 ml/min/1.73 sqM); Potassium 4.5 mmol/L (3.5-5.1); Sodium 129 mmol/L (137-145)
[2020-08-13 08:55] LABS: Carbon Dioxide 40 mmol/L (22-30)
[2020-08-13] MEDS: COLLAGENASE 250 UNIT/GM OINTMENT 30 GM TUBE TOPICAL SCH (09:47)
[2020-08-13 11:21] LABS: Glucose,Whole Blood 153 mg/dL (75-99)
--- NOTE | 2020-08-13 14:56 | P.PN ---
Subjective Progress Note Date: 08/13/20 ISTORY OF PRESENT ILLNESS Is a 75 year old female patient of Dr. Mcmahan with past medical history significant for diabetes mellitus type 2, COPD, chronic hypoxic respiratory failure on home O2, chronic diastolic heart failure, chronic atrial fibrillation hypertension, hyperlipidemia, previous myocardial infarction, chronic lower extremity ulcers, peripheral vascular occlusive disease with previous fem-pop bypass and stenting, history of chronic tobacco use. Patient was last hospitalized in May of this year at which time she was treated for acute on chronic hypoxic respiratory failure and COPD exacerbation. She has chronic diabetic ulcers for which she follows in the wound healing Center. The patient states that she thinks her wound on her left lower leg is getting worse. Patient apparently recently completed 2 courses of antibiotics. No significant pain to the wounds. Denies any fever or chills. Patient came into [facility] emergency center for evaluation. Patient was afebrile, heart rate 93, blood pressure 108/96, pulse ox 96%. WBC 12.7, hemoglobin 11.6, platelet count 283. Sodium 123, potassium 4.4, chloride 86, CO2 30, BUN 27 creatinine 2.51. Blood sugar 201. Liver function tests normal. INR 1.7. Lactic acid 1.6. Patient to be admitted to the [facility] floor, consult in place with vascular surgery which is planning on I&D this afternoon in OR. Consult added for infectious disease. 08/04: Sodium is again low this morning at 126. Patient does have chronic hyponatremia. Consult will be added for nephrology and a urine sodium and osmolality, serum osmolality ordered as well as sodium chloride tablet twice daily. Surgical debridement is delayed due to hyponatremia. She has been afebrile, heart rate 81, blood pressure 101/64, pulse ox 96% on 2 L. Other lab work reveals that he be sealed 11.4. INR 2.1. Creatinine 0.4. Blood sugars running between 143 and 270. Vanco trough 11.8. Debridement may occur tomorrow and Coumadin is on hold. Dr. Preston has evaluated the patient and added cefepime to vancomycin. Discharge plan is to return to [facility] possibly on Friday Patient examined bedside. Does appear slightly congested on examination and does occasional cough but denies any shortness of breath,. Patient denies any dizziness nausea or vomiting. Vitals are stable with temp of 96.8 pulse 93 blood pressure 100/66 oxygen saturation 100% on 2 L. Patient's sodium continues to be on low 125 appears to be hypo-volemic rather than SIADH. Inflammation markers elevated, CRP is 28.8. Creatinine 0.46 serum osmolarity 270 urine osmolarity 557 urine sodium 10 vancomycin trough 11.8 wound culture positive for gram-negative bacilli blood culture negative so far. We'll plan for debridement over the weekend will start patient on heparin drip for chronic atrial fibrillation 08/06 patient evaluated bedside stop she denies any dizziness, confusion and change in mental status. Patient's sodium has dropped to 120 potassium 3.5 CO2 19 creatinine 0.46 calcium is 6.6. Glucose has been ranging between 77-180. R am repeat urine studies to be obtained. Echo ordered per nephrology to rule out right ventricular failure Lasix has been discontinued. Patient's orthostatic was positive . Repeat labs tomorrow for evaluation. Continue cefepime for cellulitis of the lower extremity with plan to place PICC line for IV antibiotics on discharge. Continue heparin drip for atrial fibrillation as Coumadin is on hold 08/07: Dr. Preston has changed antibiotics to meropenem. Patient remains off Coumadin and is on heparin drip. Her repeat blood work this morning reveals INR 1.5. Blood sugars have been running between 92 and 183. Repeat sodium 119, chloride 86, potassium 4.7, CO2 23, creatinine 0.6. WBC 14.8, hemoglobin 9.4. No plan for surgical intervention soon due to worsening hyponatremia, patient will be started on eliquis versus Coumadin. Patient will be started on penicillin cleaned 300 mg twice daily. Patient has been off Lasix and lisinopril. CT of the chest has been ordered. This revealed mild emphysematous change with moderate to severe bilateral pulmonary fibrosis.His acute infiltrate. Cardiomegaly with tiny bilateral pleural effusions cannot exclude a degree of CHF exacerbation. Bilateral thyroid nodules right measuring 3.5 cm. Follow-up thyroid ultrasound advised. Echocardiogram reveals EF of 50-55% with severe mitral regurgitation, [id number] mitral stenosis, severe tricuspid regurgitation, moderate to severe pulmonary hypertension. 08/08: Patient was transferred to the ICU due to hyponatremia as he was started on a 3% saline drip which is subsequently been discontinued. Patient is ordered for 1 dose of IV Lasix this morning and 40 mg by nephrology. The minocycline has also been discontinued by nephrology. Patient denies any new complaints. She denies any shortness of breath or chest pain. Her sodium this morning is at 120, potassium 4.8, chloride 88, CO2 27, creatinine 0.56. Blood sugars running between 100 1648. WBC 10.1, hemoglobin 10.7. ProBNP 5520. TSH 0.977. Vascular surgery has signed off this case and plan for wound care team. No plan for surgical intervention on this admission. Patient will follow up with Dr. Jade as an outpatient and any debridement necessary will be done as an outpatient at a later time. Wound culture has been finalized with Proteus mirabilis and Burkholderia cepacia the patient is currently on meropenem managed by Dr. Preston. 08/09: Patient continues to have low sodium 122, potassium is 5.0, chloride 88, CO2 29, BUN [address] Pina is ordered 1 dose of insulin today. Patient is upset about fluid restriction. She seems to be depressed and patient will be started on Cymbalta 30 mg daily. 08/10: Patient remains in intensive care unit but is waiting for [facility] bed. Sodium today is 125. She is status post Samsca given again this morning. Patient is denying any new complaints. She has been resumed back on eliquis with no plan for any intervention for the leg wounds. Patient's continue local wound care per wound care team. Her breathing status is stable. She's been afebrile, heart rate 86, blood pressure 115/81, pulse ox 94% on room air. CBC is unremarkable. Sodium 125, potassium 4.8, chloride 89, CO2 31, BUN 18 and creatinine 0.49. Blood sugars running between 89 and 243. Blood cultures finalized with Proteus mirabilia and Burkholderia cepacia. Dr. Barron is planning for meropenem for 2-3 more weeks depending on clinical course. Local wound care is with Santyl followed by moist dressing. If sodium continues to improve, anticipate discharge back to [facility] on Friday or Friday. 08/11: Patient has been afebrile, heart rate 98, blood pressure 121/70, pulse ox 94% on 2 L nasal cannula. Repeat sodium is 125, potassium 5, chloride 87, CO2 33, BUN 18 and creatinine 0.54. Blood sugars running between 126 and 185. Liver function tests normal. Dr. Pina's place the patient on Lasix 40 mg IV every 8 hours and repeat dose of Samsca 15 mg oral. Repeat sodium level is ordered for 6 PM. Discharge to [facility] will be held today, everything will be set up for possible discharge tomorrow. 08/12., patient doing ok, still with cron ic leg pain, improved alterness and appetite, sodium better at 133 . medications addressed today was aldactone lasix, but dr preston required meropenem for 3-4 wks. will hold discharge rpt covid for am, and midline for iv ab hold discharge today, we'll discharge most likely on Friday after midline was placed and insurance coverage for IV antibiotics 08/13, oh still awaiting with midline placement, that was ordered August 11, performed, review of medications noted that she is on Montanez, possibly this is the cause of her delay, this is held and discontinued until midline displaced right tomorrow. Covid test supposedly performed today, awaiting discharge to [facility] starting tomorrow. Medications are unchanged today, IV meropenem as recommended by infectious disease for the next 2-3 weeks patient is on fluid restriction, sodium of 129 nephrology following, might need sodium tablets status post Samsca, possible demecyclomin Objective - Vital Signs Vital signs: Vital Signs Temp 98.1 F 08/13/20 11:52 Pulse 95 08/13/20 11:52 Resp 18 08/13/20 11:52 BP 124/62 08/13/20 11:52 Pulse Ox 96 08/13/20 11:52 Intake & Output 08/12/20 08/13/20 08/13/20 18:59 06:59 18:59 Intake Total 598 825 Output Total 800 1300 Balance -475 Intake: IV 100 Meropenem 1 gm In Sodium 100 Chloride 0.9% 100 ml @ 33 .3 mls/hr IVPB Q8H [facility] Rx #:[id number] Oral 598 725 Output: Urine 800 1300 Uretheral (Alberto) 1300 Other: Voiding Method Indwelling Catheter Indwelling Catheter Indwelling Catheter - Constitutional General appearance: Present: cooperative, no acute distress - EENT Eyes: Present: EOMI, dentition normal, normal appearance ENT: Present: NA/AT, normal oropharynx - Respiratory Respiratory: bilateral: CTA, negative: diminished, dullness, wheezing, prolonged expiration, prolonged inspiration - Cardiovascular Rhythm: regular Abnormal Heart Sounds: Absent: systolic murmur, diastolic murmur, rub, S3 Gallop, S4 Gallop, click, other - Gastrointestinal General gastrointestinal: Present: normal bowel sounds - Integumentary Integumentary: Present: decreased turgor, normal - Neurologic Neurologic: Present: CNII-XII intact - Musculoskeletal Musculoskeletal: Present: gait normal, strength equal bilaterally - Psychiatric Psychiatric: Present: A&O x's 3, appropriate affect - Labs CBC & Chem 7: 08/10/20 04:06 08/13/20 08:22 Labs: Abnormal Lab Results - Last 24 Hours (Table) 08/12/20 08/12/20 08/13/20 Range/Units 18:04 20:23 07:48 Sodium (137-145) mmol/L Chloride (98-107) mmol/L Carbon Dioxide (22-30) mmol/L BUN (7-17) mg/dL Glucose (74-99) mg/dL POC Glucose (mg/dL) 181 H 179 H 107 H (75-99) mg/dL 08/13/20 08/13/20 Range/Units 08:22 11:20 Sodium 129 L (137-145) mmol/L Chloride 84 L (98-107) mmol/L Carbon Dioxide 40 H (22-30) mmol/L BUN 22 H (7-17) mg/dL Glucose 108 H (74-99) mg/dL POC Glucose (mg/dL) 153 H (75-99) mg/dL Assessment and Plan Plan: ASSESSMENT AND PLAN 1. Chronic bilateral venous and diabetic ulcers with acute cellulitis. Vascular surgery has signed off. No plan for debridement on this admission. Continue local wound care per wound care team. Continue meropenem. Consult [facility] Dr. Preston appreciated. Continue meropenem at discharge for 2-3 weeks. As culture showing multiple resistant pathogen local wound with santyl 2. Diabetes mellitus type 2, uncontrolled with hypoglycemia. Continue Levemir 10 units at bedtime, and NovoLog scale before meals and at bedtime. Scheduled NovoLog 7 units 3 times daily with meals will be discontinued 3. Diabetic neuropathy. Continue gabapentin 200 mg twice daily. 4. Chronic diastolic heart failure. Patient is off Lasix, Aldactone, lisinopril. 5. Chronic atrial fibrillation. Continue eliquis 5 mg twice daily. Will be he ld for midline placement 6. Hypovolemic Hyponatremia. Patient is status post Samsca, continue current management per nephrology daily. Continue 1200 mL fluid restriction. Lasix 40 mg IV every 8 hours started by nephrology. 7. Hypertension. Off lisinopril 10 mg at bedtime. 8. Hyperlipidemia. Continue statin. 9. COPD without exacerbation. Continue albuterol as needed, Pulmicort twice daily. 10. Gastroesophageal reflux disease. Continue Protonix 40 mg daily. 11. Hypocalcemia. Vitamin D ordered. 2 new calcium Calcium carbonate 500 3 times a day 12. Bilateral thyroid nodules to be followed up. 13. Valvular heart disease with severe mitral regurgitation, mild to moderate mitral stenosis, severe tricuspid regurgitation, moderate to severe pulmonary hypertension. 14. Recurrent depression. Patient started on Cymbalta 30 mg daily. 15. DVT prophylaxis. Eliquis
--- NOTE | 2020-08-13 16:48 | PN ---
PROGRESS NOTE Patient is seen for followup for hyponatremia which is hypervolemic. Patient is maintained on IV Lasix. She has received a few doses of tolvaptan. Her sodium had improved to 133 and today it is back down to 129. The patient states she has not been drinking large amounts of fluids. She will need to continue with tolvaptan as outpatient at least 2-3 times a week. PHYSICAL EXAMINATION: On examination today, blood pressure was 137/75, heart rate 101 per minute, patient is afebrile. Examination of the heart S1, S2. Examination of the lungs, bilateral breath sounds are heard. Abdomen is soft, nontender. Examination of lower extremities shows chronic skin changes. Bilateral extremities are wrapped. LAB: Show sodium 129 today, potassium 4.5. ASSESSMENT: 1. Hypervolemic hyponatremia being diuresed and also status post Samsca/tolvaptan. The patient will need to continue with the tolvaptan at least twice a week as outpatient along with loop diuretics. We should avoid thiazide diuretics given her hyponatremia. She is also advised regarding salt and fluid restriction. 2. Chronic lower extremity edema. 3. Left lower extremity cellulitis. PLAN: Tolvaptan 15 mg at least two times a week as outpatient. Continue with loop diuretics. Patient should be discharged on Demadex at least 30-40 mg daily. Repeat labs to be done as outpatient in about 2-3 days time post discharge. MMODL / IJN: [id number] /
[2020-08-13 17:00] LABS: Glucose,Whole Blood 220 mg/dL (75-99)
[2020-08-13 20:47] LABS: Glucose,Whole Blood 139 mg/dL (75-99)
[2020-08-13] MEDS: ATORVASTATIN 10 MG TAB PO SCH (21:51)
[2020-08-13] MEDS: INSULIN DETEMIR (LEVEMIR) 100 UNIT/ML SYR SQ SCH (21:53)
--- NOTE | 2020-08-13 23:50 | PN ---
PROGRESS NOTE DATE OF SERVICE: 08/13/2020 REASON FOR FOLLOWUP: Bilateral lower extremity wound and cellulitis. INTERVAL HISTORY: The patient is currently afebrile. The patient is breathing comfortably. No chest pain, shortness of breath, cough, abdominal pain, no worsening pain to the lower extremity wound area. PHYSICAL EXAMINATION: Blood pressure 133/72 with a pulse of 83, temperature 98.2. She is 95% on 2 L nasal cannula. General description is an elderly female up in the chair in no distress. Respiratory system: Unlabored breathing, clear to auscultation anteriorly. Heart S1, S2. Regular rate and rhythm. ABDOMEN: Soft, no tenderness. Bilateral lower extremity wounds are currently dressed. No obvious drainage on the dressing. LABS: BUN of 22, creatinine 0.55. DIAGNOSTIC IMPRESSION AND PLAN: Patient with bilateral lower extremity venostasis ulcer with secondary cellulitis culture multiple pathogens. Patient is covered with meropenem to continue for another 2 weeks to finish a course of therapy. Local wound care with Santyl and moist dressing. Continue supportive care. MMODL / SHELLIN: [id number] /
[2020-08-14] MEDS: MEROPENEM 1 GM in SODIUM CHLORIDE 0.9% 100 ML IVPB SCH (04:43)
[2020-08-14 05:30] VITALS: BP 120/75; PULSE 108; RESP 16; TEMP 96.7
[2020-08-14 07:44] LABS: Glucose,Whole Blood 103 mg/dL (75-99)
[2020-08-14] MEDS: INSULIN ASPART (NovoLOG) 100 UNIT/ML VIAL SQ SCH (08:30)
[2020-08-14] MEDS: DULoxetine HCL 30 MG CAPSULE.DR PO SCH (08:33)
[2020-08-14] MEDS: CALCIUM CARBONATE 500 MG CHEWABLE PO SCH ×2 (08:34→08:37)
[2020-08-14] MEDS: GABAPENTIN 100 MG CAP PO SCH (08:34)
[2020-08-14] MEDS: FUROSEMIDE 10 MG/ML 4 ML VIAL IV SCH (08:34)
[2020-08-14] MEDS: PANTOPRAZOLE 40 MG TABLET PO SCH (08:34)
[2020-08-14] MEDS: predniSONE 20 MG TAB PO SCH (08:34)
[2020-08-14] MEDS: HYDROcodone/APAP 5-325MG 1 EACH TAB PO PRN (08:36)
[2020-08-14] MEDS: SYMBICORT 160-4.5 MCG INHALER INHALATION SCH (08:48)
[2020-08-14] MEDS: IPRATROPIUM-ALBUTEROL 3 ML NEB INHALATION SCH ×2 (08:48→12:08)
[2020-08-14] MEDS ORDERED: TOLVAPTAN 15 MG 1/2 TABLET PO ONE (11:00)
[2020-08-14] MEDS: COLLAGENASE 250 UNIT/GM OINTMENT 30 GM TUBE TOPICAL SCH (11:14)
--- NOTE | 2020-08-14 13:58 | PN ---
PROGRESS NOTE DATE OF SERVICE: 08/14/2020 REASON FOR FOLLOWUP: Bilateral lower extremity venostasis ulcer and cellulitis. INTERVAL HISTORY: The patient is currently afebrile. Patient is breathing comfortably. Patient denies having any chest pain, shortness of breath or cough. No abdominal pain or pain to right or left lower extremity. PHYSICAL EXAMINATION: Blood pressure is 120/75 with the pulse of 86, temperature 96.7. She is 96% on 3 L nasal cannula. General description is an elderly female in the chair in no distress. RESPIRATORY SYSTEM: Unlabored breathing, decreased breath sounds in the base. No wheeze. HEART: S1, S2. Regular rate and rhythm. ABDOMEN: Soft, no tenderness. Bilateral legs are currently wrapped up. No obvious drainage on the dressing. LABS: No new labs have been obtained today. DIAGNOSTIC IMPRESSION AND PLAN: Patient with bilateral lower extremity venostasis ulcers and secondary cellulitis. Culture has been positive for Proteus and Burkholderia. The patient is on meropenem to continue for another 2 weeks. Local wound care with Santyl followed by moist dressing and close outpatient followup. MMODL / IJN: [id number] /
--- NOTE | 2020-08-14 14:42 | PN ---
PROGRESS NOTE Patient is seen for followup for hyponatremia. There are plans for possible discharge today. Patient serum sodium improves with Samsca. She is currently being diuresed and sodium level goes back down about 3-4 days post Samsca. Plan is to maintain patient on at least twice per week dosing of 15 mg of Samsca along with loop diuretics. Patient continues to have significant edema of lower extremities. She is however not too short of breath. PHYSICAL EXAMINATION: On examination today, blood pressure was 120/75, heart rate 108 per minute. She is afebrile. Examination of lower extremities shows significant edema bilaterally. Both lower extremities are wrapped. Weeping of the skin is noted. [employer] exam grossly intact. LABS: Labs show sodium of 127 today. ASSESSMENT: Hypervolemic hyponatremia, responds well to Samsca. We will repeat a dose of Samsca prior to discharge and maintain patient on twice a week dosing of 15 mg. She will continue with oral diuretics. We will give her Demadex to take 40 mg daily post discharge with repeat labs to be done at least on a weekly basis. The patient is advised to increase her oral protein intake and maintain some degree of free water restriction. MMODL / IJN: [id number] /
== END 2020-08-14 12:10 | DRG 637 ==
LOC: EC 18:35 → 4SSUR 20:57 → 5NMEDONC 08-03 16:37 → 2SICU 08-07 18:10 → 5NMEDONC 08-10 15:33
PROVIDERS: ADMIT Internal Medicine; ATTEND Internal Medicine
PROC: 05HD33Z Insertion of Infusion Device into Right Cephalic Vein, Percutaneous Approach (ICD-10-PCS; principal; 2020-08-14 07:30)
DX: E11.622 Type 2 diabetes mellitus with other skin ulcer (principal); I50.33 Acute on chronic diastolic (congestive) heart failure; E87.1 Hypo-osmolality and hyponatremia; F33.9 Major depressive disorder, recurrent, unspecified; L97.822 Non-pressure chronic ulcer of other part of left lower leg with fat layer exposed; L97.812 Non-pressure chronic ulcer of other part of right lower leg with fat layer exposed; I48.20 Chronic atrial fibrillation, unspecified; I50.32 Chronic diastolic (congestive) heart failure; J96.11 Chronic respiratory failure with hypoxia; L03.115 Cellulitis of right lower limb; L03.116 Cellulitis of left lower limb; E11.51 Type 2 diabetes mellitus with diabetic peripheral angiopathy without gangrene; E04.2 Nontoxic multinodular goiter; E11.40 Type 2 diabetes mellitus with diabetic neuropathy, unspecified; D64.9 Anemia, unspecified; E78.5 Hyperlipidemia, unspecified; E83.51 Hypocalcemia; E86.1 Hypovolemia; F41.9 Anxiety disorder, unspecified; I08.1 Rheumatic disorders of both mitral and tricuspid valves; Z20.822 Contact with and (suspected) exposure to COVID-19; I11.0 Hypertensive heart disease with heart failure; I25.10 Atherosclerotic heart disease of native coronary artery without angina pectoris; I27.20 Pulmonary hypertension, unspecified; I70.248 Atherosclerosis of native arteries of left leg with ulceration of other part of lower leg; I70.238 Atherosclerosis of native arteries of right leg with ulceration of other part of lower leg; Z79.4 Long term (current) use of insulin; I25.2 Old myocardial infarction; I83.009 Varicose veins of unspecified lower extremity with ulcer of unspecified site; J44.9 Chronic obstructive pulmonary disease, unspecified; J84.10 Pulmonary fibrosis, unspecified; K21.9 Gastro-esophageal reflux disease without esophagitis; K59.00 Constipation, unspecified; E11.628 Type 2 diabetes mellitus with other skin complications; B96.4 Proteus (mirabilis) (morganii) as the cause of diseases classified elsewhere; Z79.01 Long term (current) use of anticoagulants; Z79.51 Long term (current) use of inhaled steroids; Z79.899 Other long term (current) drug therapy; Z80.1 Family history of malignant neoplasm of trachea, bronchus and lung; Z82.49 Family history of ischemic heart disease and other diseases of the circulatory system; Z83.3 Family history of diabetes mellitus; Z86.14 Personal history of Methicillin resistant Staphylococcus aureus infection; Z87.891 Personal history of nicotine dependence; Z88.0 Allergy status to penicillin; Z88.5 Allergy status to narcotic agent; Z88.2 Allergy status to sulfonamides; Z90.710 Acquired absence of both cervix and uterus; Z95.820 Peripheral vascular angioplasty status with implants and grafts; Z96.653 Presence of artificial knee joint, bilateral; Z99.81 Dependence on supplemental oxygen
CPT/HCPCS: 36410; 36415; 71045; 71260; 76937; 80048; 80053; 80202; 82272; 82306; 82330; 82570; 83605; 83735; 83880; 83930; 83935; 83970; 84295; 84300; 84443; 84550; 85025; 85027; 85610; 85652; 85730; 86140; 87040; 87070; 87077; 87186; 87205; 87635; 93306; 94640; 94760; 99285

== ENCOUNTER → 2020-09-26 | Day surgery (SDC) | payer MEDICARE, BC | LOC: CATHCVL 10:52 | PROVIDERS: ATTEND Internal Medicine Geriatric Medicine | DX: L03.116 Cellulitis of left lower limb (principal); L03.115 Cellulitis of right lower limb; E11.622 Type 2 diabetes mellitus with other skin ulcer; L97.929 Non-pressure chronic ulcer of unspecified part of left lower leg with unspecified severity; L97.919 Non-pressure chronic ulcer of unspecified part of right lower leg with unspecified severity; B96.4 Proteus (mirabilis) (morganii) as the cause of diseases classified elsewhere; I48.20 Chronic atrial fibrillation, unspecified; I10 Essential (primary) hypertension; E78.5 Hyperlipidemia, unspecified; J44.9 Chronic obstructive pulmonary disease, unspecified; Z99.81 Dependence on supplemental oxygen; I25.2 Old myocardial infarction; J84.10 Pulmonary fibrosis, unspecified; Z86.14 Personal history of Methicillin resistant Staphylococcus aureus infection; Z90.710 Acquired absence of both cervix and uterus; Z96.653 Presence of artificial knee joint, bilateral; Z96.612 Presence of left artificial shoulder joint; Z95.820 Peripheral vascular angioplasty status with implants and grafts; Z87.891 Personal history of nicotine dependence; Z83.3 Family history of diabetes mellitus; Z82.49 Family history of ischemic heart disease and other diseases of the circulatory system; Z80.9 Family history of malignant neoplasm, unspecified; Z79.899 Other long term (current) drug therapy; Z79.01 Long term (current) use of anticoagulants; Z79.4 Long term (current) use of insulin; Z88.5 Allergy status to narcotic agent; Z88.0 Allergy status to penicillin; Z88.2 Allergy status to sulfonamides | CPT/HCPCS: 36410; 76937 ==

== ENCOUNTER 2020-10-28 06:37 | Inpatient (IN) | payer MEDICARE, BC ==
--- NOTE | 2020-10-28 06:57 | ED ---
General Adult HPI - General Stated complaint: Abnormal Labs Time Seen by Provider: 10/28/20 06:48 Source: patient, EMS, RN notes reviewed, old records reviewed Mode of arrival: EMS Limitations: physical limitation - History of Present Illness Initial comments: This a 75-year-old female presents emergency department for [place] via EMS chief complaint of abnormal labs. Patient had lab work drawn yesterday which showed no elevated white count at 22. Patient noted to have increasing cough congestion she states this is normal for she long-time smoker has COPD. She does not that she feels tired, fatigued she is noted to be more lethargic than usual. She does complain of hot and cold flashes but no reported fever. She denies any abdominal pain including nausea, vomiting, diarrhea, constipation no dysuria no hematuria patient states her legs are wrapped which is chronic for her swelling. - Related Data Home Medications Medication Instructions Recorded Confirmed Lovastatin [Mevacor] 40 mg PO HS 09/20/15 08/02/20 Multivit-Min/FA/Lycopen/Lutein 1 tab PO DAILY@1700 09/20/15 08/02/20 [Centrum Silver Tablet] Pantoprazole [Protonix] 40 mg PO DAILY@0800 03/23/20 08/02/20 Albuterol Nebulized [Ventolin 2.5 mg INHALATION RT-QID PRN 06/07/20 08/02/20 Nebulized] Budesonide [Pulmicort] 0.5 mg INHALATION RT-BID@0800,209908/02/20 08/02/20 Glucerna Shake 120 ml PO TID@0800,1700,209908/02/20 08/02/20 Lidocaine 5% Oint [Xylocaine 5% 1 mm TOPICAL DAILY PRN 08/02/20 08/02/20 Oint] Liquical 30 ml PO BID@0800,1700 08/02/20 08/02/20 Loperamide HCl [Imodium A-D] 2 - 4 mg PO QID PRN 08/02/20 08/02/20 Magnesium Hydroxide [Milk of 7,200 mg PO Q48H PRN 08/02/20 08/02/20 Magnesia Concentrate] Na Phos,M-B/Na Phos,Di-Ba [Fleet 133 ml RECTAL DAILY PRN 08/02/20 08/02/20 Adult] Spironolactone [Aldactone] 12.5 mg PO DAILY@0800 08/02/20 08/02/20 bisacodyL [Bisacodyl] 10 mg RECTAL DAILY PRN 08/02/20 08/02/20 Previous Rx's Medication Instructions Recorded Ipratropium-Albuterol Nebulize 3 ml INHALATION RT-QID PRN ml 03/27/20 [Duoneb 0.5 mg-3 mg/3 ml Soln] Insulin Detemir (Levemir) [Levemir] 10 unit SQ HS syr 06/12/20 Apixaban [Eliquis] 5 mg PO BID tab 08/10/20 Calcium Carbonate [Tums] 500 mg PO TID chew 08/10/20 Collagenase [Santyl] 1 applic TOPICAL DAILY applic 08/10/20 DULoxetine HCL [Cymbalta] 30 mg PO DAILY capsule. 08/10/20 Gabapentin [Neurontin] 200 mg PO BID@0800,2100 #12 cap 08/10/20 HYDROcodone/APAP 5-325MG [Caro 1 each PO Q8H PRN #9 tab 08/10/20 5-325] Meropenem [Merrem] 1 gm IVPB Q8H #42 vial 08/10/20 INSULIN ASPART (NovoLOG) [NovoLOG 0 unit SQ ACHS vial 08/14/20 (formulary)] Tolvaptan [Samsca] 15 mg PO WETH #8 tablet 08/14/20 Torsemide [Demadex] 40 mg PO DAILY #30 tablet 08/14/20 Allergies Allergy/AdvReac Type Severity Reaction Status Date / Time Penicillins Allergy Swelling Verified 08/02/20 19:30 hydrocodone bitartrate AdvReac Nausea & Verified 08/02/20 19:30 [From Vicodin] Vomiting sulfamethoxazole AdvReac Nausea & Verified 08/02/20 19:30 Vomiting Review of Systems ROS Statement: Those systems with pertinent positive or pertinent negative responses have been documented in the HPI. ROS Other: All systems not noted in ROS Statement are negative. Past Medical History Past Medical History: COPD, Diabetes Mellitus, Hypertension, Myocardial Infarction ([place]), Vascular Disorder Additional Past Medical History / Comment(s): anemia,SOB,irreg HR,bronchitis 09-05-16/4-14-16,crys leg and feet edema,hx of bleeding ulcer around age 32, Last Myocardial Infarction Date:: unk History of Any Multi-Drug Resistant Organisms: MRSA Date of last positivie culture/infection: 05/22/20 MDRO Source:: LEG MRSA Past Surgical History: Hysterectomy, Joint Replacement, Orthopedic Surgery Additional Past Surgical History / Comment(s): rtfem-pop bypass,3or4 stents lt leg,crys knee replace,lt shoulder repair Past Anesthesia/Blood Transfusion Reactions: Postoperative Nausea & Vomiting (PONV) Additional Past Anesthesia/Blood Transfusion Reaction / Comment(s): no problems with prior blood transfusions Additional Psychological History / Comment(s): Pt resides at [facility]. She gets out of bed infrequently and needs assistance and a walker. Additional Past Alcohol Use History / Comment(s): Pt started smoking in 1958 and quit 12/2019 - Past Family History Mother Family Medical History: Diabetes Mellitus Additional Family Medical History / Comment(s): heart problems Father Additional Family Medical History / Comment(s): heart problems Sister(s) Family Medical History: Diabetes Mellitus Additional Family Medical History / Comment(s): heart problems Brother(s) Family Medical History: Cancer General Exam General appearance: alert, in no apparent distress Head exam: Present: atraumatic, normocephalic, normal inspection ENT exam: Present: normal exam, mucous membranes moist Neck exam: Present: normal inspection, full ROM. Absent: tenderness, meningismu s, lymphadenopathy Respiratory exam: Present: decreased breath sounds. Absent: normal lung sounds bilaterally, respiratory distress, wheezes, rales, rhonchi, stridor Cardiovascular Exam: Present: regular rate, normal rhythm, normal heart sounds. Absent: systolic murmur, diastolic murmur, rubs, gallop, clicks GI/Abdominal exam: Present: soft, normal bowel sounds. Absent: distended, tenderness, guarding, rebound, rigid Extremities exam: Present: other (Lower extremity Refill less than 2 seconds lower extremity, bilateral legs are wrapped) Neurological exam: Present: alert, oriented X3 Skin exam: Present: warm, dry, intact, normal color. Absent: rash Course Vital Signs 10/28/20 10/28/20 10/28/20 06:47 07:58 08:00 Temperature 97.8 F Pulse Rate 58 L 102 H 97 Respiratory 22 18 18 Rate Blood Pressure 101/75 90/67 O2 Sat by Pulse 98 95 95 Oximetry Medical Decision Making - Medical Decision Making Patient was admitted to Dr. Lovell service for further treatment and management patient has underlying NSTEMI, CHF, hyperkalemia, hyponatremia, transaminitis - Lab Data Result diagrams: 10/28/20 07:18 10/28/20 07:18 Lab Results 10/28/20 10/28/20 10/28/20 Range/Units 07:18 07:18 07:18 WBC 21.7 H (3.8-10.6) k/uL RBC 3.96 (3.80-5.40) m/uL Hgb 11.2 L (11.4-16.0) gm/dL Hct 34.2 (34.0-46.0) % MCV 86.4 (80.0-100.0) fL MCH 28.4 (25.0-35.0) pg MCHC 32.8 (31.0-37.0) g/dL RDW 19.4 H (11.5-15.5) % Plt Count 240 (150-450) k/uL MPV 8.0 Neutrophils % 89 % Lymphocytes % 3 % Monocytes % 6 % Eosinophils % 0 % Basophils % 0 % Neutrophils # 19.3 H (1.3-7.7) k/uL Lymphocytes # 0.7 L (1.0-4.8) k/uL Monocytes # 1.4 H (0-1.0) k/uL Eosinophils # 0.1 (0-0.7) k/uL Basophils # 0.0 (0-0.2) k/uL Hypochromasia Slight Poikilocytosis Slight Anisocytosis Slight PT 27.4 H (9.0-12.0) sec INR 2.8 H (<1.2) APTT 25.7 (22.0-30.0) sec Sodium 123 L (137-145) mmol/L Potassium 5.8 H (3.5-5.1) mmol/L Chloride 87 L (98-107) mmol/L Carbon Dioxide 24 (22-30) mmol/L Anion Gap 12 mmol/L BUN 61 H (7-17) mg/dL Creatinine 1.51 H (0.52-1.04) mg/dL Est GFR (CKD-EPI)AfAm 39 (>60 ml/min/1.73 sqM) Est GFR (CKD-EPI)NonAf 34 (>60 ml/min/1.73 sqM) Glucose 136 H (74-99) mg/dL Plasma Lactic Acid Jean-Paul (0.7-2.0) mmol/L Calcium 8.3 L (8.4-10.2) mg/dL Magnesium 1.8 (1.6-2.3) mg/dL Total Bilirubin 1.4 H (0.2-1.3) mg/dL AST 438 H (14-36) U/L ALT 304 H (4-34) U/L Alkaline Phosphatase 90 (38-126) U/L Troponin I (0.000-0.034) ng/mL NT-Pro-B Natriuret Pep pg/mL Total Protein 6.2 L (6.3-8.2) g/dL Albumin 2.9 L (3.5-5.0) g/dL 10/28/20 10/28/20 10/28/20 Range/Units 07:18 07:18 07:18 WBC (3.8-10.6) k/uL RBC (3.80-5.40) m/uL Hgb (11.4-16.0) gm/dL Hct (34.0-46.0) % MCV (80.0-100.0) fL MCH (25.0-35.0) pg MCHC (31.0-37.0) g/dL RDW (11.5-15.5) % Plt Count (150-450) k/uL MPV Neutrophils % % Lymphocytes % % Monocytes % % Eosinophils % % Basophils % % Neutrophils # (1.3-7.7) k/uL Lymphocytes # (1.0-4.8) k/uL Monocytes # (0-1.0) k/uL Eosinophils # (0-0.7) k/uL Basophils # (0-0.2) k/uL Hypochromasia Poikilocytosis Anisocytosis PT (9.0-12.0) sec INR (<1.2) APTT (22.0-30.0) sec Sodium (137-145) mmol/L Potassium (3.5-5.1) mmol/L Chloride (98-107) mmol/L Carbon Dioxide (22-30) mmol/L Anion Gap mmol/L BUN (7-17) mg/dL Creatinine (0.52-1.04) mg/dL Est GFR (CKD-EPI)AfAm (>60 ml/min/1.73 sqM) Est GFR (CKD-EPI)NonAf (>60 ml/min/1.73 sqM) Glucose (74-99) mg/dL Plasma Lactic Acid Jean-Paul 3.4 H* (0.7-2.0) mmol/L Calcium (8.4-10.2) mg/dL Magnesium (1.6-2.3) mg/dL Total Bilirubin (0.2-1.3) mg/dL AST (14-36) U/L ALT (4-34) U/L Alkaline Phosphatase (38-126) U/L Troponin I 1.260 H* (0.000-0.034) ng/mL NT-Pro-B Natriuret Pep 08379 pg/mL Total Protein (6.3-8.2) g/dL Albumin (3.5-5.0) g/dL Critical Care Time Critical Care Time: Yes Total Critical Care Time: 35 Critical Care Time: Total of 35 minutes were used to initiate outpatient, review past medical history according labs EKG chest x-ray. Patient found to have elevated troponin consistent with NSTEMI, , BMP is elevated with chest x-ray consistent with CHF. Patient is in A. fib though patient has a history of A. fib. states discussed with Dr. murphy who accepts admission recommend ultrasound of the liver secondary transaminitis, consult to cardiology patient is currently an ticoagulated will continue this. Patient will have echocardiogram, was given broad-spectrum antibiotics secondary to leukocytosis. Disposition Clinical Impression: NSTEMI (non-ST elevated myocardial infarction), CHF (congestive heart failure), Afib, Transaminitis, Hyperkalemia, Hyponatremia Disposition: ADMITTED IP TO THIS HOSP Condition: Poor Referrals: Saul Mcmahan MD [Primary Care Provider] - 1-2 days
[2020-10-28 07:42] LABS: Anisocytosis Slight; Basophils % (A) 0 %; Eosinophils # (A) 0.1 k/uL (0-0.7); Eosinophils % (A) 0 %; HCT 34.2 % (34.0-46.0); HGB 11.2 gm/dL (11.4-16.0); Hypochromasia Slight; Lymphocytes # (A) 0.7 k/uL (1.0-4.8); Lymphocytes % (A) 3 %; MCH 28.4 pg (25.0-35.0); MCHC 32.8 g/dL (31.0-37.0); MCV 86.4 fL (80.0-100.0); Monocytes # (A) 1.4 k/uL (0-1.0); Monocytes % (A) 6 %; Neutrophils # (A) 19.3 k/uL (1.3-7.7); Neutrophils % (A) 89 %; Platelet Count 240 k/uL (150-450); Poikilocytosis Slight; RBC 3.96 m/uL (3.80-5.40); RDW 19.4 % (11.5-15.5); WBC 21.7 k/uL (3.8-10.6)
[2020-10-28 07:54] LABS: INR 2.8 (<1.2); Partial Thromboplastin Time 25.7 sec (22.0-30.0); Prothrombin Time 27.4 sec (9.0-12.0)
[2020-10-28 08:00] LABS: Potassium 5.8 mmol/L (3.5-5.1)
[2020-10-28 08:01] LABS: Albumin 2.9 g/dL (3.5-5.0); Calcium 8.3 mg/dL (8.4-10.2); Magnesium 1.8 mg/dL (1.6-2.3); Total Bilirubin 1.4 mg/dL (0.2-1.3); Total Protein 6.2 g/dL (6.3-8.2)
--- NOTE | 2020-10-28 08:35 | XR ---
EXAMINATION TYPE: XR chest 2V DATE OF EXAM: 10/28/2020 COMPARISON: 08/07/2020 HISTORY: Shortness of breath TECHNIQUE: Frontal and lateral views of the chest are obtained. FINDINGS: There is diffuse interstitial opacity and marked cardiomegaly unchanged since the prior st udy. There is no definite pneumothorax or large pleural effusion. The osseous structures are grossly intact IMPRESSION: Findings most consistent with CHF with no interval change.
[2020-10-28] MEDS ORDERED: FUROSEMIDE 10 MG/ML 4 ML VIAL IV STA (08:46)
[2020-10-28] MEDS: FUROSEMIDE 10 MG/ML 4 ML VIAL IV SCH ×2 (09:07→21:02)
[2020-10-28 09:23] LABS: Appearance,Urine Clear (Clear); Bilirubin,Urine Negative (Negative); Blood,Urine Negative (Negative); Color,Urine Yellow; Glucose,Urine (UA) Negative (Negative); Ketones,Urine Negative (Negative); Leukocyte Esterase,Urine Negative (Negative); Nitrite,Urine Negative (Negative); Protein,Urine Trace (Negative); Specific Gravity,Urine 1.015 (1.001-1.035)
[2020-10-28] MEDS ORDERED: MAGNESIUM HYDROXIDE 2,400 MG/10 ML CUP PO PRN (11:18)
[2020-10-28] MEDS ORDERED: NON FORMULARY DRUG (Menthol [Biofreeze] 89 ML Gel..Ml.) TOPICAL PRN (11:18)
[2020-10-28] MEDS ORDERED: bisacodyL 10 MG SUPP RECTAL PRN (11:18)
--- NOTE | 2020-10-28 11:33 | US ---
EXAMINATION TYPE: US liver DATE OF EXAM: 10/28/2020 COMPARISON: EXAMINATION TYPE: US liver DATE OF EXAM: 10/28/2020 COMPARISON: NONE CLINICAL HISTORY: Transaminitis. EXAM MEASUREMENTS: Liver Length: 17.4 cm Gallbladder Wall: 0.4 cm CBD: not seen Right Kidney: not well visualized Incoherent patient unable to move, or help examiner any way. Exam done supine. Technically difficult and limited. Pancreas: anechoic mass that appears to be within the uncinate process measuring 1.9 x 1.0 x 1.0cm Liver: upper limites of normal in size, portions visualized heterogeneous, limited views Gallbladder: poor visualization shows stones and possible echogenic foci in wall, wall slightly thick ened Evidence for sonographic Harris's sign: no CBD: not seen Right Kidney: not well visualized. IMPRESSION: 1. Limited exam due to patient's condition. 2. Gallstones with mild gallbladder wall thickening. 3. Small mass in the pancreatic head. CT abdomen might be further useful for further characterization 4. No intraperitoneal fluid. 5. Unremarkable liver.
--- NOTE | 2020-10-28 11:37 | P.HPIM ---
History of Present Illness H&P Date: 10/28/20 HISTORY OF PRESENT ILLNESS This is a 75-year-old female patient of Dr. Mcmahan resides at [facility] with past medical history significant for diabetes mellitus type 2, COPD, chronic hypoxic respiratory failure on home O2, chronic diastolic heart failure, chronic atrial fibrillation hypertension, hyperlipidemia, previous myocardial infarction, chronic lower extremity ulcers, peripheral vascular occlusive disease with previous fem-pop bypass and stenting, history of chronic tobacco use. She has chronic diabetic ulcers for which [facility] Jade last seen on October 25. The patient states that she thinks her wound on her left lower leg is getting worse. Patient apparently recently completed 2 courses of antibiotics. No significant pain to the wounds. Denies any fever or chills. At the [facility], patient was having mental status changes, fevers and worsening of her wounds just bite treatment. Patient was more lethargic and fatigued. Lab work was obtained which revealed a white count of 22.3, hemoglobin 10.2, sodium was 125, liver enzymes were elevated and it was decided the patient needed to be further evaluated in the hospital. Patient was hospitalization was in July of this year which time she was treated for chronic bilateral venous diabetic ulcers. She was seen by vascular surgery but did not undergo debridement on that occasion. She was seen by Dr. Cramer and he recommended meropenem which was continued at the [facility]. Patient was also followed by nephrology for hypovolemic hyponatremia. Patient came into [facility] emergency center and found to be afebrile, heart rate in the 90s, blood pressure 101/75, pulse ox 95% on 2 L nasal cannula. Additional lab work included INR of 2.8. Sodium is 123, potassium 5.8, chloride 87, CO2 24, BUN 61 and creatinine 1.51. Lactic acid 3.4 with repeat of 2.7. Total bilirubin 1.4, AST 438, ALT 304. Troponin was found to be elevated at 1.260. ProBNP 37,200. Albumin 2.9. Urinalysis was negative for infection. Coronavirus PCR not detected. Chest x-ray was consistent with heart failure with no interval change. Patient was started on ceftriaxone, Lasix 40 mg IV every 12 hours, admitted to the cardiac stepdown unit, consults with cardiology, vascular surgery and wound team. REVIEW OF SYSTEMS Constitutional: No fever, no chills, no night sweats. No weight change. No weakness, fatigue or lethargy. No daytime sleepiness. EENT: No headache. No blurred vision or double vision, no loss of vision. No loss of Hearing, no ringing in the ears, no dizziness. No nasal drainage or congestion. No epistaxis. No sore throat. Lungs: No shortness of breath, cough, no sputum production. No wheezing. Cardiovascular: No chest pain, no lower extremity edema. No palpitations. No paroxysmal nocturnal dyspnea. No orthopnea. No lightheadedness or dizziness. No syncopal episodes. Abdominal: No abdominal pain. No nausea, vomiting. No diarrhea. No constipation. No bloody or tarry stools.. No loss of appetite. Genitourinary: No dysuria, increased frequency, urgency. No urinary retention. Musculoskeletal: No myalgias. No muscle weakness, no gait dysfunction, no frequent falls. No back pain. No neck pain. Integumentary: Reports wounds, no lesions. No rash or pruritus. No unusual bruising. No change in hair or nails. Neurologic: No aphasia. No facial droop. No change in mentation. No head injury. No headache. No paralysis. No paresthesia. Psychiatric: No depression. No anxiety. No mood swings. Endocrine: No abnormal blood sugars. No weight change. SOCIAL HISTORY Patient was a smoker starting at age 13 and quit in December 2019 with a 64 year history with part of that being 2 packs per day. She has rare alcohol use, no illicit drug use. She normally lives alone but currently at [facility] for subacute rehab. FAMILY HISTORY Mother at age 74 from diabetes Occasions with history of coronary artery disease. Father at age 62 from coronary artery disease. Patient has 1 brother and he in his 60s from lung cancer. Patient has one half sister with diabetes and ornery artery disease. PHYSICAL EXAMINATION Gen: This is a 75-year-old female. Patient is resting on the ear structure that appears to be in no acute distress. No respiratory distress noted. HEENT: Head is atraumatic, normocephalic. Pupils equal, round. Sclerae is anicteric. NECK: Supple. No JVD. No lymphadenopathy. No thyromegaly. LUNGS: Diminished with bilateral wheezes. No intercostal retractions. HEART: Regular rate and rhythm. No murmur. ABDOMEN: Soft. Bowel sounds are present. No masses. No tenderness. EXTREMITIES: Mild pedal edema. Large left lower extremity ulcer on the medial side with surrounding erythema. Dorsalis pedis on the left is 1+, 2+ on the right. Patient also has small superficial ulcers to the left foot dorsal surface base of toes 2 through 4 and dusky purple color to the toes. There is a 5 x 2.5 cm wound on the right medial posterior calf with no significant erythema. There is also a small ulcer on the dorsal surface of the right great toe without erythema or drainage. NEUROLOGICAL: Patient is awake, alert and oriented x3, mild confusion noted. Cranial nerves 2 through 12 are grossly intact. ASSESSMENT AND PLAN 1. Sepsis secondary to chronic bilateral venous and diabetic ulcers worsening. Patient admitted to the cardiac stepdown, consult to vascular surgery. Patient will be started on meropenem 1 g every 12 hours. 2. Acute kidney injury. Consult with nephrology. Hold IV fluids due to heart failure. 3. Acute on chronic diastolic heart failure. Patient has been started on Lasix 40 mg IV every 12 hours. Continue Aldactone 12.5 mg daily. 4. Hyponatremia. Consult with nephrology. Continue Samsca 15 mg on Wednesdays and . 5. Metabolic encephalopathy secondary to sepsis. Continue treatment as in #1. 6. Elevated liver enzymes of unclear etiology. Liver ultrasound ordered, acute hepatitis panel, repeat enzymes in the morning, hold lovastatin. 7. Hypercoagulopathy with INR of 2.8 secondary to sepsis. Continue to monitor, repeat INR in the morning. Hold eliquis for now. 8. Diabetes mellitus type 2. Continue Levemir 10 units at bedtime, NovoLog scale before meals and at bedtime. A1c 6.1 on October 16. 9. Diabetic neuropathy. Continue gabapentin 200 mg twice daily. 10. Chronic atrial fibrillation. Eliquis on hold. 11. Hypertension. Patient is now longer on lisinopril and is hypotensive. 12. Hyperlipidemia. Hold lovastatin. 13. COPD without exacerbation. Continue DuoNeb treatments 4 times daily as needed, continue Pulmicort twice daily. 14. Gastroesophageal reflux disease. Continue Protonix 40 mg daily. 15. DVT prophylaxis. Hold anticoagulation due to INR of 2.8. Patient will be resumed on eliquis eventually. Patient will be admitted to the hospital for a minimum of 2 night stay. DISCHARGE PLAN Return to [facility] under the care of Dr. Mcmahan. Impression and plan of care have been directed as dictated by the signing physician. Maida Johnson nurse practitioner acting as scribe for signing physician. Past Medical History Past Medical History: COPD, Diabetes Mellitus, Hypertension, Myocardial Infarct ion ([place]), Vascular Disorder Additional Past Medical History / Comment(s): anemia,SOB,irreg HR,bronchitis 09-06-15/09-07-15,crys leg and feet edema,hx of bleeding ulcer around age 32, Last Myocardial Infarction Date:: unk History of Any Multi-Drug Resistant Organisms: MRSA Date of last positivie culture/infection: 05/22/20 MDRO Source:: LEG MRSA Past Surgical History: Hysterectomy, Joint Replacement, Orthopedic Surgery Additional Past Surgical History / Comment(s): rtfem-pop bypass,3or4 stents lt leg,crys knee replace,lt shoulder repair Past Anesthesia/Blood Transfusion Reactions: Postoperative Nausea & Vomiting (PONV) Additional Past Anesthesia/Blood Transfusion Reaction / Comment(s): no problems with prior blood transfusions Additional Psychological History / Comment(s): Pt resides at [facility]. She gets out of bed infrequently and needs assistance and a walker. Additional Past Alcohol Use History / Comment(s): Pt started smoking in 1958 and quit 12/2019 - Past Family History Mother Family Medical History: Diabetes Mellitus Additional Family Medical History / Comment(s): heart problems Father Additional Family Medical History / Comment(s): heart problems Sister(s) Family Medical History: Diabetes Mellitus Additional Family Medical History / Comment(s): heart problems Brother(s) Family Medical History: Cancer Medications and Allergies Home Medications Medication Instructions Recorded Confirmed Type Lovastatin [Mevacor] 40 mg PO HS@2100 09/20/15 10/28/20 History Multivit-Min/FA/Lycopen/Lutein 1 tab PO DAILY@1700 09/20/15 10/28/20 History [Centrum Silver Tablet] Pantoprazole [Protonix] 40 mg PO DAILY@0800 03/23/20 10/28/20 History Ipratropium-Albuterol Nebulize 3 ml INHALATION RT-QID PRN ml 03/27/20 10/28/20 Rx [Duoneb 0.5 mg-3 mg/3 ml Soln] Albuterol Nebulized [Ventolin 2.5 mg INHALATION RT-QID PRN 06/07/20 10/28/20 History Nebulized] Budesonide [Pulmicort] 0.5 mg INHALATION RT-BID@0800,2100 08/02/20 10/28/20 History Lidocaine 5% Oint [Xylocaine 5% 1 mm TOPICAL DAILY PRN 08/02/20 10/28/20 History Oint] Liquical 30 ml PO DAILY@1200 08/02/20 10/28/20 History Loperamide HCl [Imodium A-D] 4 mg PO QID PRN 08/02/20 10/28/20 History Magnesium Hydroxide [Milk of 7,200 mg PO Q48H PRN 08/02/20 10/28/20 History Magnesia Concentrate] Spironolactone [Aldactone] 12.5 mg PO DAILY@0800 08/02/20 10/28/20 History bisacodyL [Bisacodyl] 10 mg RECTAL DAILY PRN 08/02/20 10/28/20 History Gabapentin [Neurontin] 200 mg PO BID@0800,2100 #12 cap 08/10/20 10/28/20 Rx 0.9 % Sodium Chloride [Sodium 10 ml IV TID 10/28/20 10/28/20 History Chloride Flush] Apixaban [Eliquis] 5 mg PO BID@0800,1700 10/28/20 10/28/20 History Calcium Carbonate [Tums] 500 mg PO TID@0800,1200,1700 10/28/20 10/28/20 History Collagenase [Santyl] 1 applic TOPICAL DAILY 10/28/20 10/28/20 History DULoxetine HCL [Cymbalta] 30 mg PO DAILY@0800 10/28/20 10/28/20 History HYDROcodone/APAP 5-325MG [[place] 1 tab PO Q6H PRN 10/28/20 10/28/20 History 5-325] Hydrophilic Cream [Triad Cream] 1 applic TOPICAL BID 10/28/20 10/28/20 History INSULIN ASPART (NovoLOG) [NovoLOG See Protocol SQ TID@0700,1100,1630 10/28/20 10/28/20 History (formulary)] Insulin Detemir (Levemir) [Levemir] 10 unit SQ HS@209910/28/20 10/28/20 History Menthol [Biofreeze] 1 applic TOPICAL BID@0800,1700 10/28/20 10/28/20 History Menthol [Biofreeze] 1 applic TOPICAL DAILY PRN 10/28/20 10/28/20 History Na Phos,M-B/Na Phos,Di-Ba [Fleet 133 ml RECTAL DAILY PRN 10/28/20 10/28/20 History Adult] Nepro 120 ml PO BID@0800,1700 10/28/20 10/28/20 History Nystatin 100,000 Unit/gm Powd 1 applic TOPICAL DAILY PRN 10/28/20 10/28/20 History [Mycostatin Powder] Nystatin 100,000Unit/gm Cream 1 applic TOPICAL BID@0800,209910/28/20 10/28/20 History [Mycostatin Cream] Tolvaptan [Samsca] 15 mg PO WETH@0800 10/28/20 10/28/20 History Torsemide [Demadex] 40 mg PO DAILY@0800 10/28/20 10/28/20 History Triamcinolone 0.5% Cream [Kenalog 1 applic TOPICAL BID@0800,209910/28/20 10/28/20 History 0.5% Cream] Allergies Allergy/AdvReac Type Severity Reaction Status Date / Time Penicillins Allergy Swelling Verified 10/28/20 10:14 hydrocodone bitartrate AdvReac Nausea & Verified 10/28/20 10:14 [From Vicodin] Vomiting sulfamethoxazole AdvReac Nausea & Verified 10/28/20 10:14 Vomiting Physical Exam Vitals: Vital Signs Temp Pulse Resp BP Pulse Ox 10/28/20 08:00 97 18 95 10/28/20 07:58 102 H 18 90/67 95 10/28/20 06:47 97.8 F 58 L 22 101/75 98 Intake and Output 10/27/20 10/28/20 10/28/20 22:59 06:59 14:59 Output Total 350 Balance -350 Output: Urine 350 Uretheral (Alberto) 350 Other: Weight 78.471 kg Results CBC & Chem 7: 10/29/20 05:44 10/29/20 05:44 Labs: Abnormal Lab Results - Last 24 Hours (Table) 10/28/20 10/28/20 10/28/20 Range/Units 07:18 07:18 07:18 WBC 21.7 H (3.8-10.6) k/uL Hgb 11.2 L (11.4-16.0) gm/dL RDW 19.4 H (11.5-15.5) % Neutrophils # 19.3 H (1.3-7.7) k/uL Lymphocytes # 0.7 L (1.0-4.8) k/uL Monocytes # 1.4 H (0-1.0) k/uL PT 27.4 H (9.0-12.0) sec INR 2.8 H (<1.2) Sodium 123 L (137-145) mmol/L Potassium 5.8 H (3.5-5.1) mmol/L Chloride 87 L (98-107) mmol/L BUN 61 H (7-17) mg/dL Creatinine 1.51 H (0.52-1.04) mg/dL Glucose 136 H (74-99) mg/dL Plasma Lactic Acid Jean-Paul (0.7-2.0) mmol/L Calcium 8.3 L (8.4-10.2) mg/dL Total Bilirubin 1.4 H (0.2-1.3) mg/dL AST 438 H (14-36) U/L ALT 304 H (4-34) U/L Troponin I (0.000-0.034) ng/mL Total Protein 6.2 L (6.3-8.2) g/dL Albumin 2.9 L (3.5-5.0) g/dL Urine Protein (Negative) 10/28/20 10/28/20 10/28/20 Range/Units 07:18 07:18 07:18 WBC (3.8-10.6) k/uL Hgb (11.4-16.0) gm/dL RDW (11.5-15.5) % Neutrophils # (1.3-7.7) k/uL Lymphocytes # (1.0-4.8) k/uL Monocytes # (0-1.0) k/uL PT (9.0-12.0) sec INR (<1.2) Sodium (137-145) mmol/L Potassium (3.5-5.1) mmol/L Chloride (98-107) mmol/L BUN (7-17) mg/dL Creatinine (0.52-1.04) mg/dL Glucose (74-99) mg/dL Plasma Lactic Acid Jean-Paul 3.4 H* (0.7-2.0) mmol/L Calcium (8.4-10.2) mg/dL Total Bilirubin (0.2-1.3) mg/dL AST (14-36) U/L ALT (4-34) U/L Troponin I 1.260 H* (0.000-0.034) ng/mL Total Protein (6.3-8.2) g/dL Albumin (3.5-5.0) g/dL Urine Protein Trace H (Negative)
[2020-10-28] MEDS ORDERED: MEROPENEM 1 GM in SODIUM CHLORIDE 0.9% 100 ML IVPB ONE (12:00)
[2020-10-28] MEDS: IPRATROPIUM-ALBUTEROL 3 ML NEB INHALATION PRN ×2 (12:08→20:17)
[2020-10-28] MEDS: INSULIN ASPART (NovoLOG) 100 UNIT/ML VIAL SQ SCH ×3 (12:16→21:04)
[2020-10-28] MEDS: CALCIUM CARBONATE 500 MG CHEWABLE PO SCH ×2 (12:17→12:20)
[2020-10-28 12:23] LABS: Glucose,Whole Blood 131 mg/dL (75-99)
--- NOTE | 2020-10-28 13:38 | P.GSCN ---
History of Present Illness Consult date: 10/28/20 Reason for Consult: Multiple bilateral lower extremity ulcerations History of present illness: Raza Bledsoe is a 75-year-old female with a long-standing history of diabetes mellitus and significant tobacco abuse who was evaluated in the emergency room in relation to bilateral lower extremity ulcerations. These ulcerations are essentially limited to the calf area. She is been under the care of the wound care clinic for extended period of time. She presented this date because of issues relating to abnormal lab values. She complains of bilateral lower extremity discomfort which is chronic. She has a history of undergoing surgical revascularization in the former femoral-popliteal bypass graft in the distant past and has undergone percutaneous intervention of the left lower extremity. The patient is unsure of who did the percutaneous procedure however she indicates this was done at [facility] in [place]. Past Medical History Past Medical History: COPD, Diabetes Mellitus, Hypertension, Myocardial Infarction ([place]), Vascular Disorder Additional Past Medical History / Comment(s): anemia,SOB,irreg HR,bronchitis 09-06-15/09-07-15,crys leg and feet edema,hx of bleeding ulcer around age 32, Last Myocardial Infarction Date:: unk History of Any Multi-Drug Resistant Organisms: MRSA Year Discovered:: 05/22/20 MDRO Source:: LEG MRSA Past Surgical History: Hysterectomy, Joint Replacement, Orthopedic Surgery Additional Past Surgical History / Comment(s): rtfem-pop bypass,3or4 stents lt leg,crys knee replace,lt shoulder repair Past Anesthesia/Blood Transfusion Reactions: Postoperative Nausea & Vomiting (PONV) Additional Past Anesthesia/Blood Transfusion Reaction / Comm: no problems with prior blood transfusions Additional Psychological History / Comment(s): Pt resides at [facility]. She gets out of bed infrequently and needs assistance and a walker. Additional Past Alcohol Use History / Comment(s): Pt started smoking in 11 and quit 12/2019 - Past Family History Mother Family Medical History: Diabetes Mellitus Additional Family Medical History / Comment(s): heart problems Father Additional Family Medical History / Comment(s): heart problems Sister(s) Family Medical History: Diabetes Mellitus Additional Family Medical History / Comment(s): heart problems Brother(s) Family Medical History: Cancer Medications and Allergies Home Medications Medication Instructions Recorded Confirmed Type Lovastatin [Mevacor] 40 mg PO HS@2100 09/20/15 06/05/21 History Multivit-Min/FA/Lycopen/Lutein 1 tab PO DAILY@169909/20/15 10/28/20 History [Centrum Silver Tablet] Pantoprazole [Protonix] 40 mg PO DAILY@0800 03/23/20 10/28/20 History Ipratropium-Albuterol Nebulize 3 ml INHALATION RT-QID PRN ml 03/27/20 10/28/20 Rx [Duoneb 0.5 mg-3 mg/3 ml Soln] Albuterol Nebulized [Ventolin 2.5 mg INHALATION RT-QID PRN 06/07/20 10/28/20 History Nebulized] Budesonide [Pulmicort] 0.5 mg INHALATION RT-BID@799,209908/02/20 10/28/20 History Lidocaine 5% Oint [Xylocaine 5% 1 mm TOPICAL DAILY PRN 08/02/20 10/28/20 History Oint] Liquical 30 ml PO DAILY@119908/02/20 10/28/20 History Loperamide HCl [Imodium A-D] 4 mg PO QID PRN 08/02/20 10/28/20 History Magnesium Hydroxide [Milk of 7,200 mg PO Q48H PRN 08/02/20 10/28/20 History Magnesia Concentrate] Spironolactone [Aldactone] 12.5 mg PO DAILY@0800 08/02/20 10/28/20 History bisacodyL [Bisacodyl] 10 mg RECTAL DAILY PRN 08/02/20 10/28/20 History Gabapentin [Neurontin] 200 mg PO BID@799,2099 #12 cap 08/10/20 10/28/20 Rx 0.9 % Sodium Chloride [Sodium 10 ml IV TID 10/28/20 10/28/20 History Chloride Flush] Apixaban [Eliquis] 5 mg PO BID@0800,1700 10/28/20 10/28/20 History Calcium Carbonate [Tums] 500 mg PO TID@0800,1200,1700 10/28/20 10/28/20 History Collagenase [Santyl] 1 applic TOPICAL DAILY 10/28/20 10/28/20 History DULoxetine HCL [Cymbalta] 30 mg PO DAILY@0800 10/28/20 10/28/20 History HYDROcodone/APAP 5-325MG [[place] 1 tab PO Q6H PRN 10/28/20 10/28/20 History 5-325] Hydrophilic Cream [Triad Cream] 1 applic TOPICAL BID 10/28/20 10/28/20 History INSULIN ASPART (NovoLOG) [NovoLOG See Protocol SQ TID@0700,1100,1630 10/28/20 10/28/20 History (formulary)] Insulin Detemir (Levemir) [Levemir] 10 unit SQ HS@209910/28/20 10/28/20 History Menthol [Biofreeze] 1 applic TOPICAL BID@0800,1700 10/28/20 10/28/20 History Menthol [Biofreeze] 1 applic TOPICAL DAILY PRN 10/28/20 10/28/20 History Na Phos,M-B/Na Phos,Di-Ba [Fleet 133 ml RECTAL DAILY PRN 10/28/20 10/28/20 History Adult] Nepro 120 ml PO BID@0800,1700 10/28/20 10/28/20 History Nystatin 100,000 Unit/gm Powd 1 applic TOPICAL DAILY PRN 10/28/20 10/28/20 Hist ory [Mycostatin Powder] Nystatin 100,000Unit/gm Cream 1 applic TOPICAL BID@0800,209910/28/20 10/28/20 History [Mycostatin Cream] Tolvaptan [Samsca] 15 mg PO WETH@0800 10/28/20 10/28/20 History Torsemide [Demadex] 40 mg PO DAILY@0800 10/28/20 10/28/20 History Triamcinolone 0.5% Cream [Kenalog 1 applic TOPICAL BID@0800,2100 10/28/20 10/28/20 History 0.5% Cream] Allergies Allergy/AdvReac Type Severity Reaction Status Date / Time Penicillins Allergy Swelling Verified 10/28/20 10:14 hydrocodone bitartrate AdvReac Nausea & Verified 10/28/20 10:14 [From Vicodin] Vomiting sulfamethoxazole AdvReac Nausea & Verified 10/28/20 10:14 Vomiting Surgical - Exam Osteopathic Statement: *. No significant issues noted on an osteopathic structural exam other than those noted in the History and Physical/Consult. Vital Signs Temp Pulse Resp BP Pulse Ox 97.8 F 58 L 22 101/75 98 10/28/20 06:47 10/28/20 06:47 10/28/20 06:47 10/28/20 06:47 10/28/20 06:47 - Neck no masses, no bruits, trachea midline, no no lymphadectomy, no no venous distension, no deviated trachea, no diffuse goiter, no limited ROM, no other - Cardiovascular Rhythm: regularly irregular Femoral pulses are intact bilaterally while the popliteal, DP and PT pulses are absent. Multiple venous ulcerations are identified in the calf areas bilaterally. While there are no open wounds on the feet of the digits are cyanotic. Results - Labs 10/28/20 07:18 10/28/20 07:18 Abnormal Lab Results - Last 24 Hours (Table) 10/28/20 10/28/20 10/28/20 Range/Units 07:18 07:18 07:18 WBC 21.7 H (3.8-10.6) k/uL Hgb 11.2 L (11.4-16.0) gm/dL RDW 19.4 H (11.5-15.5) % Neutrophils # 19.3 H (1.3-7.7) k/uL Lymphocytes # 0.7 L (1.0-4.8) k/uL Monocytes # 1.4 H (0-1.0) k/uL PT 27.4 H (9.0-12.0) sec INR 2.8 H (<1.2) Sodium 123 L (137-145) mmol/L Potassium 5.8 H (3.5-5.1) mmol/L Chloride 87 L (98-107) mmol/L BUN 61 H (7-17) mg/dL Creatinine 1.51 H (0.52-1.04) mg/dL Glucose 136 H (74-99) mg/dL POC Glucose (mg/dL) (75-99) mg/dL Plasma Lactic Acid Jean-Paul (0.7-2.0) mmol/L Calcium 8.3 L (8.4-10.2) mg/dL Total Bilirubin 1.4 H (0.2-1.3) mg/dL AST 438 H (14-36) U/L ALT 304 H (4-34) U/L Troponin I (0.000-0.034) ng/mL Total Protein 6.2 L (6.3-8.2) g/dL Albumin 2.9 L (3.5-5.0) g/dL Urine Protein (Negative) 10/28/20 10/28/20 10/28/20 Range/Units 07:18 07:18 07:18 WBC (3.8-10.6) k/uL Hgb (11.4-16.0) gm/dL RDW (11.5-15.5) % Neutrophils # (1.3-7.7) k/uL Lymphocytes # (1.0-4.8) k/uL Monocytes # (0-1.0) k/uL PT (9.0-12.0) sec INR (<1.2) Sodium (137-145) mmol/L Potassium (3.5-5.1) mmol/L Chloride (98-107) mmol/L BUN (7-17) mg/dL Creatinine (0.52-1.04) mg/dL Glucose (74-99) mg/dL POC Glucose (mg/dL) (75-99) mg/dL Plasma Lactic Acid Jean-Paul 3.4 H* (0.7-2.0) mmol/L Calcium (8.4-10.2) mg/dL Total Bilirubin (0.2-1.3) mg/dL AST (14-36) U/L ALT (4-34) U/L Troponin I 1.260 H* (0.000-0.034) ng/mL Total Protein (6.3-8.2) g/dL Albumin (3.5-5.0) g/dL Urine Protein Trace H (Negative) 10/28/20 10/28/20 10/28/20 Range/Units 10:14 10:14 12:14 WBC (3.8-10.6) k/uL Hgb (11.4-16.0) gm/dL RDW (11.5-15.5) % Neutrophils # (1.3-7.7) k/uL Lymphocytes # (1.0-4.8) k/uL Monocytes # (0-1.0) k/uL PT (9.0-12.0) sec INR (<1.2) Sodium (137-145) mmol/L Potassium (3.5-5.1) mmol/L Chloride (98-107) mmol/L BUN (7-17) mg/dL Creatinine (0.52-1.04) mg/dL Glucose (74-99) mg/dL POC Glucose (mg/dL) 131 H (75-99) mg/dL Plasma Lactic Acid Jean-Paul 2.7 H* (0.7-2.0) mmol/L Calcium (8.4-10.2) mg/dL Total Bilirubin (0.2-1.3) mg/dL AST (14-36) U/L ALT (4-34) U/L Troponin I 1.080 H* (0.000-0.034) ng/mL Total Protein (6.3-8.2) g/dL Albumin (3.5-5.0) g/dL Urine Protein (Negative) Diabetes panel 10/28/20 Range/Units 07:18 Sodium 123 L (137-145) mmol/L Potassium 5.8 H (3.5-5.1) mmol/L Chloride 87 L (98-107) mmol/L Carbon Dioxide 24 (22-30) mmol/L BUN 61 H (7-17) mg/dL Creatinine 1.51 H (0.52-1.04) mg/dL Glucose 136 H (74-99) mg/dL Calcium 8.3 L (8.4-10.2) mg/dL AST 438 H (14-36) U/L ALT 304 H (4-34) U/L Alkaline Phosphatase 90 (38-126) U/L Total Protein 6.2 L (6.3-8.2) g/dL Albumin 2.9 L (3.5-5.0) g/dL Calcium panel 10/28/20 Range/Units 07:18 Calcium 8.3 L (8.4-10.2) mg/dL Albumin 2.9 L (3.5-5.0) g/dL Pituitary panel 10/28/20 Range/Units 07:18 Sodium 123 L (137-145) mmol/L Potassium 5.8 H (3.5-5.1) mmol/L Chloride 87 L (98-107) mmol/L Carbon Dioxide 24 (22-30) mmol/L BUN 61 H (7-17) mg/dL Creatinine 1.51 H (0.52-1.04) mg/dL Glucose 136 H (74-99) mg/dL Calcium 8.3 L (8.4-10.2) mg/dL Adrenal panel 10/28/20 Range/Units 07:18 Sodium 123 L (137-145) mmol/L Potassium 5.8 H (3.5-5.1) mmol/L Chloride 87 L (98-107) mmol/L Carbon Dioxide 24 (22-30) mmol/L BUN 61 H (7-17) mg/dL Creatinine 1.51 H (0.52-1.04) mg/dL Glucose 136 H (74-99) mg/dL Calcium 8.3 L (8.4-10.2) mg/dL Total Bilirubin 1.4 H (0.2-1.3) mg/dL AST 438 H (14-36) U/L ALT 304 H (4-34) U/L Alkaline Phosphatase 90 (38-126) U/L Total Protein 6.2 L (6.3-8.2) g/dL Albumin 2.9 L (3.5-5.0) g/dL Assessment and Plan Plan: Currently the patient is a very poor surgical risk owing to coagulopathy which may be medication induced as well as elevated troponin, acute kidney injury and hyperkalemia. Plan: #1: Patient will need to be medically optimized prior to consideration of any intervention from a surgical standpoint. Generally however I do not leave she is a surgical candidate even once she becomes optimized. #2: Continue local wound care / wound care consult. Time with Patient: Greater than 30
[2020-10-28] MEDS: ASPIRIN 81 MG PO SCH (15:10)
--- NOTE | 2020-10-28 15:36 | CONS ---
CONSULTATION ATTENDING PHYSICIAN: Dr. Mcmahan. HISTORY OF PRESENT ILLNESS: Mrs. Strong is a 75-year-old female who was transferred from [facility] for further evaluation of her dyspnea. She has a known history of chronic obstructive lung disease, home oxygen, history of chronic persistent atrial fibrillation, hypertension, hyperlipidemia, history of myocardial infarction according to the records, history of peripheral vascular disease, chronic lower extremities ulceration with previous femoral- popliteal bypass and stenting who has chronic ulceration. She has been complaining of progressive dyspnea and because of that, she was sent to the emergency room and subsequently admitted. Cardiology consultation was requested because of mild troponin elevation. The patient denies any chest discomfort. She complains of the dyspnea on exertion. She denies any dizziness or palpitation. She denies any nausea. She is limited in her physical activity. Asking her, she could not recall any prior cardiac history according to her and then when I asked her again about the irregular heartbeat, she recalls that she has an irregular heartbeat. She has a history of chronic tobacco use, which she stopped a few months ago. She has a history of diabetes and hyperlipidemia. MEDICATION: Her medications at home include Demodex, lovastatin 40 mg daily, Protonix, Eliquis 5 mg twice a day, insulin, spironolactone 12.5 mg daily. REVIEW OF SYSTEMS: RESPIRATORY SYSTEM: She has dyspnea on exertion. She has a cough, no fever. GI SYSTEM: She denies any nausea or vomiting. No recent GI bleeding. SYSTEM: No dysuria or hematuria. NERVOUS SYSTEM: She denies any stroke or seizure. PHYSICAL EXAMINATION: GENERAL: She is a 75-year-old female, appears older than stated age. VITAL SIGNS: Blood pressure running in the low 100s, high 90s with a heart in 90s. HEAD: Normocephalic. Eyes sclerae anicteric. NECK: No jugular venous distention appreciated. LUNGS: With decreased air exchange bilaterally, no wheezes. HEART: Irregular irregular S1, S2. No S3 with systolic murmur. No diastolic murmur. ABDOMEN: Soft and nontender. Positive bowel sounds. No organomegaly. EXTREMITIES: Significant ulceration noted on the lower extremities with significant discoloration of her fingers and toes and absence of distal pulses. LAB DATA: Lab data revealed a troponin of 1.26 and 1.08. Her plasma lactic level is 2.7. Her BUN and creatinine 61 and 1.51, which is worse than it was yesterday. Her white blood cell is 21.7, hemoglobin of 11.2. INR of 2.8. Her EKG revealed atrial fibrillation, right axis deviation, nonspecific ST-T wave changes. Her chest x-ray shows probable CHF. IMPRESSION: 1. Progressive dyspnea, multifactorial in a patient with a history of chronic tobacco use and history of coronary artery disease. Her systolic function is not available to me at this time. Reviewing her prior testing, she had an echocardiogram in July of this year and at that time she had a preserved systolic function with mild to moderate mitral and severe tricuspid regurgitation and severe pulmonary hypertension. The patient may have some element of diastolic dysfunction heart failure. 2. Severe peripheral vascular disease. 3. Venous ulceration. 4. Troponin elevation could be related to a type 2 event. 5. Probable infectious process could be related to her lower extremities with elevated lactic acid as well as leukocytosis. 6. Acute renal injury. 7. History of chronic tobacco use and chronic obstructive lung disease. 8. Chronic persistent atrial fibrillation. RECOMMENDATION: From the cardiac standpoint, I agree with your plan of diuresing the patient with close follow up of her renal function. The patient will be started on aspirin 81 mg daily. Her Eliquis is on hold because of her elevated INR. We will follow her renal function closely. Unfortunately, the prognosis is quite guarded considering her overall status. She is not a candidate for aggressive cardiac workup. Thank you for this consult. We will follow with you. ARMANDO / RALPH: [id number] /
[2020-10-28] MEDS ORDERED: APIXABAN 5 MG TAB PO SCH (17:00)
[2020-10-28] MEDS ORDERED: NON FORMULARY DRUG (Nepro 1 CAN Liquid) PO SCH (17:00)
[2020-10-28] MEDS: MULTIVITAMINS, THERA 1 EACH TAB PO SCH (18:10)
[2020-10-28 18:15] LABS: Glucose,Whole Blood 101 mg/dL (75-99)
[2020-10-28] MEDS: METHYL SALICYLATE/MENTHOL CREAM 5 OZ TOPICAL SCH ×2 (18:19→21:04)
[2020-10-28] MEDS: BUDESONIDE 0.5 MG/2 ML NEBU INHALATION SCH (20:17)
[2020-10-28 20:25] LABS: Glucose,Whole Blood 96 mg/dL (75-99)
[2020-10-28] MEDS ORDERED: ATORVASTATIN 10 MG TAB PO SCH (21:00)
[2020-10-28] MEDS: GABAPENTIN 100 MG CAP PO SCH (21:03)
[2020-10-28] MEDS: INSULIN DETEMIR (LEVEMIR) 100 UNIT/ML SYR SQ SCH (21:03)
[2020-10-28] MEDS: HYDROPHILIC CREAM 180 GM TUBE TOPICAL SCH (22:44)
[2020-10-28] MEDS: NYSTATIN 100,000UNIT/GM CREAM 30 GM TUBE TOPICAL SCH (22:44)
[2020-10-28] MEDS: MEROPENEM 1 GM in SODIUM CHLORIDE 0.9% 100 ML IVPB SCH (22:52)
[2020-10-29 00:08] LABS: Hepatitis A Antibody IgM Non-Reactive (Non-Reactive); Hepatitis B Core IgM Non-Reactive (Non-Reactive); Hepatitis B Surface Antigen Non-Reactive (Non-Reactive); Hepatitis C IgG Antibody Non-Reactive (Non-Reactive)
[2020-10-29 00:51] LABS: Glucose,Whole Blood 92 mg/dL (75-99)
[2020-10-29 02:53] LABS: Albumin 2.7 g/dL (3.5-5.0); Calcium 8.3 mg/dL (8.4-10.2); Potassium 5.6 mmol/L (3.5-5.1); Total Bilirubin 1.1 mg/dL (0.2-1.3); Total Protein 5.9 g/dL (6.3-8.2)
[2020-10-29 06:17] LABS: Anisocytosis Slight; Hypochromasia Slight; MCH 28.2 pg (25.0-35.0); MCHC 32.4 g/dL (31.0-37.0); MCV 87.1 fL (80.0-100.0); Mean Platelet Volume 8.1; Platelet Count 200 k/uL (150-450); Poikilocytosis Slight; RDW 19.4 % (11.5-15.5)
[2020-10-29 06:46] LABS: INR 3.1 (<1.2); Prothrombin Time 29.7 sec (9.0-12.0)
[2020-10-29] MEDS: IPRATROPIUM-ALBUTEROL 3 ML NEB INHALATION PRN ×2 (07:53→20:32)
[2020-10-29] MEDS: BUDESONIDE 0.5 MG/2 ML NEBU INHALATION SCH ×2 (07:53→20:32)
[2020-10-29] MEDS: CALCIUM CARBONATE 500 MG CHEWABLE PO SCH ×3 (08:19→15:59)
[2020-10-29 08:26] LABS: Glucose,Whole Blood 83 mg/dL (75-99)
[2020-10-29] MEDS: PANTOPRAZOLE 40 MG TABLET PO SCH (08:42)
[2020-10-29] MEDS: SPIRONOLACTONE 25 MG TAB PO SCH (08:42)
[2020-10-29] MEDS: GABAPENTIN 100 MG CAP PO SCH ×2 (08:42→23:31)
[2020-10-29] MEDS: HYDROcodone/APAP 5-325MG 1 EACH TAB PO PRN ×2 (08:42→23:32)
[2020-10-29] MEDS: INSULIN ASPART (NovoLOG) 100 UNIT/ML VIAL SQ SCH ×3 (08:43→20:02)
[2020-10-29] MEDS: NYSTATIN 100,000UNIT/GM CREAM 30 GM TUBE TOPICAL SCH ×2 (08:43→12:29)
[2020-10-29] MEDS: DULoxetine HCL 30 MG CAPSULE.DR PO SCH (08:43)
[2020-10-29 09:13] LABS: Albumin 2.7 g/dL (3.5-5.0); Calcium 8.1 mg/dL (8.4-10.2); Potassium 5.7 mmol/L (3.5-5.1); Total Bilirubin 1.1 mg/dL (0.2-1.3); Total Protein 5.9 g/dL (6.3-8.2)
[2020-10-29] MEDS: FUROSEMIDE 10 MG/ML 4 ML VIAL IV SCH (10:47)
--- NOTE | 2020-10-29 11:32 | P.NPCON ---
History of Present Illness - Reason for Consult Consult date: 10/29/20 acute renal failure - Chief Complaint Shortness of breath - History of Present Illness This is 75-year-old female seen in consultation because of acute kidney injury hyponatremia and hyperkalemia. She came in because of abnormal labs, poor appetite and shortness of breath, and pain in her both feet with ischemic changes. Denies any history of nausea vomiting diarrhea. Her current medication lists as per the ER note there is no have any nonsteroidals but does have spironolactone. No history of any bladder issues Her creatinine recently was normal at 0.6 on 10/16/2020. Her urinalysis is benign on 10/28/2020 yesterday She is known with diabetes mellitus COPD history of coronary artery disease with stenting [place]. Has had bypass in her legs she does have pain in her legs Past Medical History Past Medical History: COPD, Diabetes Mellitus, Hypertension, Myocardial Infarction ([place]), Vascular Disorder Additional Past Medical History / Comment(s): anemia,SOB,irreg HR,bronchitis 09-06-15/09-07-15,crys leg and feet edema,hx of bleeding ulcer around age 32, Last Myocardial Infarction Date:: unk History of Any Multi-Drug Resistant Organisms: MRSA Date of last positivie culture/infection: 05/22/20 MDRO Source:: LEG MRSA Past Surgical History: Hysterectomy, Joint Replacement, Orthopedic Surgery Additional Past Surgical History / Comment(s): rtfem-pop bypass,3or4 stents lt l eg,crys knee replace,lt shoulder repair Past Anesthesia/Blood Transfusion Reactions: Postoperative Nausea & Vomiting (PONV) Additional Past Anesthesia/Blood Transfusion Reaction / Comment(s): no problems with prior blood transfusions Additional Psychological History / Comment(s): Pt resides at [facility]. She gets out of bed infrequently and needs assistance and a walker. Additional Past Alcohol Use History / Comment(s): Pt started smoking in 11 and quit 12/2019 - Past Family History Mother Family Medical History: Diabetes Mellitus Additional Family Medical History / Comment(s): heart problems Father Additional Family Medical History / Comment(s): heart problems Sister(s) Family Medical History: Diabetes Mellitus Additional Family Medical History / Comment(s): heart problems Brother(s) Family Medical History: Cancer Medications and Allergies Home Medications Medication Instructions Recorded Confirmed Type Lovastatin [Mevacor] 40 mg PO HS@209909/20/15 10/28/20 History Multivit-Min/FA/Lycopen/Lutein 1 tab PO DAILY@1700 09/20/15 10/28/20 History [Centrum Silver Tablet] Pantoprazole [Protonix] 40 mg PO DAILY@0800 03/23/20 10/28/20 History Ipratropium-Albuterol Nebulize 3 ml INHALATION RT-QID PRN ml 03/27/20 10/28/20 Rx [Duoneb 0.5 mg-3 mg/3 ml Soln] Albuterol Nebulized [Ventolin 2.5 mg INHALATION RT-QID PRN 06/07/20 10/28/20 History Nebulized] Budesonide [Pulmicort] 0.5 mg INHALATION RT-BID@0800,209908/02/20 10/28/20 History Lidocaine 5% Oint [Xylocaine 5% 1 mm TOPICAL DAILY PRN 08/02/20 10/28/20 History Oint] Liquical 30 ml PO DAILY@1200 08/02/20 10/28/20 History Loperamide HCl [Imodium A-D] 4 mg PO QID PRN 08/02/20 10/28/20 History Magnesium Hydroxide [Milk of 7,200 mg PO Q48H PRN 08/02/20 10/28/20 History Magnesia Concentrate] Spironolactone [Aldactone] 12.5 mg PO DAILY@0800 08/02/20 10/28/20 History bisacodyL [Bisacodyl] 10 mg RECTAL DAILY PRN 08/02/20 10/28/20 History Gabapentin [Neurontin] 200 mg PO BID@0800,2100 #12 cap 08/10/20 10/28/20 Rx 0.9 % Sodium Chloride [Sodium 10 ml IV TID 10/28/20 10/28/20 History Chloride Flush] Apixaban [Eliquis] 5 mg PO BID@0800,1700 10/28/20 10/28/20 History Calcium Carbonate [Tums] 500 mg PO TID@0800,1200,1700 10/28/20 10/28/20 History Collagenase [Santyl] 1 applic TOPICAL DAILY 10/28/20 10/28/20 History DULoxetine HCL [Cymbalta] 30 mg PO DAILY@0800 10/28/20 10/28/20 History HYDROcodone/APAP 5-325MG [Howe 1 tab PO Q6H PRN 10/28/20 10/28/20 History 5-325] Hydrophilic Cream [Triad Cream] 1 applic TOPICAL BID 10/28/20 10/28/20 History INSULIN ASPART (NovoLOG) [NovoLOG See Protocol SQ TID@0700,1100,1630 10/28/20 10/28/20 History (formulary)] Insulin Detemir (Levemir) [Levemir] 10 unit SQ HS@209910/28/20 10/28/20 History Menthol [Biofreeze] 1 applic TOPICAL BID@0800,1700 10/28/20 10/28/20 History Menthol [Biofreeze] 1 applic TOPICAL DAILY PRN 10/28/20 10/28/20 History Na Phos,M-B/Na Phos,Di-Ba [Fleet 133 ml RECTAL DAILY PRN 10/28/20 10/28/20 History Adult] Nepro 120 ml PO BID@0800,1700 10/28/20 10/28/20 History Nystatin 100,000 Unit/gm Powd 1 applic TOPICAL DAILY PRN 10/28/20 10/28/20 History [Mycostatin Powder] Nystatin 100,000Unit/gm Cream 1 applic TOPICAL BID@0800,2100 10/28/20 10/28/20 History [Mycostatin Cream] Tolvaptan [Samsca] 15 mg PO WETH@0800 10/28/20 10/28/20 History Torsemide [Demadex] 40 mg PO DAILY@0800 10/28/20 10/28/20 History Triamcinolone 0.5% Cream [Kenalog 1 applic TOPICAL BID@0800,2100 10/28/20 10/28/20 History 0.5% Cream] Allergies Allergy/AdvReac Type Severity Reaction Status Date / Time Penicillins Allergy Swelling Verified 10/28/20 10:14 hydrocodone bitartrate AdvReac Nausea & Verified 10/28/20 10:14 [From Vicodin] Vomiting sulfamethoxazole AdvReac Nausea & Verified 10/28/20 10:14 Vomiting Physical Exam Vitals: Vital Signs Temp Pulse Resp BP Pulse Ox 10/29/20 08:03 125 H 10/29/20 08:00 112 H 18 93/77 93 L 10/29/20 07:54 106 H 10/29/20 04:38 102 H 12 119/68 94 L 10/29/20 02:00 103 H 12 109/75 94 L 10/29/20 00:55 98 14 112/64 97 10/28/20 20:56 97.5 F L 102 H 20 101/65 92 L 10/28/20 20:39 118 H 10/28/20 20:19 112 H 10/28/20 18:00 100 117/76 95 10/28/20 17:00 100 105/91 95 10/28/20 16:00 100 95 10/28/20 15:00 100 101/58 95 10/28/20 14:00 98 95 10/28/20 13:00 102 H 95 10/28/20 12:18 102 H 10/28/20 12:10 98 10/28/20 12:00 101 H 18 98/52 95 Intake and Output 10/28/20 10/29/20 10/29/20 22:59 06:59 14:59 Output Total 350 Balance -350 Output: Other 350 On examination she is anxious looks ill HEENT exam no JVP neck is supple no facial asymmetry Lungs are significant for bilateral fine crackles at bases with good air entry bilaterally Heart sounds unremarkable for any murmur rub gallop although the echocardiogram shows significant mitral and tricuspid regurg and moderate mitral stenosis. Abdomen soft nontender Extremity examination reveals bilateral toes are ischemic blue and has dressing on both feet. No evidence of any Neurologically awake alert oriented but profoundly weak Results - Lab Results Most recent lab results Calcium 8.1 mg/dL (8.4-10.2) L 10/29/20 05:44 Magnesium 1.8 mg/dL (1.6-2.3) 10/28/20 07:18 10/29/20 05:44 10/29/20 05:44 Assessment and Plan Assessment: Depression 1. Acute kidney injury secondary to prerenal state, possible sepsis from ischemic feet, low blood pressure systolics in the 93 range. Creatinine is going up. Minimal urine output. Likely she is ATN. 2. Hyponatremia secondary to congestive heart failure and acute kidney injury serum sodium is 120 3. Hyperkalemia secondary to spironolactone and acute kidney injury creatinine is 5.6. 4. Elevated liver function tests, likely congestion 5. History of peripheral vascular disease surgery with severe ischemic changes in all her toes on both sides. 6. Anemia hemoglobin is 11 from chronic kidney disease, rule out iron deficiency. 7. Discharge failure Recommendation 1. Check CPK to make sure she does not have rhabdomyolysis although doubted 2. Obtain ultrasound of the kidneys for size. 3. Increase Lasix currently on 40 mg twice a day, will increase it to 80 3 times a day IV Thank you for this consultation and will continue to follow closely
--- NOTE | 2020-10-29 11:45 | P.PN ---
Subjective Progress Note Date: 10/29/20 HISTORY OF PRESENT ILLNESS This is a 75-year-old female patient of Dr. Mcmahan resides at [facility] with past medical history significant for diabetes mellitus type 2, COPD, chronic hypoxic respiratory failure on home O2, chronic diastolic heart failure, chronic atrial fibrillation hypertension, hyperlipidemia, previous myocardial infarction, chronic lower extremity ulcers, peripheral vascular occlusive disease with previous fem-pop bypass and stenting, history of chronic tobacco use. She has chronic diabetic ulcers for which [facility] Jade last seen on October 25. The patient states that she thinks her wound on her left lower leg is getting worse. Patient apparently recently completed 2 courses of antibiotics. No significant pain to the wounds. Denies any fever or chills[facility] was having mental status changes, fevers and worsening of her wounds just bite treatment. Patient was more lethargic and fatigued. Lab work was obtained which revealed a white count of 22.3, hemoglobin 10.2, sodium was 125, liver enzymes were elevated and it was decided the patient needed to be further evaluated in the hospital. Patient was hospitalization was in July of this year which time she was treated for chronic bilateral venous diabetic ulcers. She was seen by vascular surgery but did not undergo debridement on that occasion. She was seen by Dr. rCamer and he recommended meropenem which was continued at the jail. Patient was also followed by nephrology for hypovolemic hyponatremia. [facility] and found to be afebrile, heart rate in the 90s, blood pressure 101/75, pulse ox 95% on 2 L nasal cannula. Additional lab work included INR of 2.8. Sodium is 123, potassium 5.8, chloride 87, CO2 24, BUN 61 and creatinine 1.51. Lactic acid 3.4 with repeat of 2.7. Total bilirubin 1.4, AST 438, ALT 304. Troponin was found to be elevated at 1.260. ProBNP 37,200. Albumin 2.9. Urinalysis was negative for infection. Coronavirus PCR not detected. Chest x-ray was consistent with heart failure with no interval change. Patient was started on ceftriaxone, Lasix 40 mg IV every 12 hours, admitted to the cardiac stepdown unit, consults with cardiology, vascular surgery and wound team. 10/29: Patient is seen today in the emergency center still waiting for a cardiac stepdown bed. She has been seen by vascular surgery and apparently no surgical intervention is recommended. Patient has also been seen by cardiology and plans to continue diuresis seen and holding eliquis due to elevated INR. Patient currently in A. fib with RVR at 135 bpm. Outpatient denies significant pain and states she is comfortable. She states she does not have any appetite. Discussed overall prognosis with the patient and she does not seem to understand the gravity of her current situation. She is in agreement that we can contact her daughter Laney Strong. She resides in [place]. Attempted to call number available and there was no answer and no voicemail availability. Patient is afebrile, blood pressure 93/77, pulse ox 93% on 4 L nasal cannula. Repeat blood work reveals WBC 19.0, hemoglobin 11, platelet count 200. INR 3.1. Sodium 121, potassium 5.7, chloride 86, CO2 25, BUN 68 and creatinine 1.79. Blood sugar 112. Lactic acid 2.2. Total bilirubin 1.1, AST 486, ALT 430, alkaline phosphatase 99. Acute hepatitis panel negative. Blood culture no growth at 24 hours. Patient has also been seen and followed by nephrology and ultrasound of the kidneys has been ordered and Lasix increased to 80 mg 3 times daily IV. Further attempts will be made to contact the patient's daughter. Liver ultrasound is limited due to patient's condition. Gallstones with mild gallbladder wall thickening. Small mass in the pancreatic head. CT abdomen might be further useful. No intraperitoneal fluid. Unremarkable liver. REVIEW OF SYSTEMS Constitutional: No fever, no chills, no night sweats. No weight change. No weakness, fatigue or lethargy. No daytime sleepiness. EENT: No headache. No blurred vision or double vision, no loss of vision. No loss of Hearing, no ringing in the ears, no dizziness. No nasal drainage or congestion. No epistaxis. No sore throat. Lungs: No shortness of breath, cough, no sputum production. No wheezing. Cardiovascular: No chest pain, no lower extremity edema. No palpitations. No paroxysmal nocturnal dyspnea. No orthopnea. No lightheadedness or dizziness. No syncopal episodes. Abdominal: No abdominal pain. No nausea, vomiting. No diarrhea. No constipation. No bloody or tarry stools.. No loss of appetite. Genitourinary: No dysuria, increased frequency, urgency. No urinary retention. Musculoskeletal: No myalgias. No muscle weakness, no gait dysfunction, no frequent falls. No back pain. No neck pain. Integumentary: Reports wounds, no lesions. No rash or pruritus. No unusual bruising. No change in hair or nails. Neurologic: No aphasia. No facial droop. No change in mentation. No head injury. No headache. No paralysis. No paresthesia. Psychiatric: No depression. No anxiety. No mood swings. Endocrine: No abnormal blood sugars. No weight change. PHYSICAL EXAMINATION Gen: This is a 75-year-old female. Patient is resting on the ear structure that appears to be in no acute distress. No respiratory distress noted. HEENT: Head is atraumatic, normocephalic. Pupils equal, round. Sclerae is anicteric. NECK: Supple. No JVD. No lymphadenopathy. No thyromegaly. LUNGS: Diminished with bilateral wheezes. No intercostal retractions. HEART: Irregular rate and rhythm. Systolic murmur. ABDOMEN: Soft. Bowel sounds are present. No masses. No tenderness. EXTREMITIES: Mild pedal edema. Large left lower extremity ulcer on the medial side with surrounding erythema. Dorsalis pedis on the left is 1+, 2+ on the right. Patient also has small superficial ulcers to the left foot dorsal surface base of toes 2 through 4 and dusky purple color to the toes. There is a 5 x 2.5 cm wound on the right medial posterior calf with no significant erythema. There is also a small ulcer on the dorsal surface of the right great toe without erythema or drainage. NEUROLOGICAL: Patient is awake, alert and oriented x3, mild confusion noted. Cranial nerves 2 through 12 are grossly intact. ASSESSMENT AND PLAN 1. Sepsis secondary to chronic bilateral venous and diabetic ulcers worsening. Patient admitted to the cardiac stepdown, consult to vascular surgery appreciate d. No plan for intervention. Patient will be started on meropenem 1 g every 12 hours. 2. Acute kidney injury. Consult with nephrology. Hold IV fluids due to heart failure. IV Lasix and increase to 80 mg 3 times daily, renal ultrasound 3. Acute on chronic diastolic heart failure. Patient has been started on Lasix 40 mg IV every 12 hours. Continue Aldactone 12.5 mg daily. 4. Hyponatremia. Consult with nephrology. Continue Samsca 15 mg on Wednesdays and . 5. Metabolic encephalopathy secondary to sepsis. Continue treatment as in #1. 6. Elevated liver enzymes of unclear etiology. Liver ultrasound as above, acute hepatitis panel negative, repeat enzymes in the morning, hold lovastatin. 7. Hypercoagulopathy with INR of 2.8 secondary to sepsis. Continue to monitor, repeat INR in the morning. Hold eliquis for now. 8. Diabetes mellitus type 2. Continue Levemir 10 units at bedtime, NovoLog scale before meals and at bedtime. A1c 6.1 on October 16. 9. Diabetic neuropathy. Continue gabapentin 200 mg twice daily. 10. Chronic atrial fibrillation. Eliquis on hold. 11. Hypertension. Patient is now longer on lisinopril and is hypotensive. 12. Hyperlipidemia. Hold lovastatin. 13. COPD without exacerbation. Continue DuoNeb treatments 4 times daily as needed, continue Pulmicort twice daily. 14. Small mass on the pancreatic head. Plan to discuss situation with patient's daughter. 15. Gastroesophageal reflux disease. Continue Protonix 40 mg daily. 15. DVT prophylaxis. Hold anticoagulation due to INR of 3.1. Patient will be resumed on eliquis eventually. DISCHARGE PLAN Return to [facility] under the care of Dr. Mcmahan. Impression and plan of care have been directed as dictated by the signing physician. Maida Johnson nurse practitioner acting as scribe for signing physician. Objective - Vital Signs Vital signs: Vital Signs Temp 97.5 F L 10/28/20 20:56 Pulse 125 H 10/29/20 08:03 Resp 18 10/29/20 08:00 BP 93/77 10/29/20 08:00 Pulse Ox 93 L 10/29/20 08:00 Intake & Output 10/28/20 10/29/20 10/29/20 18:59 06:59 18:59 Output Total 350 350 Balance -350 -350 Output: Urine 350 Uretheral (Alberto) 350 Other 350 - Labs CBC & Chem 7: 10/29/20 05:44 10/29/20 05:44 Labs: Abnormal Lab Results - Last 24 Hours (Table) 10/28/20 10/28/20 10/28/20 Range/Units 07:18 10:14 10:14 WBC (3.8-10.6) k/uL Hgb (11.4-16.0) gm/dL RDW (11.5-15.5) % PT (9.0-12.0) sec INR (<1.2) Sodium (137-145) mmol/L Potassium (3.5-5.1) mmol/L Chloride (98-107) mmol/L BUN (7-17) mg/dL Creatinine (0.52-1.04) mg/dL Glucose (74-99) mg/dL POC Glucose (mg/dL) (75-99) mg/dL Plasma Lactic Acid Jean-Paul 2.7 H* (0.7-2.0) mmol/L Calcium (8.4-10.2) mg/dL AST (14-36) U/L ALT (4-34) U/L Troponin I 1.080 H* (0.000-0.034) ng/mL Total Protein (6.3-8.2) g/dL Albumin (3.5-5.0) g/dL Urine Protein Trace H (Negative) 10/28/20 10/28/20 10/28/20 Range/Units 12:14 12:45 12:51 WBC (3.8-10.6) k/uL Hgb (11.4-16.0) gm/dL RDW (11.5-15.5) % PT (9.0-12.0) sec INR (<1.2) Sodium (137-145) mmol/L Potassium (3.5-5.1) mmol/L Chloride (98-107) mmol/L BUN (7-17) mg/dL Creatinine (0.52-1.04) mg/dL Glucose (74-99) mg/dL POC Glucose (mg/dL) 131 H (75-99) mg/dL Plasma Lactic Acid Jean-Paul 2.7 H* (0.7-2.0) mmol/L Calcium (8.4-10.2) mg/dL AST (14-36) U/L ALT (4-34) U/L Troponin I 1.060 H* (0.000-0.034) ng/mL Total Protein (6.3-8.2) g/dL Albumin (3.5-5.0) g/dL Urine Protein (Negative) 10/28/20 10/28/20 10/28/20 Range/Units 15:44 18:09 19:24 WBC (3.8-10.6) k/uL Hgb (11.4-16.0) gm/dL RDW (11.5-15.5) % PT (9.0-12.0) sec INR (<1.2) Sodium (137-145) mmol/L Potassium (3.5-5.1) mmol/L Chloride (98-107) mmol/L BUN (7-17) mg/dL Creatinine (0.52-1.04) mg/dL Glucose (74-99) mg/dL POC Glucose (mg/dL) 101 H (75-99) mg/dL Plasma Lactic Acid Jean-Paul 3.2 H* 2.8 H* (0.7-2.0) mmol/L Calcium (8.4-10.2) mg/dL AST (14-36) U/L ALT (4-34) U/L Troponin I (0.000-0.034) ng/mL Total Protein (6.3-8.2) g/dL Albumin (3.5-5.0) g/dL Urine Protein (Negative) 10/28/20 10/29/20 10/29/20 Range/Units 22:47 02:11 02:11 WBC (3.8-10.6) k/uL Hgb (11.4-16.0) gm/dL RDW (11.5-15.5) % PT (9.0-12.0) sec INR (<1.2) Sodium 120 L (137-145) mmol/L Potassium 5.6 H (3.5-5.1) mmol/L Chloride 85 L (98-107) mmol/L BUN 68 H (7-17) mg/dL Creatinine 1.67 H (0.52-1.04) mg/dL Glucose 117 H (74-99) mg/dL POC Glucose (mg/dL) (75-99) mg/dL Plasma Lactic Acid Jean-Paul 3.0 H* 2.2 H* (0.7-2.0) mmol/L Calcium 8.3 L (8.4-10.2) mg/dL AST 474 H (14-36) U/L ALT 398 H (4-34) U/L Troponin I (0.000-0.034) ng/mL Total Protein 5.9 L (6.3-8.2) g/dL Albumin 2.7 L (3.5-5.0) g/dL Urine Protein (Negative) 10/29/20 10/29/20 10/29/20 Range/Units 05:44 05:44 05:44 WBC 19.0 H (3.8-10.6) k/uL Hgb 11.0 L (11.4-16.0) gm/dL RDW 19.4 H (11.5-15.5) % PT 29.7 H (9.0-12.0) sec INR 3.1 H (<1.2) Sodium (137-145) mmol/L Potassium (3.5-5.1) mmol/L Chloride (98-107) mmol/L BUN (7-17) mg/dL Creatinine (0.52-1.04) mg/dL Glucose (74-99) mg/dL POC Glucose (mg/dL) (75-99) mg/dL Plasma Lactic Acid Jean-Paul 2.2 H* (0.7-2.0) mmol/L Calcium (8.4-10.2) mg/dL AST (14-36) U/L ALT (4-34) U/L Troponin I (0.000-0.034) ng/mL Total Protein (6.3-8.2) g/dL Albumin (3.5-5.0) g/dL Urine Protein (Negative)
[2020-10-29] MEDS: FUROSEMIDE 10 MG/ML 10 ML VIAL IV SCH ×3 (12:17→23:34)
[2020-10-29] MEDS: ASPIRIN 81 MG PO SCH (12:28)
[2020-10-29] MEDS: MEROPENEM 1 GM in SODIUM CHLORIDE 0.9% 100 ML IVPB SCH ×2 (12:29→23:34)
[2020-10-29] MEDS: METHYL SALICYLATE/MENTHOL CREAM 5 OZ TOPICAL SCH (12:29)
[2020-10-29] MEDS: HYDROPHILIC CREAM 180 GM TUBE TOPICAL SCH ×2 (12:30→23:34)
[2020-10-29 13:47] LABS: Glucose,Whole Blood 54 mg/dL (75-99)
[2020-10-29] MEDS: DEXTROSE 50% SYRINGE 50 ML IVP STA ×2 (13:49→14:15)
[2020-10-29 14:18] LABS: Glucose,Whole Blood 48 mg/dL (75-99)
[2020-10-29 14:18] LABS: Glucose,Whole Blood 61 mg/dL (75-99)
[2020-10-29 14:32] LABS: Glucose,Whole Blood 84 mg/dL (75-99)
--- NOTE | 2020-10-29 14:41 | P.PN ---
Subjective Progress Note Date: 10/29/20 This is a 75-year-old patient who was transferred from [facility] for further evaluation of dyspnea. She has a known history of COPD, oxygen dependence, chronic persistent atrial fibrillation, diabetes, hypertension, hyperlipidemia, history of OH, PVD, chronic lower extremity ulceration with previous fem-pop bypass and stenting and chronic ulceration. She's been complaining of progressive dyspnea and because of that was sent to the emergency room and subsequently admitted. She continues being ER hold. We are consulted because of mild troponin elevation. She denies any chest discomfort. She complains of dyspnea on exertion. Denies any dizziness or palpitation. Her activity is quite limited. She does not recall any prior cardiac history according to her but she does recall being told she has an irregular heartbeat. She has a history of chronic tobacco use and stopped smoking a few months ago. Chest x- ray and admission showed findings most consistent with CHF with no interval change. EKG showed atrial fibrillation with a heart rate of 103. The alek are elevated at 1.26, 1.08 1.06. NT proBNP was elevated at 37,200. There is evidence of acute kidney injury and nephrology has been consult it. IV Lasix has been increased to 80 mg every 8 hours. Her anticoagulation continues to be on hold due to elevated INR of 3.1. Objective - Vital Signs Vital signs: Vital Signs Temp 97.5 F L 10/28/20 20:56 Pulse 114 H 10/29/20 12:46 Resp 18 10/29/20 12:46 BP 107/76 10/29/20 12:46 Pulse Ox 96 10/29/20 12:46 Intake & Output 10/28/20 10/29/20 10/29/20 18:59 06:59 18:59 Output Total 350 350 Balance -350 -350 Output: Urine 350 Uretheral (Alberto) 350 Other 350 - Exam PHYSICAL EXAMINATION: HEENT: Head is atraumatic, normocephalic. Pupils equal, round. Neck is supple. There is no elevated jugular venous pressure. HEART EXAMINATION: Heart sounds irregularly irregular, S1 and S2 with a systolic murmur. CHEST EXAMINATION: Lungs are diminished to auscultation bilaterally. No chest wall tenderness is noted on palpation or with deep breathing. ABDOMEN: Soft, nontender. Bowel sounds are heard. No organomegaly noted. EXTREMITIES: Significant ulceration noted on the lower extremities with significant discoloration of her fingers and toes and absence of distal pulses. . - Labs CBC & Chem 7: 10/29/20 05:44 10/29/20 05:44 Labs: Abnormal Lab Results - Last 24 Hours (Table) 10/28/20 10/28/20 10/28/20 Range/Units 15:44 18:09 19:24 WBC (3.8-10.6) k/uL Hgb (11.4-16.0) gm/dL RDW (11.5-15.5) % PT (9.0-12.0) sec INR (<1.2) Sodium (137-145) mmol/L Potassium (3.5-5.1) mmol/L Chloride (98-107) mmol/L BUN (7-17) mg/dL Creatinine (0.52-1.04) mg/dL Glucose (74-99) mg/dL POC Glucose (mg/dL) 101 H (75-99) mg/dL Plasma Lactic Acid Jean-Paul 3.2 H* 2.8 H* (0.7-2.0) mmol/L Calcium (8.4-10.2) mg/dL AST (14-36) U/L ALT (4-34) U/L CK-MB (CK-2) (0.0-2.4) ng/mL Total Protein (6.3-8.2) g/dL Albumin (3.5-5.0) g/dL 10/28/20 10/29/20 10/29/20 Range/Units 22:47 02:11 02:11 WBC (3.8-10.6) k/uL Hgb (11.4-16.0) gm/dL RDW (11.5-15.5) % PT (9.0-12.0) sec INR (<1.2) Sodium 120 L (137-145) mmol/L Potassium 5.6 H (3.5-5.1) mmol/L Chloride 85 L (98-107) mmol/L BUN 68 H (7-17) mg/dL Creatinine 1.67 H (0.52-1.04) mg/dL Glucose 117 H (74-99) mg/dL POC Glucose (mg/dL) (75-99) mg/dL Plasma Lactic Acid Jean-Paul 3.0 H* 2.2 H* (0.7-2.0) mmol/L Calcium 8.3 L (8.4-10.2) mg/dL AST 474 H (14-36) U/L ALT 398 H (4-34) U/L CK-MB (CK-2) (0.0-2.4) ng/mL Total Protein 5.9 L (6.3-8.2) g/dL Albumin 2.7 L (3.5-5.0) g/dL 10/29/20 10/29/20 10/29/20 Range/Units 05:44 05:44 05:44 WBC 19.0 H (3.8-10.6) k/uL Hgb 11.0 L (11.4-16.0) gm/dL RDW 19.4 H (11.5-15.5) % PT 29.7 H (9.0-12.0) sec INR 3.1 H (<1.2) Sodium (137-145) mmol/L Potassium (3.5-5.1) mmol/L Chloride (98-107) mmol/L BUN (7-17) mg/dL Creatinine (0.52-1.04) mg/dL Glucose (74-99) mg/dL POC Glucose (mg/dL) (75-99) mg/dL Plasma Lactic Acid Jean-Paul 2.2 H* (0.7-2.0) mmol/L Calcium (8.4-10.2) mg/dL AST (14-36) U/L ALT (4-34) U/L CK-MB (CK-2) (0.0-2.4) ng/mL Total Protein (6.3-8.2) g/dL Albumin (3.5-5.0) g/dL 10/29/20 10/29/20 10/29/20 Range/Units 05:44 05:44 13:45 WBC (3.8-10.6) k/uL Hgb (11.4-16.0) gm/dL RDW (11.5-15.5) % PT (9.0-12.0) sec INR (<1.2) Sodium 121 L (137-145) mmol/L Potassium 5.7 H (3.5-5.1) mmol/L Chloride 86 L (98-107) mmol/L BUN 68 H (7-17) mg/dL Creatinine 1.79 H (0.52-1.04) mg/dL Glucose 112 H (74-99) mg/dL POC Glucose (mg/dL) 54 L (75-99) mg/dL Plasma Lactic Acid Jean-Paul (0.7-2.0) mmol/L Calcium 8.1 L (8.4-10.2) mg/dL AST 486 H (14-36) U/L ALT 430 H (4-34) U/L CK-MB (CK-2) 11.9 H (0.0-2.4) ng/mL Total Protein 5.9 L (6.3-8.2) g/dL Albumin 2.7 L (3.5-5.0) g/dL 10/29/20 10/29/20 Range/Units 14:08 14:10 WBC (3.8-10.6) k/uL Hgb (11.4-16.0) gm/dL RDW (11.5-15.5) % PT (9.0-12.0) sec INR (<1.2) Sodium (137-145) mmol/L Potassium (3.5-5.1) mmol/L Chloride (98-107) mmol/L BUN (7-17) mg/dL Creatinine (0.52-1.04) mg/dL Glucose (74-99) mg/dL POC Glucose (mg/dL) 48 L 61 L (75-99) mg/dL Plasma Lactic Acid Jean-Paul (0.7-2.0) mmol/L Calcium (8.4-10.2) mg/dL AST (14-36) U/L ALT (4-34) U/L CK-MB (CK-2) (0.0-2.4) ng/mL Total Protein (6.3-8.2) g/dL Albumin (3.5-5.0) g/dL Microbiology - Last 24 Hours (Table) 10/28/20 07:25 Blood Culture - Preliminary Blood No Growth after 24 hours 10/28/20 07:05 Blood Culture - Preliminary Blood No Growth after 24 hours Assessment and Plan Assessment: 1 progressive dyspnea, multifactorial in patient with a history of chronic tobacco use and history of CAD she may have some element of diastolic heart failure #2 severe peripheral vascular disease #3 venous ulceration #4 troponin elevation could be related to a type II event #5 probable infectious process could be related to her lower extremities with elevated lactic acid as well as leukocytosis #6 acute kidney injury #7 history of chronic tobacco use and chronic obstructive lung disease #8 chronic persistent atrial fibrillation Plan: From cardiology's perspective continued diuresis and monitor the renal function and electrolytes closely. Continue aspirin 81 mg daily. Continue to hold the Eliquis due to elevated INR. Her prognosis is quite guarded. She is not a candidate for aggressive cardiac workup. We will continue to follow the patient closely and provide further recommendations accordingly. [employer] note has been reviewed, I agree with a documented findings and plan of care. Patient was seen and examined.
[2020-10-29 14:54] LABS: Glucose,Whole Blood 106 mg/dL (75-99)
[2020-10-29] MEDS: COLLAGENASE 250 UNIT/GM OINTMENT 30 GM TUBE TOPICAL SCH ×2 (15:23→23:34)
[2020-10-29] MEDS: MULTIVITAMINS, THERA 1 EACH TAB PO SCH (16:00)
[2020-10-29 18:51] LABS: Glucose,Whole Blood 160 mg/dL (75-99)
[2020-10-29 23:17] LABS: Glucose,Whole Blood 89 mg/dL (75-99)
[2020-10-30 02:21] LABS: Glucose,Whole Blood 74 mg/dL (75-99)
[2020-10-30] MEDS: INSULIN ASPART (NovoLOG) 100 UNIT/ML VIAL SQ SCH (03:30)
[2020-10-30] MEDS: INSULIN DETEMIR (LEVEMIR) 100 UNIT/ML SYR SQ SCH (03:30)
[2020-10-30 06:24] LABS: Glucose,Whole Blood 104 mg/dL (75-99)
[2020-10-30] MEDS: BUDESONIDE 0.5 MG/2 ML NEBU INHALATION SCH (07:28)
[2020-10-30] MEDS: FUROSEMIDE 10 MG/ML 10 ML VIAL IV SCH (08:51)
[2020-10-30] MEDS: MEROPENEM 1 GM in SODIUM CHLORIDE 0.9% 100 ML IVPB SCH (08:51)
[2020-10-30] MEDS: PANTOPRAZOLE 40 MG TABLET PO SCH (08:52)
[2020-10-30] MEDS: DULoxetine HCL 30 MG CAPSULE.DR PO SCH (08:52)
[2020-10-30] MEDS: SPIRONOLACTONE 25 MG TAB PO SCH (08:52)
[2020-10-30] MEDS: ASPIRIN 81 MG PO SCH (08:52)
[2020-10-30] MEDS: GABAPENTIN 100 MG CAP PO SCH (08:52)
[2020-10-30] MEDS: CALCIUM CARBONATE 500 MG CHEWABLE PO SCH (08:52)
[2020-10-30] MEDS: METHYL SALICYLATE/MENTHOL CREAM 5 OZ TOPICAL SCH (08:53)
[2020-10-30] MEDS: NYSTATIN 100,000UNIT/GM CREAM 30 GM TUBE TOPICAL SCH (08:53)
[2020-10-30] MEDS: HYDROPHILIC CREAM 180 GM TUBE TOPICAL SCH (08:53)
[2020-10-30 10:40] VITALS: BP 100/61; PULSE 80; RESP 30; TEMP 97.1
--- NOTE | 2020-10-30 12:34 | ECHOF ---
Referral Reason:LVF MEASUREMENTS -------- HEIGHT: 167.6 cm WEIGHT: 88.5 kg BP: 92/52 RVIDd: 5.1 cm (< 3.3) IVSd: 1.5 cm (0.6 - 1.1) LVIDd: 4.8 cm (3.9 - 5.3) LVPWd: 2.0 cm (0.6 - 1.1) IVSs: 1.4 cm LVIDs: 3.2 cm LVPWs: 1.7 cm LAESV Index (A-L): 78.72 ml/m Ao Diam: 2.5 cm (2.0 - 3.7) AV Cusp: 1.2 cm (1.5 - 2.6) LA Diam: 5.3 cm (2.7 - 3.8) RAP: 5.00 mmHg RVSP: 18.40 mmHg FINDINGS -------- Sinus rhythm. This was a technically adequate study. The left ventricular size is normal. There is moderate concentric left ventricular hypertrophy. O verall left ventricular systolic function is moderate-severely impaired with, an EF between 30 - 35 % . The right ventricle is severely enlarged. Left atrium is severely dilated by volume. The right atrium is moderately enlarged. Interatrial and interventricular septum intact. There is moderate aortic valve sclerosis without stenosis. There is no evidence of aortic regurgita tion. There is no evidence of aortic stenosis. Severe mitral annular calcification present. Severe mitral regurgitation is present. Severe tricuspid regurgitation present. Unable to estimate RVSP due to inadequate TR jet spectral d oppler profile. There is no pulmonic regurgitation present. The aortic root size is normal. There is no pericardial effusion. CONCLUSIONS -------- 1. The left ventricular size is normal. 2. There is moderate concentric left ventricular hypertrophy. 3. Overall left ventricular systolic function is moderate-severely impaired with, an EF between 30 - 35 %. 4. The right ventricle is severely enlarged. 5. Left atrium is severely dilated by volume. 6. The right atrium is moderately enlarged. 7. There is no evidence of aortic regurgitation. 8. Severe mitral annular calcification present. 9. Severe mitral regurgitation is present. 10. Severe tricuspid regurgitation present. CHEMISTRY PROFESSOR: [facility]
--- NOTE | 2020-10-30 12:56 | P.DS ---
Providers Date of admission: 10/28/20 09:08 Expected date of discharge: 10/30/20 Attending physician: Saul Mcmahan Consults: 10/28/20 09:34 Consult Physician Routine Consulting Provider: Lan Elena Consult Reason/Comments: PVD, wounds Do you want consulting provider notified?: Yes 10/28/20 11:16 Consult Physician Routine Consulting Provider: Prasanna Powers Consult Reason/Comments: elevated troponins Do you want consulting provider notified?: Yes 10/28/20 11:17 Consult Physician Routine Consulting Provider: Nic Alves Consult Reason/Comments: JENNIFER, hyponatremia Do you want consulting provider notified?: Yes [facility] Course: HISTORY OF PRESENT ILLNESS This is a 75-year-old female patient of Dr. Mcmahan resides at [facility] with past medical history significant for diabetes mellitus type 2, COPD, chronic hypoxic respiratory failure on home O2, chronic diastolic heart failure, chronic atrial fibrillation hypertension, hyperlipidemia, previous myocardial infarction, chronic lower extremity ulcers, peripheral vascular occlusive disease with previous fem-pop bypass and stenting, history of chronic tobacco use. She has chronic diabetic ulcers for which [facility] Jade last seen on October 25. The patient states that she thinks her wound on her left lower leg is getting worse. Patient apparently recently completed 2 courses of antibiotics. No significant pain to the wounds. Denies any fever or chills. At the care home, patient was having mental status changes, fevers and worsening of her wounds just bite treatment. Patient was more lethargic and fatigued. Lab work was obtained which revealed a white count of 22.3, hemoglobin 10.2, sodium was 125, liver enzymes were elevated and it was decided the patient needed to be further evaluated in the hospital. Patient was hospitalization was in July of this year which time she was treated for chronic bilateral venous diabetic ulcers. She was seen by vascular surgery but did not undergo debridement on that occasion. She was seen by Dr. Cramer and he recommended meropenem which was continued at the care home. Patient was also followed by nephrology for hypovolemic hyponatremia. Patient came into [facility] emergency center and found to be afebrile, heart rate in the 90s, blood pressure 101/75, pulse ox 95% on 2 L nasal cannula. Additional lab work included INR of 2.8. Sodium is 123, potassium 5.8, chloride 87, CO2 24, BUN 61 and creatinine 1.51. Lactic acid 3.4 with repeat of 2.7. Total bilirubin 1.4, AST 438, ALT 304. Troponin was found to be elevated at 1.260. ProBNP 37,200. Albumin 2.9. Urinalysis was negative for infection. Coronavirus PCR not detected. Chest x-ray was consistent with heart failure with no interval change. Patient was started on ceftriaxone, Lasix 40 mg IV every 12 hours, admitted to the cardiac stepdown unit, consults with cardiology, vascular surgery and wound team. 10/29: Patient is seen today in the emergency center still waiting for a cardiac stepdown bed. She has been seen by vascular surgery and apparently no surgical intervention is recommended. Patient has also been seen by cardiology and plans to continue diuresis seen and holding eliquis due to elevated INR. Patient currently in A. fib with RVR at 135 bpm. Outpatient denies significant pain and states she is comfortable. She states she does not have any appetite. Discussed overall prognosis with the patient and she does not seem to understand the gravity of her current situation. She is in agreement that we can contact her daughter Laney Strong. She resides in [place]. Attempted to call number available and there was no answer and no voicemail availability. Patient is afebrile, blood pressure 93/77, pulse ox 93% on 4 L nasal cannula. Repeat blood work reveals WBC 19.0, hemoglobin 11, platelet count 200. INR 3.1. Sodium 121, potassium 5.7, chloride 86, CO2 25, BUN 68 and creatinine 1.79. Blood sugar 112. Lactic acid 2.2. Total bilirubin 1.1, AST 486, ALT 430, alkaline phosphatase 99. Acute hepatitis panel negative. Blood culture no growth at 24 hours. Patient has also been seen and followed by nephrology and ultrasound of the kidneys has been ordered and Lasix increased to 80 mg 3 times daily IV. Further attempts will be made to contact the patient's daughter. Liver ultrasound is limited due to patient's condition. Gallstones with mild gallbladder wall thickening. Small mass in the pancreatic head. CT abdomen might be further useful. No intraperitoneal fluid. Unremarkable liver. 10/30: The patient was made no CODE STATUS last evening. Patient this morning. Please see nursing documentation for details. ASSESSMENT AND PLAN 1. Sepsis secondary to chronic bilateral venous and diabetic ulcers worsening. 2. Acute kidney injury. 3. Acute on chronic diastolic heart failure. 4. Hyponatremia. 5. Metabolic encephalopathy secondary to sepsis. 6. Elevated liver enzymes of unclear etiology. 7. Hypercoagulopathy with INR of 2.8 secondary to sepsis. 8. Diabetes mellitus type 2. 9. Diabetic neuropathy. 10. Chronic atrial fibrillation. 11. Hypertension. 12. Hyperlipidemia. 13. COPD without exacerbation. 14. Small mass on the pancreatic head. 15. Gastroesophageal reflux disease. Impression and plan of care have been directed as dictated by the signing physician. Maida Johnson nurse practitioner acting as scribe for signing physician. Patient Condition at Discharge: Undetermined Plan - Discharge Summary Discharge Rx Participant: No New Discharge Prescriptions: No Action Multivit-Min/FA/Lycopen/Lutein [Centrum Silver Tablet] 1 tab PO DAILY@1700 Lovastatin [Mevacor] 40 mg PO HS@2100 Pantoprazole [Protonix] 40 mg PO DAILY@0800 Ipratropium-Albuterol Nebulize [Duoneb 0.5 mg-3 mg/3 ml Soln] 3 ml INHALATION RT-QID PRN ml PRN Reason: Shortness Of Breath Or Wheezing Albuterol Nebulized [Ventolin Nebulized] 2.5 mg INHALATION RT-QID PRN PRN Reason: Shortness Of Breath Spironolactone [Aldactone] 12.5 mg PO DAILY@0800 Magnesium Hydroxide [Milk of Magnesia Concentrate] 7,200 mg PO Q48H PRN PRN Reason: Constipation Loperamide HCl [Imodium A-D] 4 mg PO QID PRN PRN Reason: Diarrhea Lidocaine 5% Oint [Xylocaine 5% Oint] 1 mm TOPICAL DAILY PRN PRN Reason: wound bed Budesonide [Pulmicort] 0.5 mg INHALATION RT-BID@0800,2100 bisacodyL [Bisacodyl] 10 mg RECTAL DAILY PRN PRN Reason: Constipation Liquical 30 ml PO DAILY@1200 Gabapentin [Neurontin] 200 mg PO BID@0800,2100 #12 cap Triamcinolone 0.5% Cream [Kenalog 0.5% Cream] 1 applic TOPICAL BID@0800,2100 Collagenase [Santyl] 1 applic TOPICAL DAILY HYDROcodone/APAP 5-325MG [[place] 5-325] 1 tab PO Q6H PRN PRN Reason: Pain/Discomfort Menthol [Biofreeze] 1 applic TOPICAL DAILY PRN PRN Reason: PAIN-KNEES AND SHOULDERS INSULIN ASPART (NovoLOG) [NovoLOG (formulary)] See Protocol SQ TID@0700,1100,1630 Apixaban [Eliquis] 5 mg PO BID@0800,1700 Insulin Detemir (Levemir) [Levemir] 10 unit SQ HS@2099 Nystatin 100,000Unit/gm Cream [Mycostatin Cream] 1 applic TOPICAL BID@0800,2100 Hydrophilic Cream [Triad Cream] 1 applic TOPICAL BID Nystatin 100,000 Unit/gm Powd [Mycostatin Powder] 1 applic TOPICAL DAILY PRN PRN Reason: EXCORIATION-BREASTS/SKIN FOLDS Na Phos,M-B/Na Phos,Di-Ba [Fleet Adult] 133 ml RECTAL DAILY PRN PRN Reason: Constipation Calcium Carbonate [Tums] 500 mg PO TID@0800,1200,1700 0.9 % Sodium Chloride [Sodium Chloride Flush] 10 ml IV TID Nepro 120 ml PO BID@0800,1700 Menthol [Biofreeze] 1 applic TOPICAL BID@0800,1700 Tolvaptan [Samsca] 15 mg PO WETH@0800 Torsemide [Demadex] 40 mg PO DAILY@0800 DULoxetine HCL [Cymbalta] 30 mg PO DAILY@0800 Discharge Medication List Lovastatin [Mevacor] 40 mg PO HS@209909/20/15 [History] Multivit-Min/FA/Lycopen/Lutein [Centrum Silver Tablet] 1 tab PO DAILY@1700 09/20/15 [History] Pantoprazole [Protonix] 40 mg PO DAILY@0800 03/23/20 [History] Ipratropium-Albuterol Nebulize [Duoneb 0.5 mg-3 mg/3 ml Soln] 3 ml INHALATION RT-QID PRN ml 03/27/20 [Rx] Albuterol Nebulized [Ventolin Nebulized] 2.5 mg INHALATION RT-QID PRN 06/07/20 [History] Budesonide [Pulmicort] 0.5 mg INHALATION RT-BID@0800,209908/02/20 [History] Lidocaine 5% Oint [Xylocaine 5% Oint] 1 mm TOPICAL DAILY PRN 08/02/20 [History] Liquical 30 ml PO DAILY@1200 08/02/20 [History] Loperamide HCl [Imodium A-D] 4 mg PO QID PRN 08/02/20 [History] Magnesium Hydroxide [Milk of Magnesia Concentrate] 7,200 mg PO Q48H PRN 08/02/20 [History] Spironolactone [Aldactone] 12.5 mg PO DAILY@0800 08/02/20 [History] bisacodyL [Bisacodyl] 10 mg RECTAL DAILY PRN 08/02/20 [History] Gabapentin [Neurontin] 200 mg PO BID@0800,2099 #12 cap 08/10/20 [Rx] 0.9 % Sodium Chloride [Sodium Chloride Flush] 10 ml IV TID 10/28/20 [History] Apixaban [Eliquis] 5 mg PO BID@0800,17010/28/20 [History] Calcium Carbonate [Tums] 500 mg PO TID@0800,1200,17010/28/20 [History] Collagenase [Santyl] 1 applic TOPICAL DAILY 10/28/20 [History] DULoxetine HCL [Cymbalta] 30 mg PO DAILY@0810/28/20 [History] HYDROcodone/APAP 5-325MG [[place] 5-325] 1 tab PO Q6H PRN 10/28/20 [History] Hydrophilic Cream [Triad Cream] 1 applic TOPICAL BID 10/28/20 [History] INSULIN ASPART (NovoLOG) [NovoLOG (formulary)] See Protocol SQ TID@0700,1100,1630 10/28/20 [History] Insulin Detemir (Levemir) [Levemir] 10 unit SQ HS@209910/28/20 [History] Menthol [Biofreeze] 1 applic TOPICAL BID@0800,17010/28/20 [History] Menthol [Biofreeze] 1 applic TOPICAL DAILY PRN 10/28/20 [History] Na Phos,M-B/Na Phos,Di-Ba [Fleet Adult] 133 ml RECTAL DAILY PRN 10/28/20 [History] Nepro 120 ml PO BID@0800,1700 10/28/20 [History] Nystatin 100,000 Unit/gm Powd [Mycostatin Powder] 1 applic TOPICAL DAILY PRN 10/28/20 [History] Nystatin 100,000Unit/gm Cream [Mycostatin Cream] 1 applic TOPICAL BID@08,209910/28/20 [History] Tolvaptan [Samsca] 15 mg PO WETH@79910/28/20 [History] Torsemide [Demadex] 40 mg PO DAILY@79910/28/20 [History] Triamcinolone 0.5% Cream [Kenalog 0.5% Cream] 1 applic TOPICAL BID@08,209910/28/20 [History] Follow up Appointment(s)/Referral(s): Les Ortiz DO [Doctor of Osteopathic Medicine] - 1 Week Saul Mcmahan MD [Primary Care Provider] - 1-2 days Discharge Disposition: - Preliminary Cause of Preliminary Cause of : Acute coronary syndrome
--- NOTE | 2020-10-31 08:31 | US ---
EXAMINATION TYPE: US kidneys/renal and bladder DATE OF EXAM: 10/29/2020 COMPARISON: NONE CLINICAL HISTORY: renal failure. EXAM MEASUREMENTS: Right Kidney: 10.3 x 4.4 x 5.0 cm Left Kidney: 9.2 x 3.8 x 4.4 cm Urinary bladder has limited evaluation of the incompletely distended during the exam. Patient body escobedo bitus also causes limitation of the exam IMPRESSION: 1. Bilateral kidneys appear within normal limits. 2. Limited evaluation of the bladder
[2020-11-01] MEDS ORDERED: TOLVAPTAN 15 MG 1/2 TABLET PO SCH (08:00)
--- NOTE | 2020-12-04 09:08 | CDI ---
Documentation Clarification Form Date: 12/05/2020 08:54:55 AM From: Sri Gandhi CCS, CCDS Admit Date: 10/28/2020 09:08:00 AM Patient Name: Tanya Strong Visit Number: [id number] Discharge Date: 10/30/2020 01:30:00 PM ATTENTION: The Clinical Documentation Specialists (CDI) and [facility] Coding Staff appreciate your assistance in clarifying documentation. Please respond to the clarification below the line at the bottom and electronically sign. The CDI & [facility] Coding staff will review the response and follow-up if needed. Please note: Queries are made part of the Legal Health Record. If you have any questions, please contact the author of this message via ITS. Dr. Saul Mcmahan: Conflicting documentation has been found in the medical record. As attending physician, please provide clarification. Acute Renal Injury is documented in the 10/28 H/P, subsequent Progress Notes and in the 10/30 Discharge Summary. Per the 10/29 Nephrology Consult: Acute kidney injury secondary to prerenal state, possible sepsis f from ischemic feet, low blood pressure systolic in the 93 range. Creatinine is going up. Minimal urine output. Likely she is ATN. History/Risk Factors per the 10/28 H/P History of Present Illness: DM II, COPD, Chronic Respiratory Failure on Home O2, Chronic Diastolic Heart Failure, Chronic Atrial Fibrillation, Hypertension, Hyperlipidemia, IA, Chronic lower extremity ulcers, Peripheral vascular occlusive disease status post fem-pop bypass and stenting, Former smoker. Clinical Indicators: Presented to the ED on 10/28 via [facility] with abnormal labs, elevated WBC at 22, increased congestion. ED Clinical Impression: NSTEMI, CHF, Atrial Fibrillation, Transaminitis, Hyperkalemia, Hyponatremia. 10/28 LAB: WBC 21.7, Neut 19.3, Lymph 0.7, Na 123, K 5.8, Cl 87, BUN 61, Cr 1.51, GFR 34, Glucose 136, Lactic Acid 3.4, Calcium 8.3, Total Bili 1.4, AST 438, ALT 304, Troponin 1.260, 1.080, 1.060; BNP 51185 10/31 Kidney Bladder US: Bilateral kidneys appear within normal limits. Limited evaluation of the bladder. Treatment 10/28: IV Rocephin, IV Lasix 40 mg x2, INH Duoneb, IV Meropenem, po Aspirin Please clarify which diagnosis is most appropriate: [ ] Acute Kidney Injury [ xx] Acute Kidney Injury with Acute Tubular Necrosis [ ] Other (please specify) [ ] Unable to determine (Template Last Revised: July 2020) MTDD
--- NOTE | 2020-12-04 09:38 | CDI ---
Documentation Clarification Form Date: 12/04/2020 09:31:00 AM From: Sri Gandhi CCS, CCDS Admit Date: 10/28/2020 09:08:00 AM Patient Name: Tanya Strong Visit Number: [id number] Discharge Date: 10/30/2020 01:30:00 PM ATTENTION: The Clinical Documentation Specialists (CDI) and [facility] Coding Staff appreciate your assistance in clarifying documentation. Please respond to the clarification below the line at the bottom and electronically sign. The CDI & [facility] Coding staff will review the response and follow-up if needed. Please note: Queries are made part of the Legal Health Record. If you have any questions, please contact the author of this message via ITS. Dr. Saul Mcmahan: There is conflicting documentation regarding documented NSTEMI, possible Type II event and Acute Coronary Syndrome. Per the 10/28 ED Note, the patient is admitted with a NSTEMI. Per the 10/28 Cardiology Consult and 10/29 Progress Note: Troponin elevation could be related to a Type II event. Per the 10/30 Discharge Summary: Cardiology is consulted for elevated troponins. Preliminary Cause of : Acute Coronary Syndrome. Additional clarification regarding the type of FL, cause of elevated troponins and ACS is requested. History/Risk Factors per the 10/28 H/P History of Present Illness: DM II, COPD, Chronic Respiratory Failure on Home O2, Chronic Diastolic Heart Failure, Chronic Atrial Fibrillation, Hypertension, Hyperlipidemia, FL, Chronic lower extremity ulcers, Peripheral vascular occlusive disease status post fem-pop bypass and stenting, Former smoker. Clinical Indicators: Presented to the ED on 10/28 via EMS from a [facility] with abnormal labs, elevated WBC at 22, increased congestion. ED Clinical Impression: NSTEMI, CHF, Atrial Fibrillation, Transaminitis, Hyperkalemia, Hyponatremia. 10/28 LAB: WBC 21.7, Neut 19.3, Lymph 0.7, Na 123, K 5.8, Cl 87, BUN 61, Cr 1.51, GFR 34, Glucose 136, Lactic Acid 3.4, Calcium 8.3, Total Bili 1.4, AST 438, ALT 304, Troponin 1.260, 1.080, 1.060; BNP 60994 10/31 Kidney Bladder US: Bilateral kidneys appear within normal limits. Limited evaluation of the bladder. Treatment 10/28: IV Rocephin, IV Lasix 40 mg x2, INH Duoneb, IV Meropenem, po Aspirin Please clarify the following and if Present on Admission or ruled out: [ xx ] NSTEMI [ ] Type II FL due to (please specify etiology) [ ] Myocardial Infarction ruled out [ ] Unable to determine [ ] Other Condition, please specify (Template Last Revised: July 2020) MTDD
== END 2020-10-30 13:30 | disposition expired | DRG 871 ==
LOC: EC 06:37 → 3SCARD 09:08
PROVIDERS: ADMIT Internal Medicine Geriatric Medicine; ATTEND Internal Medicine Geriatric Medicine
DX: A41.9 Sepsis, unspecified organism (principal); I21.4 Non-ST elevation (NSTEMI) myocardial infarction; I50.33 Acute on chronic diastolic (congestive) heart failure; G93.41 Metabolic encephalopathy; N17.0 Acute kidney failure with tubular necrosis; I13.0 Hypertensive heart and chronic kidney disease with heart failure and stage 1 through stage 4 chronic kidney disease, or unspecified chronic kidney disease; E87.1 Hypo-osmolality and hyponatremia; J96.11 Chronic respiratory failure with hypoxia; I48.19 Other persistent atrial fibrillation; Z16.24 Resistance to multiple antibiotics; D68.69 Other thrombophilia; L97.219 Non-pressure chronic ulcer of right calf with unspecified severity; L97.229 Non-pressure chronic ulcer of left calf with unspecified severity; Z20.822 Contact with and (suspected) exposure to COVID-19; E87.5 Hyperkalemia; J44.9 Chronic obstructive pulmonary disease, unspecified; R74.01 Elevation of levels of liver transaminase levels; E11.40 Type 2 diabetes mellitus with diabetic neuropathy, unspecified; E11.22 Type 2 diabetes mellitus with diabetic chronic kidney disease; E11.51 Type 2 diabetes mellitus with diabetic peripheral angiopathy without gangrene; E11.622 Type 2 diabetes mellitus with other skin ulcer; E78.5 Hyperlipidemia, unspecified; I25.10 Atherosclerotic heart disease of native coronary artery without angina pectoris; D63.1 Anemia in chronic kidney disease; K21.9 Gastro-esophageal reflux disease without esophagitis; K86.9 Disease of pancreas, unspecified; N18.9 Chronic kidney disease, unspecified; R65.20 Severe sepsis without septic shock; T50.0X5A Adverse effect of mineralocorticoids and their antagonists, initial encounter; I27.22 Pulmonary hypertension due to left heart disease; E86.1 Hypovolemia; F32.9 Major depressive disorder, single episode, unspecified; K80.20 Calculus of gallbladder without cholecystitis without obstruction; I08.1 Rheumatic disorders of both mitral and tricuspid valves; I70.228 Atherosclerosis of native arteries of extremities with rest pain, other extremity; Z79.01 Long term (current) use of anticoagulants; Z79.4 Long term (current) use of insulin; Z79.899 Other long term (current) drug therapy; Z90.710 Acquired absence of both cervix and uterus; Z95.5 Presence of coronary angioplasty implant and graft; Z99.81 Dependence on supplemental oxygen; Z83.3 Family history of diabetes mellitus; Z82.49 Family history of ischemic heart disease and other diseases of the circulatory system; Z87.891 Personal history of nicotine dependence; I25.2 Old myocardial infarction
CPT/HCPCS: 36415; 71046; 76705; 76770; 80053; 80074; 81003; 82553; 83605; 83735; 83880; 84484; 85025; 85027; 85610; 85730; 87040; 87635; 93005; 93306; 94640; 99291